=== PATIENT | male | born 1985 | race Caucasian/White ===

== ENCOUNTER 2022-03-26 16:28 | Outpatient (REF) | payer MEDICAID, SELFPAY ==
[2022-03-26 17:53] LABS: Anion Gap 8.4 mmol/L (3-11); BUN 12 mg/dL (7-18); CO2 29.6 mmol/L (21.0-32.0); Calcium 9.4 mg/dL (8.5-10.1); Chloride 101 mmol/L (98-107); Estimated GFR 100.66 (mL/min/1.73m2); Glucose 105 mg/dL (74-106); Sodium 139 mmol/L (136-145)
== END 2022-03-26 16:29 | disposition home or self-care (01) ==
LOC: NCHCN 16:28
PROVIDERS: Visit Provider Family Medicine
DX: I10 Essential (primary) hypertension (principal)
CPT/HCPCS: 80048

== ENCOUNTER 2022-05-27 14:30 | Outpatient (REF) | payer MEDICAID, SELFPAY ==
[2022-05-27 14:23] LABS: Abs Immature Grans 0.01 10^3/uL (0.0-0.06); Absolute Basophil Count 0.04 10^3/uL (0.0-0.2); Absolute Lymphocyte Count 1.31 10^3/uL (1.2-3.4); Absolute Monocyte Count 0.49 10^3/uL (0.1-0.8); Absolute Neutrophil Count 2.69 10^3/uL (1.2-6.7); Basophils % 0.9; Eosinophils % 2.2; HCT 41.2 % (40.0-50.0); HGB 14.3 g/dL (13.5-17.5); Immature Grans % 0.2; Lymphocytes % 28.2; MCHC 34.7 % (32.0-36.0); MCV 89 fL (80-95); MPV 11.5 fL (8.0-11.0); Monocytes % 10.6; Neutrophils % 57.9; Platelet Count 243 10^3/uL (130-400); RBC 4.61 10^6/uL (4.36-5.78); RDW 12.9 % (11.8-14.1); RDW-SD 42.5 fL; WBC 4.64 10^3/uL (4.4-10.8)
[2022-05-27 14:30] LABS: ESR 4 mm/hr (0-15)
[2022-05-27 14:44] LABS: ALT 21 U/L (16-63); AST 24 U/L (15-37); Albumin 4.4 g/dL (3.4-5.0); Alkaline Phosphatase 67 U/L (46-116); Anion Gap 6.7 mmol/L (3-11); BUN 8 mg/dL (7-18); Bilirubin, Total 0.5 mg/dL (0.2-1.0); CO2 32.3 mmol/L (21.0-32.0); Calcium 9.5 mg/dL (8.5-10.1); Chloride 101 mmol/L (98-107); Estimated GFR 100.66 (mL/min/1.73m2); Glucose 107 mg/dL (74-106); Potassium 4.5 mmol/L (3.5-5.1); Sodium 140 mmol/L (136-145); TSH (W/Ref FT4) 0.57 uIU/mL (0.36-3.74); Total Protein 7.8 g/dL (6.4-8.2)
== END 2022-05-27 14:31 | disposition home or self-care (01) ==
LOC: NCHCN 14:30
PROVIDERS: PCP Family Medicine; Visit Provider Family Medicine
DX: I10 Essential (primary) hypertension (principal); R53.83 Other fatigue; F41.8 Other specified anxiety disorders; M65.4 Radial styloid tenosynovitis [de Quervain]; R29.898 Other symptoms and signs involving the musculoskeletal system
CPT/HCPCS: 80053; 85652; 84443; 85025

== ENCOUNTER 2022-06-17 16:50 | Outpatient (REF) | payer MEDICAID, SELFPAY ==
[2022-06-19 23:28] LABS: Mycoplasma genitalium Result Negative (Negative); Specimen Source URINE
[2022-06-20 13:40] LABS: Chlamydia Result Negative (Negative); GC Result Negative (Negative)
== END 2022-06-17 16:51 | disposition home or self-care (01) ==
LOC: NCHCN 16:50
PROVIDERS: PCP Family Medicine; Visit Provider Family Medicine
DX: R30.0 Dysuria (principal); K92.1 Melena
CPT/HCPCS: 87491; 87563; 87591; 83993; 87086

== ENCOUNTER 2022-06-18 15:26 | Outpatient (REF) | payer MEDICAID, SELFPAY ==
[2022-06-21 14:36] LABS: Calprotectin <50.0 mcg/g
== END 2022-06-18 15:27 | disposition home or self-care (01) ==
LOC: NCHCN 15:26
PROVIDERS: PCP Family Medicine; Visit Provider Family Medicine
DX: K92.1 Melena (principal)
CPT/HCPCS: 83993

== ENCOUNTER 2022-06-23 01:35 | Outpatient (CLI) | payer MEDICAID, SELFPAY ==
[2022-06-23] MEDS: Barium Sulfate 2% W/V-Berry Smoothie 450 ML BTL PO ×2 (07:16→07:17)
--- NOTE | 2022-06-23 09:07 | DI.CT_ITS ---
Exam(s) CT ABDOMEN PELVIS W EXAM: CT ABDOMEN PELVIS W CLINICAL HISTORY: PERINEAL PAIN R10.2. TECHNIQUE: Imaging Protocol: Axial computed tomography images with coronal and sagittal reformatted images were created and reviewed CONTRAST MATERIAL: Intravenous: Omnipaque 350 Contrast volume:100 ml Oral: yes / no COMPARISON: No exams were available for comparison FINDINGS: ABDOMEN: Lung Bases: Normal where visualized. Liver: Normal density. No measurable mass. Gallbladder and biliary tract: No radiodense calculus or dilation. Pancreas: Normal density, no abnormal calcifications or inflammatory process. Spleen: Normal. Kidneys: Normal size, contour and axis. No radiodense stones or obstructive uropathy. No masses seen. Adrenal glands: No masses seen. Abdominal Aorta: Abdominal portion non-dilated. PELVIS: Bladder: No gross wall thickening. No calculi.No focal mass. Bowel: Large quantity of stool in ascending colon. Remainder: Unremarkable. No small bowel or gastr ic dilatation. No obstruction or bowel wall thickening. Appendix normal. Peritoneal cavity: No ascites, collection or mesenteric inflammatory response. Bones: Within normal limits for age. Reproductive organs: Within normal limits. Lymph nodes: Unremarkable. Soft tissues: Inferior aspect of the perineum is not included on the scan. Impression: Unremarkable CT scan of the abdomen and pelvis. Inferior aspect of the perineum is not included on the scan. If clinically indicated patient could r eturn for additional imaging at no additional charge. RADIATION DOSE DELIVERED: 566.78mGy.cm Total DLP DATA REPOSITORY: All CT scans at this facility are submitted to the National Radiology Data Registry (NRDR) Dose Index Registry (DIR) with the [employer] (ACR). RADIATION OPTIMIZATION: All CT scans at this facility use at least one of these dose optimization te chniques: automated exposure control; mA and/or kV adjustment per patient size (includes targeted exa ms where dose is matched to clinical indication); or iterative reconstruction.
[2022-06-23] MEDS: Omnipaque 350 MG/ML 100 ML BTL IJ (09:21)
[2022-06-23] MEDS: Normal Saline Flush 10 ML SYR IVP (09:23)
== END 2022-06-23 01:55 ==
LOC: DI 01:35
PROVIDERS: PCP Family Medicine; Visit Provider Family Medicine
DX: R10.2 Pelvic and perineal pain (principal)
CPT/HCPCS: 74177; J3490

== ENCOUNTER 2022-06-24 11:14 | Outpatient (REF) | payer MEDICAID, SELFPAY ==
[2022-06-26 19:23] LABS: Calprotectin <50.0 mcg/g
== END 2022-06-24 11:15 | disposition home or self-care (01) ==
LOC: NCHCN 11:14
PROVIDERS: PCP Family Medicine; Visit Provider Family Medicine
DX: K92.1 Melena (principal)
CPT/HCPCS: 83993

== ENCOUNTER 2022-06-25 12:25 | Outpatient (CLI) | payer MEDICAID, SELFPAY ==
--- NOTE | 2022-06-25 11:37 | DI.CT_ITS ---
Exam(s) CT PELVIC W EXAM: CT PELVIC W CLINICAL HISTORY: PERINEAL PAIN, R10.2, PERINEUM NOT ON SCAN OF 06/23/22 TECHNIQUE: Imaging Protocol: Axial computed tomography images with coronal and sagittal reformatted images were created and reviewed CONTRAST MATERIAL: Intravenous: Omnipaque 350 Contrast volume:98 mL Oral: No COMPARISON: CT CT ABDOMEN PELVIS W from 06/23/2022 FINDINGS: PELVIS: Abdominal Aorta: Abdominal portion non-dilated. Bowel: No obstruction or bowel wall thickening. Appendix is unremarkable. There is residual oral cont rast in the: From the patient's CT scan from 06/23/2022. Peritoneal Cavity: No ascites, collection or mesenteric inflammatory response. Soft Tissues: There is mild asymmetric thickening to the right of the anus. But no focal fluid colle ction is seen. Bladder: Symmetric distention, no gross wall thickening. Reproductive Organs: Unremarkable as visualized. Lymph Nodes: Within normal limits. Bones: Within normal limits. IMPRESSION: Mild asymmetric soft tissue to the right of the anus without focal fluid collection to suggest an abs cess. This might reflect a mild inflammatory process. Please correlate clinically. RADIATION DOSE DELIVERED: 414.29mGy.cm Total DLP DATA REPOSITORY: All CT scans at this facility are submitted to the National Radiology Data Registry (NRDR) Dose Index Registry (DIR) with the [employer] (ACR). RADIATION OPTIMIZATION: All CT scans at this facility use at least one of these dose optimization te chniques: automated exposure control; mA and/or kV adjustment per patient size (includes targeted exa ms where dose is matched to clinical indication); or iterative reconstruction.
[2022-06-25] MEDS: Omnipaque 350 MG/ML 500 ML BTL-Imaging package 98 ML IJ (11:51)
== END 2022-06-25 12:45 ==
LOC: DI 12:26
PROVIDERS: PCP Family Medicine; Visit Provider Family Medicine
DX: R10.2 Pelvic and perineal pain (principal); R93.41 Abnormal radiologic findings on diagnostic imaging of renal pelvis, ureter, or bladder
CPT/HCPCS: 72193

== ENCOUNTER 2022-07-02 00:35 | Outpatient (CLI) | payer MEDICAID, SELFPAY ==
[2022-07-02] MEDS: Omnipaque 350 MG/ML 500 ML BTL-Imaging package IJ (11:20)
--- NOTE | 2022-07-02 11:20 | DI.CT_ITS ---
Exam(s) CT HEAD WO/W EXAM: CT HEAD WO/W CLINICAL HISTORY: worsening of dysphagia/headache/hx of lymphoma,disorder of uvula,k13.79,. TECHNIQUE: Imaging Protocol: Axial computed tomography images with coronal and sagittal reformatted images were created and reviewed. CONTRAST MATERIAL: Intravenous: Omnipaque 350 contrast volume:100 mL COMPARISON: CT CT NECK W from 07/02/2022 FINDINGS: Ventricles and Extra axial spaces: Normal in size and morphology for the patient's age. Hemorrhage: None. Cerebral parenchyma: Normal. Enhancement: No suspicious enhancement. [place]: Unremarkable. Midline shift: None. Brainstem/Cerebellum: Normal. Calvarium: Normal. Visualized Paranasal sinuses/Mastoids: Clear. IMPRESSION: Normal CT scan of the head. RADIATION DOSE DELIVERED: 3326.03 mGy.cm Total DLP 3326.03 mGy.cm Total DLP DATA REPOSITORY: All CT scans at this facility are submitted to the National Radiology Data Registry (NRDR) Dose Index Registry (DIR) with the [employer] (ACR). RADIATION OPTIMIZATION: All CT scans at this facility use at least one of these dose optimization te chniques: automated exposure control; mA and/or kV adjustment per patient size (includes targeted exa ms where dose is matched to clinical indication); or iterative reconstruction.
--- NOTE | 2022-07-02 11:20 | DI.CT_ITS ---
Exam(s) CT CHEST W EXAM: CT CHEST W CLINICAL HISTORY: hx lyphoma/dysphagia,dvt,z85.72,r13.10 TECHNIQUE: Imaging Protocol: Axial computed tomography images with coronal and sagittal reformatted images were created and reviewed CONTRAST MATERIAL: Intravenous: Omnipaque 350Contrast volume:150 mL. COMPARISON: None. FINDINGS: Tracheobronchial tree: Patent where visualized. Pulmonary parenchyma: No consolidation or dominant measurable mass. No architectural distortion. Mediastinum and Jennifer: No dominant adenopathy or fluid collection. The esophagus is unremarkable. Thyroid gland: Unremarkable. Pleura: No effusion or pneumothorax. Heart: The heart is not dilated. No coronary artery calcifications are seen. No pericardial effusion. Aorta: Thoracic aorta non-dilated. Pulmonary arteries: The segmental and subsegmental pulmonary arteries are not ideally opacified. No large central pulmonary embolus is seen. Upper abdomen: Unremarkable. Lymph nodes: Within normal limits. Bones: Within normal limits for the patient's age. Soft tissues: Unremarkable. IMPRESSION: No evidence of thoracic adenopathy. RADIATION DOSE DELIVERED: Total DLP DATA REPOSITORY: All CT scans at this facility are submitted to the National Radiology Data Registry (NRDR) Dose Index Registry (DIR) with the [employer] (ACR). RADIATION OPTIMIZATION: All CT scans at this facility use at least one of these dose optimization te chniques: automated exposure control; mA and/or kV adjustment per patient size (includes targeted exa ms where dose is matched to clinical indication); or iterative reconstruction.
--- NOTE | 2022-07-02 11:20 | DI.CT_ITS ---
Exam(s) CT NECK W EXAM: CT NECK W CLINICAL HISTORY: worsening of dysphagia/headache/hx of lymphoma,z85.72,k13.79,r13.10. TECHNIQUE: Imaging Protocol: Axial computed tomography images with coronal and sagittal reformatted images were created and reviewed. CONTRAST MATERIAL: Intravenous: Omnipaque 350 Contrast volume:150mL COMPARISON: No exams were available for comparison FINDINGS: There is artifact from the patient's dental amalgam. Orbits and orbital soft tissues: Within normal limits. Visualized paranasal sinuses: Mucous retention cysts or polyps are seen in the right maxillary sinus . The remaining sinuses and mastoid air cells are clear. Nasopharynx: Within normal limits. Oropharynx: Within normal limits. Hypopharynx: Within normal limits. Larynx: Within normal limits. Retropharyngeal space: Within normal limits. Parotids/submandibular: Within normal limits. Thyroid gland: Within normal limits. Lymphadenopathy: There is scattered lymph nodes seen along the level one to level three all measurin g less than 8 mm in short axis diameter which are physiologic in nature. Trachea: Within normal limits. Lung apices: Within normal limits. Bones: Within normal limits for the patient's age. Carotids/Jugular: Within normal limits. Soft tissues: Within normal limits. IMPRESSION: No evidence of cervical adenopathy. RADIATION DOSE DELIVERED: Total DLP Total DLP DATA REPOSITORY: All CT scans at this facility are submitted to the National Radiology Data Registry (NRDR) Dose Index Registry (DIR) with the [employer] (ACR). RADIATION OPTIMIZATION: All CT scans at this facility use at least one of these dose optimization te chniques: automated exposure control; mA and/or kV adjustment per patient size (includes targeted exa ms where dose is matched to clinical indication); or iterative reconstruction.
[2022-07-02] MEDS: Normal Saline Flush 10 ML SYR IVP (11:22)
== END 2022-07-02 00:55 ==
LOC: DI 00:35
PROVIDERS: PCP Family Medicine; Visit Provider Surgery
DX: K13.79 Other lesions of oral mucosa (principal); R13.10 Dysphagia, unspecified; Z85.72 Personal history of non-Hodgkin lymphomas
CPT/HCPCS: 70491; 70470; 71260

== ENCOUNTER 2022-07-02 10:43 | Outpatient (REF) | payer MEDICAID, SELFPAY ==
[2022-07-02 13:59] LABS: Abs Immature Grans 0.01 10^3/uL (0.0-0.06); Absolute Basophil Count 0.07 10^3/uL (0.0-0.2); Absolute Eosinophil Count 0.12 10^3/uL (0.0-0.7); Absolute Lymphocyte Count 1.12 10^3/uL (1.2-3.4); Absolute Monocyte Count 0.58 10^3/uL (0.1-0.8); Absolute Neutrophil Count 3.23 10^3/uL (1.2-6.7); Basophils % 1.4; Eosinophils % 2.3; HCT 39.8 % (40.0-50.0); HGB 13.4 g/dL (13.5-17.5); Immature Grans % 0.2; Lymphocytes % 21.8; MCH 30.5 pg (27.0-33.0); MCHC 33.7 % (32.0-36.0); MCV 91 fL (80-95); MPV 10.5 fL (8.0-11.0); Monocytes % 11.3; Platelet Count 235 10^3/uL (130-400); RDW 13.1 % (11.8-14.1); RDW-SD 43.5 fL; WBC 5.13 10^3/uL (4.4-10.8)
[2022-07-02 14:09] LABS: ESR 3 mm/hr (0-15)
[2022-07-02 14:26] LABS: Iron 75 ug/dL (65-175); Total Iron Binding Capacity 283 ug/dL (250-450); Transferrin Sat 27 % (20-55)
[2022-07-02 14:57] LABS: ALT 23 U/L (16-63); AST 30 U/L (15-37); Albumin 4.3 g/dL (3.4-5.0); Alkaline Phosphatase 64 U/L (46-116); Anion Gap 6.4 mmol/L (3-11); BUN 9 mg/dL (7-18); Bilirubin, Total 0.4 mg/dL (0.2-1.0); CO2 32.6 mmol/L (21.0-32.0); Calcium 9.9 mg/dL (8.5-10.1); Chloride 102 mmol/L (98-107); Estimated GFR 100.66 (mL/min/1.73m2); Ferritin 52 ng/mL (26-388); Glucose 98 mg/dL (74-106); Sodium 141 mmol/L (136-145); Total Protein 7.4 g/dL (6.4-8.2); Vitamin B12 515 pg/mL (193-986)
[2022-07-02 15:13] LABS: Lipase 170 U/L (73-393)
[2022-07-02 15:14] LABS: C-Reactive Protein < 0.05 mg/dL (0.0-0.3)
[2022-07-05 14:00] LABS: ANA Interpretation Positive (Negative); ANA Titer Pattern 1:80 Speckled
[2022-07-06 13:08] LABS: dsDNA Ab, IgG 21.9 IU/mL (<30.0)
== END 2022-07-02 10:44 | disposition home or self-care (01) ==
LOC: NCHCN 10:43
PROVIDERS: PCP Family Medicine; Visit Provider Family Medicine
DX: K92.1 Melena (principal); R10.2 Pelvic and perineal pain; C85.80 Other specified types of non-Hodgkin lymphoma, unspecified site; R53.83 Other fatigue; K13.70 Unspecified lesions of oral mucosa; M65.4 Radial styloid tenosynovitis [de Quervain]; R29.898 Other symptoms and signs involving the musculoskeletal system
CPT/HCPCS: 80053; 82306; 83690; 85652; 82607; 82728; 83540; 83550; 85025; 86038; 86140; 86225

== ENCOUNTER 2022-07-07 12:32 | Outpatient (REF) | payer MEDICAID, SELFPAY ==
--- NOTE | 2022-07-07 11:10 | UVULA_PTH ---
PATIENT: Soren Mejia LOC: [facility] U#:[id number] AGE/SX: 36/M ROOM: RE07/07/[address]: Pilar Pina : 1985 BED: DIS: 07/07/2022 SPEC #: [id number] RECD: 07/07/22 19:04 STATUS: YOUNG REQ #: [id number] CHRISTOPHER: 07/07/22 11:[address]: Pilar Pina DEPT: Surgical Specimen RECD BY: Suzie Harmon ENTERED: 07/07/22 19:04 SP TYPE: UVULA OTHR DR: Bertin Cm Tissues: 1 - UVULA Procedures: GROSS AND MICRO LEVEL 3 Comments: [id number]
== END 2022-07-07 12:33 | disposition home or self-care (01) ==
LOC: LBN 12:32
PROVIDERS: PCP Family Medicine; Visit Provider Registered Nurse Maternal Newborn
DX: D10.39 Benign neoplasm of other parts of mouth (principal); Z85.72 Personal history of non-Hodgkin lymphomas
CPT/HCPCS: 88304

== ENCOUNTER 2022-10-16 14:22 | Outpatient (CLI) | payer MEDICAID, SELFPAY ==
--- NOTE | 2022-10-16 | DI.RAD_ITS ---
Exam(s) XR FOOT LT COMPLETE EXAM: XR FOOT LT COMPLETE CLINICAL HISTORY: LT foot puncture wound without foreign body.. TECHNIQUE: 2D digital imaging was performed. COMPARISON: No exams were available for comparison FINDINGS: 3 views No evidence of fracture or diastasis of the Lisfranc joint. Bone density normal. No osseous lesions nor erosions. No radiopaque foreign body. IMPRESSION: No significant findings. DATA REPOSITORY: RADIATION DOSE DELIVERED:
--- NOTE | 2022-10-16 14:43 | DI.VRAD_ITS ---
PROCEDURE INFORMATION: Exam: XR Left Foot Exam date and time: 10/16/2022 2:30 PM Age: 37 years old Clinical indication: Pain; Left; Patient HX: Stepped on nail; Puncture wound to mid-lt foot. TECHNIQUE: Imaging protocol: Radiologic exam of the left foot. Views: 3 or more views. COMPARISON: No relevant prior studies available. FINDINGS: Bones/joints: Normal. Soft tissues: Normal. IMPRESSION: No acute findings. No retained foreign body is seen. Dictated and Authenticated by: Chito Luna MD. Ordering:NEENA LYNCH MD
== END 2022-10-16 14:42 ==
LOC: DI 14:22
PROVIDERS: PCP Family Medicine; Visit Provider Nurse Practitioner Family
DX: S91.332A Puncture wound without foreign body, left foot, initial encounter (principal)
CPT/HCPCS: 73630

== ENCOUNTER 2022-11-03 18:07 | Observation (INO) | payer MEDICAID, SELFPAY ==
[2022-11-03] VITALS (17 sets, daily range): BP systolic 113–150; BP diastolic 55–91; PULSE 67–84; RESP 11–20; TEMP 36.3; O2SAT 96–100
--- NOTE | 2022-11-03 18:00 | RT.EKG_ITS ---
APPROVED REPORT Exam: Resting ECG Reason for Exam: syncope Patient Location: E HR:71 bpm ECG Measurements Heart Rate 71 AXIS AK 155 P 75 QRSd 98 QRS 74 QT 391 T 68 QTc 425 Conclusion Sinus rhythm...normal P axis, V-rate 60- 99 Consider left ventricular hypertrophy...(S V1+R V5/V6) >3.50mV Narrow complex normal sinus rhythm at a rate of 71. Normal axis. Intervals within normal limits. N o ST segment abnormalities. LVH based on voltage criteria in V5 and V6. No acute injury pattern. N o prior for comparison.
--- NOTE | 2022-11-03 18:24 | W.ED.GENAD ---
Discharge Plan Discharge Details Chief Complaint: Dizzy/Sync Primary Care Provider: Bertin Cm ED Provider: Gavin Smalls Home Meds and New Rx's Prescriptions: Continued gabapentin 600 mg tablet 600 mg PO TID Qty: 270 3RF triamcinolone acetonide 0.1 % lotion 1 applic topical DAILY Qty: 60 2RF Rx Instructions: can go up to twice a day. amitriptyline 50 mg tablet 50 mg PO QHS Qty: 90 3RF pregabalin [Lyrica] 200 mg capsule 200 mg PO TID Qty: 270 3RF clindamycin phosphate [Cleocin T] 1 % lotion 1 applic topical BID PRN ondansetron 8 mg tablet,disintegrating 8 mg PO Q12H PRN Vyvanse 50 mg capsule 60 mg PO DAILY mesalamine 1,000 mg suppository 1 g CA QHS 180 Days Qty: 30 8RF Patient Comments: does not use pantoprazole [Protonix] 40 mg tablet,delayed release (DR/EC) 40 mg PO PRN PRN Discontinued ibuprofen 600 mg tablet 600 mg PO PRN PRN naproxen 250 mg tablet 250 mg PO BID PRN Patient Comments: does not take Discharge Instructions Additional Instructions: Please read all of the information that accompanies these instructions. You were seen in the emergency department for your rectal bleeding. Your hemoglobin showed that you did not require a transfusion of blood. Please call the general surgery clinic in the morning for a follow-up appointment. Please return to the emergency department if have repeat episodes of black or bloody stools or if you pass out again. Medical Decision Making This is an overall very well-appearing afebrile and not tachycardic 37-year-old male with bright red blood per rectum and reported melena concerning for GI bleed.Given syncope will obtain CT head as patient reports that he has been confused and may have hit his head after falling in the shower. He has been seen in the past by general surgery in the setting of a solitary rectal ulcer syndrome based on pathology. He has previously had colonoscopies. 2 polyps were removed and pathology showed that they were hyperplastic in July 2021. Colonoscopy also noted congestion and erythema in the distal rectum. He has no history of inflammatory bowel disease to suggest exacerbation. No right lower quadrant tenderness to suggest appendicitis. No left lower quadrant tenderness to suggest diverticulitis. He is not an alcoholic to suggest increased risk for variceal bleed. Given his soft nontender abdomen I do not feel he requires a repeat CT scan at this point time. He has been evaluated in the [place] [facility] [place] he had anorectal manometry which GI noted was consistent with dyssynergic defecation. We will also send type and screen along with CBC and comprehensive metabolic panel and lipase. Patient not meeting SIRS criteria based on vital signs so I did not draw blood cultures nor check a lactate. On rectal exam he had no obvious external hemorrhoids nor any obvious anal fissures.Patient takes minimal ibuprofen so my suspicion for NSAIDs causing his GI bleed is low. Given his lack of tachycardia my suspicion for acute blood loss anemia is low. 7 PM CBC lacks anemia thrombocytopenia and leukocytosis. 7:20 PM Reassuring creatinine with no WENDY. Normal BUN. Elevated bicarbonate similar to prior. No LFT abnormalities. Normal lipase.Given patient's recent syncope his [place] Bleeding Score is 2 making him higher risk and as result, will touch base with general surgery. 7:30 PM I spoke with Dr. Slaughter from general surgery who advised repeating an H&H and performing a gloved exam to assess for melena. If his repeat H&H was stable and his exam was negative for melena she advised discharge with outpatient general surgery follow-up in the morning tomorrow which she will help to arrange via [employer]. I have asked health community dietitian Rachele and Mara to have the patient seen by general surgery tomorrow. Urinalysis nitrite negative not consistent with UTI. Gloved exam documented in physical section with no melena. Patient did have some scant bright red blood per rectum after rectal exam. 7:[address] head with no acute intercranial abnormality. 10:18 PM Patient CBC showed no anemia and his hemoglobin down trended to 2 points from 14.5 to 12.4. This occurred after giving 1 L of IV fluids. We will treat with 80 mg of pantoprazole. Given decrease in hemoglobin we will reach out to hospitalist. I spoke with Dr. Sandoval who graciously accepted the patient for hospitalization. Cardiac arrhythmia/EKG or abnormalities considered: 1. ACS: No ST changes 2. Tachy-mary carmen: No blocks 3. WPW: No delta wave 4. Short/ Long QT: 300 < QTc < 500; no family hx 5. HCM: No LVH; needle Qs/ T-wave inversions 6. [place]: No RSR'; R-bundle appearance 7. Arrhythmogenic Right Ventricular Dysplasia: No epsilon wave, no inverted Ts in anterior precordium 8. No signs of ASD. Chronic conditions affecting the care of the patient: [] History obtained from an outside historian: [] External record review: [facility] [place] Diagnostic interpretations performed by me: [Per my independent interpretation chest x-ray shows:] [] Per my independent interpretation EKG shows: Narrow complex normal sinus rhythm at a rate of 71. Normal axis. Intervals within normal limits. No ST segment abnormalities. LVH based on voltage criteria in V5 and V6. No acute injury pattern. No prior for comparison. Medications: [] Social determinants of health affecting disposition: [] Management discussed with: [] Treatment/interventions considered: [] Response to therapies provided: [] HPI General Date/Time Provider Initiated Documentation: 11/03/22 18:23. HPI Narrative: This is a 37-year-old male with history of remote non-Hodgkin's lymphoma and remote prior alcohol abuse now in the emergency department in the setting of GI bleed. He is not anticoagulated. He says that he takes ibuprofen once a week. He says that he has been struggling with bloody stools for the past 3 to 4 years and has previously had colonoscopies and seeing general surgery at [facility] and gastroenterology [place] [facility] where he reportedly had recent rectal manometry that was reportedly concerning for rectal prolapse. Today he says that he had an episode of bright red blood per rectum and subsequently had clots from his rectum. Subsequently he passed a black and tarry stool. He also syncopized in the shower and fell. He feels that he was confused afterwards. He says that he does not drink alcohol. He has no personal history nor is there any family history of inflammatory bowel disease. He last tolerated p.o. at lunch today. He has not had any fevers nausea nor vomiting. He denies abdominal pain. He has occasionally had dysuria. Related Data Home Medications Medication Instructions Recorded Confirmed clindamycin phosphate 1 % lotion 1 applic topical BID PRN 04/29/22 11/03/22 (Cleocin T) ondansetron 8 mg disintegrating 8 mg PO Q12H PRN 04/29/22 11/03/22 tablet gabapentin 600 mg tablet 600 mg PO TID #270 tabs 07/26/22 11/03/22 lisdexamfetamine 50 mg capsule 60 mg PO DAILY 07/26/22 11/03/22 (Vyvanse) triamcinolone acetonide 0.1 % 1 applic topical DAILY #60 mL 08/02/22 11/03/22 lotion mesalamine 1,000 mg rectal 1 g CA QHS 6 months #30 ea 09/13/22 09/22/22 suppository amitriptyline 50 mg tablet 50 mg PO QHS #90 tabs 09/20/22 11/03/22 pregabalin 200 mg capsule (Lyrica) 200 mg PO TID #270 caps 09/20/22 11/03/22 pantoprazole 40 mg tablet,delayed 40 mg PO PRN PRN 11/03/22 11/03/22 release (Protonix) Previous Rx's Medication Instructions Recorded gabapentin 600 mg tablet 600 mg PO TID #270 tabs 07/26/22 triamcinolone acetonide 0.1 % 1 applic topical DAILY #60 mL 08/02/22 lotion mesalamine 1,000 mg rectal 1 g CA QHS 6 months #30 ea 09/13/22 suppository amitriptyline 50 mg tablet 50 mg PO QHS #90 tabs 09/20/22 pregabalin 200 mg capsule (Lyrica) 200 mg PO TID #270 caps 09/20/22 Allergies Allergy/AdvReac Type Severity Reaction Status Date / Time cefuroxime Allergy Severe Rash Verified 11/03/22 18:16 Penicillins Allergy Severe RASH Verified 11/03/22 18:16 prochlorperazine Allergy Verified 11/03/22 18:16 General Stated Complaint: Dizzy/Sync PIETRO: 3 PFSH All Active Problems (Updated 09/22/22 @ 10:12 by Pilar Pina NP) Dry skin (Acute) De Quervain's tenosynovitis (Acute) Migraine headache without aura (Acute) Chronic headache (Acute) Fibromyalgia (Acute) Polyarthralgia (Acute) Generalized pain (Acute) Abnormal non-bloody discharge from penis (Acute) Hx of hematuria (Acute) Chronic pelvic pain in male (Acute) Nasal vestibulitis (Acute) Somatoform disorder (Acute) Anxiety about health (Acute) Rectal prolapse (Acute) Solitary rectal ulcer syndrome (Acute) Anal pain (Acute) Gastroparesis (Acute) Small fiber polyneuropathy (Acute) Injury of trigeminal nerve, left side, 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 In 2005 at [facility]. DVT (deep venous thrombosis) Dysphagia Chronic. 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 Head: Normocephalic, atraumatic. Eye: Pupils equal, round reactive to light. Extraocular eye movements intact. No conjunctival injection. No scleral icterus. Ear, nose, mouth, throat: Grossly normal inspection. Normal voice, handling secretions normally. Neck: Trachea midline. Cardiovascular: Well-perfused distal extremities. Regular rate and rhythm. Respiratory: Nonlabored respiration. Clear lungs bilaterally. Gastrointestinal: Nondistended abdomen. Soft nontender abdomen. No rebound. No guarding. External rectal exam: No obvious anal fissures. No obvious hemorrhoids. No stigmata of recent GI bleed. No active bleeding. No melena on internal exam. Musculoskeletal: No edema. Moving all 4 extremities spontaneously. Skin: Normal for age and race, grossly normal temperature and turgor. No acute rash. Neurologic: Alert and appropriate, no apparent acute deficits. GCS 15. Alert and oriented to person place and time and events. Psychiatric: Mood and manner are appropriate. Grooming and personal hygiene are appropriate. Course Vital Signs Vital signs: Vital Signs Temperature 36.3 C L 11/03/22 18:10 Pulse 78 11/03/22 18:10 Respiratory Rate 18 11/03/22 18:10 Blood Pressure 150/91 H 11/03/22 18:10 Pulse Oximetry 100 11/03/22 18:10 Temperature 36.3 C L 11/03/22 18:10 Temperature Source Skin 11/03/22 18:10 Pulse 78 11/03/22 18:10 Respiratory Rate 18 11/03/22 18:10 Blood Pressure 150/91 H 11/03/22 18:10 Blood Pressure Position Sitting 11/03/22 18:10 Pulse Oximetry 100 11/03/22 18:10 Oxygen Delivery Method Room Air 11/03/22 18:10 Oxygen Flow Rate 0 11/03/22 18:10 Pain Level 6 11/03/22 18:10
--- NOTE | 2022-11-03 18:30 | DI.CT_ITS ---
Exam(s) CT HEAD WO EXAM: CT HEAD WO CLINICAL HISTORY: Head strike LOC. TECHNIQUE: Imaging Protocol: Axial computed tomography images with coronal and sagittal reformatted images were created and reviewed COMPARISON: CT CT HEAD WO/W from 07/02/2022 FINDINGS: Ventricles and Extra axial spaces: Normal in size and morphology for the patient's age. Hemorrhage: None. Cerebral parenchyma: Normal. Midline shift: None. Brainstem/Cerebellum: Normal. Calvarium: Normal. There is chronic deformity of the right temporomandibular joint with chronic appea ring anterior subluxation. This is unchanged compared to prior examinations. Visualized Paranasal sinuses/Mastoids: Clear. Soft Tissues: Unremarkable. IMPRESSION: No acute intracranial process. RADIATION DOSE DELIVERED: 782.52mGy.cm Total DLP DATA REPOSITORY: All CT scans at this facility are submitted to the National Radiology Data Registry (NRDR) Dose Index Registry (DIR) with the [employer] (ACR). RADIATION OPTIMIZATION: All CT scans at this facility use at least one of these dose optimization te chniques: automated exposure control; mA and/or kV adjustment per patient size (includes targeted exa ms where dose is matched to clinical indication); or iterative reconstruction.
[2022-11-03 18:57] LABS: Abs Immature Grans 0.02 10^3/uL (0.0-0.06); Absolute Basophil Count 0.07 10^3/uL (0.0-0.2); Absolute Lymphocyte Count 1.34 10^3/uL (1.2-3.4); Absolute Monocyte Count 1.05 10^3/uL (0.1-0.8); Absolute Neutrophil Count 5.93 10^3/uL (1.2-6.7); Basophils % 0.8; Eosinophils % 2.3; HCT 43.2 % (40.0-50.0); HGB 14.5 g/dL (13.5-17.5); Immature Grans % 0.2; Lymphocytes % 15.6; MCH 30.3 pg (27.0-33.0); MCHC 33.6 % (32.0-36.0); MCV 90 fL (80-95); MPV 10.5 fL (8.0-11.0); Monocytes % 12.2; Neutrophils % 68.9; Platelet Count 250 10^3/uL (130-400); RBC 4.78 10^6/uL (4.36-5.78); RDW 13.2 % (11.8-14.1); RDW-SD 43.6 fL; WBC 8.61 10^3/uL (4.4-10.8)
[2022-11-03 19:12] LABS: ALT 22 U/L (16-63); AST 20 U/L (15-37); Albumin 4.3 g/dL (3.4-5.0); Alkaline Phosphatase 83 U/L (46-116); Anion Gap 6.3 mmol/L (3-11); BUN 16 mg/dL (7-18); Bilirubin, Total 0.4 mg/dL (0.2-1.0); CO2 32.7 mmol/L (21.0-32.0); CREATININE 1.1 mg/dL (0.70-1.30); Calcium 9.3 mg/dL (8.5-10.1); Chloride 102 mmol/L (98-107); Estimated GFR 89.22 (mL/min/1.73m2); Glucose 78 mg/dL (74-106); Lipase 30 U/L (16-77); Potassium 3.7 mmol/L (3.5-5.1); Sodium 141 mmol/L (136-145); Total Protein 8.2 g/dL (6.4-8.2)
[2022-11-03 19:28] LABS: Bilirubin Negative (Negative); Blood Negative (Negative); Clarity Clear (Clear); Glucose Negative (Negative); Ketones Negative (Negative); Leukocyte Esterase Negative (Negative); Nitrite Negative (Negative); Urobilinogen 0.2 mg/dL (Up to 0.2)
--- NOTE | 2022-11-03 19:37 | DI.VRAD_ITS ---
PROCEDURE INFORMATION: Exam: CT Head Without Contrast Exam date and time: 11/03/2022 7:29 PM Age: 37 years old Clinical indication: Injury or trauma; Other: Head strike loc; Blunt trauma (contusions or hematomas) and concussion/head injury; With loss of consciousness; Not specified TECHNIQUE: Imaging protocol: Computed tomography of the head without contrast. Radiation optimization: All CT scans at this facility use at least one of these dose optimization techniques: automated exposure control; mA and/or kV adjustment per patient size (includes targeted exams where dose is matched to clinical indication); or iterative reconstruction. COMPARISON: CT HEAD WO/W 07/02/2022 10:23 AM FINDINGS: Brain: Normal. No hemorrhage. Unremarkable white matter. No mass effect. Cerebral ventricles: No ventriculomegaly. Paranasal sinuses: Visualized sinuses are unremarkable. No fluid levels. Mastoid air cells: Visualized mastoid air cells are well aerated. Bones/joints: Degenerative changes in the right mandibular condylar head and chronic appearing anterior subluxation, grossly stable No acute fracture. Soft tissues: Unremarkable. IMPRESSION: No acute intracranial abnormality. Chronic findings at the right temporomandibular joint with mild anterior subluxation Dictated and Authenticated by: Yao Wilkins MD. Ordering:ZACH Alonso MD
--- NOTE | 2022-11-03 19:38 | NUR.NOTE ---
Nursing Note:surgical consult faxed
[2022-11-03] MEDS: Ondansetron 4 MG/2 ML VIAL IVP (19:39)
[2022-11-03] MEDS: Normal Saline 1,000 ML 1000 ML IV (20:28)
--- NOTE | 2022-11-03 20:34 | NUR.NOTE ---
Nursing Note: Pt thoroughly updated with plan of care and estimated time of stay. Pt thanked this nurse for update and care. Pt has warm blanket and call light within reach.
[2022-11-03 21:47] LABS: HCT 36.8 % (40.0-50.0); HGB 12.4 g/dL (13.5-17.5)
[2022-11-03] MEDS: Pantoprazole 40 MG VIAL 80 MG IVP (22:33)
--- NOTE | 2022-11-04 | DI.NM_ITS ---
Exam(s) NM GASTRIC EMPTYING CLINICAL HISTORY: bloating fullness. COMPARISON: No exams were available for comparison EXAMINATION: PO Dose: 1 mCi Sulfur colloid in test meal composed of a eggs, toast and water. Images: According to protocol. FINDINGS: Patient gastric emptying results: 1 hour: 20%. ([facility] normal gastric range: 10-63 % empty.) 2 hour: 75%. ([facility] normal gastric range: 40-70 % empty.) 4 hour: 89%. ([facility] normal gastric range: 90-100 % empty.) T 1/2: 100 minutes. This is within normal limits for solid test meal. IMPRESSION: 1. No evidence of delayed gastric emptying.
[2022-11-04] MEDS: Pregabalin 100 MG CAP 200 MG PO ×3 (00:21→14:45)
[2022-11-04] MEDS: Gabapentin 300 MG CAP 600 MG PO ×3 (00:21→14:45)
--- NOTE | 2022-11-04 00:21 | HPE_ITS ---
Date of service: 11/03/22 Time of Service: 23:22 Assessment and Plan Assessment and plan (1) Blood per rectum: Status: Acute Assessment and plan: He does have h/o hemorrhoids and solitary rectal ulcer syndrome. Endorsed a black tarry stool. Hgb decreased, in part, most likely, from dilutional effect of 1L NS infusion. H/H in AM. Repeat sooner if he has melena or hematochezia. (2) Rectal prolapse: Status: Acute Assessment and plan: Dx at [facility] during rectal manometry. He has f/u appt next month to discuss this. (3) Injury of trigeminal nerve, left side, sequela: Status: Acute Assessment and plan: He sees Dr House for this issue. Injury occurred when he had a syncopal episode and fell from standing height onto hard surface and striking his left mandible. (4) Diffuse non-Hodgkin's lymphoma: Assessment and plan: Dx and treated in 2012. (5) Alcohol abuse: Assessment and plan: In remission. (6) Gastroparesis: Status: Acute Assessment and plan: Dxd on upper endoscopy. Food from previous days meal was present in stomach. He recalls trying reglan but stopped because of some side effect he doesn't rememeber. Not tardive dyskinesia. 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 He endorsed having intermittent blood in stools and has had previous colonoscopies and upper endoscopy. In 2021 two hyperplastic polyps were removed during a colonoscopy. Also noted on previous colonoscopy was congestion and erythema in the distal rectum. No ulcerative colitis or Crohn's. He has had a solitary rectal ulcer syndrome based on pathology. He presented to the ED after an episode of bright red blood per rectum followed by some clots. He then, subsequently, pass some melanotic stool and when in the shower had a syncopal episode. He felt confused afterward. Vital Signs Temperature ?36.3 C L ?11/03/22 18:10 Pulse ?78 ?11/03/22 18:10 Respiratory Rate ?18 ?11/03/22 18:10 Blood Pressure ?150/91 H ?11/03/22 18:10 Pulse Oximetry ?100 ?11/03/22 18:10 Hgb 14.5. Lytes, BUN and creatinine, LFTs normal. He was given 1L NS. Repeat Hgb of 12.4. No melena, hematochezia or hematemesis in the ED. CT head negative for acute findings. Per ED provider, his [place] Bleeding Score is 2 making him higher risk and as result, will touch base with general surgery. Dr Slaughter felt that after a rectal exam, if there was no melena, he could be discharged and she would schedule a f/u office visit. No melena noted. Because of the drop in Hgb, knowing there was likely a dilutional effect he was admitted for Observation. Review of Systems All systems reviewed & are unremarkable except as noted in HPI and below PFSH All Active Problems (Updated 11/04/22 @ 00:45 by Randall Sandoval MD) Blood per rectum (Acute) Dry skin (Acute) De Quervain's tenosynovitis (Acute) Migraine headache without aura (Acute) Chronic headache (Acute) Fibromyalgia (Acute) Polyarthralgia (Acute) Generalized pain (Acute) Abnormal non-bloody discharge from penis (Acute) Hx of hematuria (Acute) Chronic pelvic pain in male (Acute) Nasal vestibulitis (Acute) Somatoform disorder (Acute) Anxiety about health (Acute) Rectal prolapse (Acute) Solitary rectal ulcer syndrome (Acute) Anal pain (Acute) Gastroparesis (Acute) Small fiber polyneuropathy (Acute) Injury of trigeminal nerve, left side, 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 In 2005 at [facility]. DVT (deep venous thrombosis) Dysphagia Chronic. 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 Do you feel safe at home: Yes Do you feel safe in your relationship?: Yes Meds Allergies and Home Medications Allergies Allergy/AdvReac Type Severity Reaction Status Date / Time cefuroxime Allergy Severe Rash Verified 11/03/22 18:16 Penicillins Allergy Severe RASH Verified 11/03/22 18:16 prochlorperazine Allergy Verified 11/03/22 18:16 Home Medications Medication Instructions Recorded Confirmed Type clindamycin phosphate 1 % lotion 1 applic topical BID PRN 04/29/22 11/04/22 History (Cleocin T) ondansetron 8 mg disintegrating 8 mg PO Q12H PRN 04/29/22 11/04/22 History tablet gabapentin 600 mg tablet 600 mg PO TID #270 tabs 07/26/22 11/04/22 Rx lisdexamfetamine 50 mg capsule 60 mg PO DAILY 07/26/22 11/04/22 History (Vyvanse) triamcinolone acetonide 0.1 % 1 applic topical DAILY #60 mL 08/02/22 11/04/22 Rx lotion mesalamine 1,000 mg rectal 1 g ID QHS 6 months #30 ea 09/13/22 11/04/22 Rx suppository amitriptyline 50 mg tablet 50 mg PO QHS #90 tabs 09/20/22 11/04/22 Rx pregabalin 200 mg capsule (Lyrica) 200 mg PO TID #270 caps 09/20/22 11/04/22 Rx pantoprazole 40 mg tablet,delayed 40 mg PO PRN PRN 11/03/22 11/04/22 History release (Protonix) Exam Narrative Exam Narrative: General: Non-toxic appearing. Pleasant and interactive. Head: Normocephalic, atraumatic. Left mandibular area scar from previous surgery. Eye: Pupils equal, sclera clear. Neck: Trachea midline. FROM Cardiovascular: Well-perfused distal extremities. Regular rate and rhythm. Respiratory: Clear. Nonlabored breathing. Gastrointestinal: Soft, NT, ND. +BS. External rectal exam per ED physician: No obvious anal fissures. No obvious hemorrhoids. No stigmata of recent GI bleed. No active bleeding. No melena on internal exam. Musculoskeletal: No edema. No calf tenderness. Skin: No rashes, lesions. Neurologic: Alert and appropriate, no apparent acute deficits. Psychiatric: Normal appearance and speech. Affect appropriate. Results Labs 11/03/22 21:43 11/03/22 18:45 Labs: Laboratory Results - last 24 hr 11/03/22 11/03/22 11/03/22 18:45 18:45 18:45 WBC 8.61 RBC 4.78 Hgb 14.5 Hct 43.2 MCV 90 MCH 30.3 MCHC 33.6 RDW 13.2 Plt Count 250 MPV 10.5 Immature Gran % 0.2 Neutrophils % 68.9 Lymphocytes % 15.6 Monocytes % 12.2 Eosinophils % 2.3 Basophils % 0.8 Nucleated RBC % 0.0 Absolute Neutrophils 5.93 Absolute Lymphocytes 1.34 Absolute Monocytes 1.05 H Absolute Eosinophils 0.20 Absolute Basophils 0.07 Sodium 141 Potassium 3.7 Chloride 102 Carbon Dioxide 32.7 H Anion Gap 6.3 BUN 16 Creatinine 1.1 Est GFR (CKD-EPI 2020) 89.22 Glucose 78 Calcium 9.3 Total Bilirubin 0.4 AST 20 ALT 22 Alkaline Phosphatase 83 Total Protein 8.2 Albumin 4.3 Lipase 30 Urine Color Urine Clarity Urine pH Ur Specific [place] Urine Protein Urine Ketones Urine Blood Urine Nitrite Urine Bilirubin Urine Urobilinogen Ur Leukocyte Esterase Urine Glucose Patient ABO/Rh A Positive Antibody Screen NEGATIVE 11/03/22 11/03/22 11/04/22 19:10 21:43 02:00 WBC RBC Hgb 12.4 L D Cancelled Hct 36.8 L Cancelled MCV MCH MCHC RDW Plt Count MPV Immature Gran % Neutrophils % Lymphocytes % Monocytes % Eosinophils % Basophils % Nucleated RBC % Absolute Neutrophils Absolute Lymphocytes Absolute Monocytes Absolute Eosinophils Absolute Basophils Sodium Potassium Chloride Carbon Dioxide Anion Gap BUN Creatinine Est GFR (CKD-EPI 2020) Glucose Calcium Total Bilirubin AST ALT Alkaline Phosphatase Total Protein Albumin Lipase Urine Color Yellow Urine Clarity Clear Urine pH 6.0 Ur Specific [place] 1.010 Urine Protein Negative Urine Ketones Negative Urine Blood Negative Urine Nitrite Negative Urine Bilirubin Negative Urine Urobilinogen 0.2 Ur Leukocyte Esterase Negative Urine Glucose Negative Patient ABO/Rh Antibody Screen Last Vital Signs Temp 36.3 C L 11/03/22 18:10 Pulse 72 11/03/22 22:08 Resp 16 11/03/22 22:08 BP 113/60 11/03/22 22:08 Pulse Ox 96 11/03/22 22:08 Time Spent Time spent with Patient: 40-54 minutes Time was spent: preparing to see the patient(eg.review tests), obtaining and/or reviewing separately otained hiistory, ordering medications,tests, procedures, referring, communicating with other health post acute care nurse and indepentently interpreting results
[2022-11-04 00:22] VITALS: BP 140/79; PULSE 72; RESP 16; TEMP 36.6; O2SAT 99
[2022-11-04 00:23] VITALS: O2SAT 99
[2022-11-04] MEDS: Amitriptyline 50 MG TAB PO (00:54)
[2022-11-04] MEDS: Lisdexamphetamine 60 MG CAP PO (08:32)
[2022-11-04] MEDS: Pantoprazole 40 MG VIAL IVP (08:39)
[2022-11-04 08:41] VITALS: BP 132/65; PULSE 82; RESP 14; TEMP 36.8; O2SAT 100
[2022-11-04] MEDS: Ondansetron 4 MG/2 ML VIAL IVP (08:53)
[2022-11-04 08:55] LABS: HCT 44.6 % (40.0-50.0)
[2022-11-04] MEDS: LORazepam 2 MG/ML VIAL 1 MG IVP ×2 (11:32→15:25)
[2022-11-04 13:15] VITALS: BP 121/77; PULSE 82; RESP 18; TEMP 36.8; O2SAT 99
[2022-11-04 14:51] LABS: HCT 44.5 % (40.0-50.0); HGB 14.8 g/dL (13.5-17.5)
--- NOTE | 2022-11-04 15:59 | SCONE_ITS ---
Date of service: 11/04/22 Time of Service: 15:59 Assessment and Plan Assessment and plan (1) Blood per rectum: Status: Acute Assessment and plan: Patient has a longstanding history of rectal bleeding, pain and difficulty with bowel movements. He was using mesalamine suppositories to control this. (P yash has stopped stopped using the suppositories because he does not like the oily discharge that he gets from them. Insurance will not cover cortisone suppositories.) he did have an anal manometry done down at [facility] which shows dyssynergia. He has had 3 colonoscopies in [place] which did show-solitary rectal ulcer syndrome but otherwise normal. He does have an appointment at GI in November at [facility]. At this point his hemoglobin is stable and I do not feel doing another colonoscopy at this time will give us any further information. GI is going to want to do there on colonoscopy to assess. There is some question about gastric emptying problems. He has had a gastric emptying study in the past. Has not had one recently. Repeat ordered. (Study was completed and was normal.) -Patient has received IV Zofran and is hungry and would like to eat (he ran out of his Zofran and did not get refills from his PCP). -I did refill his prescription for Zofran -We will try cortisone enemas to see if this works better than the mesalamine suppositories. Other options would be doing oral budesonide as a bridge until he sees GI. -Patient is encouraged to stay on a bland diet. He should avoid spicy foods/tobacco/alcohol/aspirin or NSAIDs. He should take a fiber supplement daily. Avoid fast foods/fried foods highly processed foods artificial sweeteners and high fructose corn syrup. Encourage plain water intake. Regular exercise. -And regular counseling for dealing with his issues of somatizations and anxiety over health problems and relaxation techniques to deal with his chronic nerve pain. I did discuss it with him that this is going to be a lifelong condition for him. That he he is going to have to get into the habit of keeping medications on hand for when his symptoms get bad and he needs rescue medications (such as Zofran). There is not an easy fix to his problems as a result of the lymphoma and the chemotherapeutic agents. And awaiting input from GI to see if there is any other options for treatment for him. Patient is given the opportunity to ask questions. They were answered fully to his satisfaction. Patient is frustrated by how long it is taking to get an appointment with GI. Current treatment plan was reviewed with the patient and he is in agreement. His girlfriend will go rock picker his prescriptions that she needs prior to 6 PM today I encouraged patient to open the [facility] might chart account so he can track his appointments with [facility] This document was created with voice activated software and may contain errors. 35 mins spent with the patient today. (2) Migraine headache without aura: Status: Acute (3) Chronic headache: Status: Acute (4) Fibromyalgia: Status: Acute (5) Polyarthralgia: Status: Acute (6) Nasal vestibulitis: Status: Acute (7) Somatoform disorder: Status: Acute (8) Rectal prolapse: Status: Acute (9) Solitary rectal ulcer syndrome: Status: Acute (10) Gastroparesis: Status: Acute (11) Alcohol abuse: (12) Chronic fatigue syndrome: (13) Diffuse non-Hodgkin's lymphoma: (14) DVT (deep venous thrombosis): (15) Dysphagia: (16) Lumbar radiculopathy: (17) Raynaud's disease without gangrene: (18) Substance abuse: (19) Dyssynergic defecation: Status: Acute History of Present Illness Narrative: Patient came into the ER on 11/03 with complaints of rectal bleeding. He notes that it was significantly more blood than he normally has. Repeat hemoglobins were all stable. Patient had been being maintained on mesalamine suppositories. He admits that he is stopped taking them because he does not like the oily discharge that he gets from them. He also notes that he has been having more nausea than lately. He also has run out of his Zofran and did not contact his PCP for refill. He has had no further bleeding since he is in the hospital. He has been getting IV Zofran and the nausea is passed and he is hungry and would like to try eating. Patient is well-known to me. He has chronic GI issues including nausea and vomiting, reflux symptoms, bloating, feeling like his stomach is not emptying. He has had 2 gastric emptying studies now that have been normal. -He has had 2 EGDs with biopsies that were normal. He has had 3 colonoscopies that have been normal except for anal rectal disease-rectal ulcers and some mild irritation. He was seen down at [facility] for anal manometry-results of this are consistent with dyssynergia. He does have an appointment with GI later on this month. He admits that he has not been good about diet and taking his medications. With because of insurance constraints, we cannot do cortisone suppositories. We will try Yung enemas and see if these are more beneficial He is a heavy smoker drinker and has been advised that curtailing these habits will greatly improve his health status. We have also discussed the importance of a high-fiber diet, getting plenty of water in his diet and that he probably should start a fiber product. Patient has not done any of these. -He recently moved here from [place]. He seen multiple specialties i ncluding rheumatology, GI, neurology, pain management dermatology, and oncology. There is not a consensus as to what his diagnosis is. He did have vincristine at the age of 19 for lymphoma. Some of his symptoms are consistent with chronic autonomic nerve damage from this medication. Oncology at [facility] did not feel this was the case. He has seen Dr. House who is working with him for his headaches. He is going to see Derm for his alopecia areata. But again unfortunately it is taken time to get him into these consults at [facility]. Patient is very frustrated by this. Unfortunately his symptoms, although they are uncomfortable, they are not life-threatening. -GI at [facility] is going to want to do at least a flex sig to look at his rectal disease. His hemoglobin is stable and he has had no further bleeding. I do not feel repeat colonoscopy would be beneficial or add anything further to his diagnosis. He has been on cortisone enemas/suppositories and mesalamine sup positories in the past. He has had extensive work-ups for inflammatory bowel disease including blood work and multiple biopsies that have all been negative. He has been worked up for lupus/RA and multiple muscle disorders. he is not had a nerve biopsy in the past. -Patient has a history of alopecia areata. He has noted increased hair loss and this is very distressing for him. He was receiving scalp cortisone injections by dermatology. He does have a appointment with Derm in January for co nsideration of resuming these injections. I I have given him a prescription for a topical steroid cream to use Review of Systems All systems reviewed & are unremarkable except as noted in HPI and below PFSH All Active Problems (Updated 11/04/22 @ 16:02 by Emmanuelle Sun DO) Dyssynergic defecation (Acute) Confirmed by rectal manometry at [facility] 09/2022 Blood per rectum (Acute) Dry skin (Acute) De Quervain's tenosynovitis (Acute) Migraine headache without aura (Acute) Chronic headache (Acute) Fibromyalgia (Acute) Polyarthralgia (Acute) Generalized pain (Acute) Abnormal non-bloody discharge from penis (Acute) Hx of hematuria (Acute) Chronic pelvic pain in male (Acute) Nasal vestibulitis (Acute) Somatoform disorder (Acute) Anxiety about health (Acute) Rectal prolapse (Acute) Solitary rectal ulcer syndrome (Acute) Anal pain (Acute) Gastroparesis (Acute) Small fiber polyneuropathy (Acute) Injury of trigeminal nerve, left side, 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 In 2005 at [facility]. DVT (deep venous thrombosis) Dysphagia Chronic. He feels to be due to aftereffects vincristine Hypertension Lumbar radiculopathy Raynaud's disease without gangrene Substance abuse Venous insufficiency of both lower extremities Surgical History History of mandibular surgery Status post endovenous radiofrequency ablation (RFA) of saphenous vein b/l Family History Father Heart disease Social History Smoking/Tobacco Use Status: Former Tobacco Use Smoking risk assessment performed?: Yes Alcohol Intake: former Drug use: Daily Substance use type: marijuana Number of Children: 0 current occupation: [employer] Do you feel safe at home: Yes Do you feel safe in your relationship?: Yes Exam Const General: cooperative, healthy appearing, no acute distress and anxious Nutritional Appearance: average body habitus Orientation: alert, awake and oriented x3 Other: PHYSICAL EXAM GENERAL APPEARANCE: Alert, healthy appearance, oriented, x 3,? in no acute distress HYDRATION: Well hydrated HEAD, EYES, EARS, NECK, THROAT: Head is normocephalic, pupils equal, round, reactive to light and accommodation, ocular movement intact, sclera clear and no jaundice. ?Dentition intact. increasing hair loss that pt is distressed about. LUNGS: normal respiration/normal chest excursion. ?Clear to auscultation bilaterally. ?No wheeze. ?HEART: Regular rate and rhythm. no murmurs EXTREMITY: No edema or cyanosis.? no leg pain, redness, swelling.? ABDOMEN: soft and non-tender to palpation.? Normal bowel sounds.? Patient's had no further bleeding since he is been up to [facility] from the emergency room. He is hungry and would like to eat. Results Last Vital Signs Temp 36.8 C 11/04/22 13:15 Pulse 82 11/04/22 13:15 Resp 18 11/04/22 13:15 BP 121/77 11/04/22 13:15 Pulse Ox 99 11/04/22 13:15 Labs 11/04/22 14:42 11/03/22 18:45 Labs: Laboratory Results - last 24 hr 11/03/22 11/03/22 11/03/22 18:45 18:45 18:45 WBC 8.61 RBC 4.78 Hgb 14.5 Hct 43.2 MCV 90 MCH 30.3 MCHC 33.6 RDW 13.2 Plt Count 250 MPV 10.5 Immature Gran % 0.2 Neutrophils % 68.9 Lymphocytes % 15.6 Monocytes % 12.2 Eosinophils % 2.3 Basophils % 0.8 Nucleated RBC % 0.0 Absolute Neutrophils 5.93 Absolute Lymphocytes 1.34 Absolute Monocytes 1.05 H Absolute Eosinophils 0.20 Absolute Basophils 0.07 Sodium 141 Potassium 3.7 Chloride 102 Carbon Dioxide 32.7 H Anion Gap 6.3 BUN 16 Creatinine 1.1 Est GFR (CKD-EPI 2020) 89.22 Glucose 78 Calcium 9.3 Total Bilirubin 0.4 AST 20 ALT 22 Alkaline Phosphatase 83 Total Protein 8.2 Albumin 4.3 Lipase 30 Urine Color Urine Clarity Urine pH Ur Specific [place] Urine Protein Urine Ketones Urine Blood Urine Nitrite Urine Bilirubin Urine Urobilinogen Ur Leukocyte Esterase Urine Glucose Patient ABO/Rh A Positive Antibody Screen NEGATIVE 11/03/22 11/03/22 11/04/22 19:10 21:43 02:00 WBC RBC Hgb 12.4 L D Cancelled Hct 36.8 L Cancelled MCV MCH MCHC RDW Plt Count MPV Immature Gran % Neutrophils % Lymphocytes % Monocytes % Eosinophils % Basophils % Nucleated RBC % Absolute Neutrophils Absolute Lymphocytes Absolute Monocytes Absolute Eosinophils Absolute Basophils Sodium Potassium Chloride Carbon Dioxide Anion Gap BUN Creatinine Est GFR (CKD-EPI 2020) Glucose Calcium Total Bilirubin AST ALT Alkaline Phosphatase Total Protein Albumin Lipase Urine Color Yellow Urine Clarity Clear Urine pH 6.0 Ur Specific [place] 1.010 Urine Protein Negative Urine Ketones Negative Urine Blood Negative Urine Nitrite Negative Urine Bilirubin Negative Urine Urobilinogen 0.2 Ur Leukocyte Esterase Negative Urine Glucose Negative Patient ABO/Rh Antibody Screen 11/04/22 11/04/22 08:30 14:42 WBC RBC Hgb 15.0 D 14.8 Hct 44.6 44.5 MCV MCH MCHC RDW Plt Count MPV Immature Gran % Neutrophils % Lymphocytes % Monocytes % Eosinophils % Basophils % Nucleated RBC % Absolute Neutrophils Absolute Lymphocytes Absolute Monocytes Absolute Eosinophils Absolute Basophils Sodium Potassium Chloride Carbon Dioxide Anion Gap BUN Creatinine Est GFR (CKD-EPI 2020) Glucose Calcium Total Bilirubin AST ALT Alkaline Phosphatase Total Protein Albumin Lipase Urine Color Urine Clarity Urine pH Ur Specific [place] Urine Protein Urine Ketones Urine Blood Urine Nitrite Urine Bilirubin Urine Urobilinogen Ur Leukocyte Esterase Urine Glucose Patient ABO/Rh Antibody Screen
--- NOTE | 2022-11-04 16:57 | DSE_ITS ---
Date of service: 11/04/22 Time of Service: 17:06 DS: Diagnosis Discharge Diagnosis (1) Blood per rectum: Status: Acute (2) Migraine headache without aura: Status: Acute (3) Chronic headache: Status: Acute (4) Fibromyalgia: Status: Acute (5) Polyarthralgia: Status: Acute (6) Nasal vestibulitis: Status: Acute (7) Somatoform disorder: Status: Acute (8) Rectal prolapse: Status: Acute (9) Solitary rectal ulcer syndrome: Status: Acute (10) Gastroparesis: Status: Acute (11) Alcohol abuse: (12) Chronic fatigue syndrome: (13) Diffuse non-Hodgkin's lymphoma: (14) DVT (deep venous thrombosis): (15) Dysphagia: (16) Lumbar radiculopathy: (17) Raynaud's disease without gangrene: (18) Substance abuse: (19) Dyssynergic defecation: Status: Acute Discharge Plan Disposition Patient Disposition: Home Condition: Improving Discharge Details Reason For Visit: GI Bleed, blood loss anemia Admit Date/Time: 11/03/22 22:42 Admit Provider: Randall Sandoval Attending Provider: Randall Sandoval Primary Care Provider: Bertin Cm Hospital Course Hospital Course: see addendum Home Meds and New Rx's Prescriptions: New hydrocortisone [Cortenema] 100 mg/60 mL enema 100 mg AK QHS Qty: 1260 6RF ondansetron HCl 8 mg tablet 8 mg PO Q8H PRN PRN (Reason: nausea and vomiting) Qty: 20 6RF Continued gabapentin 600 mg tablet 600 mg PO TID Qty: 270 3RF triamcinolone acetonide 0.1 % lotion 1 applic topical DAILY Qty: 60 2RF Rx Instructions: can go up to twice a day. amitriptyline 50 mg tablet 50 mg PO QHS Qty: 90 3RF pregabalin [Lyrica] 200 mg capsule 200 mg PO TID Qty: 270 3RF clindamycin phosphate [Cleocin T] 1 % lotion 1 applic topical BID PRN ondansetron 8 mg tablet,disintegrating 8 mg PO Q12H PRN Vyvanse 50 mg capsule 60 mg PO DAILY pantoprazole [Protonix] 40 mg tablet,delayed release (DR/EC) 40 mg PO PRN PRN Discontinued ibuprofen 600 mg tablet 600 mg PO PRN PRN naproxen 250 mg tablet 250 mg PO BID PRN Patient Comments: does not take mesalamine 1,000 mg suppository 1 g AK QHS 180 Days Qty: 30 8RF Patient Comments: does not use Discharge Instructions Additional Instructions: F[place] [facility] [place] -bland diet. Continue with lifestyle modifications: no alcohol, tobacco products, Aspirin or NSAID's (ibuprofen, Motrin, Naprosyn, aleve, etc), soda pop, caffeine, (including tea & chocolate), and acidic foods, (tomatoes or tomato based foods, citrus, onions/garlic, peppers, peppermints) spicy or fried/fatty foods. Activity:: Activity as Tolerated Equipment/Supplies:: No Equipment Needed Diet:: bland DS: Summary Time Spent with Patient providing and/or coordinating discharge services: Less than 30 minutes Status at Discharge Functional status at discharge: independent ambulation Overall status at discharge: patient is back to baseline Mental Status: mental status grossly normal Speech and Movement: speech and movement normal Mood: congruent mood Affect: normal affect Exam Psych Mental Status: mental status grossly normal Speech and Movement: speech and movement normal Mood: congruent mood Affect: normal affect DS: Data Vitals/I&O Vitals and I&O: Vital Signs Temperature 36.8 C 11/04/22 13:15 Temperature Source Skin 11/04/22 08:41 Pulse 82 11/04/22 13:15 Pulse Rhythm Regular 11/04/22 13:15 Pulse 70 11/03/22 19:17 Respiratory Rate 18 11/04/22 13:15 Respiratory Effort Normal, Non-Labored 11/04/22 13:15 Respiratory Depth Normal 11/04/22 13:15 Respiratory Pattern Normal 11/04/22 13:15 Blood Pressure 121/77 11/04/22 13:15 Blood Pressure Mean 88 11/03/22 19:16 Blood Pressure Position Sitting 11/03/22 18:10 Pulse Oximetry 99 11/04/22 13:15 Oxygen Delivery Method Room Air 11/04/22 13:15 Oxygen Flow Rate 0 11/04/22 13:15 Pain Level 7 11/04/22 13:15 Comment headache 11/04/22 08:41 Intake & Output 05/11/04/22 11/04/22 23:59 11:59 23:59 Intake Total 1040.000 / 1040.000 Balance 1040.000 / 1040.000 Weight 90.718 kg 90.71 kg Intake: IV 1040.000 / 1040.000 Other: Urine Appearance Clear Data Completed and Pending Labs on day of discharge: Labs from last 24 hours 11/04/22 11/04/22 11/04/22 14:42 08:30 02:00 WBC RBC Hgb 14.8 15.0 D Cancelled Hct 44.5 44.6 Cancelled MCV MCH MCHC RDW Plt Count MPV Immature Gran % Neutrophils % Lymphocytes % Monocytes % Eosinophils % Basophils % Nucleated RBC % Absolute Neutrophils Absolute Lymphocytes Absolute Monocytes Absolute Eosinophils Absolute Basophils Sodium Potassium Chloride Carbon Dioxide Anion Gap BUN Creatinine Est GFR (CKD-EPI 2020) Glucose Calcium Total Bilirubin AST ALT Alkaline Phosphatase Total Protein Albumin Lipase Urine Color Urine Clarity Urine pH Ur Specific [place] Urine Protein Urine Ketones Urine Blood Urine Nitrite Urine Bilirubin Urine Urobilinogen Ur Leukocyte Esterase Urine Glucose Patient ABO/Rh Antibody Screen 11/03/22 11/03/22 11/03/22 21:43 19:10 18:45 WBC RBC Hgb 12.4 L D Hct 36.8 L MCV MCH MCHC RDW Plt Count MPV Immature Gran % Neutrophils % Lymphocytes % Monocytes % Eosinophils % Basophils % Nucleated RBC % Absolute Neutrophils Absolute Lymphocytes Absolute Monocytes Absolute Eosinophils Absolute Basophils Sodium Potassium Chloride Carbon Dioxide Anion Gap BUN Creatinine Est GFR (CKD-EPI 2020) Glucose Calcium Total Bilirubin AST ALT Alkaline Phosphatase Total Protein Albumin Lipase Urine Color Yellow Urine Clarity Clear Urine pH 6.0 Ur Specific [place] 1.010 Urine Protein Negative Urine Ketones Negative Urine Blood Negative Urine Nitrite Negative Urine Bilirubin Negative Urine Urobilinogen 0.2 Ur Leukocyte Esterase Negative Urine Glucose Negative Patient ABO/Rh A Positive Antibody Screen NEGATIVE 11/03/22 11/03/22 18:45 18:45 WBC 8.61 RBC 4.78 Hgb 14.5 Hct 43.2 MCV 90 MCH 30.3 MCHC 33.6 RDW 13.2 Plt Count 250 MPV 10.5 Immature Gran % 0.2 Neutrophils % 68.9 Lymphocytes % 15.6 Monocytes % 12.2 Eosinophils % 2.3 Basophils % 0.8 Nucleated RBC % 0.0 Absolute Neutrophils 5.93 Absolute Lymphocytes 1.34 Absolute Monocytes 1.05 H Absolute Eosinophils 0.20 Absolute Basophils 0.07 Sodium 141 Potassium 3.7 Chloride 102 Carbon Dioxide 32.7 H Anion Gap 6.3 BUN 16 Creatinine 1.1 Est GFR (CKD-EPI 2020) 89.22 Glucose 78 Calcium 9.3 Total Bilirubin 0.4 AST 20 ALT 22 Alkaline Phosphatase 83 Total Protein 8.2 Albumin 4.3 Lipase 30 Urine Color Urine Clarity Urine pH Ur Specific [place] Urine Protein Urine Ketones Urine Blood Urine Nitrite Urine Bilirubin Urine Urobilinogen Ur Leukocyte Esterase Urine Glucose Patient ABO/Rh Antibody Screen PFSH All Active Problems (Updated 11/04/22 @ 16:02 by Emmanuelle Sun DO) Dyssynergic defecation (Acute) Confirmed by [place] [facility] [place] Blood per rectum (Acute) Dry skin (Acute) De Quervain's tenosynovitis (Acute) Migraine headache without aura (Acute) Chronic headache (Acute) Fibromyalgia (Acute) Polyarthralgia (Acute) Generalized pain (Acute) Abnormal non-bloody discharge from penis (Acute) Hx of hematuria (Acute) Chronic pelvic pain in male (Acute) Nasal vestibulitis (Acute) Somatoform disorder (Acute) Anxiety about health (Acute) Rectal prolapse (Acute) Solitary rectal ulcer syndrome (Acute) Anal pain (Acute) Gastroparesis (Acute) Small fiber polyneuropathy (Acute) Injury of trigeminal nerve, left side, 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 In 2005 at [facility]. DVT (deep venous thrombosis) Dysphagia Chronic. 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
--- NOTE | 2022-11-04 17:07 | DSE_ITS ---
Date of service: 11/04/22 Time of Service: 17:08 DS: Diagnosis Discharge Diagnosis (1) Blood per rectum: Status: Acute (2) Migraine headache without aura: Status: Acute (3) Chronic headache: Status: Acute (4) Fibromyalgia: Status: Acute (5) Polyarthralgia: Status: Acute (6) Nasal vestibulitis: Status: Acute (7) Somatoform disorder: Status: Acute (8) Rectal prolapse: Status: Acute (9) Solitary rectal ulcer syndrome: Status: Acute (10) Gastroparesis: Status: Acute (11) Alcohol abuse: (12) Chronic fatigue syndrome: (13) Diffuse non-Hodgkin's lymphoma: (14) DVT (deep venous thrombosis): (15) Dysphagia: (16) Lumbar radiculopathy: (17) Raynaud's disease without gangrene: (18) Substance abuse: (19) Dyssynergic defecation: Status: Acute Discharge Plan Disposition Patient Disposition: Home Condition: Improving Discharge Details Reason For Visit: GI Bleed, blood loss anemia Admit Date/Time: 11/03/22 22:42 Admit Provider: Randall Sandoval Attending Provider: Randall Sandoval Primary Care Provider: Bertin Cm Hospital Course Hospital Course: see addendum Home Meds and New Rx's Prescriptions: New hydrocortisone [Cortenema] 100 mg/60 mL enema 100 mg [place] QHS Qty: 1260 6RF ondansetron HCl 8 mg tablet 8 mg PO Q8H PRN PRN (Reason: nausea and vomiting) Qty: 20 6RF Continued gabapentin 600 mg tablet 600 mg PO TID Qty: 270 3RF triamcinolone acetonide 0.1 % lotion 1 applic topical DAILY Qty: 60 2RF Rx Instructions: can go up to twice a day. amitriptyline 50 mg tablet 50 mg PO QHS Qty: 90 3RF pregabalin [Lyrica] 200 mg capsule 200 mg PO TID Qty: 270 3RF clindamycin phosphate [Cleocin T] 1 % lotion 1 applic topical BID PRN ondansetron 8 mg tablet,disintegrating 8 mg PO Q12H PRN Vyvanse 50 mg capsule 60 mg PO DAILY pantoprazole [Protonix] 40 mg tablet,delayed release (DR/EC) 40 mg PO PRN PRN Discontinued ibuprofen 600 mg tablet 600 mg PO PRN PRN naproxen 250 mg tablet 250 mg PO BID PRN Patient Comments: does not take mesalamine 1,000 mg suppository 1 g AR QHS 180 Days Qty: 30 8RF Patient Comments: does not use Discharge Instructions Additional Instructions: F/u w/ [facility] as previously scheduled -bland diet. Continue with lifestyle modifications: no alcohol, tobacco products, Aspirin or NSAID's (ibuprofen, Motrin, Naprosyn, aleve, etc), soda pop, caffeine, (including tea & chocolate), and acidic foods, (tomatoes or tomato based foods, citrus, onions/garlic, peppers, peppermints) spicy or fried/fatty foods. -avoid tobacco and alcohol. -activity as tolerated. -hydrocortisone enemas at bedtime. Activity:: Activity as Tolerated Equipment/Supplies:: No Equipment Needed Diet:: bland DS: Summary Time Spent with Patient providing and/or coordinating discharge services: Less than 30 minutes Status at Discharge Functional status at discharge: independent ambulation Overall status at discharge: patient is back to baseline Mental Status: mental status grossly normal Speech and Movement: speech and movement normal Mood: congruent mood Affect: normal affect Exam Psych Mental Status: mental status grossly normal Speech and Movement: speech and movement normal Mood: congruent mood Affect: normal affect DS: Data Vitals/I&O Vitals and I&O: Vital Signs Temperature 36.8 C 11/04/22 13:15 Temperature Source Skin 11/04/22 08:41 Pulse 82 11/04/22 13:15 Pulse Rhythm Regular 11/04/22 13:15 Pulse 70 11/03/22 19:17 Respiratory Rate 18 11/04/22 13:15 Respiratory Effort Normal, Non-Labored 11/04/22 13:15 Respiratory Depth Normal 11/04/22 13:15 Respiratory Pattern Normal 11/04/22 13:15 Blood Pressure 121/77 11/04/22 13:15 Blood Pressure Mean 88 11/03/22 19:16 Blood Pressure Position Sitting 11/03/22 18:10 Pulse Oximetry 99 11/04/22 13:15 Oxygen Delivery Method Room Air 11/04/22 13:15 Oxygen Flow Rate 0 11/04/22 13:15 Pain Level 7 11/04/22 13:15 Comment headache 11/04/22 08:41 Intake & Output 11/03/22 11/04/22 11/04/22 23:59 11:59 23:59 Intake Total 1040.000 / 1040.000 Balance 1040.000 / 1040.000 Weight 90.718 kg 90.71 kg Intake: IV 1040.000 / 1040.000 Other: Urine Appearance Clear Data Completed and Pending Labs on day of discharge: Labs from last 24 hours 11/04/22 11/04/22 11/04/22 14:42 08:30 02:00 WBC RBC Hgb 14.8 15.0 D Cancelled Hct 44.5 44.6 Cancelled MCV MCH MCHC RDW Plt Count MPV Immature Gran % Neutrophils % Lymphocytes % Monocytes % Eosinophils % Basophils % Nucleated RBC % Absolute Neutrophils Absolute Lymphocytes Absolute Monocytes Absolute Eosinophils Absolute Basophils Sodium Potassium Chloride Carbon Dioxide Anion Gap BUN Creatinine Est GFR (CKD-EPI 2020) Glucose Calcium Total Bilirubin AST ALT Alkaline Phosphatase Total Protein Albumin Lipase Urine Color Urine Clarity Urine pH Ur Specific [place] Urine Protein Urine Ketones Urine Blood Urine Nitrite Urine Bilirubin Urine Urobilinogen Ur Leukocyte Esterase Urine Glucose Patient ABO/Rh Antibody Screen 11/03/22 11/03/22 11/03/22 21:43 19:10 18:45 WBC RBC Hgb 12.4 L D Hct 36.8 L MCV MCH MCHC RDW Plt Count MPV Immature Gran % Neutrophils % Lymphocytes % Monocytes % Eosinophils % Basophils % Nucleated RBC % Absolute Neutrophils Absolute Lymphocytes Absolute Monocytes Absolute Eosinophils Absolute Basophils Sodium Potassium Chloride Carbon Dioxide Anion Gap BUN Creatinine Est GFR (CKD-EPI 2020) Glucose Calcium Total Bilirubin AST ALT Alkaline Phosphatase Total Protein Albumin Lipase Urine Color Yellow Urine Clarity Clear Urine pH 6.0 Ur Specific [place] 1.010 Urine Protein Negative Urine Ketones Negative Urine Blood Negative Urine Nitrite Negative Urine Bilirubin Negative Urine Urobilinogen 0.2 Ur Leukocyte Esterase Negative Urine Glucose Negative Patient ABO/Rh A Positive Antibody Screen NEGATIVE 11/03/22 11/03/22 18:45 18:45 WBC 8.61 RBC 4.78 Hgb 14.5 Hct 43.2 MCV 90 MCH 30.3 MCHC 33.6 RDW 13.2 Plt Count 250 MPV 10.5 Immature Gran % 0.2 Neutrophils % 68.9 Lymphocytes % 15.6 Monocytes % 12.2 Eosinophils % 2.3 Basophils % 0.8 Nucleated RBC % 0.0 Absolute Neutrophils 5.93 Absolute Lymphocytes 1.34 Absolute Monocytes 1.05 H Absolute Eosinophils 0.20 Absolute Basophils 0.07 Sodium 141 Potassium 3.7 Chloride 102 Carbon Dioxide 32.7 H Anion Gap 6.3 BUN 16 Creatinine 1.1 Est GFR (CKD-EPI 2020) 89.22 Glucose 78 Calcium 9.3 Total Bilirubin 0.4 AST 20 ALT 22 Alkaline Phosphatase 83 Total Protein 8.2 Albumin 4.3 Lipase 30 Urine Color Urine Clarity Urine pH Ur Specific [place] Urine Protein Urine Ketones Urine Blood Urine Nitrite Urine Bilirubin Urine Urobilinogen Ur Leukocyte Esterase Urine Glucose Patient ABO/Rh Antibody Screen PFSH All Active Problems (Updated 11/04/22 @ 16:02 by Emmanuelle Sun DO) Dyssynergic defecation (Acute) Confirmed by rectal manometry at [facility] 09/2022 Blood per rectum (Acute) Dry skin (Acute) De Quervain's tenosynovitis (Acute) Migraine headache without aura (Acute) Chronic headache (Acute) Fibromyalgia (Acute) Polyarthralgia (Acute) Generalized pain (Acute) Abnormal non-bloody discharge from penis (Acute) Hx of hematuria (Acute) Chronic pelvic pain in male (Acute) Nasal vestibulitis (Acute) Somatoform disorder (Acute) Anxiety about health (Acute) Rectal prolapse (Acute) Solitary rectal ulcer syndrome (Acute) Anal pain (Acute) Gastroparesis (Acute) Small fiber polyneuropathy (Acute) Injury of trigeminal nerve, left side, 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 In 2005 at [facility]. DVT (deep venous thrombosis) Dysphagia Chronic. 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
== END 2022-11-04 19:29 | disposition home or self-care (01) ==
LOC: ER 11-04 07:16 → MS 11-04 11:47
PROVIDERS: Internal Medicine; Admitting Provider Family Medicine; Emergency Provider Emergency Medicine; PCP Family Medicine; Visit Provider Family Medicine
DX: K62.5 Hemorrhage of anus and rectum (principal); R55 Syncope and collapse; W18.2XXA Fall in (into) shower or empty bathtub, initial encounter; F10.11 Alcohol abuse, in remission; Z85.72 Personal history of non-Hodgkin lymphomas; M65.4 Radial styloid tenosynovitis [de Quervain]; M79.7 Fibromyalgia; F41.8 Other specified anxiety disorders; K31.84 Gastroparesis; F45.9 Somatoform disorder, unspecified; G56.03 Carpal tunnel syndrome, bilateral upper limbs; G56.21 Lesion of ulnar nerve, right upper limb; G93.32 Myalgic encephalomyelitis/chronic fatigue syndrome; Z86.718 Personal history of other venous thrombosis and embolism; I87.2 Venous insufficiency (chronic) (peripheral); I73.00 Raynaud's syndrome without gangrene; I10 Essential (primary) hypertension; R13.10 Dysphagia, unspecified; Z87.891 Personal history of nicotine dependence; K62.3 Rectal prolapse; G50.0 Trigeminal neuralgia; G43.709 Chronic migraine without aura, not intractable, without status migrainosus; K62.6 Ulcer of anus and rectum; L63.9 Alopecia areata, unspecified; J34.89 Other specified disorders of nose and nasal sinuses; F19.10 Other psychoactive substance abuse, uncomplicated
CPT/HCPCS: 36415; 78265; 80053; 83690; 86850; 86900; 86901; 93005; 96361; 96374; 96375; 96376; 99285; 70450; 81003; 85014; 85018; 85025; 93010; 99222; J2060; J2405

== ENCOUNTER 2022-11-10 13:00 | Outpatient (REF) | payer MEDICAID, SELFPAY ==
[2022-11-10 14:41] LABS: Abs Immature Grans 0.01 10^3/uL (0.0-0.06); Absolute Basophil Count 0.07 10^3/uL (0.0-0.2); Absolute Eosinophil Count 0.15 10^3/uL (0.0-0.7); Absolute Lymphocyte Count 1.29 10^3/uL (1.2-3.4); Absolute Monocyte Count 0.64 10^3/uL (0.1-0.8); Absolute Neutrophil Count 2.65 10^3/uL (1.2-6.7); Basophils % 1.5; Eosinophils % 3.1; HCT 41.1 % (40.0-50.0); Immature Grans % 0.2; Lymphocytes % 26.8; MCH 30.1 pg (27.0-33.0); MCHC 34.1 % (32.0-36.0); MCV 88 fL (80-95); MPV 11.2 fL (8.0-11.0); Monocytes % 13.3; Neutrophils % 55.1; Platelet Count 240 10^3/uL (130-400); RBC 4.65 10^6/uL (4.36-5.78); RDW 12.8 % (11.8-14.1); RDW-SD 41.3 fL; WBC 4.81 10^3/uL (4.4-10.8)
== END 2022-11-10 13:01 | disposition home or self-care (01) ==
LOC: NCHCN 13:00
PROVIDERS: PCP Family Medicine; Visit Provider Family Medicine
DX: K92.1 Melena (principal); K62.6 Ulcer of anus and rectum
CPT/HCPCS: 85025

== ENCOUNTER → 2023-03-23 00:36 | Outpatient (CLI) | payer MEDICAID, SELFPAY ==
--- NOTE | 2023-03-23 | DI.CT_ITS ---
Exam(s) CT ABDOMEN PELVIS W EXAM: CT ABDOMEN PELVIS W CLINICAL HISTORY: RLQ PAIN R10.31. TECHNIQUE: Imaging Protocol: Axial computed tomography images with coronal and sagittal reformatted images were created and reviewed CONTRAST MATERIAL: Intravenous: Omnipaque 350 Contrast volume:100 ml Oral: yes COMPARISON: CT CT PELVIC W from 06/25/2022 FINDINGS: ABDOMEN: Lung Bases: Normal where visualized. Liver: Normal density. No measurable mass. Gallbladder and biliary tract: No radiodense calculus or dilation. Pancreas: Normal density, no abnormal calcifications or inflammatory process. Spleen: Normal. Kidneys: Normal size, contour and axis. No radiodense stones or obstructive uropathy. No suspicious m asses seen. Adrenal glands: No masses seen. Vasculature: Abdominal aorta non-dilated. Soft tissues: Unremarkable. PELVIS: Bladder: No gross wall thickening. No calculi.No focal mass. Bowel: No obstruction. No bowel wall thickening. Appendix normal. Peritoneal cavity: No ascites, collection or mesenteric inflammatory response. Bones: Unremarkable for age. Reproductive organs: Within normal limits. Lymph nodes: Unremarkable. IMPRESSION:: Unremarkable CT scan of the abdomen and pelvis. RADIATION DOSE DELIVERED: Total DLP DATA REPOSITORY: All CT scans at this facility are submitted to the National Radiology Data Registry (NRDR) Dose Index Registry (DIR) with the [employer] (ACR). RADIATION OPTIMIZATION: All CT scans at this facility use at least one of these dose optimization te chniques: automated exposure control; mA and/or kV adjustment per patient size (includes targeted exa ms where dose is matched to clinical indication); or iterative reconstruction.
--- OUTSIDE RECORDS SUMMARY | 2023-03-23 00:38 | XMS_ITS | Patient Health Record ---
Author Name Unknown Organization [facility] Address [address] [place] [id number] Care Team Providers Care Caustic Mixer Name Role Phone Austen PHILLIPS, Carmen Primary Care Provider YANG Bertrand Unavailable [phone] ALLERGIES Allergen (clinical drug ingredient) Drug/Non Drug Allergy documented on EMR Reaction Allergy Type Onset Date Status Compazine Unknown Drug Allergy Active cefuroxime Ceftin Unknown Drug Allergy Active penicillin Unknown Drug Allergy Active REASON FOR REFERRAL No Information MEDICATIONS Medication SIG (Take, Route, Frequency, Duration) Notes Start Date End Date Status Adderall 20 mg 1 tab(s) orally 2 ti mes a day for 30 day(s) Active omeprazole 20 mg 1 cap(s) orally twic e a day Active gabapentin 300 mg/24 hours 2 tab(s) oral ly once a day for 30 day(s) Active SOCIAL HISTORY Tobacco Use: Social History Observation Description Date Details (start date - stop date) Never Smoker NA - NA Sex Assigned At : Social History Observation Description Sex Assigned At Unknown Smoking MU Question Answer Notes Are you a: nonsmoker Additional Findings: Tobacco Non-User Current no n-smoker Alcohol MU Question Answer Notes Interpretation Negative PROBLEMS Problem Type ICD Code Onset Dates Problem Status W/U Status Risk SNOMED Code Notes Problem Gross hematuria (R31.0) Active confirmed Gross hematuria (169987367) Problem Testicular hypofunction (E29.1) Active confirmed Testicular hypofunction (347617454) Problem Pelvic and perineal pain (R10.2) Active confirmed Pelvic and perineal pain (047428782) Encounters Encounter Location Date Provider Diagnosis [facility] [address], [place] [id number] 07/06/2022 YANG LAINEY PLAN OF TREATMENT Pending Test Test Name Order Date TESTOSTERONE,TOTAL,MALES 11/08/2019 TSH 11/20/2019 COMPREHENSIVE METABOLIC PANEL 11/08/2019 MRI : Urogram (C-/C+) CPT 93572, [id number] 0 11/08/2019 Insurance Providers Payer Name Payer Address Payer Phone Subscriber Number Group Number Insured Name Patient Relationship to Insured Coverage Start Date Coverage End Date [facility] [employer]- [address] [address] [facility] [address] [id number] Soren Cutler Self - patient is the insured MEDICAL (GENERAL) HISTORY Medical History History ICD Code Lymphoma Surgical History Surgery Date(Month/Year) poto cath plate in jaw knee surgery
[2023-03-23] MEDS: Barium Sulfate 2% W/V-Creamy Vanilla Smoothie 450 ML BTL 900 ML PO (12:03)
[2023-03-23] MEDS: Omnipaque 350 MG/ML 100 ML BTL IJ (13:52)
[2023-03-23] MEDS: Normal Saline - Diluent 50 ML VIAL IJ (13:53)
== END ==
PROVIDERS: PCP Family Medicine; Visit Provider Family Medicine
DX: R10.31 Right lower quadrant pain (principal)
CPT/HCPCS: 74177; J3490

== ENCOUNTER 2023-08-24 12:41 | Outpatient (REF) | payer MEDICAID, SELFPAY ==
[2023-08-24 21:41] LABS: BUN 15 mg/dL (7-18); Chloride 105 mmol/L (98-107); Estimated GFR 99.41 (mL/min/1.73m2); Glucose 106 mg/dL (74-106); Potassium 4.2 mmol/L (3.5-5.1); Sodium 142 mmol/L (136-145); TSH (W/Ref FT4) 0.45 uIU/mL (0.36-3.74)
[2023-08-24 21:45] LABS: Hemoglobin A1C 5.5 % (<5.7)
== END 2023-08-24 12:42 | disposition home or self-care (01) ==
LOC: NCHCN 12:41
PROVIDERS: PCP Family Medicine; Visit Provider Family Medicine
DX: F41.8 Other specified anxiety disorders (principal); I10 Essential (primary) hypertension; G62.89 Other specified polyneuropathies; R53.83 Other fatigue; Z79.899 Other long term (current) drug therapy
CPT/HCPCS: 80048; 83036; 84443

== ENCOUNTER → 2023-12-28 01:47 | Outpatient (CLI) | payer MEDICAID, SELFPAY ==
--- NOTE | 2023-12-28 | DI.MRI_ITS ---
Exam(s) MR BRAIN WO EXAM: MR BRAIN WO CLINICAL HISTORY: Post-concussional syndrome, F07.81 TECHNIQUE: Multiplanar multisequence MRI of the brain was performed. COMPARISON: CT CT HEAD WO from 11/03/2022 FINDINGS: VENTRICLES AND EXTRA AXIAL SPACES: Normal in size and morphology for the patient's age. MIDLINE SHIFT: None. CEREBRAL PARENCHYMA: No focus of restricted diffusion to suggest acute infarct. No space-occupying le jono identified. Mild atrophy consistent with the patient's age. Mild scattered foci of high signal in the white matter consistent with sequela of chronic microvascular disease. HEMORRHAGE: None. BRAINSTEM/CEREBELLUM: Normal. VISUALIZED PARANASAL SINUSES/MASTOIDS:Mucous retention cyst right maxillary sinus. Vasculature: Normal flow void. PITUITARY GLAND: Unremarkable. ORBITS: Unremarkable. IMPRESSION: Unremarkable MRI of the brain. DATA REPOSITORY:
--- OUTSIDE RECORDS SUMMARY | 2023-12-28 01:49 | XMS_ITS | Encounter Summary ---
Author Organization On License Of [facility] Address [facility] [place] [address] Care Team Providers Care Fondant Machine Operator Name Role Phone Gabbie Sams MD Primary Care Provider [phone] Encounter Details Date Type Department Care Team (Latest Contact Info) Description 09/05/2023 2:00 PM EDT TH Visit (TeleHealth) Psychiatry [place] [id number] Fermin Mercado MD [facility] [place] [address] [place] [address] longterm current use of antipsychotic medication; Moderate episode of recurrent major depressive disorder; Attention deficit disorder, unspecified hyperactivity presence Social History Tobacco Use Types Packs/Day Years Used Date Smoking Tobacco: Never Smokeless Tobacco: Never Alcohol Use Standard Drinks/Week Comments Not Currently 0 (1 standard drink = 0.6 oz pur e alcohol) Sex and Gender Information Value Date Recorded Sex Assigned at Not on file Gender Identity Not on file Sexual Orientation Not on file documented as of this encounter Progress Notes * Braulio Santo MD - 09/05/2023 2:00 PM EDT PSYCHIATRY TEACHING PHYSICIAN INVOLVEMENT Location: Adult Psychiatry Medication Clinic Attending Physician: Braulio Santo MD Resident name: Fermin Mercado MD I have seen the patient virtually and reviewed the resident's above history and I agree with the details as written. The assessment and plan were formulated in discussion with me and I agree with them as documented. Pertinent History: Soren Mejia is a 38 y.o. male with h/o MDD, ADHD and h/o traumatic head injury. H/o lymphoma in remission. Pertinent Exam, Major issues addressed and plan: doing much better on abilify. Has been taking 5mg.Chronic SI is better. Things are improving in his life. No med changes. No suicidal or homicidal ideation. No alcohol misuse. No illicit drug use. Current Outpatient Medications Medication Sig Dispense Refill hydrocortisone (CORTENEMA) 100 mg/60 mL Enema INSERT 100MG INTO RECTUM AT BEDTIME fluocinolone (DERMA-SMOOTHE) 0.01 % Oil Apply topically to affected areas on the scalp nightly for 1-2 weeks, then decrease to 2-3x/week or less as needed. Wash out in the morning. (Avoid face and eyes.). (Patient not taking: Reported on 06/03/2023) 120 mL 3 minoxidiL (Loniten) 2.5 mg tablet Take 1 tablet by mouth daily. 90 tablet 3 Acetylcysteine (NAC) 600 mg capsule Take 2 tablets daily for 1 week. After 1 week, take 2 tablets twice daily. (Patient not taking: Reported on 08/29/2023) 1200 capsule 3 mupirocin (Bactroban) 2 % Ointment Apply to affected areas on scalp three times daily for 10 days 22 g 0 finasteride (Propecia) 1 mg tablet Take 1 tablet by mouth daily. (Patient not taking: Reported on 06/02/2023) 30 tablet 1 pantoprazole EC (Protonix) [address] tablet Take 40 mg by mouth daily. tamsulosin (Flomax) 0.4 mg capsule daily. gabapentin (Neurontin) 600 mg tablet Take 600 mg by mouth 3 times daily. lisdexamfetamine (Vyvanse) 50 mg capsule Take 60 mg by mouth daily. pregabalin (Lyrica) 200 mg capsule Take 200 mg by mouth 3 times daily. ONDANSETRON HCL ORAL Take by mouth. GABAPENTIN ORAL Take by mouth. pregabalin (LYRICA ORAL) Take by mouth. triamcinolone (KENALOG) 0.1 % Lotion Apply topically 3 times daily. clobetasoL (TEMOVATE) 0.05 % Solution Apply to the scalp twice daily for three weeks. Take a 5 day break, and then repeat this cycle. (Patient not taking: Reported on 06/03/2023) 50 mL 2 clindamycin (CLEOCIN T) 1 % Lotion Apply topically 2 times daily. 60 mL 0 No current facility-administered medications for this visit. No results found for: HA1C Lipid Panel Lab Results Component Value Date CHLPL 151 03/08/2023 HDL 57 03/08/2023 CHOLHDL 2.6 03/08/2023 TRIG 80 03/08/2023 LDLCHOL 78 03/08/2023 Lab Results Component Value Date NA 141 03/08/2023 K 3.9 03/08/2023 CL 102 03/08/2023 CO2 31 03/08/2023 BUN 11 03/08/2023 CREATININE 0.92 03/08/2023 GLUCOSE 78 03/08/2023 CALCIUM 9.4 03/08/2023 ESTGFR 111 03/08/2023 BRAULIO SANTO MD * Fermin Mercado MD - 09/05/2023 2:00 PM EDT Images from the original note were not included. ESTABLISHED ADULT PSYCHIATRY OUTPATIENT VISIT NOTE Location: Telehealth. Soren Mejia gave permission for and was seen for today's appointment with a Telehealth visit. During this visit they were located in [place]. Soren Mejia is aware that for any urgent matter theycan call [phone]. Attendee(s): patient This patient was seen with hydro station supervisor Dr. Santo. See their note for confirmatory and/or revisionary documentation. Chief Complaint: To me, this is life-changing. History of Present Illness: Soren Mejia is a 38 y.o. male with a psychiatric history significant for depression, ADHD, PTSD in remission, who presents to clinic for follow up. Medical history is significant for postraumatic left facial (jaw) pain, stage IIa mixed cellularity Hodgkins lymphoma, anxiety, chronic pain, headache, small fiber peripheral neuropathy, polyarthralgias, chronic low back pain, Raynauds, remote DVT, bilateral carpal tunnel syndrome and mild right ulnar neuropathy. Interval history - Soren reports marked improvement of multiple depression symptoms, including improved mood, improved sleep, increased appetite, and improved energy/motivation. He denies both active and passive suicidal ideation, which represents a significant change compared to his past chronic passive suicidal i deation. Endorses improved attention, saying he has multiple recent tests. He attributes after mentioned these changes to the medication change and the fact that he received his inheritance early (approximately $100,000 to build a house on his current property.) - After our last visit, Soren was started on Abilify 2.5 mg daily. Soren reports that he took this dose for approximately 1 week before accidentally taking 5 mg/day thereafter. Denies any side effects. - Also reports he will start seeing a therapist per my recommendation through [facility]. He has not yet started this. Medication regimen prior to encounter - gabapentin 600mg TID - lisdexamfetamine 60mg daily - amitriptyline 50mg QHS - Lyrica - Abilify 2.5mg daily Past Psychiatric history and treatment: Per chart review, updated with relevant information: Prior diagnoses - bipolar per prior PCP (per patient) - depression History of bony - denies Prior psychiatric hospitalizations - denies Prior outpatient treatment - denies prior psychiatrist or therapist - reports he had a substance use counselor, last approximately 7 years ago Prior suicide attempts or self-harm - He reports a PCP told him he may have bipolar disorder, but his history and current symptoms are unconvincing of prior manic episodes. Prior violence or legal issues - denies Prior ECT/TMS - denies Prior medications trials (dosage, response, side effects, adequacy of trial): - amitriptyline: reports this was previously titrated to 75mg QHS but was decreased due to significant AM sedation - Cymbalta: reports this medication made him feel robotic - nortriptyline: ineffective for pain management - Wellbutrin: reports this worsened his depression - Lexapro: reports this worsened his depression - Nortriptyline higher than 50 mg nightly: intolerable side effects Substance Use: Per chart review, updated with relevant information: Alcohol - after breaking jaw in approximately 2010, Soren reports he started drinking approximately a handle of rum or whiskey per day until he went to rehab in [facility] in approximately 2017 - since 2018, he reports complete sobriety from alcohol Tobacco - denies Marijuana - reports daily use. Says marijuana helps immensely with his jaw pain. Reports using approximately 1/8th per week. Cocaine/Methamphetamine - denies current use - reports rare historical use, last of which was 5 years ago Opioids - denies Family History: Per chart review, updated with relevant information: - deferred due to time limitations Developmental History: Per chart review, updated with relevant information: - growing up, he reports he started speaking and walking late - was an [employer] - further exploration was limited due to time constraints. Will try to obtain in future. Social History: Per chart review, updated with relevant information Living Situation - in the past year, moved to [place] after his parents gave him approximately [address] acres [address]. Says he lives by himself. - Says there is no running water but he is able to obtain drinking water from filling stations and has a natural waste area. Marital Status - single Children - denies Occupation - fired from job at [employer] in May 2023 - reports a long history of being fired from jobs. 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 - says he is currently living on savings and says he has no major expenses because his land is fully paid for and his mother provides meals Education - says he is currently studying professional studies at [employer] - denies Access to guns - yes, reports they are stored in a safe Trauma History: Per chart review, updated with relevant information: - sustained significant jaw injury 13 years ago (approximately 2010) - further investigation of trauma history was deferred due to time limitations on intake Questionnaires: PHQ9 Questionnaires Data (Clinic and Pt Entered): last 4 values 05/04/2023 PHQ-9: Last 4 Responses Little interest or pleasure Not at all Down, depressed, hopeless Not at all GAD7 Questionnaires Data: last 4 values No data to display Current Medications: Current Outpatient Medications Medication Sig Dispense Refill ARIPiprazole (Abilify) 5 mg tablet Take 0.5 tablets by mouth daily. 30 tablet 0 hydrocortisone (CORTENEMA) 100 mg/60 mL Enema INSERT 100MG INTO RECTUM AT BEDTIME fluocinolone (DERMA-SMOOTHE) 0.01 % Oil Apply topically to affected areas on the scalp nightly for 1-2 weeks, then decrease to 2-3x/week or less as needed. Wash out in the morning. (Avoid face and eyes.). (Patient not taking: Reported on 06/03/2023) 120 mL 3 minoxidiL (Loniten) 2.5 mg tablet Take 1 tablet by mouth daily. 90 tablet 3 Acetylcysteine (NAC) 600 mg capsule Take 2 tablets daily for 1 week. After 1 week, take 2 tablets twice daily. (Patient not taking: Reported on 08/29/2023) 1200 capsule 3 mupirocin (Bactroban) 2 % Ointment Apply to affected areas on scalp three times daily for 10 days 22 g 0 finasteride (Propecia) 1 mg tablet Take 1 tablet by mouth daily. (Patient not taking: Reported on 06/02/2023) 30 tablet 1 pantoprazole EC (Protonix) [address] tablet Take 40 mg by mouth daily. tamsulosin (Flomax) 0.4 mg capsule daily. gabapentin (Neurontin) 600 mg tablet Take 600 mg by mouth 3 times daily. lisdexamfetamine (Vyvanse) 50 mg capsule Take 60 mg by mouth daily. pregabalin (Lyrica) 200 mg capsule Take 200 mg by mouth 3 times daily. ONDANSETRON HCL ORAL Take by mouth. GABAPENTIN ORAL Take by mouth. pregabalin (LYRICA ORAL) Take by mouth. triamcinolone (KENALOG) 0.1 % Lotion Apply topically 3 times daily. clobetasoL (TEMOVATE) 0.05 % Solution Apply to the scalp twice daily for three weeks. Take a 5 day break, and then repeat this cycle. (Patient not taking: Reported on 06/03/2023) 50 mL 2 clindamycin (CLEOCIN T) 1 % Lotion Apply topically 2 times daily. 60 mL 0 No current facility-administered medications for this visit. Allergies: Allergies Allergen Reactions Ceftin [Cefuroxime Axetil] Compazine [Prochlorperazine] Penicillins Review of Systems: Chronic pain / control: Not applicable Vitals (24hr Range): No data found. Musculoskeletal System: normal gait and balance and ambulates independently Mental Status Exam: Appearance: age appropriate and casually dressed Behavior: cooperative with the interview and calm Speech: normal pitch, normal volume, and normal rate Language: fluent in zimbabwean Mood: great Affect: full Thought Process: linear and logical Associations: intact Thought Content: denied suicidal ideation Perception: denied auditory hallucinations denied visual hallucinations not observed responding to internal stimuli Orientation: grossly intact by interview Attention/Concentration: able to sustain focus Cognition: grossly intact by interview Memory: recent and remote memory grossly intact Fund of Knowledge: appropriate for age and level of functioning Insight: fair Judgment: good Labs: Psychiatric labs: Lab Results Component Value Date WBC 7.1 03/08/2023 HGB 13.6 (L) 03/08/2023 HCT 41.0 03/08/2023 MCV 89.5 03/08/2023 PLATELET 251 03/08/2023 Lab Results Component Value Date NA 141 03/08/2023 K 3.9 03/08/2023 CL 102 03/08/2023 CO2 31 03/08/2023 BUN 11 03/08/2023 CREATININE 0.92 03/08/2023 GLUCOSE 78 03/08/2023 CALCIUM 9.4 03/08/2023 ESTGFR 111 03/08/2023 Lab Results Component Value Date ALT 17 03/08/2023 AST 20 03/08/2023 ALKPHOS 84 03/08/2023 BILITOT 0.3 03/08/2023 BILIDIR 0.1 03/08/2023 ALBUMIN 4.4 03/08/2023 PROT 7.4 03/08/2023 Lab Results Component Value Date CHLPL 151 03/08/2023 HDL 57 03/08/2023 CHOLHDL 2.6 03/08/2023 TRIG 80 03/08/2023 LDLCHOL 78 03/08/2023 No results found for: HA1C No results found for: TSH No results found for: 25OHVITD No results found for: [id number] No results found for: LITHIUM No results found for: PHENYTOIN, PHENOBARB, VALPROATE, CBMZ No results found for: CLOZAPINE No results found for: HCGQUAL, HCGQUANT, POCUAHCG Relevant imaging: No results found for this visit on 09/05/23. Formulation and Assessment: Overall Formulation: Soren Mejia is a 38 y.o. Male with a psychiatric history significant for depression, ADHD, PTSD in remission, who presents to clinic for follow up. Medical history is significant for postraumatic left facial (jaw) pain, stage IIa mixed cellularity Hodgkins lymphoma, anxiety, chronic pain, headache, small fiber peripheral neuropathy, polyarthralgias, chronic low back pain, Raynauds, remote DVT, bilateral carpal tunnel syndrome and mild right ulnar neuropathy. CURRENT ASSESSMENT: Soren reports markedly improved symptoms of depression with no suicidality. This significant change could be attributed to the recent addition of Abilify and psychosocial reasons(recently received his inheritance early). Soren accidentally self-increased his Abilify dose to 5mg daily. Given the positive response to this dose, recommended he continue at the same dose with no other medication changes. In the future, if depressive symptoms reemerge, would consider further titration of Abilify. Historically, Soren describes a long history of depression starting since his jaw injury (approximately 2010). Soren's prior treatment history is suggestive of refractory depressive symptoms despite multiple past medication trials. Diagnostically, Soren appears to meet criteria for MDD with ongoing depressive symptoms presently. His history and current symptomology is not suggestive of bony or psychosis, although further investigation is warranted into the cause of his long history of job firings. Historically, Soren appeared to meet criteria for PTSD (inciting event was lymphoma), but these symptoms now appear to be in remission. Per chart review, he was previously diagnosed with ADHD. Diagnoses: - MDD - PTSD, in remission - chronic pain - ADHD Safety Assessment: Denies active and passive SI and HI. No safety concerns noted at this time. Currently involved in treatment and has good social support, including his mother and past co-worker. Does have access to firearms. Future- oriented. Acute risk is low, chronic risk is moderate given diagnoses and prior suicide attempt. No safety concerns identified that would preclude continuing with current outpatient level of care. He has access to emergency phone numbers if safety concerns were to arise. Plan (by problem, indicate any tests ordered or reviewed, notes reviewed, collateral gathered, discussion with external physician): #MDD #PTSD, in remission #chronic pain - increase Abilify to 5mg daily (patient accidentally already increased to this dosage a few weeks ago) - continue gabapentin 600mg TID (prescribed by PCP) - continue amitriptyline 50mg QHS (prescribed by neurologist) #ADHD - continue Vyvanse 60mg daily (currently prescribed by PCP) #lab monitoring - ordered A1c - last lipid panel on 03/08/23 - Could consider thyroid or vitamin D testing in the future Next Appointment: October 10, 2023 Patient Instruction/Education provided: Patient provided verbal instructions regarding medication side effects, safety plan in case of feeling unsafe. For mental health emergencies, call 988 from anywhere in the [place]. State specific information for [place] and [place] crisis services are as follows and should be used to access local resources: [facility] Crisis Line text or call Visit www.Trans[employer] for further information [place] Call your local community crisis line at: [place]: [facility] [phone] [place]: [facility] Services [phone] [place]: [facility] [phone] [place]: [facility] [phone] [place]: [facility] [phone] Mary Kate L[place]: [facility] Counseling and Support [phone] [place]: [facility] [phone] on weekdays 8AM-4:30PM and [phone] on nights and weekends [place]: [facility] [place]: [facility] [phone] [place]: [facility] Services [phone] [place]: [facility] Services, [place]: [facility] [place]: [facility] or Text [place] to 208338 For further information for [place] residents: https://mentalhealth.[email or web address]/services/emergency-services/gen-zfe-aoev National Suicide Prevention Hotline: For patients cared for in the Department of Psychiatry, you can reach your mental health clinician at [phone]. Patient understands the plan? Yes Signed By: Fermin Mercado MD 09/05/2023 documented in this encounter Plan of Treatment Upcoming Encounters Date Type Department Care Team (Late st Contact Info) Description 02/06/2024 9:30 AM EDT TH Visit (TeleHealth) Psychiatry [place] [phone] Fermin Mercado MD [facility] [place] [address] Scheduled Orders Name Type Priority Associated Diagnoses Orde r Schedule Hemoglobin A1c Lab Routine longterm current use of antipsychotic medication Expected: 09/05/2023 (Approximate), Expires: 03/06/2024 documented as of this encounter Visit Diagnoses Diagnosis longterm current use of antipsychotic medication Moderate episode of recurrent major depressive disorder Attention deficit disorder, unspecified hyperactivity presence documented in this encounter Care Teams Fondant Machine Operator Relationship Specialty Start Date End Date Gabbie Sams MD [address] [place] [id number] PCP - General Family Medicine 12/31/22 documented as of this encounter
--- OUTSIDE RECORDS SUMMARY | 2023-12-28 01:49 | XMS_ITS | Encounter Summary ---
Author Organization [facility] [place] [address] Care Team Providers Care Research Physician Name Role Phone Gabbie Sams MD Primary Care Provider [phone] Reason for Referral * Consultation (Routine) - Closed Specialty Diagnoses / Procedures Referred By Balaji hoang Referred To Contact [facility] Diagnoses Chronic jaw pain Fabián Newton PA [facility] [place] [address] [facility] [address] [place] [address] [place] [address] Referral ID Status Reason Start Date Expiration Date V isits Requested Visits Authorized [id number] Closed Consult, Test & Treat 06/03/2023 06/02/2024 1 1 Reason for Visit * Consultation (Routine) - Closed Specialty Diagnoses / Procedures Referred By Balaji hoang Referred To Contact Maxillofacial Surgery Diagnoses Facial neuralgia Ramy Heath PA [facility] [place] [address] [facility] [address] [place] [phone] Referral ID Status Reason Start Date Expiration Date V isits Requested Visits Authorized [id number] Closed Consult, Test & Treat 02/18/2023 02/18/2024 1 1 Encounter Details Date Type Department Care Team ([facility] Contact Info) Description 06/03/2023 4:00 PM EST Office Visit [place] [address] Damian Youssef DMD [facility] DR [place] [address] Chronic jaw pain; Orofacial neuropathic pain Social History Tobacco Use Types Packs/Day Years Used Date Smoking Tobacco: Never Smokeless Tobacco: Never Alcohol Use Standard Drinks/Week Comments Not Currently 0 (1 standard drink = 0.6 oz pur e alcohol) Sex and Gender Information Value Date Recorded Sex Assigned at Not on file Gender Identity Not on file Sexual Orientation Not on file documented as of this encounter Progress Notes * Damian Youssef DMD - 06/03/2023 4:00 PM EST Images from the original note were not included. ORAL-MAXILLOFACIAL SURGERY / ORAL MEDICINE OUTPATIENT CLINIC INITIAL VISIT Name: Soren Mejia Age/Sex: 37 y.o. male History of Present Illness Soren Mejia is a 37 y.o. male referred by Ramy Heath for consultation regarding Facial PainS/P Fracture. Pertinent notations from today's history: 2009 jaw fracture [place] the [place], woke up in an MRI machine. Seems to be associated with a seizure. Repots jaw surgery at that time - fractured chin and TMJ per pt Taking gabapentin (600 TID) and lyrica (200 TID), reports brings pain to a 6/10. Was on care home opioid but pain specialist at [facility] Feels burning pressure on his chin. Looking for alternatives to pain medication Was offered Nerve severing procedure by Neurosurgery, but did not want to chance facial paralysis Trouble sleeping, depression, difficulty holding a job Hx of lymphoma Past Medical/Social/Dental History Past Medical History: Diagnosis Date ADHD Fibromyalgia Idiopathic small fiber peripheral neuropathy Migraines Non-Hodgkin lymphoma There is no problem list on file for this patient. Social History Tobacco Use Smoking status: Never Smokeless tobacco: Never Substance Use Topics Alcohol use: Not Currently mupirocin (Bactroban) 2 % Ointment finasteride (Propecia) 1 mg tablet minoxidiL (Loniten) 2.5 mg tablet amitriptyline (Elavil) 75 mg tablet pantoprazole EC (Protonix) [address] tablet tamsulosin (Flomax) 0.4 mg capsule gabapentin (Neurontin) 600 mg tablet lisdexamfetamine (Vyvanse) 50 mg capsule pregabalin (Lyrica) 200 mg capsule ONDANSETRON HCL ORAL lisdexamfetamine (Vyvanse) 70 mg capsule GABAPENTIN ORAL pregabalin (LYRICA ORAL) triamcinolone (KENALOG) 0.1 % Lotion clobetasoL (TEMOVATE) 0.05 % Solution clindamycin (CLEOCIN T) 1 % Lotion Allergies Allergen Reactions Ceftin [Cefuroxime Axetil] Compazine [Prochlorperazine] Penicillins Review of Systems Pertinent positive and negative findings discussed above. ROS with attention to cardiac, pulmonary,hepatic, renal, neurologic and dermatologic systems reviewed with relevant findings as noted. Physical Exam Vitals: There were no vitals taken for this visit. There is no height or weight on file to calculate BMI. Extraoral exam conducted including facial symmetry, sensory and motor function, alertness and appropriateness to questions and commands, range of jaw motion, TMJ function and skeletal architecture. Neck exam conducted with attention to normal musculature, vasculature and potential adenopathy. Intraoral exam including evaluation of tongue surface and consistency, floor of mouth, buccal and labial mucosa as well as maxillary and mandibular vestibules, hard and soft palate including soft palate elevation and oropharynx as well as dentition, dental arches, occlusion and salivary flow. General: No acute distress, pleasant Focused oral exam: No trismus No oral lesions visualized Oral mucosa pink and moist Neuro: a/o x3 Neck: soft, supple Psych: appropriate, responds to questions normally Imaging None new ASSESSMENT & RECOMMENDATIONS Assessment: Soren Mejia is a 37 y.o. 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 He is already on reasonable doses of gabapentin and pregabalin, although the rationale for being on both of these medications is not totally clear. He discussed a peripheral neurectomy with neurosurgery but does not like the possibility of facial nerve damage. He would benefitfrom evaluation by a pain specialist to see if any nerve blocks or other interventions may be warranted, as well as a re-evaluation of his analgesic medications. Recommendations/plan: Consult with pain clinic for consideration of nerve block procedure. Recommend pain meds all prescribed by the same provider, but both gabapentin and pregabalin could be increased, also discussed consideration of clonazepam or oxcarbazepine pending discussion with pain clinic. Recommend reaching out to PCP to discuss depression symptoms. Follow-up PRN. We appreciate the opportunity to be involved in Mr. Mejia's care. Damian Youssef DMD, [facility], [facility] Oral Medicine Specialist 06/01/2023 12:34 PM This note may have incorporated [id number] technology and though reviewed typographical or syntax errors may remain. documented in this encounter Plan of Treatment Upcoming Encounters Date Type Department Care Team (Late st Contact Info) Description 02/06/2024 9:30 AM EDT TH Visit (TeleHealth) Psychiatry [place] [address] Fermin Mercado MD [facility] [place] [address] Scheduled Referrals Name Type Priority Associated Diagnoses Order Schedule Referral to Pain Management Outpatient Referral Routine Chronic jaw pain Ordered: 06/03/2023 documented as of this encounter Visit Diagnoses Diagnosis Chronic jaw pain Jaw pain Orofacial neuropathic pain documented in this encounter Care Teams Research Physician Relationship Specialty Start Date End Date Gabbie Sams MD [address] [place] [address] PCP - General Family Medicine 12/31/22 documented as of this encounter
--- OUTSIDE RECORDS SUMMARY | 2023-12-28 01:49 | XMS_ITS | Encounter Summary ---
[place] [address] Care Team Providers Care Scalper Operator Name Role Phone Gabbie Sams MD Primary Care Provider [phone] Reason for Referral * Diagnostic Test (Routine) - Authorized Specialty Diagnoses / Procedures Referred By Contac t Referred To Contact Radiology Diagnoses Functional dyspepsia Procedures NM Gastric Emptying Scan Jose Ford MD [facility] [place] [address] [place] [address] Referral ID Status Reason Start Date Expiration Date Visits Requested Visits Authorized [id number] Authorized Specialty Service Requested 08/29/2023 02/28/2025 1 1 * Diagnostic Test (Routine) - Authorized Specialty Diagnoses / Procedures Referred By Contac t Referred To Contact Radiology Diagnoses Functional dyspepsia Procedures NM Functional Biliary Scan Jose Ford MD [facility] [place] [address] [place] [address] Referral ID Status Reason Start Date Expiration Date Visits Requested Visits Authorized [id number] Authorized Specialty Service Requested 08/29/2023 02/28/2025 1 1 Encounter Details Date Type Department Care Team (Latest Contact Info) Description 08/29/2023 2:00 PM EDT TH Visit (TeleHealth) Gastroenterology at [facility] [place] [id number] Jose Ford MD [facility] [place] [id number] Functional dyspepsia Social History Tobacco Use Types Packs/Day Years Used Date Smoking Tobacco: Never Smokeless Tobacco: Never Alcohol Use Standard Drinks/Week Comments Not Currently 0 (1 standard drink = 0.6 oz pur e alcohol) Sex and Gender Information Value Date Recorded Sex Assigned at Not on file Gender Identity Not on file Sexual Orientation Not on file documented as of this encounter Patient Instructions * Patient Instructions* Jose Ford MD - 08/29/2023 2:00 PM EDT Functional Bowel Disorders: Information Handout for Patients and Primary Care Providers Jose Ford MD, FRCPC + Miguel Toribio MD, AGNES Jonathan Ignacio APRN + Swapna Montelongo APRN + Gabbie Clark APRN + J CARLOS Masterson RN + FLASH Miller, PhD [facility] What are functional bowel disorders? These are the most common type of gastrointestinal disorders in the [facility] The most common functional bowel disorder in the [place] is irritable bowel syndrome (IBS) Irritable bowel syndrome affects the lower GI tract and can cause bloating, abdominal pain, diarrhea, and constipation Functional dyspepsia (FD) affects the upper GI tract and can cause bloating, burping, heartburn, nausea, fullness and stomach discomfort In functional disorders the gut is structurally/anatomically normal but is not functioning properlydue to abnormalities in the enteric (gut) nervous system Two mechanisms cause symptoms - heightened sensitivity of the gut to normal sensations (sensory nerves) and abnormal gut motility (motor nerves) These disorders are caused by a combination of a genetic factors, changes to the gut microbiota (intestinal bacteria) and environmental triggers How common are these disorders and what is the impact? 15-20% of general [place] population has IBS or FD or both IBS is the 2nd most common cause for lost work days (after common cold) in [place] IBS is estimated to cost the [place] economy 30 billion dollars per year These disorders are typically chronic and can have a significant impact on quality of life How is the diagnosis made? The diagnosis of a functional disorder is NOT a ???diagnosis of exclusion?? (common misconception) Investigations may be necessary to look for other disorders (such as celiac disease) that may be contributing to symptoms. Sometimes investigations are required if the diagnosis is unclear Work-up may include history (description of symptoms), physical exam, bloodwork, stool studies, diagnostic imaging, motility tests and endoscopy What is the prognosis? Functional bowel disorders are unfortunately chronic disorders and often have a major impact on patient quality of life, function, and relationships Symptoms may gradually resolve in some patients (highest rate in patients with immediate onset of symptoms after infection); ocean transportation intermediary symptoms are expected in most patients however Most patients experience a variable course with varying degrees of symptom severity. Intermittent exacerbations (i.e. ???flares?? ) are common and may be caused by stress, infections, antibiotic exposure, and lack of adherence to treatment plans. Often there is no clear precipitant for an exacerbation though. When should a patient be re-evaluated? Patients with stable symptoms do NOT need episodic re-evaluation Subtle changes in symptoms and symptom flares are common Patients should be re-evaluated if they have progression or dramatic changes in symptoms, severe abdominal pain, swallowing difficulties, unexplained weight loss, anemia (low blood counts), or bleeding If you have concerns be sure to talk to your PRP or GI provider How do I use this information? Set realistic goals! Remember it is unlikely that any one measure will completely eliminate all symptoms ???Start low and go slow?? with all measures to avoid potential side effects Stay on any measure continuously for at least 4-6 weeks prior to assessing whether or not it is helping (improvements are often slow to occur) After an adequate trial ask yourself if the benefit is worth continuing the treatment Most patients will need multiple treatment measures (each giving a partial benefit) - this is called the ???layering strategy?? Remember that finding the right combination for you takes time and patience - there is NO ???miracle cure?? for functional disorders Remember there are limited treatment options available. We want to be absolutely sure that a measure is not effective or intolerable before stopping it and considering other options We specifically recommend all patients to do ALL general lifestyle and dietary measures. Patients that do not follow these general measures generally do not have improvement. We also specifically suggest using a fiber supplement (such as Metamucil) and probiotics together - this approach benefits most patients OTC (emta-xdw-zilsxbf) medications can be used for ongoing bothersome symptoms as listed below Your doctor (PCP or [facility] Gastroenterology provider or Gastroenterology provider) may decide to use prescription medications if you have ongoing symptoms despite using lifestyle and dietary measures and OTC medications Your doctor will give you advice on treatments but it is your responsibility to work on these measures to improve your symptoms. Lack of following recommendations is a common cause for ongoing symptoms. If symptoms are controlled try easing back on measures - remember the main goal is to improve quality of life (not necessarily eliminate symptoms). Goals of Therapy Complete resolution of all symptoms is not a realistic goal for most patients. Although we hope for you to have decreased symptoms we believe the most important goal is to help you find strategies to cope with and understand your disorder. Ultimately, we hope that you are able to improve your quality of life and do the things that are important in your life! Non-Pharmacologic General Treatments Lifestyle measures Many lifestyle factors can worsen IBS symptoms However, IBS is not caused by these factors (common misconception) These lifestyle factors include the following: Inadequate sleep Weight gain Inadequate exercise Stress Depression/anxiety - this should be brought up to your Primary Care Provider (if left untreated it is unlikely the functional bowel disorder will improve) Dietary measures Trigger food avoidance - you should re-introduce foods once symptoms settle as overly restrictive diet can be unhealthy and even harmful Fatty foods, spicy foods, alcohol, and caffeine can worsen symptoms Consider a 2 week dairy-free trial for possible lactose-intolerance Your PCP or GI provider can refer you to a dietitian for formal instruction on specialized diets including the low FODMAP diet (but we don't recommend using this without dietitian involvement). Fiber Aim for a goal is 30 g fiber/day - some patients may require more or less Increase fiber by 5 g per week (remember ???start low and go slow?? ) Fiber can be from multiple dietary sources but supplementation may be helpful Fiber intake should include psyllium fiber; this is the type of fiber used in research studies for treatment of IBS Sources of psyllium include All-Bran psyllium buds, Metamucil, bulk psyllium (health food stores and bulk stores) Specifically we recommend starting Metamucil at a low dosage such as one teaspoon a day for one week then gradually increasing by one teaspoon per week until no further benefit with increasing dosageis achieved. Most patients take between 2 and 6 teaspoons per day. Fluid intake goal is 8-10 glasses/day (caffeine and alcohol count as minus one in calculation) Probiotics Promising area but convincing medical evidence is still lacking Clzt-wco-igzwdsk supplements are not typically evaluated by FDA - quality/safety unclear and many products actually do not contain any probiotics at all Live-culture yogurts, kombucha and other dietary sources are an option Align, TuZen, and Visbiome are the three probiotics that are supported by medical research to have been shown benefit for IBS (available in most pharmacies, supermarkets or online) Florastor has been shown to benefit some post-infectious patients Psychology/Coping Skills Coping with chronic bothersome symptoms from functional disorders can be very challenging. Additionally it is not uncommon for functional disorders to contribute to feelings of stress, anxiety, and depression, which can actually worsen functional disorders. This can be a vicious cycle! Smartphone apps can be helpful for coping with IBS symptoms, and lessening the impact of stressors on IBS Headspace (anxiety/stress/mindfulness) Calm (anxiety/stress/mindfulness) CBT-I women's lacrosse coach (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) Curable (chronic pain) There is evidence for Cognitive Behavioral Therapy (CBT) for IBS - you can try this at home using aworkbook (Controlling IBS the Drug-Free Way: A 10-Step Plan for Symptom Relief by Osmel Badillo, Ph.D.) or work with a GI psychologist A local therapist may also be helpful for managing the impact of IBS and decreasing the likelihood that stressors will cause flares psychologytoday.com ABCT.org ContextualScience.org Gut-directed hypnotherapy for IBS is also supported by research - you may find a provider at [facility] OTC Medications for Functional Gut Disorders Diarrhea Loperamide (Imodium) should be considered first for mild and intermittent symptoms - start with small doses and take several hours before needed (or even before bed) (it is generally considered safe for long-term use) Constipation Patients with mild constipation can use laxatives ???as needed?? (in other words, if you feel constipated or haven't had a regular bowel movement). However, patients with more severe constipation generally will need laxatives on a regular schedule (every day or every second day for example). This is called ???maintenance therapy?? . PEG 3350 (Miralax) is a stool softener that is safe for ocean transportation intermediary usage (no risk of dependency) andthe dosage can be adjusted to achieve 1-2 soft bowel movements per day; you can take 17g twice daily if needed Milk of magnesia, magnesium supplements and lactulose are alternate stool softeners that are generally safe for regular use in most patients (you should ask your doctor though) Bisacodyl (Dulcolax) and senna (Senokot) are stimulant laxatives for occasional use only (they may lead to dependency with regular long-term use) Enemas and bowel preparations (e.g. Golytely) can be used to treat severe stool impaction ---- thisis called ???rescue therapy?? . Drink 2 litres in 4 hours in the evening then take another 2 litresover 4 hours the next morning. Alternately, you can mix 14 capfuls of Miralax with 64 oz (2 litres) of Gatorade. Drink half over 2hours in the evening then take the rest over 2 hours the next morning. After rescue therapy immediately begin aggressive ???maintenance therapy?? with the therapies above. Bloating/Pain Ensure constipation is completely treated - ongoing constipation is one of the most common causes for refractory pain and bloating in patients with a history of constipation Heating pad or hot-water bottle, exercise, , warm bath or shower, and warm beverages are all good treatments for painful bloating episodes Simethicone (Gas-X) can be helpful for occasional usage for painful bloating Peppermint oil may also be useful; a capsule form exists (IBgard) Tumeric may help with pain and bloating in some patients Acetominophen (Tylenol) is safest analgesic (pain reliever) on the GI tract NSAIDs (e.g. ibuprofen) can cause gut irritation/inflammation - it's best to use this type of pain reliever in low doses and frequency only While medical cannabis has been used to treat a variety of chronic pain disorders it has not been rigorously studied in functional disorders and may actually worsen symptoms in some patients. At thispoint we do NOT recommend using medical cannabis to treat functional disorders AVOID narcotics/opioids as they typically make symptoms much worse and there is a risk of addictionand/or dependence Heartburn/Nausea/Vomiting/Dyspepsia Weight loss, elevation of the head of the bed frame, cutting back on nicotine/alcohol/caffeine/fatty foods, and avoiding eating or drinking prior to bed may help with reflux symptoms OTC antacids can be used for mild and/or infrequent reflux symptoms Acid reducing medications such as proton-pump inhibitors (PPIs) and H2 blockers are effective at relieving reflux if persistent and bothersome symptoms despite dietary and lifestyle measures Marly and vitamin B6 may help with nausea L-carnitine, riboflavin, and coenzyme Q10 supplements have been reported to help some patients withchronic nausea and vomiting Capsaicin, turmeric, and FDgard (combination of peppermint and ludwin) may help with after-meal bloating, fullness and discomfort If using cannabis (recreational or medical) consider stopping for at least a full month. While cannabis has been reported to help some patients with nausea, it may actually contribute to symptoms in some patients. Disclaimer This information is intended for educational purposes only It is not meant to replace direct patient-doctor care All medications should be used under the supervision of a Gastroenterology provider ([facility] or ) or Primary Care Provider Authors are not liable for misuse/misinterpretation of this information Patient Resources [place] [employer] https://www.gastro.org/practice-guidance/mj-ayfjvja-ffqyyz/ topic/ulthbedwh-hzkvd-jztflrxa-ibs Badgut.org https://badgut.org/information-centre/t-p-bjzycecpv-topics/ibs/ AboutIBS.org https://www.aboutibs.org/ Uptodate.com https://www.uptodate.com/contents/izofzwwuo-dkhfq-hbrftspk-gdzvec-vxf-wozalr documented in this encounter Progress Notes * Jose Ford MD - 08/29/2023 2:00 PM EDT [facility] TELEMEDICINE [facility] Chief Complaint: Soren Mejia is a 38 y[address] Srinivasan ref. provider found here for follow-up. Detailed history: He was last seen by me February 09, 2023 my thoughts at that time were as follows: Assessment/Plan: Mr. Mejia is a 37 y.o. patient with complex past medical history including past medical historyof non-Hodgkin lymphoma, somatoform disorder, headaches, Raynaud's syndrome, remote poly substance abuse, ADHD, alcohol abuse, chronic fatigue syndrome, fibromyalgia, small fiber peripheral neuropathy. 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 Possible element of delayed gastric emptying as retained food on prior EGD. Given his regular cannabis usage I suspect there is at least a component of cannabinoid hyperemesis syndrome but no dramatic improvement with 2 month elimination trial. He is trying to limit usage currently. Constipation and NSAID usage may be contributing. #Chronic heartburn and regurgitation consistent with GERD. Ongoing symptoms despite antireflux therapies including PPI usage but only taking PRN. NSAIDs usage could be contributing. #Chronic esophageal dysphagia -unclear if this is due to structural cause such as stricture versus esophageal motility disorder. This is could be partially related to traumatic jaw injury. Reflux appears to be also contributing. #Chronic altered bowel pattern with associated abdominal discomfort and bloating consistent with IBS -constipation predominant (IBS-C). 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 Previously seen by pelvic floor PT. Visualized rectal prolapse as per patient. # Regular outlet type bleeding and mucus in stools. He had a lower GI bleed in October 2022- presented to ED. Drop in Hgb but no scope at that time. # Abnormal CT scan of rectum/anus Jun 2022 # Prior diagnosis of solitary rectal ulcer syndrome based on prior rectal biopsies showing mucosal prolapse. Normal endoscopy at this time so unclear significance of histopathologic finding. We discussed that complete symptom relief may not be a fully achievable goal for this chronic condition, but that improvement in quality of life, healthy days at work and family functions, and also general symptom improvement may be more reasonable goals. We discussed that treatments should be tried individually and for periods of at least 4-8 weeks to truly assess symptom response. I did my bestto answer questions to the fullest ability. We discussed that recommended treatments should be tried individually for at least three months at a time to truly assess for a meaningful response, or as long as tolerated, before changing therapy. Recommendations: We discussed GI functional/motility disorders in depth today including pathophysiology, expected course, impact and treatment categories We also discussed realistic goals (with emphasis on improved quality of life) and patient responsibilities. Please see the patient handout for recommendations on general treatment measures including lifestyle, dietary, and non-prescription pharmacologic options. I will arrange a comprehensive evaluation of the structure and function of the patient's GI tract including the following investigations +/- referrals: EGD with biopsies throughout Colonoscopy vs sigmoidoscopy pro/cons discussed - will go with sigmoidoscopy at time of scope Bloodwork - anti-TTG, TSH, CMP RUQ Ultrasound Consider HIDA scan if normal Start taking pantoprazole daily and we will follow upper GI symptoms. Consider additional esophageal testing as needed: Esophageal high resolution manometry 24 hour esophageal pH/Impedance testing Barium esophagram and timed barium swallow Consider additional gastric testing as needed: Upper GI series Gastric emptying study Consider MR brain if refractory nausea Recommend continuing to follow pelvic PT advice and proceeding with biofeedback as planned. Consider repeat anorectal manometry if refractory. Consider referral to GI Behavioral Health team to work on specific psychologic measures for functional disorders Consider referral to GI dietitian Avoid NSAIDs as much possible We discussed possible role of cannabis exposure as this can be a contributing factor in patients with chronic nausea even with a lack of improvement on prior trial of abstinence. I recommended for them to cut back or ideally eliminate cannabis (aim for 1-2 month period of abstinence and remain off if any improvement). We discussed potential benefit of current amitriptyline usage but it could be contributing to constipation - could consider slight decrease in dosage and follow GI effects. Interval history: The colonoscopy showed an area of distal rectum with erythematous, granular and thickened folds. Nosolitary rectal ulcer. Biopsies consistent with prolapse. Hemorrhoids also seen. Ongoing hard stools and outlet type bleeding. Avoiding straining. Ongoing poor appetite and nausea Ongoing daily cannabis consumption Avoiding NSAIDs Current Regimen: Pantoprazole 40 mg OD Gabapentin and pregabalin for chronic jaw pain (from prior fracture) Amitriptyline 50 mg lyrica and gabapentin for jaw pain Zofran prn Past Therapies: Steroid enemas Mesalamine enemas Famotidine Omeprazole Reglan Miralax Rifaximin Review of systems: 14-point review of systems reviewed and negative except as above. Medications: Outpatient Medications Prior to Visit Medication Sig Dispense Refill ARIPiprazole (Abilify) 5 [...] 1 week, take 2 tablets twice daily. 1200 capsule 3 mupirocin (Bactroban) 2 % [...] 2 times daily. 60 mL 0 No facility-administered medications prior to visit. Allergies: is allergic to ceftin [cefuroxime axetil], compazine [prochlorperazine], and penicillins. Past Medical History: has a past medical history of ADHD, Fibromyalgia, Idiopathic small fiber peripheral neuropathy, Migraines, and Non-Hodgkin lymphoma. Past Surgical History: has a past surgical history that includes Upper Gi Endoscopy, Biopsy ([id number])(N/A, 05/04/2023) and Sigmoidoscopy, Biopsy ([id number]) (N/A, 05/04/2023). Family History: family history is not on file. denies family history of colon cancer, IBD, or celiac disease in mother father or other family members Social History: reports that he has never smoked. He has never used smokeless tobacco. He reports that he does not currently use alcohol. He reports current drug use. Drug: Marijuana. No Physical Examination performed during this telemedicine visit Questionnaire: No data to display Laboratory studies, imaging, and procedures (in summary of my review of prior records): Right upper quadrant ultrasound performed March 23, 2023 normal CMP and celiac serology normal UPPER GI ENDOSCOPY UPPER GI ENDOSCOPY Collected: 05/04/23 0900 Result status: Final Resulting lab: [facility] Value: [facility] Endoscopy Procedure Date: 05/04/2023 9:00 AM Patient Name: Soren Mejia Date of : 1985 Age: 37 Order #: [id number] Instrument Name: [id number] Procedure: Upper GI endoscopy Indications: Dyspepsia, Dysphagia, Heartburn, Nausea with vomiting Providers: Carlos Alberto Gill Kristin K. Sprenger, Terrazzo Polisher Referring MD: Emmanuelle M. Stoiber, Wiliam. Logan Medicines: Monitored Anesthesia Care Complications: No immediate complications. Procedure: Pre-Anesthesia Assessment: - Prior to the procedure, a History and Physical was performed, and patient medications, allergies and sensitivities were reviewed. The patient's tolerance of previous anesthesia was reviewed. - The risks and benefits of the procedure and the sedation options and risks were discussed with the patient. All questions were answered and informed consent was obtained. - Patient identification and proposed procedure were verified prior to the procedure by the physician, the nurse, the senior analyst programmer and the substation technician. The procedure was verified in the pre-procedure area in the endoscopy suite. - Pre-procedure physical examination revealed no contraindications to sedation. - ASA Grade Assessment: III - A patient with severe systemic disease. - After reviewing the risks and benefits, the patient was deemed in satisfactory condition to undergo the procedure. - Monitored anesthesia care under the supervision of a ELECTRICAL MANUFACTURING ENGINEER was determined to be medically necessary for this procedure based on patient's history of problems with anesthesia. The procedure, indications, benefits, risks and alternatives were explained to the patient. Specifically discussed were potential complications including, but not limited to, bleeding, perforation, infection, missing a cancer, and adverse medication reactions. The Endoscope was introduced through the mouth, and advanced to the third part of duodenum The upper GI endoscopy was accomplished without difficulty. The patient tolerated the procedure well. Findings: The Z-line was regular and was found 44 cm from the incisors. The examined esophagus was normal. Biopsies were obtained from the proximal and distal esophagus with cold forceps for histology of suspected eosinophilic esophagitis. The entire examined stomach was normal. Biopsies were taken with a cold forceps for Helicobacter pylori testing. The examined duodenum was normal. Biopsies for histology were taken with a cold forceps for evaluation of celiac disease. Moderate Sedation: Not applicable - See Anesthesia documentation Impression: - Z-line regular, 44 cm from the incisors. - Normal esophagus. Biopsied for EoE. - Normal stomach. Biopsied for H pylori. - Normal examined duodenum. Biopsied for celiac. Recommendation: - Await pathology results. - Proceed to colonoscopy. Attending Participation: I personally performed the entire procedure. FLEXIBLE SIGMOIDOSCOPY FLEXIBLE SIGMOIDOSCOPY Collected: 05/04/23 0901 Result status: Final Resulting lab: PROVATION Value: [facility] Endoscopy Procedure Date: 05/04/2023 9:01 AM Patient Name: Soren Mejia Date of : 1985 Age: 37 Order #: [id number] Instrument Name: [id number] Procedure: Flexible Sigmoidoscopy Indications: Hematochezia, question of rectal prolapse and solitary rectal ulcer syndrome Providers: Byron Elias, Carlos Alberto Rubio, April Mahoney, Terrazzo Polisher Referring MD: Gabbie Sams, Emmanuelle Sun, Jose Ford Medicines: Monitored Anesthesia Care Complications: No immediate complications. Procedure: Pre-Anesthesia Assessment: - Prior to the procedure, a History and Physical was performed, and patient medications, allergies and sensitivities were reviewed. The patient's tolerance of previous anesthesia was reviewed. - The risks and benefits of the procedure and the sedation options and risks were discussed with the patient. All questions were answered and informed consent was obtained. - Patient identification and proposed procedure were verified prior to the procedure by the physician, the nurse, the senior analyst programmer and the substation technician. The procedure was verified in the pre-procedure area in the endoscopy suite. - Pre-procedure physical examination revealed no contraindications to sedation. - ASA Grade Assessment: III - A patient with severe systemic disease. - After reviewing the risks and benefits, the patient was deemed in satisfactory condition to undergo the procedure. - Monitored anesthesia care under the supervision of a ELECTRICAL MANUFACTURING ENGINEER was determined to be medically necessary for this procedure based on patient's history of problems with anesthesia. The procedure, indications, benefits, risks and alternatives were explained to the patient. Specifically discussed were potential complications including, but not limited to, bleeding, perforation, infection, missing a cancer, and adverse medication reactions. The patient was placed in the left lateral decubitus position, and a digital rectal exam was performed. The Colonoscope was inserted in the anus and under direct visualization, advanced to the left transverse colon. Careful inspection was made as the scope was withdrawn. The flexible sigmoidoscopy was accomplished without difficulty. The patient tolerated the procedure well. The quality of the bowel preparation was good. Findings: Solid stool balls were found in the proximal transverse colon at the distal extent of the exam. The colonic mucosa appeared normal in the transverse, descending, and sigmoid colon. A localized area of mildly congested, erythematous, granular and thickened folds of the mucosa was found in the rectum. Suggestive of area of prolapse. No solitary ulcer. Biopsies were taken with a cold forceps for histology. External and internal hemorrhoids were found during retroflexion. Moderate Sedation: Not applicable - See Anesthesia documentation Impression: - Area of distal rectum with erythematous, granular and thickened folds. Suspect area of prolapse. No solitary rectal ulcer. Biopsied. - External and internal hemorrhoids. - Otherwise normal-appearing mucosa without evidence of polyps. Recommendation: - Await pathology results. - Drink plenty of fluids. - Eat high-fiber foods. Consider adding a dedicated fiber supplement (e.g,. Citrucel, Benefiber, Metamucil). - Miralax as needed for constipation. Safe to use up to 2-3x/day if needed. - Don't sit for long periods on the toilet. Don't read or bring your phone on the toilet. Elevate feet on a stool or Squatty Potty when defecating. - Follow-up in GI clinic with Dr. Ford. - Start average-risk colorectal cancer screening at 46 years old. . Surgical Pathology DIAGNOSIS A - Distal esophagus biopsy r/o EOE, biopsy (Multiple): - Squamous mucosa negative for diagnostic abnormality. B - Mid esophagus biopsy r/o EOE, biopsy (Multiple): - Squamous mucosa negative for diagnostic abnormality. C - Gastric biopsy r/o Pylori, biopsy (Multiple): - Gastric antrum-type and body/fundic-type mucosa, negative for diagnostic abnormality. D - Duodenum biopsy r/o celiac, biopsy (Multiple): - Duodenal mucosa, negative for diagnostic abnormality . E - Rectum biopsy at area of inflammation asses for prolapse, biopsy (Multiple): - Colonic mucosa with mucosal prolapse features. Assessment/Plan: Mr. Mejia is a 38 y.o. patient with complex past medical history including past medical historyof non-Hodgkin lymphoma, somatoform disorder, headaches, Raynaud's syndrome, remote poly substance abuse, ADHD, alcohol abuse, chronic fatigue syndrome, fibromyalgia, small fiber peripheral neuropathy. 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 Possible element of delayed gastric emptying as retained food on prior EGD. Given his regular cannabis usage I suspect there is at least a component of cannabinoid hyperemesis syndrome but no dramatic improvement with 2 month elimination trial. He is trying to limit usage currently. Constipation likely contributing. #Chronic heartburn and regurgitation consistent with GERD. Improved with daily PPI usage. #Chronic esophageal dysphagia. Normal EGD with biopsies. This is could be partially related to traumatic jaw injury affecting mastication. Reflux appears to be also contributing. #Chronic altered bowel pattern with associated abdominal discomfort and bloating consistent with IBS -constipation predominant (IBS-C). 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 Previously seen by pelvic floor PT. Visualized rectal prolapse as per patient. #Chronic outlet type bleeding with hemorrhoids on sigmoidoscopy in 2022 and colonoscopy 2021. Recommendations: We further discussed GI functional/motility disorders in depth today including pathophysiology, expected course, impact and treatment categories We also discussed realistic goals (with emphasis on improved quality of life) and patient responsibilities. Please see the patient handout for recommendations on general treatment measures including lifestyle, dietary, and non-prescription pharmacologic options. I will arrange a comprehensive evaluation of the structure and function of the patient's GI tract including the following investigations +/- referrals: HIDA scan Upper GI series Gastric emptying study Continue taking pantoprazole daily and we will follow upper GI symptoms. Start a regular bowel regime - start with miralax Consider Linzess if refractory constipation Be careful with Zofran as can be constipating Consider additional esophageal testing as needed: Esophageal high resolution manometry 24 hour esophageal pH/Impedance testing Barium esophagram and timed barium swallow Consider MR brain if refractory nausea Recommend continuing to follow pelvic PT advice and proceeding with biofeedback as planned. Consider repeat anorectal manometry if refractory. Consider referral to GI Behavioral Health team to work on specific psychologic measures for functional disorders Consider referral to GI dietitian Avoid NSAIDs as much possible Continue with mental health services - psychiatry and counselor We further discussed possible role of cannabis exposure as this can be a contributing factor in patients with chronic nausea even with a lack of improvement on prior trial of abstinence. I recommended for them to cut back or ideally eliminate cannabis (aim for 1-2 month period of abstinence and remain off if any improvement). We discussed potential benefit of current amitriptyline usage but it could be contributing to constipation - could consider slight decrease in dosage and follow GI effects and chronic pain. Agree with planned consultation with chronic pain service RTC with me in after testing completed The patient was located in [place] at the time of their visit. TIME SPENT WITH PATIENT Time spent reviewing records prior to this encounter on day of appointment: 5 minutes Time spent during encounter with patient including counselin minutes Time spent documenting encounter after office visit: 5 minutes Jose Ford MD [facility] [place] [id number] documented in this encounter Plan of Treatment Upcoming Encounters Date Type Department Care Team (Late st Contact Info) Description 02/06/2024 9:30 AM EDT TH Visit (TeleHealth) Psychiatry and Behavioral Health at [place] [address] Fermin Mercado MD [facility] [address] Scheduled Orders Name Type Priority Associated Diagnoses Orde r Schedule NM Functional Biliary Scan Imaging Routine Functional dyspepsia Expected: 08/29/2023, Expires: 02/28/2024 XR Fluoro Upper GI Series Imaging Routine Functional dyspepsia Expected: 08/29/2023, Expires: 02/28/2024 NM Gastric Emptying Scan Imaging Routine Functional dyspepsia Expected: 08/29/2023, Expires: 02/28/2024 documented as of this encounter Visit Diagnoses Diagnosis Functional dyspepsia Dyspepsia and other specified disorders of function of stomach documented in this encounter Care Teams Scalper Operator Relationship Specialty Start Date End Date Gabbie Sams MD [address] [place] [address] PCP - General Family Medicine 12/31/22 documented as of this encounter
--- OUTSIDE RECORDS SUMMARY | 2023-12-28 01:49 | XMS_ITS | Encounter Summary ---
Author Organization [facility] Address [facility] [place] [address] Care Team Providers Care Java Solutions Architect Name Role Phone Gabbie Sams MD Primary Care Provider [phone] Reason for Referral * Psychiatric (Urgent) - Closed Specialty Diagnoses / Procedures Referred By Contac t Referred To Contact Psychiatry Diagnoses Depression, unspecified depression type Chinedu Abreu MD [facility] [address] [place] [address] [facility] [place] [address] Referral ID Status Reason Start Date Expiration Date V isits Requested Visits Authorized [id number] Closed Consult, Test & Treat 06/02/2023 06/01/2024 1 1 Encounter Details Date Type Department Care Team (Late st Contact Info) Description 06/02/2023 3:45 PM EST Office Visit Dermatology at [facility] [address] [place] [address] Chinedu Abreu MD [facility] [address] [place] [address] Alopecia areata; Androgenetic alopecia; Neurotic excoriations; Depression, unspecified depression type Social History Tobacco Use Types Packs/Day Years [...] this encounter Patient Instructions * Patient Instructions* Quintin Alvarez CCMA - 06/02/2023 3:45 PM EST - Stop Rx: Clobetasol 0.05% Solution. - Start Rx fluocinolone ([place] with shower cap) 0.01% oil: Apply topically to affected areas on the scalp nightly for 1-2 weeks, then decrease to 2-3x/week or less as needed. Wash out in the morning. (Avoid face and eyes.). - Start Rx: Finasteride 1 mg tablet daily. Provided patient a printed GoodRx coupon for use at patient's preferred pharmacy at [facility] in [place], [place]. - Start Rx: N-Acetylcysteine. Recommend starting over the counter N- acetylcysteine 1,200 mg daily. After 1 week, increase to 2,400 mg daily. - Continue Rx: Minoxidil 2.5 mg. Take 1 tablet daily. Warned that this could cause unwanted hair growth in other parts of the body, upset stomach, mild palpitations and swelling in the lower extremities. - Continue Rx: Clindamycin Solution for any inflammatory papules on the scalp BID for 10-14 days. Advised to avoid scratching sites. documented in this encounter Progress Notes * Quintin Alvarez CCMA - 06/02/2023 3:45 PM EST Images from the original note were not included. DEPARTMENT OF DERMATOLOGY Medical Dermatology Clinic Provider: Chinedu Abreu MD Patient's preferred name Soren Preferred contact method for results [x]Phone []myD-H []Letter Detailed phone message OK? Yes Are there any other people with whom we may discuss your care? No Past Medical History Date, location, treatment Melanoma N Dysplastic nevi N SCC N BCC N AKs N UV Exposure & Protection N/A Alopecia Areata (clobetasol solution, finasteride, oral minoxidil, ILK) Lymphoma (2005) Family History Details Melanoma Yes (unspecified) NMSC N Other relevant family history N Social History Marital Status: single Tobacco use: Never Alcohol use: None Pre-Procedure Screening Details Allergy to lidocaine, epinephrine, Dermabond, chlorhexidine, or adhesives N Bleeding disorder or blood thinners N Pacemaker, defibrillator, deep brain stimulator, cochlear implant N History of Present Illness: Soren Mejia is a 37 y.o. Patient returns to clinic today for a 5 week alopecia areata follow-up. After last visit, patient was to start Rx: Finasteride 1 mg QD; continue Rx: Clobetasol 0.05% solution. Patient still taking oral minoxidil, 1 tablet daily. Previously treated with ILK. Patient states there is more hair loss on the top. Patient has more scabby spots on the scalp. Lots of flakes. Patient using an OTC dandruff shampoo. Patient never got finasteride, as [place] Medicaid never approved this. Stopped clobetasol solution solution, as it smells like alcohol, and is a recovering alcoholic - doesn't like it. - At last visit, patient seen for excoriation on the occipital scalp, for which he was given a 10-day course of Rx: Mupirocin 2% ointment and, after which, was supposed to start Rx: Clindamycin solution. Still using this for the spots, but getting new ones. Finds bound-up, wound hairs in the excoriations. Feels like there are bunches of hair coming up from under his skin. Seeing this wherever he has hair. Last visit at Dermatology: 04/28/2023 Last visit with this provider: 04/28/2023 Medications: Reviewed in eD-H Allergies: Reviewed in eD-H Skin Examination: Focused skin examination of the scalp was normal with the exception of the findings below. Assessment/Plan #. Androgenetic Alopecia withTrichotillomania - Patchy regrowth noted in areas of prior alopecia with broken hair shafts/ black dots/angularity of patches of hair loss. Few scattered excoriations on the upper extremities, chest and back. (Figures 1 - 7) -after extensive discussion pt admits to picking/pulling hair that has worsened with recent loss ofhis job and multiple medical problems -he notes increasing anxiety/depression which pt feels are contributing to his increased hair loss Plan: - Stressed the importance of patient not scratching or picking scalp. - Stop Rx: Clobetasol 0.05% Solution. - Start Rx fluocinolone ([place] with shower cap) 0.01% oil: Apply topically to affected areas on the scalp nightly for 1-2 weeks, then decrease to 2-3x/week or less as needed. Wash out in the morning. (Avoid face and eyes.). - Start Rx: Finasteride 1 mg tablet daily. Provided patient a printed GoodRx coupon for use at patient's preferred pharmacy at [facility] in [place], [place]. - Start Rx: N-Acetylcysteine. Recommend starting over the counter N- acetylcysteine 1,200 mg daily. After 1 week, increase to 2,400 mg daily to decrease urge to pick and scratch at the scalp - Continue Rx: Minoxidil 2.5 mg. #. Anxiety/Depression - Patient expressed signs of depression during exam. Provided patient health questionnaire PHQ-9, which yielded a score of 20, indicating severe depression. -Asked patient about suicidal or homicidal ideation/intention or plan, which patient denied. -Patient states he plans on seeing family for the holiday this weekend. Recommended admittance to Emergency Department tonight for acute evaluation, but patient declined. Patient states he feels safeat home. -Attempted to obtain pt a same day appointment with Primary Care and Psychiatry, but both offices required a referral/inability to see pt same day -Discussed starting Duloxetine given associated scalp discomfort and to improve pt's mood. However,pt states he did not tolerate in past. - Will place urgent referral to psychiatry for optimal comprehensive treatment Figure 1 Figure 2 Figure 3 Figure 4 Figure 5 Figure 6 Figure 7 PHQ-9 Photo(s) taken and charted with patient's verbal consent. Other: OTC skin products discussed RTC: 2 months for alopecia areata follow-up []Note routed to diet clerk []Recall placed in scheduling system [x]Appointment scheduled at checkout Scribe attestation: BINDU Vu has performed the documentation for this encounter in the presence of and acting as a scribe for Chinedu Abreu MD. I performed the above scribed service and agree with the accuracy of the documentation in this encounter. Reviewed and signed by: Chinedu Abreu MD Dermatology [facility] documented in this encounter Plan of Treatment Upcoming Encounters Date Type Department Care Team (Late st Contact Info) Description 02/06/2024 9:30 AM EDT TH Visit (TeleHealth) Psychiatry [place] [address] Fermin Mercado MD [facility] [place] [address] Scheduled Referrals Name Type Priority Associated Diagnoses Orde r Schedule Referral to Psychiatry Outpatient Referral Urgent Depression, unspecified depression type Ordered: 06/02/2023 documented as of this encounter Visit Diagnoses Diagnosis Alopecia areata Androgenetic alopecia Other alopecia Neurotic excoriations Dermatitis factitia (artefacta) Depression, unspecified depression type documented in this encounter Care Teams Java Solutions Architect Relationship Specialty Start Date End Date Gabbie Sams MD [address] [place] [address] PCP - General Family Medicine 12/31/22 documented as of this encounter
--- OUTSIDE RECORDS SUMMARY | 2023-12-28 01:49 | XMS_ITS | Encounter Summary ---
Author Organization [facility] [place] [address] Care Team Providers Care Featheredger And Reducer Machine Name Role Phone Gabbie Sams MD Primary Care Provider [phone] Encounter Details Date Type Department Care Team (Late st Contact Info) Description 09/14/2023 [place] [phone] Angela Alejandre RN Social History Tobacco Use Types Packs/Day Years Used Date Smoking Tobacco: Never Smokeless Tobacco: Never Alcohol Use Standard Drinks/Week Comments Not Currently 0 (1 standard drink = 0.6 oz pur e alcohol) Sex and Gender Information Value Date Recorded Sex Assigned at Not on file Gender Identity Not on file Sexual Orientation Not on file documented as of this encounter Miscellaneous Notes * Telephone Encounter - Angela Alejandre RN - 09/14/2023 10:17 AM EDT Reaching out to assist patient in scheduling the NM (gastric emptying scan), the NM (functional biliary scan), and the XR (fluoro upper GI series) that were ordered on 08/29/[address] Ford. The patient asked if these studies could be done at [facility], [place], [place], because it is closer to home. The patient talked about his health issues including his constant, daily nausea that is not going away despite stopping cannabis for several months. Ordering provider contacted regarding the patient'srequest to have imaging done at [facility]. documented in this encounter Plan of Treatment Upcoming Encounters Date Type Department Care Team (Late st Contact Info) Description 02/06/2024 9:30 AM EDT TH Visit (TeleHealth) Psychiatry [place] [address] Fermin Mercado MD [facility] [place] [place] [address] documented as of this encounter Visit Diagnoses Not on filedocumented in this encounter Care Teams Featheredger And Reducer Machine Relationship Specialty Start Date End Date Gabbie Sams MD [address] [place] [address] PCP - General Family Medicine 12/31/22 documented as of this encounter
--- OUTSIDE RECORDS SUMMARY | 2023-12-28 01:49 | XMS_ITS | Encounter Summary ---
Author Organization [facility] [address] Care Team Providers Care Prison Warden Name Role Phone Gabbie Sams MD Primary Care Provider [phone] Encounter Details Date Type Department Care Team (Latest Contact Info) Description 06/02/2023 Travel Social History Tobacco Use Types Packs/Day Years Used Date Smoking Tobacco: Never Smokeless Tobacco: Never Alcohol Use Standard Drinks/Week Comments Not Currently 0 (1 standard drink = 0.6 oz pur e alcohol) Sex and Gender Information Value Date Recorded Sex Assigned at Not on file Gender Identity Not on file Sexual Orientation Not on file documented as of this encounter Plan of Treatment Upcoming Encounters Date Type Department Care Team (Late st Contact Info) Description 02/06/2024 9:30 AM EDT TH Visit (TeleHealth) Psychiatry [place] [address] Fermin Mercado MD [facility] [place] [address] documented as of this encounter Visit Diagnoses Not on filedocumented in this encounter Care Teams Prison Warden Relationship Specialty Start Date End Date Gabbie Sams MD [address] [place] [address] PCP - General Family Medicine 12/31/22 documented as of this encounter
--- OUTSIDE RECORDS SUMMARY | 2023-12-28 01:49 | XMS_ITS | Encounter Summary ---
Author Organization [facility] Address [facility] [place] [address] Care Team Providers Care Tightening Machine Operator Name Role Phone Gabbie Sams MD Primary Care Provider [phone] Reason for Visit * Reason Onset Date Comments Medication Refill 10/06/2023 Encounter Details Date Type Department Care Team (Late st Contact Info) Description 10/06/2023 Refill Psychiatry [place] [address] Vicki Jackson RN Social History Tobacco Use Types Packs/Day [...] Visit (TeleHealth) Psychiatry [place] [address] Fermin Mercado MD [facility] [place] [address] documented as of this encounter Visit Diagnoses Not on filedocumented in this encounter Care Teams Tightening Machine Operator Relationship Specialty Start Date End Date Gabbie Sams MD [address] [place] [address] PCP - General Family Medicine 12/31/22 documented as of this encounter
--- OUTSIDE RECORDS SUMMARY | 2023-12-28 01:49 | XMS_ITS | Encounter Summary ---
Author Organization [facility] [place] [address] Care Team Providers Care Calibration Specialist Name Role Phone Gabbie Sams MD Primary Care Provider [phone] Reason for Visit * Reason Onset Date Comments Waitlist Status Update 07/12/2023 Called an d LVM x1, sooner availability 07/14 - 07/12/23 SLE Encounter Details Date Type Department Care Team (Late st Contact Info) Description 07/12/2023 Telephone [place] [address] Vicki Smith Waitlist Status Update (Called and LVM x1, sooner availability 07/14 - 07/12/23 SLE) Social History Tobacco Use Types Packs/Day Years [...] encounter Miscellaneous Notes * Telephone Encounter - Vicki Smith - 07/12/2023 10:05 AM EST Left message and sent a Media[employer] message to the patient regarding a sooner appointment with Dr. Savage the WaitList in [facility] Call Center Scheduling- Please offer any available sooner appointment with mentioned provider scheduling from the WaitList tab, if no availability sooner when patient is calling please keep currentlyscheduled appointment and keep the appointment on the WaitList. Please see appt notes to determine if appointment can be virtual or in clinic or with other providers if a new appt type. documented in this encounter Plan of Treatment Upcoming Encounters Date Type Department Care Team (Late st Contact Info) Description 02/06/2024 9:30 AM EDT TH Visit (TeleHealth) Psychiatry [place] [address] Fermin Mercado MD [facility] [place] [address] documented as of this encounter Visit Diagnoses Not on filedocumented in this encounter Care Teams Calibration Specialist Relationship Specialty Start Date End Date Gabbie Sams MD [address] [place] [address] PCP - General Family Medicine 12/31/22 documented as of this encounter
--- OUTSIDE RECORDS SUMMARY | 2023-12-28 01:49 | XMS_ITS | Encounter Summary ---
Author Organization [facility] [place] [address] Care Team Providers Care Biomedical Technician Name Role Phone Gabbie Sams MD Primary Care Provider [phone] Encounter Details Date Type Department Care Team (Latest Contact Info) Description 08/01/2023 Travel Social History Tobacco Use Types Packs/Day [...] Visit (TeleHealth) Psychiatry [place] [address] Fermin Mercado MD [facility] [place] [address] documented as of this encounter Visit Diagnoses Not on filedocumented in this encounter Care Teams Biomedical Technician Relationship Specialty Start Date End Date Gabbie Sams MD [address] [place] [address] PCP - General Family Medicine 12/31/22 documented as of this encounter
--- OUTSIDE RECORDS SUMMARY | 2023-12-28 01:49 | XMS_ITS | Encounter Summary ---
Author Organization [facility] [place] [address] Care Team Providers Care Machine Bander And Cellophaner Helper Name Role Phone Gabbie Sams MD Primary Care Provider [phone] Encounter Details Date Type Department Care Team (Late st Contact Info) Description 09/08/2023 Orders Only Psychiatry and Behavioral [place] [phone] Fermin Mercado MD [facility] [place] [address] Social History Tobacco Use Types Packs/Day Years [...] Visit (TeleHealth) Psychiatry and Behavioral [place] [phone] Fermin Mercado MD [facility] [place] [address] documented as of this encounter Visit Diagnoses Not on filedocumented in this encounter Care Teams Machine Bander And Cellophaner Helper Relationship Specialty Start Date End Date Gabbie Sams MD [address] [place], [place] [address] PCP - General Family Medicine 12/31/22 documented as of this encounter
--- OUTSIDE RECORDS SUMMARY | 2023-12-28 01:49 | XMS_ITS | Clinical Summary ---
Author Organization [facility] [place] [address] Care Team Providers Care Partner Name Role Phone Gabbie Sams MD Primary Care Provider [phone] Allergies Active Allergy Reactions Criticality Noted Date Comments Cefuroxime Axetil 10/21/2022 Prochlorperazine 10/21/2022 Penicillins 10/21/2022 Medications Medication Sig Dispensed Refills Start Date End Date Status GABAPENTIN ORAL Take by mouth. Activ e pregabalin (LYRICA ORAL) Take by mouth. Active triamcinolone (KENALOG) 0.1 % Lotion Apply topically 3 times daily. Active clindamycin (CLEOCIN T) 1 % LotionIndications:Fo lliculitis Apply topically 2 times daily. 60 mL 10/21/2022 Active ONDANSETRON HCL ORAL Take by mouth. Active pantoprazole EC (Protonix) [address] tablet Take 40 mg by mouth daily. Active tamsulosin (Flomax) 0.4 mg capsule daily. 12/23/2022 Active gabapentin (Neurontin) 600 mg tablet Take 600 mg by mouth 3 times daily. Active lisdexamfetamine (Vyvanse) 50 mg capsule Take 60 mg by mouth daily. 07/26/2022 Active pregabalin (Lyrica) 200 mg capsule Take 200 mg by mouth 3 times daily. 11/21/2022 Active mupirocin (Bactroban) 2 % OintmentIndications: Wound infection Apply to affected areas on scalp three times daily for 10 days 22 g 04/28/2023 Active minoxidiL (Loniten) 2.5 mg tabletIndications:Al opecia areata Take 1 tablet by mouth daily. 90 tablet 3 06/02/2023 Active hydrocortisone (CORTENEMA) 100 mg/60 mL Enema INSERT 100MG INTO RECTUM AT BEDTIME Active ARIPiprazole (Abilify) 5 mg tablet Take 1 tablet by mouth daily. 30 tablet 2 10/31/2023 Active amitriptyline (Elavil) 50 mg tablet Take 50 mg by mouth nightly. 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; Post concussive syndrome 10/10/2023 1:30 PM EDT TH Visit (TeleHealth) Psychiatry and Behavioral Health at [place] [phone] Fermin Mercado MD technician terminal and repeater current use of antipsychotic medication; Moderate episode of recurrent major depressive disorder 10/07/2023 Telephone Psychiatry and Behavioral Health at [place] [phone] Lore Molina 10/06/2023 Refill Psychiatry and Behavioral Health at [place] [phone] Vicki Jackson RN from Last 3 Months Social History Tobacco Use Types Packs/Day Years Used Date Smoking Tobacco: Never Smokeless Tobacco: Never Tobacco Cessation:Counseling Given: Not Answered Alcohol Use Standard Drinks/Week Comments Not Currently 0 (1 standard drink = 0.6 oz pur e alcohol) Sex and Gender Information Value Date Recorded Sex Assigned at Not on file Gender Identity Not on file Sexual Orientation Not on file Last Filed Vital Signs Vital Sign Reading Time Taken Comments Blood Pressure 118/79 05/04/2023 10:20 AM EST Pulse 67 05/04/2023 7:59 AM EST Temperature 36.6 ??C (97.8 ??F) 05/04/2023 7:59 AM ES T Respiratory Rate 14 05/04/2023 7:59 AM EST Oxygen Saturation 100% 05/04/2023 10:20 AM EST Inhaled Oxygen Concentration - - Weight 90.7 kg (200 lb) 05/04/2023 8:04 AM EST Height 193 cm (6' 4) 05/04/2023 8:04 AM EST Body Mass Index 24.34 05/04/2023 8:04 AM EST Plan of Treatment Upcoming Encounters Date Type Department Care Team (Late st Contact Info) Description 02/06/2024 9:30 AM EDT TH Visit (TeleHealth) Psychiatry [place] [address] Fermin Mercado MD [facility] [place] [address] Health Maintenance Due Date Last Done Comments HIV screen 2004 Hepatitis C Screening 2004 Hepatitis B vaccine (0-59 yrs) (1) 2005 Tdap adult 2005 Tetanus vaccine 2005 Covid-19 Vaccine ( - season) 2023 Influenza (Flu) vaccine (1 o f 1 - Influenza standard series) 02/12/2024 Lipid Screening 03/08/2028 03/08/2023 Procedures Procedure Name Priority Date/Time Associated Diagnosis Comments LIPID PANEL (REFLEX DIRECT LDL) Routine 03/08/2023 5:28 PM EDT High risk medication use from Last 3 Months or Most Recently Relevant to Health Maintenance Results * Lipid Panel (Reflex Direct LDL) (03/08/2023 5:28 PM EDT) Chol, Total 151 mg/dL [facility] Comment: Lower Risk: <200 mg/dL Average Risk: 200-239 mg/dL Higher Risk: >of=034 mg/dL Triglycerides 80 mg/dL [facility] Comment: Average Risk/Lower Risk: <150 mg/dL Borderline High Risk: 150-199 mg/dL High Risk: 200-499 mg/dL Very High Risk: >lb=235 mg/dL HDL 57 mg/dL [facility] Comment: Males: ?? Higher Risk: <40 mg/dL Females: ?? Higher Risk: <50 mg/dL LDL Cholesterol 78 mg/dL [facility] Comment: Lowest Risk: <100 mg/dL Lower Risk: 100-129 mg/dL Borderline High Risk: 130-159 mg/dL High Risk: 160-189 mg/dL Very High Risk: >kn=057 mg/dL Chol/HDL Ratio 2.6 ratio [facility] Lipid Interpretation See Note [facility] Comment: Lipid management should be guided by a patient? s ASCVD risk, goals and preferences. ACC/AHA Guidelines recommend high intensity statin if clinical ASCVD or LDL greater than or equal to 190 mg/dL. [email or web address] Adults aged 40-75 with LDL 70-189 mg/dL should have their 10 year ASCVD risk estimated with the ACC/AHA ASCVD risk quality analyst/technical writer http://tools.acc.org/XNXYT-Upcb-Lkllgzchz/ Statin should be discussed if risk greater than or equal to 7.5% in non-diabetics. With diabetes, moderate intensity statin is recommended if risk less than 7.5%, high intensity if risk greater than or equal to 7.5%. Annual lipid monitoring on statins is not necessary. Evaluate secondary causes of Triglycerides greater than 500 mg/dL or LDL greater than 190 mg/dL: See table 6 of ACC/AHA Guideline. Lifestyle modification is a critical component of ASCVD risk reduction. Blood 03/08/2023 5:28 PM EDT 03/08/2023 5:35 PM EDT Narrative Resulting Agency Comment Spec In Lab Chinedu Abreu MD CHEMISTRY ORDERABLES [facility] [place] [address] from Last 3 Months or Most Recently Relevant to Health Maintenance Care Teams Partner Relationship Specialty Start Date End Date Gabbie Sams MD [address] [place] [address] PCP - General Family Medicine 12/31/22
--- OUTSIDE RECORDS SUMMARY | 2023-12-28 01:49 | XMS_ITS | Encounter Summary ---
Author Organization [facility] Address [facility] [place] [address] Care Team Providers Care Work Environment Safety Inspector Name Role Phone Gabbie Sams MD Primary Care Provider [phone] Reason for Visit * Psychiatric (Urgent) - Closed Specialty Diagnoses / Procedures Referred By Contac t Referred To Contact Psychiatry Diagnoses Depression, unspecified depression type Chinedu Abreu MD [facility] [place] [address] [facility] [place] [address] Referral ID Status Reason Start Date Expiration Date V isits Requested Visits Authorized [id number] Closed Consult, Test & Treat 06/02/2023 06/01/2024 1 1 Encounter Details Date Type Department Care Team (Latest Contact Info) Description 08/01/2023 1:00 PM EST Office Visit Psychiatry [place] [address] Fermin Mercado MD [facility] [place] [address] Moderate episode of recurrent major depressive disorder; Attention deficit disorder, unspecified hyperactivity presence; PTSD (post-traumatic stress disorder) Social History Tobacco Use Types Packs/Day Years Used Date Smoking Tobacco: Never Smokeless Tobacco: Never Alcohol Use Standard Drinks/Week Comments Not Currently 0 (1 standard drink = 0.6 oz pur e alcohol) Sex and Gender Information Value Date Recorded Sex Assigned at Not on file Gender Identity Not on file Sexual Orientation Not on file documented as of this encounter Progress Notes * Fermin Mercado MD - 08/01/2023 1:00 PM EST Images from the original note were not included. Psychiatry Outpatient Evaluation Location: Office Referral Source: Dermatology Information Source: patient Additional Attendee(s): none This patient was seen with instructional supervisor Dr. Santo. See their note for confirmatory and/or revisionary documentation. Identifying information: Soren Mejia is a 38 y.o. male with a chart psychiatric history significant for depression and ADHD, who presents to clinic to establish psychiatric care. He was referredby Dr. Abreu. Medical history is significant for postraumatic left facial (jaw) pain, stage IIa mixed cellularity Hodgkins lymphoma, anxiety, chronic pain, headache, small fiber peripheral neuropathy, polyarthralgias, chronic low back pain, Raynauds, remote DVT, bilateral carpal tunnel syndrome and mild right ulnar neuropathy. Chief Complaint: ???I'm not able to put it on the back burner as before.?? History of Presenting Illness: Please note that Soren arrived late to his appointment today (lost in building) so a full history was unable to be obtained. Soren was referred to our clinic following a dermatology visit in May 2023, when he scored a 20 on the PHQ-9. Soren shares a long history of depression with a clear inciting event approximately 13 years ago, when he fractured his jaw after losing consciousness (unknown etiology). He has been following with pain specialists, where he continues to report improved but significant pain. He notes his depression has been largely manageable until the last few months when I'm not able toput it on the back burner as before. He describes having a depressed mood, poor chronic sleep (multiple night time awakenings not due to nightmares), low energy and motivation, psychomotor slowing, poor appetite, decreased interest in previously pleasurable activities (ie woodworking), and passivesuicidal ideation. Rates his current depression as 5/10. 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 He reports a long history of being fired from jobs due to disagree ments 3.) chronic pain that he describes as a flaming boot sitting on my jaw. He describes his passive suicidal ideation as I just don't want to be awake some days. He denies active suicidal ideation, is future oriented, and lists his friends and mother as protective factors. He shares he had 1aborted suicide attempt shortly after the aforementioned jaw injury, where he sat in the bathtub with a knife. He says he stopped this attempt after something told me that the next place would be worse for me. He denies other instances of possible psychosis and describes himself as agnostic. He reports a PCP told him he may have bipolar disorder, but his history and current symptoms are unconvincing of prior manic episodes. He reports he was diagnosed with lymphoma in 2005 and has been told it is not currently active and he requires no follow up anymore. In the past he reports he had frequent nightmares, avoidance behaviors (would have to turn off TV during any drug advertisements), and hypervigilance behaviors. He reports he rarely experiences these symptoms presently and that they have not been impairing his function. Regarding his jaw pain, he reports gabapentin has been helpful for the pressure type pain and Lyrica has been helpful for flaming sensation pain. He also reports amitriptyline has also been helpful for pain. Current medications prior to encounter - gabapentin 600mg TID - lisdexamfetamine 60mg daily - amitriptyline 50mg QHS - Lyrica Past Psychiatric history and treatment: Per chart [...] - Lexapro: reports this worsened his depression Substance Use: Per chart review, updated with relevant information: Alcohol - after breaking jaw in approximately 2010, Soren reports he started drinking approximately a handle of rum or whiskey per day until he went to rehab in [facility] in approximately 2017 - since 2018, [...] speaking and walking late - was an [employer] - further exploration was limited due to time constraints. Will try to obtain in future. Social History: Per chart review, updated with relevant information Living Situation - in the past year, moved to [place] after his parents gave him approximately [address] acres [address]. Says he lives by himself. - Says there is no running water but he is able to obtain drinking water from filling stations and has a natural waste area. Marital Status - single Children - denies Occupation - fired from job at [employer] in May 2023 - reports a long history of being fired from jobs. 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 - says he is currently living on savings and says he has no major expenses because his land is fully paid for and his mother provides meals Education - says he is currently studying professional studies at [employer] - denies Access to guns - yes, [...] Reactions Ceftin [Cefuroxime Axetil] Compazine [Prochlorperazine] Penicillins Past Medical History: Past Medical History: Diagnosis Date ADHD Fibromyalgia Idiopathic small fiber peripheral neuropathy Migraines Non-Hodgkin lymphoma Review of Systems: Chronic jaw pain / control: N/A Vitals (24hr Range): No data found. Musculoskeletal System: normal gait and balance and ambulates independently Mental Status Exam: Appearance: age appropriate Behavior: cooperative with the interview, calm, and intermittent eye contact Speech: normal pitch, normal volume, and normal rate Language: fluent in [place] Mood: 5/10 Affect: full Thought Process: linear and logical Associations: intact Thought Content: denied suicidal ideation Perception: denied auditory hallucinations denied visual hallucinations not observed responding to internal stimuli Orientation: grossly intact by interview Attention/Concentration: able to sustain focus Cognition: grossly intact by interview Memory: recent and remote memory grossly intact Fund of Knowledge: appropriate for age and level of functioning Insight: fair Judgment: fair Labs: Psychiatric labs: Lab Results Component Value [...] found for: 25OHVITD No results found for: [id number] No results found for: LITHIUM No results found for: PHENYTOIN, PHENOBARB, VALPROATE, CBMZ No results found for: CLOZAPINE No results found for: HCGQUAL, HCGQUANT, POCUAHCG Relevant imaging: No results found for this visit on 08/01/23. Formulation and Assessment: Soren Mejia is a 38 y.o. Male with a psychiatric history significant MDD, PTSD in remission, ADHD, who presents to clinic to establish psychiatric care. He was referred by Dr. Abreu. Medical history is significant for postraumatic left facial (jaw) pain, stage IIa mixed cellularity Hodgkins lymphoma, anxiety, chronic pain, headache, small fiber peripheral neuropathy, polyarthralgias, chronic low back pain, Raynauds, remote DVT, bilateral carpal tunnel syndrome and mild right ulnar neuropathy. Assessment on 08/05/23: Soren describes a long history of depression starting since his jaw injury (approximately 2010). His depressive symptoms appear to have worsened in the past few months in the context of multiple psychosocial stressors and continued jaw pain. There are no acute safety concerns at this time as he denies active suicidal ideation, is future oriented, has multiple protective factors, and appears to have a good support network. Soren's treatment history is suggestive of refractory depressive symptoms despite multiple past medication trials. His current antidepressant agent amitriptyline, which he reports has been helpful for pain, isn't entirely optimized dosing-das to treat potential mood symptoms. Unfortunately, further titration in the past has not been well tolerated. Given the utility of continued amitriptyline use for pain, an augmentation agent could be beneficial to address his mood symptoms. Will start Abilify at this time. Risks and benefits were discussed at length. Will plan to obtain A1C during next visit. If well tolerated but residual mood symptoms remain, could consider further titration in the future. Diagnostically, Soren appears to meet criteria for MDD with ongoing depressive symptoms presently.His history and current symptomology is not suggestive of bony or psychosis, although further investigation is warranted into the cause of his long history of job firings. Historically, Soren appeared to meet criteria for PTSS (inciting event was lymphoma), but these symptoms now appear to be in remission. Per chart review, he was previously diagnosed with ADHD. Please note that the aforementioned assessment was made on a truncated visit, as the patient arrived late due to getting lost in the hospital. Further exploration of his history and present symptoms is warranted during future visits. Diagnoses: - MDD - ADHD - PTSD in remission - chronic pain s/p jaw injury in approximately 2010 Safety Assessment: Denies active SI and HI. No safety concerns noted at this time. Currently involved in treatment and has good social support, including his mother and past co-worker. Does have access to firearms. Future-oriented. Acute risk is low, chronic risk is moderate given diagnoses and prior suicide attempt. No safety concerns identified that would preclude continuing with current outpatient level of care. He has access to emergency phone numbers if safety concerns were to arise. Plan (by problem): #MDD #PTSD in remission #chronic pain - start Abilify 2.5mg daily - continue gabapentin 600mg TID (prescribed by PCP) - continue amitriptyline 50mg QHS (prescribed by neurologist) #ADHD - continue Vyvanse 60mg daily (currently prescribed by PCP) #lab monitoring - will plan to obtain A1C at his next appointment - last lipid panel on 03/08/23 Next appointment: 09/05/23 via telehealth Patient Instruction/Education provided: Patient provided verbal instructions regarding medication side effects, safety plan in case of feeling unsafe. We discussed that I am available via [employer], but that I do not check this daily, and should not be used in case of emergency. We have reviewed crisis numbers to call in case of emergency. We discussed limits to confidentiality, which include breaking confidentiality in the case of concern for imminent danger to self, someone else (including child and elder abuse) or if records are subpoenaed by a immigration judge. We also discussed that notes can be read by other clinicians and staff involved in the patient's care. Patient understands the plan? Yes For mental health emergencies, call [phone] from anywhere in the [facility]. State specific information for [place] and [place] crisis services are as follows and should be used to access local resources: [facility], [facility] Mental Health Crises Services [facility] Crisis Line text or call Visit [email or web address] for further information [place] Call your local community crisis line at: [place]: [facility] [phone] [place]: [facility] [phone] [place]: [facility] [phone] [place]: [facility] [phone] [place]: [facility] [phone] [place]: [place] [facility] [phone] [place]: [facility] [phone] on weekdays 8AM-4:30PM and [phone] on nights and weekends [place]: [facility] [place]: [facility] [phone] [place]: [facility] [phone] [place]: [facility], [place]: [facility] [place]: HCRS or Text [place] to [phone] For further information for [place] residents: [email or web address]-services/err-zet-bmge National Suicide Prevention Hotline: For patients cared for in the Department of Psychiatry, you can reach your mental health clinician at [phone]. Signed By: Fermin Mercado MD 07/31/2023 * Braulio Santo MD - 08/01/2023 1:00 PM EST PSYCHIATRY TEACHING PHYSICIAN INVOLVEMENT Location: Adult Psychiatry Medication Clinic Attending Physician: Braulio Santo MD Resident name: Ferimn Mercado MD I have seen the patient in person and reviewed the resident's above history and I agree with the details as written. The assessment and plan were formulated in discussion with me and I agree with them as documented. Pertinent History: Soren Mejia is a 38 y.o. male with h/o MDD, ADHD and h/o traumatic head injury. H/o lymphoma in remission. Pertinent Exam, Major issues addressed and plan: chronic sx of depression over past 13 years, worsening in recent month. Ongoing psychosocial stressors. Not currently working, lost job recently. Living remotely in [place] and somewhat isolated. +neurovegetative sx. Passive SI daily, no current plan or intent. Sober from alcohol for 7 years. Cannabis daily. No other drugs. Tried several anti-depressants in the past, which made depression worse. Currently taking amitriptyline 50mg - higher doses made him sedated and not effective. Takes Vyvanse. Discussed increase in amitriptyline vs. Augmentation with abilify. Prefers the latter. SE reviewed. Has crisis line number. Current Outpatient Medications Medication Sig Dispense Refill [...] No current facility-administered medications for this visit. BRAULIO SANTO MD documented in this encounter Plan of Treatment Upcoming Encounters Date Type Department Care Team (Late st Contact Info) Description 02/06/2024 9:30 AM EDT TH Visit (TeleHealth) Psychiatry [place] [address] Fermin Mercado MD [facility] [place] [address] documented as of this encounter Visit Diagnoses Diagnosis Moderate episode of recurrent major depressive disorder Attention deficit disorder, unspecified hyperactivity presence PTSD (post-traumatic stress disorder) Posttraumatic stress disorder documented in this encounter Care Teams Work Environment Safety Inspector Relationship Specialty Start Date End Date Gabbie Sams MD [address] [place] [address] PCP - General Family Medicine 12/31/22 documented as of this encounter
--- OUTSIDE RECORDS SUMMARY | 2023-12-28 01:49 | XMS_ITS | Encounter Summary ---
Author Organization [facility] Address [facility] [place] [address] Care Team Providers Care Day Porter Name Role Phone Gabbie Sams MD Primary Care Provider [phone] Encounter Details Date Type Department Care Team (Latest Contact Info) Description 12/05/2023 1:00 PM EDT TH Visit (TeleHealth) Psychiatry [place] [id number] Fermin Mercado MD [facility] [address] [place] [phone] Moderate episode of recurrent major depressive disorder; MCC current use of antipsychotic medication; Post concussive syndrome Social History Tobacco Use Types Packs/Day Years [...] Progress Notes * Fermin Mercado MD - 12/05/2023 1:00 PM EDT ESTABLISHED ADULT PSYCHIATRY OUTPATIENT VISIT NOTE Location: Telehealth. Soren Mejia gave permission for and was seen for today's appointment with a Telehealth visit. During this visit they were located in [place]. Soren Mejia is aware that for any urgent matter theycan call [phone]. Attendee(s): patient This patient was seen with matrix supervisor Dr. Santo. See their note for confirmatory and/or revisionary documentation. Chief Complaint: Doing okay History of Present Illness: Soren Mejia is [...] and mild right ulnar neuropathy. Interval history -Reports he is doing okay with no safety concerns. Denies suicidal ideation. -Started working at a [employer] field, after an extended period of no work. Says, feels good to be back. This is something I really like. -Sustained suspected severe concussion on November 08, while working. Did not lose consciousness but reports he dealt with dizziness for several days. Sought medical care and got 4 heide. Since his injury, he reports anxiety and insomnia that have mildly improved the further out from his injury. Is following with his PCP and plans to go to physical therapy in late December. -Denies any acute side effects from current medication regimen -Discussed coping strategies to mitigate anxiety. Soren plans to create a note card with coping mechanisms. Medication regimen prior to encounter - gabapentin 600mg TID - lisdexamfetamine 60mg daily - amitriptyline 50mg QHS - Lyrica - Abilify 5mg daily Past Psychiatric history and treatment: Per [...] day until he went to rehab in 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 Will try to obtain in future. Social History: Per chart review, updated with relevant information Living Situation - in the past year, moved to [place] after his parents gave him approximately [address] acres [address]. Says he lives by himself. Marital Status - single Children - denies Occupation - fired from job at [employer] in May 2023 - reports a long history of being fired from jobs. 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 - says he is currently living on savings and says he has no major expenses because his land is fully paid for and his mother provides meals Education - says he is currently studying professional studies at [employer] - denies Access to guns - yes, reports they are stored in a safe Trauma History: Per chart review, updated with relevant information: - sustained significant jaw injury 13 years ago (approximately 2010) - further investigation of trauma history was deferred due to time limitations on intake Questionnaires: PHQ9 Questionnaires Data (Clinic and Pt Entered): last 4 values 05/04/2023 10/10/2023 PHQ-9: Last 4 Responses PHQ - 9 Score 8 (Mild Depression) PHQ - 9 Score (Pt Questionnaire) 8 (Mild Depression) Little interest or pleasure Not at all Several Days Little interest or pleasure (Pt Questionnaire) Several Days Down, depressed, hopeless Not at all Several Days Down, depressed, hopeless (Pt Questionnaire) Several Days Trouble sleeping Not at all Trouble sleeping (Pt Questionnaire) Not at all Tired or no energy Several Days Tired or no energy (Pt Questionnaire) Several Days Poor appetite or overeating Nearly every day Poor appetite or overeating (Pt Questionnaire) Nearly every day Feeling like a failure Several Days Feeling like a failure (Pt Questionnaire) Several Days Trouble concentrating Several Days Trouble concentrating (Pt Questionnaire) Several Days Moving or speaking slowly Not at all Moving or speaking slowly (Pt Questionnaire) Not at all Would be better off Not at all Would be better off (Pt Questionnaire) Not at all GAD7 Questionnaires Data: last 4 values 10/10/2023 1:18 PM LUNA-7: All Responses GAD7 Total Score (Range 0-21) 7 (Mild Anxiety) LUNA-7 Score 7 LUNA-7 Score (Pt Questionnaire) 7 (Mild Anxiety) Nervous, anxious (Pt Questionnaire) Several days Nervous, anxious Several days Unable to stop worrying (Pt Questionnaire) Several days Unable to stop worrying Several days Worrying about different things (Pt Questionnaire) Several days Worrying about different things Several days Trouble relaxing (Pt Questionnaire) Several days Trouble relaxing Several days Restless (Pt Questionnaire) Not at all Restless Not at all Easily annoyed, irritable (Pt Questionnaire) Nearly every day Easily annoyed, irritable Nearly every day Afraid something awful will happen (Pt Questionnaire) Not at all Afraid something awful will happen Not at all Current Medications: Current Outpatient Medications Medication Sig Dispense Refill amitriptyline (Elavil) 50 mg tablet Take 50 mg by mouth nightly. ARIPiprazole (Abilify) 5 mg tablet Take 1 tablet by mouth daily. 30 tablet 2 hydrocortisone (CORTENEMA) 100 mg/60 mL Enema INSERT 100MG INTO RECTUM AT BEDTIME minoxidiL (Loniten) 2.5 mg tablet Take 1 tablet by mouth daily. 90 tablet 3 mupirocin (Bactroban) 2 % Ointment Apply to affected areas on scalp three times daily for 10 days 22 g 0 pantoprazole EC (Protonix) [address] tablet [...] % Lotion Apply topically 3 times daily. clindamycin (CLEOCIN T) 1 % Lotion Apply [...] volume, and normal rate Language: fluent in portuguese Mood: Okay Affect: Euthymic Thought Process: linear and logical Associations: intact Thought Content: denied suicidal ideation Perception: denied auditory hallucinations denied visual hallucinations not observed responding to internal stimuli Orientation: grossly intact by interview Attention/Concentration: able to sustain focus Cognition: grossly intact by interview Memory: recent and remote memory grossly intact Fund of Knowledge: appropriate for age and level of functioning Insight: Good Judgment: good Labs: Psychiatric labs: Lab Results [...] found for: 25OHVITD No results found for: [id number] No results found for: LITHIUM No results found for: PHENYTOIN, PHENOBARB, VALPROATE, CBMZ No results found for: CLOZAPINE No results found for: HCGQUAL, HCGQUANT, POCUAHCG Relevant imaging: No results found for this visit on 12/05/23. Formulation and Assessment: Overall Formulation: Soren Mejia [...] markedly improved symptoms of depression with no suicidality, which coincides with the addition of Abilify in July 2023 and psychosocial reasons (is receiving support from parents to help build a house). He has tolerated Abilify well with no reported side effects. Sustained severe concussion at the end of October with significant postconcussive symptoms, including anxiety and insomnia. Will continue to monitor with no anticipated medication changes at this time. In the future, if depressive symptoms recur, could consider further titration of Abilify. Risk and benefits of this has already been discussed with Soren. Historically, Soren describes a long history of depression starting since his jaw injury (approximately 2010). Soren's prior treatment history is suggestive of refractory depressive symptoms despite multiple past medication trials. Diagnostically, Soren appears to meet criteria for MDD with improving depressive symptoms. His history and current symptomology is not suggestive of bony or psychosis, although further investigation could be warranted into the cause of his long history of job firings. Soren describes recurrent issues with irritability that manifest in relationship conflicts, often resulting in losing his job. Historically, Soren appeared to meet criteria for PTSD (inciting e vent was lymphoma), but these symptoms now appear to be in remission. Per chart review, he was previously diagnosed with ADHD. 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 No safety concerns noted at this time. Currently involved in treatment and has good social support, including his mother and a past co-worker. May be further supported by obtaining a therapist (currently in process ). Does have access to firearms. Future- oriented. [...] reviewed, collateral gathered, discussion with external physician): #MDD, in partial remission #PTSD, in remission #chronic pain #Postconcussive symptoms, sustained in October 2023 - Continue Abilify 5mg daily - continue gabapentin 600mg TID (prescribed by PCP) - continue amitriptyline 50mg QHS (prescribed by neurologist) #ADHD - continue Vyvanse 60mg daily (currently prescribed by PCP) #lab monitoring - A1c within normal limits in August 2023 - last lipid panel on 03/08/23 - Could consider thyroid or vitamin D testing in the future Next Appointment: February 05 at 9:30 AM via telehealth Patient Instruction/Education provided: Patient provided verbal instructions regarding medication side effects, safety plan in case of feeling unsafe. For mental health emergencies, call [phone] from anywhere in the [facility]. State specific information for [place] and [place] crisis services are as follows and should be used to access local resources: [facility] Crisis Line text or call Visit www.[place]Opt[place].me for further information [place] Call your local community crisis line at: [place]: [facility] [phone] [place]: [facility] [phone] [place]: [facility] [phone] [place]: [facility] [phone] [place]: [facility] [phone] [place] Kate [place]: [facility] Support [phone] [place]: [facility] [phone] on weekdays 8AM-4:30PM and [phone] on nights and weekends [place]: [facility] [place]: [facility] [phone] [place]: [facility] Services [phone] [place]: [facility], [place]: [facility] [place]: HCRS or Text [place] to [phone] For further information for [place] residents: [email or web address]-bor-[email or web address] National Suicide Prevention Hotline: For patients cared for in the Department of Psychiatry, you can reach your mental health clinician at [phone]. Patient understands the plan? Yes Signed By: Fermin Mercado MD 12/05/2023 * Braulio Santo MD - 12/05/2023 1:00 PM EDT PSYCHIATRY TEACHING PHYSICIAN INVOLVEMENT Location: [...] Exam, Major issues addressed and plan: doing well in terms of mood. Finding Abilify helpful. Some anxiety after a concussion. Has gone back to work. No suicidal or homicidal ideation. No alcohol misuse. Cannabis use. Current Outpatient Medications Medication Sig Dispense Refill amitriptyline (Elavil) 50 mg tablet Take 50 mg by mouth nightly. ARIPiprazole (Abilify) 5 mg tablet Take 1 tablet by mouth daily. 30 tablet 2 hydrocortisone (CORTENEMA) 100 mg/60 mL Enema INSERT 100MG INTO RECTUM AT BEDTIME minoxidiL (Loniten) 2.5 mg tablet Take 1 tablet by mouth daily. 90 tablet 3 mupirocin (Bactroban) 2 % Ointment Apply to affected areas on scalp three times daily for 10 days 22 g 0 pantoprazole EC (Protonix) [address] tablet [...] % Lotion Apply topically 3 times daily. clindamycin (CLEOCIN T) 1 % Lotion Apply [...] 03/08/2023 CALCIUM 9.4 03/08/2023 ESTGFR 111 03/08/2023 08/25/23: HbA1c 5.5 BRAULIO SANTO MD PHQ9 Questionnaire Data: Today's value 12/05/2023 PHQ-9: Responses Post 10/11/22 Conversion PHQ-9 Score 11 (Moderate Depression) Little interest or pleasure Several Days Down, depressed, hopeless Several Days PHQ-2 Subscore 2 Trouble sleeping Nearly every day Tired or no energy Several Days Poor appetite or overeating Several days Feeling like a failure Several Days Trouble concentrating Nearly every day Moving or speaking slowly Not at all Would be better off Not at all documented in this encounter Plan of Treatment Upcoming Encounters Date Type Department Care Team (Late st Contact Info) Description 02/06/2024 9:30 AM EDT TH Visit (TeleHealth) Psychiatry [place] [address] Fermin Mercado MD [facility] [place] [address] documented as of this encounter Visit Diagnoses Diagnosis Moderate episode of recurrent major depressive disorder 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
--- OUTSIDE RECORDS SUMMARY | 2023-12-28 01:49 | XMS_ITS | Encounter Summary ---
Author Organization Formerly [facility] [place] [address] Care Team Providers Care Medical Psychotherapist Name Role Phone Gabbie Sams MD Primary Care Provider [phone] Encounter Details Date Type Department Care Team (Late st Contact Info) Description 05/04/2023 9:15 AM EST - 05/04/2023 10:15 AM EST [place] [id number] Byron Elias MD [facility] [place] [address] EGD WITH BIOPSY (WRVU 2.39) Social History Tobacco Use Types Packs/Day Years Used Date Smoking Tobacco: Never Smokeless Tobacco: Never Alcohol Use Standard Drinks/Week Comments Not Currently 0 (1 standard drink = 0.6 oz pur e alcohol) Sex and Gender Information Value Date Recorded Sex Assigned at Not on file Gender Identity Not on file Sexual Orientation Not on file documented as of this encounter Last Filed Vital Signs Vital Sign Reading Time Taken Comments Blood Pressure 113/74 05/04/2023 10:10 AM EST Pulse 67 05/04/2023 7:59 AM EST Temperature 36.6 ??C (97.8 ??F) 05/04/2023 7:59 AM ES T Respiratory Rate 14 05/04/2023 7:59 AM EST Oxygen Saturation 100% 05/04/2023 10:10 AM EST Inhaled Oxygen Concentration - - Weight 90.7 kg (200 lb) 05/04/2023 8:04 AM EST Height 193 cm (6' 4) 05/04/2023 8:04 AM EST Body Mass Index 24.34 05/04/2023 8:04 AM EST documented in this encounter Discharge Instructions * Discharge Instructions* Victoria Frazier, RN - 05/04/2023 9:56 AM EST Upper GI Endoscopy: What to Expect at Home Your Recovery You will be able to go home after your doctor or nurse checks to make sure you are not having any problems. You may have to stay overnight if you had treatment during the test. You may have a sore throat fora day or two after the test. This care sheet gives you a general idea about what to expect after the test. How can you care for yourself at home? Activity Rest when you feel tired. You can do your normal activities when it feels okay to do so. Diet Follow your doctor's directions for eating. Unless your doctor has told you not to, drink plenty of fluids. This helps to replace the fluids that were lost during the prep. Do not drink alcohol. Medicines Your doctor will tell you if and when you can restart your medicines. He or she will also give you instructions about taking any new medicines. If you take blood thinners, such as warfarin (Coumadin), clopidogrel (Plavix), or aspirin, be sure to talk to your doctor. He or she will tell you if and when to start taking those medicines again. Make sure that you understand exactly what your doctor wants you to do. If polyps were removed or a biopsy was done during the test, your doctor may tell you not to take aspirin or other anti-inflammatory medicines for a few days. These include ibuprofen (Advil, Motrin) and naproxen (Aleve). If you have a sore throat the day after the procedure, use an yshj-jph-flqmapo spray to numb your throat. Sucking on throat lozenges and gargling with warm salt water may also help relieve your symptoms. Other instructions For your safety, do not drive or operate machinery until the medicine wears off and you can think clearly. Your doctor may tell you not to drive or operate machinery until the day after your test. Do not sign legal documents or make major decisions until the medicine wears off and you can think clearly. The anesthesia can make it hard for you to fully understand what you are agreeing to. Additional Information for Sedation Patients For patients who received sedation: You may have received medications before and/or during your procedure which effects your judgement and reaction time. Do not drive, operate machinery, drink alcoholic beverages or make important decisions for 24 hours. Be careful on stairs as you may be unsteady on your feet. You may eat a regular diet as tolerated. Do not smoke if you are alone. IV site: Slight redness or tenderness is normal, you can use a warm compress if you would like. If tenderness and/or redness increase or if foul drainage occurs, please contact your Doctor. Please call [phone] before 8pm Mon-Fri with problems, questions or concerns. If you call after 8pm or on weekends, call the Hospital at [phone] and ask to speak to the Hebrew Teacher hand alterations tailor and the ferry operator will contact that person for you. When should you call for help? Call 245 anytime you think you may need emergency care. For example, call if: You passed out (lost consciousness). You pass maroon or bloody stools. You have trouble breathing. Call your doctor now or seek immediate medical care if: You have pain that does not get better after you take pain medicine. You are sick to your stomach or cannot drink fluids. You have new or worse belly pain. You have blood in your stools. You have a fever. You cannot pass stools or gas. Watch closely for changes in your health, and be sure to contact your doctor if you have any problems. Where can you learn more? [facility] View your After Visit Summary and more online at [email or web address] If you would like to provide feedback about your hospital experience, please call the Office of Patient and Family Relations at . If you have received this After Visit Summary in error, please immediately return it in person to the department, or notify the [facility] Privacy Office by calling toll free at between the hours of 8AM and 5PM to arrange for our retrieval of the documents at no cost to you. Content Version: 12.2 ?? 7018-2705 [employer]. Care instructions adapted under license by [employer] [facility]. If you have questions about a medical condition or this instruction, always ask your healthcare professional. [employer] disclaims any warranty or liability for your use of this information. documented in this encounter Medications at Time of Discharge Medication Sig Dispensed Refills Start Date End Date amitriptyline (Elavil) 50 mg tablet Take 50 mg by mouth nightly. 09/20/2022 mupirocin (Bactroban) 2 % OintmentIndications:Wo und infection Apply to affected areas on scalp three times daily for 10 days 22 g 04/28/2023 pantoprazole EC (Protonix) [address] tablet Take 40 mg by mouth daily. tamsulosin (Flomax) 0.4 mg capsule daily. 12/23/2022 gabapentin (Neurontin) 600 mg tablet Take 600 mg by mouth 3 times daily. lisdexamfetamine (Vyvanse) 50 mg capsule Take 60 mg by mouth daily. 07/26/2022 pregabalin (Lyrica) 200 mg capsule Take 200 mg by mouth 3 times daily. 11/21/2022 ONDANSETRON HCL ORAL Take by mouth. GABAPENTIN ORAL Take by mouth. pregabalin (LYRICA ORAL) Take by mouth. triamcinolone (KENALOG) 0.1 % Lotion Apply topically 3 times daily. clindamycin (CLEOCIN T) 1 % LotionIndications:Foll iculitis Apply topically 2 times daily. 60 mL 10/21/2022 finasteride (Propecia) 1 mg tabletIndications:Alop ecia areata Take 1 tablet by mouth daily. 30 tablet 1 04/28/2023 10/12/2023 minoxidiL (Loniten) 2.5 mg tabletIndications:Alop ecia areata TAKE 1/2 TABLET DAILY. IF TOLERATING WELL AFTER 2 WEEKS, INCREASE TO 1 TABLET DAILY. 90 tablet 3 03/10/2023 06/02/2023 amitriptyline (Elavil) 75 mg tablet Take 75 mg by mouth nightly. 06/03/2023 lisdexamfetamine (Vyvanse) 70 mg capsule Take 70 mg by mouth every morning. 06/03/2023 clobetasoL (TEMOVATE) 0.05 % SolutionIndications:Al opecia areata Apply to the scalp twice daily for three weeks. Take a 5 day break, and then repeat this cycle. 50 mL 2 10/21/2022 10/12/2023 documented as of this encounter H&P Notes * Byron Elias MD - 05/04/2023 8:54 AM EST Gastroenterology and Hepatology Pre-Procedure History and Physical Exam Procedure: EGD / flex sig Indication: nausea, GERD, dyspepsia. Unrevealing EGD 2021. Significant painless hematochezia. Question of solitary rectal ulcer on flex sig 2021. EXAM: HEENT: Airway examined, oropharynx clear Mallampati Score: I (soft palate, uvula, fauces, tonsillar pillars visible) LUNGS: Clear to auscultation HEART: Regular rate and rhythm, normal S1, S2 ABDOMEN: Normal bowel sounds, soft, non tender, non distended A/P: Proceed with the planned endoscopic procedure. ASA 2 - Patient with mild systemic disease with no functional limitations Sedation Plan: anesthesia Risks and benefits of the procedure explained to the patient. Consent form signed and included in the patient's chart. Byron Elias MD Advanced Endoscopy Fellow Gastroenterology & Hepatology documented in this encounter Plan of Treatment Upcoming Encounters Date Type Department Care Team (Late st Contact Info) Description 02/06/2024 9:30 AM EDT TH Visit (TeleHealth) Psychiatry [place] [address] Fermin Mercado MD [facility] [place] [address] documented as of this encounter Procedures Procedure Name Priority Date/Time Associated Diagnosis Comments SPECIMEN TO PATHOLOGY Routine 05/04/2023 9:48 AM EST SURGICAL PATHOLOGY REPORT Routine 05/04/2023 9:28 AM EST SPECIMEN TO PATHOLOGY Routine 05/04/2023 9:28 AM EST SPECIMEN TO PATHOLOGY Routine 05/04/2023 9:28 AM EST SPECIMEN TO PATHOLOGY Routine 05/04/2023 9:28 AM EST SPECIMEN TO PATHOLOGY Routine 05/04/2023 9:28 AM EST Sigmoidoscopy, Biopsy ([id number]) 05/04/2023 9:10 AM EST Dysphagia, unspecified type Irritable bowel syndrome with both constipation and diarrhea Gastroesophageal reflux disease, unspecified whether esophagitis present Functional dyspepsia Upper Gi Endoscopy, Biopsy ([id number]) 05/04/2023 9:10 AM EST Dysphagia, unspecified type Irritable bowel syndrome with both constipation and diarrhea Gastroesophageal reflux disease, unspecified whether esophagitis present Functional dyspepsia FLEXIBLE SIGMOIDOSCOPY Routine 05/04/2023 9:01 AM EST UPPER GI ENDOSCOPY Routine 05/04/2023 9: 00 AM EST documented in this encounter Results * Specimen to Pathology (05/04/2023 9:48 AM EST) AP Specimen 05/04/2023 9:48 AM EST 05/04/2023 9:48 AM EST Narrative [facility] - 05/04/2023 9:48 AM EST Specimen requisition ordered. ??Separate Pathology report to follow Byron Elias MD PATHOLOGY/CYTOLOGY ORDERABLES Performing Organization Address City/State/[facility] Co de Phone Number [facility] [place] [place] [address] * Surgical Pathology Report (05/04/2023 9:28 AM EST) Surgical Pathology Report [id number] ? Location: 4T; EA06; A The signing pathologist has (i) examined the relevant preparation(s) for the specimen(s) and (ii) rendered or confirmed the diagnosis(es). . ?Surgical Pathology DIAGNOSIS A - Distal esophagus biopsy r/o ?? EOE, biopsy (Multiple): - ??Squamous mucosa negative for diagnostic abnormality. B - Mid esophagus biopsy r/o ?? EOE, biopsy (Multiple): - ??Squamous mucosa negative for diagnostic abnormality. C - Gastric biopsy ??r/o ?? Pylori, biopsy (Multiple): - ??Gastric antrum-type and body/fundic-type mucosa, negative for diagnostic abnormality. D - Duodenum biopsy r/o celiac, biopsy (Multiple): - Duodenal mucosa, negative for diagnostic abnormality ?? . E - Rectum biopsy at area of ?? inflammation ??asses for prolapse, biopsy (Multiple): - ??Colonic mucosa with mucosal prolapse features. Electronically signed by: ?Clem Ortez MD Verified: ??05/12/2023 15:46 ??Pathologist Performed at: ??-[facility] Dept. of [place]ology, [place] [address] Departure Clerk: Tami Segura MD, FCAP, ??CLIA Certificate: [id number] SPECIMEN(S) SUBMITTED A - distal esophagus biopsy r/o ?? EOE, biopsy (Multiple) B - mid esophagus biopsy r/o ?? EOE, biopsy (Multiple) C - gastric biopsy ??r/o ?? Pylori, biopsy (Multiple) D - duodenum biopsy r/o celiac, biopsy (Multiple) E - rectum biopsy at area of ?? inflammation ??asses for prolapse, biopsy (Multiple) CLINICAL INFORMATION 37-year-old male history of chronic nausea, abdominal pain SPECIMEN PROCESSING A - Labeled/Fixative : Distal esophagus biopsy rule out EOE, formalin. Quantity/Size: Fragments, 0.3 to 0.5 cm. Tissue Description: Soft, wispy, pink-white tissues. Sections/Process ing: Submitted in toto ??in 1 cassette labeled A1. B - Labeled/Fixative : Mid esophagus biopsy rule out EOE, formalin. Quantity/Size: Fragments, from 0.2 to 0.4 cm. Tissue Description: Soft, wispy, pink-white tissues. Sections/Process ing: Submitted in toto ??in 1 cassette labeled B1. C - Labeled/Fixative : Gastric biopsy rule out H. pylori, formalin. Quantity/Size: Six, averaging 0.3 cm. Tissue Description: Soft, still-pink tissues. Sections/Process ing: Entirely submitted in 2 cassettes labeled C1-C2. . SPECIMEN PROCESSING D - Labeled/Fixative : Duodenum biopsy rule out celiac, formalin. Quantity/Size: Multiple, 0.2 to 0.4 cm. Tissue Description: Soft, still-pink tissues. Sections/Process ing: Entirely submitted in 2 cassettes labeled D1-D2. E - Labeled/Fixative : Rectum biopsy at area of inflammation assess for prolapse, formalin. Quantity/Size: Fragments, 0.1 to 0.2 cm. Tissue Description: Soft, still-pink tissues. Sections/Process ing: Submitted in toto ??in 1 cassette labeled E1. ??pps [facility] 05/04/2023 9:28 AM EST Byron Elias MD PATHOLOGY/CYTOLOGY ORDERABLES Performing Organization Address [facility] Co de Phone Number [facility] [place] [address] * Specimen to Pathology (05/04/2023 9:28 AM EST) AP Specimen 05/04/2023 9:28 AM EST 05/04/2023 9:28 AM EST Narrative [facility] - 05/04/2023 9:28 AM EST Specimen requisition ordered. ??Separate Pathology report to follow Byron Elias MD PATHOLOGY/CYTOLOGY ORDERABLES Performing Organization Address City/[facility]/ZIP Co de Phone Number [facility] [place] [address] * Specimen to Pathology (05/04/2023 9:28 AM EST) AP Specimen 05/04/2023 9:28 AM EST 05/04/2023 9:28 AM EST Narrative [facility] - 05/04/2023 9:28 AM EST Specimen requisition ordered. ??Separate Pathology report to follow Byron Elias MD PATHOLOGY/[place] [address] * Specimen to Pathology (05/04/2023 9:28 AM EST) AP Specimen 05/04/2023 9:28 AM EST 05/04/2023 9:28 AM EST Narrative [facility] - 05/04/2023 9:28 AM EST Specimen requisition ordered. ??Separate Pathology report to follow Byron Elias MD PATHOLOGY/CYTOLOGY ORDERABLES Performing Organization Address [facility] [place] [place] [address] * Specimen to Pathology (05/04/2023 9:28 AM EST) AP Specimen 05/04/2023 9:28 AM EST 05/04/2023 9:28 AM EST Narrative [facility] - 05/04/2023 9:28 AM EST Specimen requisition ordered. ??Separate Pathology report to follow Byron Elias MD PATHOLOGY/CYTOLOGY ORDERABLES Performing Organization Address [facility] [place] [address] * FLEXIBLE SIGMOIDOSCOPY (05/04/2023 9:01 AM EST) FLEXIBLE SIGMOIDOSCOPY [facility] Endoscopy Procedure Date: 05/04/2023 9:01 AM ? Patient Name: Soren Mejia ? Date of : 1985 ? Age: 37 ? Order #: [id number] ? Instrument Name: [id number] ? Procedure: ? Flexible Sigmoidoscopy Indications: ? Hematochezia, question of rectal ? 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 Carlos Alberto Gill, ? April Mahoney, Kitchen Runner Referring MD: ?Emmanuelle Demarco, ? Jose Ford Medicines: ? Monitored Anesthesia Care Complications: ? No immediate complications. Procedure: ? Pre-Anesthesia Assessment: ? - Prior to the procedure, a History ? and Physical was performed, and ? patient medications, allergies and ? sensitivities were reviewed. The ? patient's tolerance of previous ? anesthesia was reviewed. ? - The risks and benefits of the ? procedure and the sedation options ? and risks were discussed with the ? patient. All questions were ? answered and informed consent was ? obtained. ? - Patient identification and ? proposed procedure were verified ? prior to the procedure by the ? physician, the nurse, the ? member of congress and the optomechanical technician. The ? procedure was verified in the ? pre-procedure area in the endoscopy ? suite. ? - Pre-procedure physical ? examination revealed no ? contraindications to sedation. ? - ASA Grade Assessment: III - A ? patient with severe systemic ? disease. ? - After reviewing the risks and ? benefits, the patient was deemed in ? satisfactory condition to undergo ? the procedure. ? - Monitored anesthesia care under ? the supervision of a PRIMER AND POWDER CANNING LEADER was ? determined to be medically ? necessary for this procedure based ? on patient's history of problems ? with anesthesia. ? The procedure, indications, ? benefits, risks and alternatives ? were explained to the patient. ? Specifically discussed were ? potential complications including, ? but not limited to, bleeding, ? perforation, infection, missing a ? cancer, and adverse medication ? reactions. The patient was placed ? in the left lateral decubitus ? position, and a digital rectal exam ? was performed. The Colonoscope was ? inserted in the anus and under ? direct visualization, advanced to ? the left transverse colon. Careful ? inspection was made as the scope ? was withdrawn. The flexible ? sigmoidoscopy was accomplished ? without difficulty. The patient ? tolerated the procedure well. The ? quality of the bowel preparation ? was good. ? Findings: ? Solid stool balls were found in the proximal ? transverse colon at the distal extent of the exam. ? The colonic mucosa appeared normal in the transverse, ? descending, and sigmoid colon. ? A localized area of mildly congested, erythematous, ? granular and thickened folds of the mucosa was found ? in the rectum. Suggestive of area of prolapse. No ? solitary ulcer. Biopsies were taken with a cold ? forceps for histology. ? External and internal hemorrhoids were found during ? retroflexion. ? Moderate Sedation: ? Not applicable - See Anesthesia documentation Impression: ?- Area of distal rectum with ? erythematous, granular and ? thickened folds. Suspect area of ? prolapse. No solitary rectal ulcer. ? Biopsied. ? - External and internal hemorrhoids. ? - Otherwise normal-appearing mucosa ? without evidence of polyps. Recommendation: ?- Await pathology results. ? - Drink plenty of fluids. ? - Eat high-fiber foods. Consider ? adding a dedicated fiber supplement ? (e.g,. Citrucel, Benefiber, ? Metamucil). ? - Miralax as needed for ? constipation. Safe to use up to ? 2-3x/day if needed. ? - Don't sit for long periods on the ? toilet. Don't read or bring your ? phone on the toilet. Elevate feet ? on a stool or Squatty Potty when ? defecating. ? - Follow-up in GI clinic with . ? [facility]. ? - Start average-risk colorectal ? cancer screening at 46 years old. ? Attending Participation: ? I personally performed the entire procedure. ? Byron Elias, 05/04/2023 10:07:47 AM Number of Addenda: 0 Note Initiated On: 05/04/2023 9:01 AM PROVATION 05/04/2023 9:01 AM EST Gabbie Sams MD GENERAL SURGICAL ORD ERABLES PROVATION * UPPER GI ENDOSCOPY (05/04/2023 9:00 AM EST) UPPER GI ENDOSCOPY [facility] Endoscopy Procedure Date: 05/04/2023 9:00 AM ? Patient Name: Soren Mejia ? Date of : 1985 ? Age: 37 ? Order #: [id number] ? Instrument Name: [id number] ? Procedure: ? Upper GI endoscopy Indications: ? Dyspepsia, Dysphagia, Heartburn, ? Nausea with vomiting Providers: ? Carlos Alberto Gill, ? April Mahoney, Kitchen Runner Referring MD: ?Emmanuelle Sun, Jose Ford Medicines: ? Monitored Anesthesia Care Complications: ? No immediate complications. Procedure: ? Pre-Anesthesia Assessment: ? - Prior to the procedure, a History ? and Physical was performed, and ? patient medications, allergies and ? sensitivities were reviewed. The ? patient's tolerance of previous ? anesthesia was reviewed. ? - The risks and benefits of the ? procedure and the sedation options ? and risks were discussed with the ? patient. All questions were ? answered and informed consent was ? obtained. ? - Patient identification and ? proposed procedure were verified ? prior to the procedure by the ? physician, the nurse, the ? member of congress and the optomechanical technician. The ? procedure was verified in the ? pre-procedure area in the endoscopy ? suite. ? - Pre-procedure physical ? examination revealed no ? contraindications to sedation. ? - ASA Grade Assessment: III - A ? patient with severe systemic ? disease. ? - After reviewing the risks and ? benefits, the patient was deemed in ? satisfactory condition to undergo ? the procedure. ? - Monitored anesthesia care under ? the supervision of a PRIMER AND POWDER CANNING LEADER was ? determined to be medically ? necessary for this procedure based ? on patient's history of problems ? with anesthesia. ? The procedure, indications, ? benefits, risks and alternatives ? were explained to the patient. ? Specifically discussed were ? potential complications including, ? but not limited to, bleeding, ? perforation, infection, missing a ? cancer, and adverse medication ? reactions. The Endoscope was ? introduced through the mouth, and ? advanced to the third part of ? duodenum The upper GI endoscopy was ? accomplished without difficulty. ? The patient tolerated the procedure ? well. ? Findings: ? The Z-line was regular and was found 44 cm from the ? incisors. ? The examined esophagus was normal. Biopsies were ? obtained from the proximal and distal esophagus with ? cold forceps for histology of suspected eosinophilic ? esophagitis. ? The entire examined stomach was normal. Biopsies were ? taken with a cold forceps for Helicobacter pylori ? testing. ? The examined duodenum was normal. Biopsies for ? histology were taken with a cold forceps for ? evaluation of celiac disease. ? Moderate Sedation: ? Not applicable - See Anesthesia documentation Impression: ?- Z-line regular, 44 cm from the ? incisors. ? - Normal esophagus. Biopsied for ? EoE. ? - Normal stomach. Biopsied for H ? pylori. ? - Normal examined duodenum. ? Biopsied for celiac. Recommendation: ?- Await pathology results. ? - Proceed to colonoscopy. ? Attending Participation: ? I personally performed the entire procedure. ? Byron Elias, 05/04/2023 9:31:18 AM Number of Addenda: 0 Note Initiated On: 05/04/2023 9:00 AM PROVATION 05/04/2023 9:00 AM EST Emmanuelle Sun DO GENERAL SURGICAL ORD ERABLES PROVATION documented in this encounter Visit Diagnoses Diagnosis Dysphagia, unspecified type Irritable bowel syndrome with both constipation and diarrhea Gastroesophageal reflux disease, unspecified whether esophagitis present Functional dyspepsia Dyspepsia and other specified disorders of function of stomach documented in this encounter Administered Medications Inactive Administered Medications - up to 3 most recent administrations Medication Order MAR Action Action Date Dose Rate Site lactated ringers infusion 1,000 mL, at 100 mL/hr, Intravenous, CONTINUOUS, Starting on Tue05/04/23 at 0830, Until Tue05/04/23 at 1013, Day of Surgery (Day of Procedure) New Bag 05/04/2023 9:05 AM EST New Bag 05/04/2023 8:06 AM EST 1,000 mLs 100 mL/hr ondansetron (pf) (Zofran) (2 mg/mL) injection 4 mg 4 mg, Intravenous, ONCE, 1 dose, On 11/22/23 at 0830, Endoscopy (Day of Procedure) Given 05/04/2023 8: 17 AM EST 4 mg documented in this encounter Active and Recently Administered Medications Times are shown in EST. Scheduled Medication Order 05/02/2023 05/03/2023 05/04/2023 ondansetron (pf) (Zofran) (2 mg/mL) injection 4 mg (COMPLETED) 4 mg, Intravenous, ONCE, 1 dose, On Tue05/04/23 at 0830, Endoscopy (Day of Procedure) 0817 (Given - Provid er: Russell Bear RN) Continuous Medication Order 05/02/2023 05/03/2023 05/04/2023 lactated ringers infusion (CANCELED) 1,000 mL, at 100 mL/hr, Intravenous, CONTINUOUS, Starting on Tue05/04/23 at 0830, Until Tue05/04/23 at 1013, Day of Surgery (Day of Procedure) 0806 (New Bag - Prov ider: Russell Bear RN)0904 (Paused - Provider: April Rome CRNA - Comment: Switch to gravity)0905 (New Bag - Provider: April Rome CRNA)0950 (Stopped - Provider: April Rome CRNA) documented in this encounter Care Teams Medical Psychotherapist Relationship Specialty Start Date End Date Gabbie Sams MD [address] [place] [address] PCP - General Family Medicine 12/31/22 documented as of this encounter
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
--- OUTSIDE RECORDS SUMMARY | 2023-12-28 01:49 | XMS_ITS | Encounter Summary ---
Author Organization [facility] [place] [address] Care Team Providers Care Linotyper Name Role Phone Gabbie Sams MD Primary Care Provider [phone] Encounter Details Date Type Department Care Team (Late st Contact Info) Description 10/07/2023 Telephone Psychiatry [place] [address] Lore Molina Social History Tobacco Use Types Packs/Day Years [...] encounter Miscellaneous Notes * Telephone Encounter - Jeanie Adhikari RN - 10/07/2023 11:08 AM EDT Let Soren know script was sent yesterday, Soren going to pharmacy now to p/u. * Telephone Encounter - Lore Molina - 10/07/2023 9:10 AM EDT PT called and said he left a msg yesterday and no one has returned his call. He needs this prescription today as he is out. Prescription (Abilify) is to go to [facility] in [facility]. Please callhim at [phone] documented in this encounter Plan of Treatment Upcoming Encounters Date Type Department Care Team (Late st Contact Info) Description 02/06/2024 9:30 AM EDT TH Visit (TeleHealth) Psychiatry [place] [address] Fermin Mercado MD [facility] [place] [address] documented as of this encounter Visit Diagnoses Not on filedocumented in this encounter Care Teams Linotyper Relationship Specialty Start Date End Date Gabbie Sams MD [address] [place] [address] PCP - General Family Medicine 12/31/22 documented as of this encounter
--- OUTSIDE RECORDS SUMMARY | 2023-12-28 01:49 | XMS_ITS | Encounter Summary ---
Author Organization [facility] [place] [address] Care Team Providers Care Digital Forensic Analyst Name Role Phone Gabbie Sams MD Primary Care Provider [phone] Encounter Details Date Type Department Care Team (Late st Contact Info) Description 09/15/2023 Telephone [place] [address] Pablo Villagomez RN Social History Tobacco Use Types Packs/Day [...] encounter Miscellaneous Notes * Telephone Encounter - Pablo Villagomez RN - 09/15/2023 2:17 PM EDT Called pt and left message requesting that pt return call to office. Msg left on pt identified voice mail. * Telephone Encounter - Pablo Villagomez RN - 09/15/2023 2:14 PM EDT ----- Message from Jose Ford MD sent at 09/13/2023 9:18 AM EDT ----- Regarding: RE: radiology tests Thank you Kendra He is very frustrated with chronic GI issues and chronic pain from jaw injury. Agree with doing testing here. I feel that I spent most of our last appointment reviewing his symptoms, my thoughts and realistic expectations going forward. I really encourage him to start with the holistic measures as per out handout. I do not think an additional appointment at this time would benefit him. Perhaps a follow-up call with motility RN going over the handout would benefit him? Jose ----- Message ----- From: Kendra Ruiz Sent: 09/12/2023 3:27 PM EDT To: Jose Ford MD; # Subject: radiology tests Hi Dr. Ford: Soren called and has asked if we can have any of the radiology tests done up near him at [facility] or some place closer to home since he lives at such a distance. I explained to him that often we ask forthem to be done here as we get a more accurate and timely response. He also wants to schedule a follow-up appointment with you before he has the tests as she feels that you and him may have miscommunicated on what his issue is and that he is still having the same symptoms. I told him that you wouldwant to see him after the tests. Kendra documented in this encounter Plan of Treatment Upcoming Encounters Date Type Department Care Team (Late st Contact Info) Description 02/06/2024 9:30 AM EDT TH Visit (TeleHealth) Psychiatry [place] [address] Fermin Mercado MD [facility] [place] [address] documented as of this encounter Visit Diagnoses Not on filedocumented in this encounter Care Teams Digital Forensic Analyst Relationship Specialty Start Date End Date Gabbie Sams MD [address] [place] [address] PCP - General Family Medicine 12/31/22 documented as of this encounter
--- OUTSIDE RECORDS SUMMARY | 2023-12-28 01:49 | XMS_ITS | Encounter Summary ---
Author Organization [facility] [place] [address] Care Team Providers Care Brand Manager Name Role Phone Gabibe Sams MD Primary Care Provider [phone] Encounter Details Date Type Department Care Team (Late st Contact Info) Description 07/15/2023 Telephone [place] [address] Swapna Mills LNA Social History Tobacco Use Types Packs/Day Years [...] encounter Miscellaneous Notes * Telephone Encounter - Swapna Mills LNA - 07/15/2023 1:26 PM EST I have emailed patients office note and panorex pertaining to his visit with Dr. Youssef. Email: [email or web address] documented in this encounter Plan of Treatment Upcoming Encounters Date Type Department Care Team (Late st Contact Info) Description 02/06/2024 9:30 AM EDT TH Visit (TeleHealth) Psychiatry [place] [address] Fermin Mercado MD [facility] [place] [address] documented as of this encounter Visit Diagnoses Not on filedocumented in this encounter Care Teams Brand Manager Relationship Specialty Start Date End Date Gabbie Sams MD [address] [place] [address] PCP - General Family Medicine 12/31/22 documented as of this encounter
--- OUTSIDE RECORDS SUMMARY | 2023-12-28 01:49 | XMS_ITS | Encounter Summary ---
Author Organization [facility] Address [facility] [place] [address] Care Team Providers Care Nursing Admin Name Role Phone Gabbie Sams MD Primary Care Provider [phone] Reason for Referral * Consultation (Routine) - Canceled Specialty Diagnoses / Procedures Referred By Balaji hoang Referred To Contact [facility] Diagnoses Chronic jaw pain Fabián Newton PA [facility] [place] [address] [facility] [address] [place] [phone] Referral ID Status Reason Start Date Expiration Date V isits Requested Visits Authorized [id number] Canceled Consult, Test & Treat 07/05/2023 07/04/2024 1 1 Encounter Details Date Type Department Care Team (Late st Contact Info) Description 07/05/2023 Orders Only [place] [address] Fabián Newton PA [facility] [place] [address] Chronic jaw pain Social History Tobacco Use Types Packs/Day [...] as of this encounter Miscellaneous Notes * Addendum Note - Fabián Newton PA - 07/05/2023 5:27 PM ESTAddended by: FABIÁN NEWTON on: 07/28/2023 02:45 PM Modules accepted: Orders documented in this encounter Plan of Treatment Upcoming Encounters Date Type Department Care Team (Late st Contact Info) Description 02/06/2024 9:30 AM EDT TH Visit (TeleHealth) Psychiatry [place] [address] Fermin Mercado MD [facility] [place] [place] [address] Scheduled Referrals Name Type Priority Associated Diagnoses Order Schedule Referral to Pain Management Outpatient Referral Routine Chronic jaw pain Ordered: 07/28/2023 documented as of this encounter Visit Diagnoses Diagnosis Chronic jaw pain Jaw pain documented in this encounter Care Teams Nursing Admin Relationship Specialty Start Date End Date Gabbie Sams MD [address] [place] [address] PCP - General Family Medicine 12/31/22 documented as of this encounter
--- OUTSIDE RECORDS SUMMARY | 2023-12-28 01:49 | XMS_ITS | Encounter Summary ---
Author Organization [facility] Address [facility] [place] [address] Care Team Providers Care Radiation Engineer Name Role Phone Gabbie Sams MD Primary Care Provider [phone] Encounter Details Date Type Department Care Team (Danica Contact Info) Description 09/06/2023 Telephone Psychiatry [place] [address] Lore Molina Social History Tobacco Use Types [...] encounter Miscellaneous Notes * Telephone Encounter - Lore Molina - 09/06/2023 2:31 PM EDT Xochilt from [facility] called and said they had gotten another request for an A1C lab. They said they had done one on 08/23 but it appears we may not have received it and they are re-faxing the result to us. It looks like this was requested again yesterday and she wanted to know if the one they did on 08/23will suffice if they refax it to us? Or do you want them to do another one today? She can be reached at [phone] Their fax number is [phone] documented in this encounter Plan of Treatment Upcoming Encounters Date Type Department Care Team (Danica nichols Contact Info) Description 02/06/2024 9:30 AM EDT TH Visit (TeleHealth) Psychiatry [place] [address] Fermni Mercado MD [facility] [place] [address] documented as of this encounter Visit Diagnoses Not on filedocumented in this encounter Care Teams Radiation Engineer Relationship Specialty Start Date End Date Gabbie Sams MD [address] [place] [address] PCP - General Family Medicine 12/31/22 documented as of this encounter
--- OUTSIDE RECORDS SUMMARY | 2023-12-28 01:50 | XMS_ITS | Encounter Summary ---
Author Organization [facility] [place] [address] Care Team Providers Care Retoucher Photoengraving Name Role Phone Gabbie Sams MD Primary Care Provider [phone] Encounter Details Date Type Department Care Team (Latest Contact Info) Description 01/25/2023 Travel Social History Tobacco Use Types Packs/Day Years Used Date Smoking Tobacco: Never Assessed Sex and Gender Information Value Date Recorded Sex Assigned at Not on file Gender Identity Not on file Sexual Orientation Not on file documented as of this encounter Plan of Treatment Upcoming Encounters Date Type Department Care Team (Late st Contact Info) Description 02/06/2024 9:30 AM EDT TH Visit (TeleHealth) Psychiatry [place] [address] Fermin Mercado MD [facility] [place] [address] documented as of this encounter Visit Diagnoses Not on filedocumented in this encounter Care Teams Retoucher Photoengraving Relationship Specialty Start Date End Date Gabbie Sams MD [address] [place] [address] PCP - General Family Medicine 12/31/22 documented as of this encounter
--- OUTSIDE RECORDS SUMMARY | 2023-12-28 01:50 | XMS_ITS | Encounter Summary ---
Author Organization [facility] [place] [address] Care Team Providers Care Cocoa Bean Roaster Name Role Phone Bertin Cm MD Primary Care Provider [phone] Encounter Details Date Type Department Care Team (Late st Contact Info) Description 08/06/2022 Tele[place] [address] Sal[place] Carroll Social History Tobacco Use Types Packs/Day Years Used Date Smoking Tobacco: Never Assessed Sex and Gender Information Value Date Recorded Sex Assigned at Not on file Gender Identity Not on file Sexual Orientation Not on file documented as of this encounter Miscellaneous Notes * Telephone Encounter - [place] Carroll - 08/06/2022 4:06 PM EST Inbound/Outbound: Outbound Spoke to Patient/Left Message: Left message Notes: Outbound call to patient regarding wait list opening for scheduled testing . Left message asking for call back if interested. Advised spot cannot be held. 08/10 ARM Return calls can be handled by: [facility] Educational Program Assistant documented in this encounter Plan of Treatment Upcoming Encounters Date Type Department Care Team (Late st Contact Info) Description 02/06/2024 9:30 AM EDT TH Visit (TeleHealth) Psychiatry [place] [address] Fermin Mercado MD [facility] [place] [address] documented as of this encounter Visit Diagnoses Not on filedocumented in this encounter Care Teams Cocoa Bean Roaster Relationship Specialty Start Date End Date Bertin Cm MD [address] [place] [address] PCP - General Family Medicine 06/02/22 12/30/22 documented as of this encounter
--- OUTSIDE RECORDS SUMMARY | 2023-12-28 01:50 | XMS_ITS | Encounter Summary ---
Author Organization [facility] Address [address] [place] [address] Care Team Providers Care Adoption Counselor Name Role Phone Bertin Cm MD Primary Care Provider [phone] Encounter Details Date Type Department Care Team (Late st Contact Info) Description 07/08/2022 Lab Requisition [facility] Pathology & Laboratory Medicine - [facility] [address] [place] [address] Pilar Pina APRN [address] [place] [address] [place] [address] Encounter for other general examination Social History Tobacco Use Types Packs/Day Years Used Date Smoking Tobacco: Never Assessed Sex and Gender Information Value Date Recorded Sex Assigned at Not on file Gender Identity Not on file Sexual Orientation Not on file documented as of this encounter Plan of Treatment Not on file documented as of this encounter Procedures Procedure Name Priority Date/Time Associated Diagnosis Comments SURGICAL PATHOLOGY Today 07/07/2022 11 :10 EST Encounter for other general examination documented in this encounter Results * SURGICAL PATHOLOGY (07/07/2022 11:10 EST) Note to Patient The following pathology results have been interpreted by your pathologist and may be available to you before your health provider has had the opportunity to review them. Please allow time for your provider to receive these results and explore management options, if applicable. 07/09/2022 9:14 EST [facility] Final Diagnosis A. UVULA, RIGHT, BIOPSY: - Features consistent with squamous papilloma. 07/09/2022 9:14 EST [facility] Diagnosis Comment The biopsy includes superficial squamous epithelium with architecture of a papilloma. The basal epithelium is poorly represented, but no definitve dysplasia is identified. 07/09/2022 9:14 [facility] Attestation By the signature below, the attending physician certifies that they have 1) personally conducted a gross and/or microscopic examination of the described specimen(s), and/or personally interpreted the results of laboratory testing of the described specimen(s), and 2) personally rendered or confirmed the above diagnosis. 07/09/2022 9:14 [facility] at 0914 Clinical History Lesion right side uvula excision; present since April; ecchymosis in area; hx of non-Hodgkin's lymphoma; current cannabis user 07/09/2022 9:14 [facility] Gross Description A. Received in formalin labelled with proper patient identification (initials B, G) and R uvula are 3 opaque still-white wispy tissues (0.2 x 0.1 by less than 0.1 to less than 0.1 by less than 0.1 by less than 0.1 cm). Please note the specimen may not survive processing. Freida Ghosh 07/08/2022 9:55 07/09/2022 9:14 [facility] Performing Lab [facility] 07/09/2022 9:14 [facility] Scanned Images 07/09/2022 9:14 [facility] Tissue ENTIRE UVULA [place] / Unknown 07/07/2022 11:10 EST 07/08/2022 8:44 EST Pilar Pina MAST MAKER PATHOLOGY ORDERABLE S [facility] [address] [place] [address] documented in this encounter Visit Diagnoses Diagnosis Encounter for other general examination documented in this encounter Care Teams Adoption Counselor Relationship Specialty Start Date End Date Bertin Cm MD [address] [facility] [address] [place], [place] [address] PCP - General Emergency Medicine 06/13/22 documented as of this encounter
--- OUTSIDE RECORDS SUMMARY | 2023-12-28 01:50 | XMS_ITS | Encounter Summary ---
Author Organization [facility] Address [facility] [place] [address] Care Team Providers Care Blending Tank Tender Helper Name Role Phone Gabbie Sams MD Primary Care Provider [phone] Reason for Visit * Reason Onset Date Comments Prior Authorization 05/02/2023 Finasteride 1MG tablets Encounter Details Date Type Department Care Team (Late st Contact Info) Description 05/02/2023 Telephone Dermatology at [facility] [address] [place] [address] Oralia Gaspar CMA Prior Authorization (Finasteride 1MG tablets) Social History Tobacco Use Types Packs/Day Years [...] encounter Miscellaneous Notes * Telephone Encounter - China Javed LNA - 05/02/2023 2:00 PM EST Images from the original note were not included. Submitted Date: Submitted Date: 05/02/2023 PA Outcome: PA Denial Medication [place] [address] DENIED: Finasteride Case/Reference #: [id number] Additional Information from Insurance: * Telephone Encounter - Oralia Gaspar CMA - 05/02/2023 11:50 AM EST PA Submitted Submitted Date: Date Submitted: 05/02/2023 Medication Prior Authorization Patient: Soren Mejia Patient : 1985 Insurance Company: [place] Medicaid Sent via: [facility] Paiz: [id number] Physician: Chinedu Abreu MD Medication Requested: finasteride (Propecia) 1 mg tablet Frequency/Sig: take 1 tablet by mouth daily Disp: 30 tab Refills: 1 Currently taking: no Diagnosis for this medication: Alopecia areata [L63.9] Additional Notes: Assessment/Plan #. Alopecia Areata with Background Androgenetic Alopecia - Patchy regrowth noted in areas of prior alopecia. - S/p ILK x4 - Current insurance wont cover Baracitinib ([place]). Discussed other treatment options including restarting oral minoxidil, starting topical minoxidil, finasteride oral, MTX, oral prednisone, ora combination of topicals and oral medications. Due to some ongoing GI issues the patient is experiencing, joint decision made to proceed with low dose finasteride daily. Plan: - Continue Rx: Clobetasol 0.05% Solution: Apply to the scalp twice daily for three days a week. Patient has a prescription for this already. - Start Rx: Finasteride 1 mg tablet daily documented in this encounter Plan of Treatment Upcoming Encounters Date Type Department Care Team (Late st Contact Info) Description 02/06/2024 9:30 AM EDT TH Visit (TeleHealth) Psychiatry [place] [address] Fermin Mercado MD [facility] [address] documented as of this encounter Visit Diagnoses Not on filedocumented in this encounter Care Teams Blending Tank Tender Helper Relationship Specialty Start Date End Date Gabbie Sams MD [address] [place] [address] PCP - General Family Medicine 12/31/22 documented as of this encounter
--- OUTSIDE RECORDS SUMMARY | 2023-12-28 01:50 | XMS_ITS | Encounter Summary ---
Author Organization [facility] Address [facility] [place] [address] Care Team Providers Care Electric Needle Specialist Name Role Phone Gabbie Sams MD Primary Care Provider [phone] Encounter Details Date Type Department Care Team (Late st Contact Info) Description 04/28/2023 2:45 PM EST Office Visit Dermatology at [facility] [address] [place] [address] Chinedu Abreu MD [facility] [address] [address] Wound infection; Alopecia areata Social History Tobacco Use Types Packs/Day Years Used Date Smoking Tobacco: Never Smokeless Tobacco: Never Alcohol Use Standard Drinks/Week Comments Not Currently 0 (1 standard drink = 0.6 oz pur e alcohol) Sex and Gender Information Value Date Recorded Sex Assigned at Not on file Gender Identity Not on file Sexual Orientation Not on file documented as of this encounter Progress Notes * Quintin Alvarez, [facility] - 04/28/2023 2:45 PM EST Images from the original note [...] & Protection N/A Alopecia Areata (clobetasol solution, oral minoxidil, ILK) Lymphoma (2005) Family History [...] Patient returns to clinic today for a 1.5month follow-up of alopecia areata, severe at last visit. Patient was to start Rx: Baricitinib 4 mgQD. Patient was to change insurance, and this was to be submitted through a specialty pharmacy; continue Rx: Clobetasol 0.05% solution BID 3 times weekly; continue Rx: Minoxidil 2.5 mg QD. He stoppedthe minoxidil and could not get the baracitinib covered by his insurance. Last visit at Dermatology: 03/08/2023 Last visit with this provider: 03/08/2023 Medications: Reviewed in eD-H Allergies: Reviewed in eD-H Skin Examination: Focused skin examination of the face and scalp was normal with the exception of the findings below. Assessment/Plan #. Alopecia Areata with Background Androgenetic Alopecia - Patchy regrowth noted in areas of prior alopecia. - S/p ILK x4 - Current insurance wont cover Baracitinib ([place] Medicaid). Discussed other treatment options including restarting [...] Start Rx: Finasteride 1 mg tablet daily #. Excoriation of Inflammatory Papule with 2nd superficial infeciton - Erythematous nodule with honey colored crusting and central erosion on the occipital scalp - Start Rx: Mupirocin 2% Ointment to affected areas on scalp three times daily for 10 days - After course of Mupirocin, can apply Rx: Clindamycin Solution for any inflammatory papules on thescalp BID for 10-14 days. Advised to avoid scratching sites #. Thermal Burn - superficial erosion with overlying crust on the right buttock w/o signs of infection - Recommended applying Vaseline to the area to promote healing or zinc oxide paste till healed. No intervention required today. Figure 1 Photo(s) taken and charted with patient's verbal consent. RTC: 6-8 weeks for alopecia areata follow up []Note routed to nurse wound care []Recall placed in scheduling system [x]Appointment scheduled at checkout Scribe attestation: Lisa Lóepz [facility] has performed the documentation for this encounter in thepresence of and acting as a scribe for Chinedu Abreu MD. I performed the above scribed service and agree with the accuracy of the documentation in this encounter. Reviewed and signed by: Chinedu Abreu MD Dermatology [facility] documented in this encounter Plan of Treatment Upcoming Encounters Date Type Department Care Team (Late st Contact Info) Description 02/06/2024 9:30 AM EDT TH Visit (TeleHealth) Psychiatry [place] [address] Fermin Mercado MD [facility] [place] [address] documented as of this encounter Visit Diagnoses Diagnosis Wound infection Posttraumatic wound infection not elsewhere classified Alopecia areata documented in this encounter Care Teams Electric Needle Specialist Relationship Specialty Start Date End Date Gabbie Sams MD [address] [place] [address] PCP - General Family Medicine 12/31/22 documented as of this encounter
--- OUTSIDE RECORDS SUMMARY | 2023-12-28 01:50 | XMS_ITS | Encounter Summary ---
Author Organization [facility] [place] [address] Care Team Providers Care Food Cart Attendant Name Role Phone Bertin Cm MD Primary Care Provider [phone] Encounter Details Date Type Department Care Team (Latest Contact Info) Description 10/21/2022 Travel Social History Tobacco Use Types Packs/Day [...] Visit (TeleHealth) Psychiatry and [place] [address] Fermin Mercado MD [facility] [place] [address] documented as of this encounter Visit Diagnoses Not on filedocumented in this encounter Care Teams Food Cart Attendant Relationship Specialty Start Date End Date Bertin Cm MD [address] [place] [address] PCP - General Family Medicine 06/02/22 12/30/22 documented as of this encounter
--- OUTSIDE RECORDS SUMMARY | 2023-12-28 01:50 | XMS_ITS | Clinical Summary ---
Author Organization [facility] Address [address] [place] [address] Care Team Providers Care Property Management Bookkeeper Name Role Phone Bertin Cm MD Primary Care Provider [phone] Social History Tobacco Use Types Packs/Day Years Used Date Smoking Tobacco: Never Assessed Sex and Gender Information Value Date Recorded Sex Assigned at Not on file Gender Identity Not on file Sexual Orientation Not on file Plan of Treatment Health Maintenance Due Date Last Done Comments Hepatitis C Screen 1985 Hepatitis B Vaccine (1 of 3 - 19+ 3-dose series) 07/16 COVID-19 Vaccine ( season) 2023 Care Teams Property Management Bookkeeper Relationship Specialty Start Date End Date Bertin Cm MD [address] [facility] [address] [place] [address] PCP - General Emergency Medicine 06/13/22
--- OUTSIDE RECORDS SUMMARY | 2023-12-28 01:50 | XMS_ITS | Encounter Summary ---
Author Organization [facility] [place] [address] Care Team Providers Care Director Of Regulatory Affairs Name Role Phone Bertin Cm MD Primary Care Provider [phone] Reason for Referral * Consultation (Routine) - Closed Specialty Diagnoses / Procedures Referred By Balaji t Referred To Contact Dermatology Diagnoses Alopecia areata Bertin Cm MD [address] [place] [address] [facility] Dermatology [address] [place] [address] Referral ID Status Reason Start Date Expiration Date V isits Requested Visits Authorized [id number] Closed Consult, Test & Treat PCP Updated and/or Approved 06/02/2022 06/02/2023 12 12 Encounter Details Date Type Department Care Team (Late Contact Info) Description 06/02/2022 Transcribe Orders eDH Incoming Referrals [phone] Bertin Cm MD [address] [place] [phone] Alopecia areata Social History Tobacco Use Types Packs/Day Years Used Date Smoking Tobacco: Never Assessed Sex and Gender Information Value Date Recorded Sex Assigned at Not on file Gender Identity Not on file Sexual Orientation Not on file documented as of this encounter Plan of Treatment Upcoming Encounters Date Type Department Care Team (Late Contact Info) Description 02/06/2024 9:30 AM EDT TH Visit (TeleHealth) Psychiatry and [place] [address] Fermin Mercado MD [facility] [place] [place] [address] Scheduled Referrals Name Type Priority Associated Diagnoses Order Schedule Referral to Dermatology Outpatient Referral Routine Alopecia areata Ordered: 06/02/2022 documented as of this encounter Visit Diagnoses Diagnosis Alopecia areata documented in this encounter Care Teams Director Of Regulatory Affairs Relationship Specialty Start Date End Date Bertin mC MD [address] [place] [address] PCP - General Family Medicine 06/02/22 12/30/22 documented as of this encounter
--- OUTSIDE RECORDS SUMMARY | 2023-12-28 01:50 | XMS_ITS | Encounter Summary ---
Author Organization [facility] Address [facility] [place] [address] Care Team Providers Care Dry Mill Operator Name Role Phone Gabbie Sams MD Primary Care Provider [phone] Encounter Details Date Type Department Care Team (Late st Contact Info) Description 01/25/2023 1:30 PM EDT Office Visit Dermatology at [facility] [address] [place] [address] Chinedu Abreu MD [facility] [place] [address] Alopecia areata; Folliculitis; Pseudofolliculitis barbae Social History Tobacco Use Types Packs/Day Years Used Date Smoking Tobacco: Never Assessed Sex and Gender Information Value Date Recorded Sex Assigned at Not on file Gender Identity Not on file Sexual Orientation Not on file documented as of this encounter Progress Notes * Quintin Alvarez, [facility] - 01/25/2023 1:30 PM EDT Images from the original [...] Patient returns to clinic today for a 1 month follow-up of alopecia areata. At last visit note, patient was to continue Rx: clobetasol solution 3x weekly; continue Rx: minoxidil 2.5 mg QD. Patient had ILK injection to scalp, 10 mg/mL, total 0.75 mL. Patient states he is getting more growth of hairs. He says, however, that he is getting more ingrown hairs. Zits form with hairs in them. Notes there is increasing hair loss in the back. There is a scabby, tight spot on the posterior scalp. Has not been using clobetasol solution. - Notes a large, red/black, crusty spot on the left posterior thigh, present for a week. Painful when sitting. Feels like a zit that won't pop. - Was previously given doxycycline for folliculitis on the lower abdomen. Folliculitis still present there. Doxycycline made them just slightly better. Last visit at Dermatology: 12/21/2022 Last visit with this provider: 12/21/2022 Medications: Reviewed in eD-H Allergies: Reviewed in eD-H Skin Examination: Focused skin examination of the face, lower abdomen, scalp, left posterior thigh was normal with the exception of the findings below. Assessment/Plan #. Alopecia Areata with Background Androgenetic Alopecia - Increased hair growth on the frontal scalp. Increased hair growth on vertex scalp. Regrowth noted on occipital scalp. Few exclamation point hairs on the occipital scalp. Erosion noted on the posterior crown scalp. Mild disease with 12% hair loss in the parietal scalp (Figures 1 - 6) Plan: - Restart Rx: clobetasol 0.05% solution: Apply to the scalp twice daily for three days a week. Patient has a prescription for this already. - Continue, increase and refill Rx: Minoxidil 2.5 mg. Take 1.5 tablet QD. Warned that this could cause unwanted hair growth in other parts of the body, mild palpitations and swelling in the lower extremities. If not tolerating, can titrate back to 1 tablet daily. - [place] decision to proceed with ILK injection today. Kenalog injection: ? Location: Central and occipital scalp? injected into a total of 14 locations Kenalog 10 mg/mL, total 1.3 mL Verbal consent obtained. Reviewed side effects of skin atrophy, telangiectasia, hypopigmentation, and striae. The area was cleaned with alcohol and kenalog injected intralesionally. The patient tolerated the procedure well and follow up care reviewed. Lot: [id number] Exp: FEB 2024 #. Pseudofolliculitis - scattered perifollicular inflammatory papules overlying hair bearing areas on the neck and pereira area and lower abdomen/groin. - Explained the pathophysiology of this skin condition, which occurs when a shaved hair curves downward and pierces the adjacent skin or when the sharp tip of a growing hair pierces the follicle wall. Several factors increase the risk of pseudofolliculitis barbae: pulling the skin taut while shaving, shaving against the grain, plucking hairs with tweezers, and using double- or triple- bladed razors. - Advised to shave in a single direction with hair growth and consider use of an electric shaver ortrimmer in place of a straight razor. - Start Rx clindamycin 1% lotion: Apply topically to affected areas on the neck and pereira area twice daily as needed. Patient has this at home, and so does not need a new prescription. - Recommended OTC T-Marek shampoo. Patient has this at home. Recommended patient leave this in for 3-5 minutes in the shower before washing this away. #. Folliculitis - Scattered 0.1-0.2 cm erythematous, follicle-centered pustules on the left posterior thigh. - Discussed benign nature of condition and provided reassurance. - Recommended use of OTC benzoyl peroxide wash (such as PanOxyl) in the shower. - Start Rx clindamycin 1% solution: Apply topically to affected areas twice daily, as needed. Figures 1 - 6 Photo(s) taken and charted with patient's verbal consent. Other: OTC skin products discussed RTC: 4-6 weeks for alopecia areata follow-up []Note routed to hospital secretary []Recall placed in scheduling system [x]Appointment scheduled at checkout Scribe attestation: Quintin Alvarez [facility] has performed the documentation for this encounter in the presence of and acting as a scribe for Chinedu Abreu MD. I performed the above scribed service and agree with the accuracy of the documentation in this encounter. Reviewed and signed by: Chinedu Abreu MD Dermatology [facility] documented in this encounter Plan of Treatment Upcoming Encounters Date Type Department Care Team (Late st Contact Info) Description 02/06/2024 9:30 AM EDT TH Visit (TeleHealth) Psychiatry [place] [address] Fermin Mercado MD [facility] [address] PSYCHIATRY [place] [id number] documented as of this encounter Visit Diagnoses Diagnosis Alopecia areata Folliculitis Other specified disease of hair and hair follicles Pseudofolliculitis barbae Other specified disease of hair and hair follicles documented in this encounter Administered Medications Inactive Administered Medications - up to 3 most recent administrations Medication Order MAR Action Action Date Dose Rate Site triamcinolone acetonide (Kenalog) (10 mg/mL) injection 10 mg 10 mg, Intramuscular, ONCE, 1 dose, On Tue01/25/23 at 1715, Routine Given 01/25/2023 4:48 PM EDT 10 mg 20-Other (document in comment section) documented in this encounter Care Teams Dry Mill Operator Relationship Specialty Start Date End Date Gabbie Sams MD [address] [place] [address] PCP - General Family Medicine 12/31/22 documented as of this encounter
--- OUTSIDE RECORDS SUMMARY | 2023-12-28 01:50 | XMS_ITS | Encounter Summary ---
Author Organization [facility] [place] [address] Care Team Providers Care Venetian Blind Mechanic Name Role Phone Bertin Cm MD Primary Care Provider [phone] Reason for Visit * Reason Onset Date Comments Research 10/21/2022 Encounter Details Date Type Department Care Team (Late st Contact Info) Description 10/21/2022 Notes Only Dermatology at [facility] [address] [place] [address] [facility] [address] [address] Research Social History Tobacco Use Types Packs/Day Years Used Date Smoking Tobacco: Never Assessed Sex and Gender Information Value Date Recorded Sex Assigned at Not on file Gender Identity Not on file Sexual Orientation Not on file documented as of this encounter Progress Notes * Mounika Falk - 10/21/2022 5:56 PM EDT RESEARCH STUDY VISIT PROTOCOL: TARGET-DERM A 5-year Longitudinal Observational Study of Patients Undergoing Therapy for Immune-Mediated Inflammatory Skin Conditions Velos #: [id number] PI: Jose Rogers MD Sub-I: Fabián Williamson MD, Coral Dickerson MD, Felipe Rabago MD, Martha Wagoner MD, Lore Velazquez MD, Reggie Wu MD, Chinedu Abreu MD, Lidia Reddy MD Subject #: [id number] Visit: Screening/Month 0 10/21/22 Soren Mejia is a 37 y.o. male with history of Alopecia Areata. he was seen in the Dermatology clinic today for a screening visit for the above mentioned study. CONSENT Protocol was reviewed with Soren Mejia by Mounika Falk including a description of study purpose,risks and benefits, voluntary nature of participation as well as study requirements, and length of study duration. . Discussed confidentiality of patient's health information as specified in the consent form. he was advised that they may discontinue study involvement at any time and that refusing to participate or discontinuing treatment will not compromise the patient's access to treatment options or care. compensation for completion of optional study components reviewed. A copy of the written informed consent form was provided to Soren Mejia for review. he was given adequate time to read all information, to ask questions and review concerns, all of which were answered to his satisfaction. Soren Mejia verbalized his understanding of the study details, the risks and benefits of the study, and what would be expected of him while participating. The informed consent document was signed and dated by the subject and Mounika Falk prior to any study procedures being conducted. A copy of the signed consent form was given to Soren Roberto and the original copy was scanned into [facility] and then retained with our source documents. Demographics: male, 37 y.o., White Born 1985. Eligibility: The following inclusion and exclusion criteria were reviewed by Dr. Abreu and Dr. Mounika Falk after informed consent was obtained. They confirmed eligibility before moving forward in the study and performing any study procedures. Inclusion Criteria: 1. Adults and children (all ages) that have been prescribed any dermatologic treatment for a physician-confirmed IMISC 2. Patient has plans for future visits at the site for continued management of IMISC Exclusion Criteria: 1. Inability to provide written informed consent 2. Participation in an interventional study or trial using a systemic IMISC therapy at the time of enrollement. Patients may be enrolled in Target-Derm once participation in the trial has ended. Note: patient may be enrolled in other registeries or studies where IMISC treatment outcomes are observed and/or reported (such as center-based registries). And patient is also permitted to participate souleymane topical study. Physician assessments: Alopecia Areata Physician Assessments were completed by Dr. Abreu and Dr. Mounika Falk Biospecimen: Subject opted for saliva sample. However due to our location and time restraints, specimen was not collected today and will be done at Soren Mejia's next visit. Mounika Falk MD, MS, MSc Research Fellow - Dermatology documented in this encounter Plan of Treatment Upcoming Encounters Date Type Department Care Team (Late st Contact Info) Description 02/06/2024 9:30 AM EDT TH Visit (TeleHealth) Psychiatry [place] [address] [facility] [place] [address] documented as of this encounter Visit Diagnoses Not on filedocumented in this encounter Care Teams Venetian Blind Mechanic Relationship Specialty Start Date End Date Bertin Cm MD [address] [place] [address] PCP - General Family Medicine 06/02/22 12/30/22 documented as of this encounter
--- OUTSIDE RECORDS SUMMARY | 2023-12-28 01:50 | XMS_ITS | Encounter Summary ---
Author Organization [place] [address] Care Team Providers Care Repairer Screen Crusher Name Role Phone Bertin Cm MD Primary Care Provider [phone] Reason for Visit * Diagnostic Test (Routine) - Closed Specialty Diagnoses / Procedures Referred By Balaji hoang Referred To Contact Gastroenterology Diagnoses Solitary rectal ulcer syndrome ARM for solitary rectal ulcer syndrome Procedures High Definition Anal Manometry PRG ANORECTAL MANOMETRY PRG RECTAL SENSATION TEST, BALLOON Emmanuelle Sun, DO [address] [place] [address] [facility] [place] [facility] [address] [place] [address] Referral ID Status Reason Start Date Expiration Date V isits Requested Visits Authorized [id number] Closed Consult, Test & Treat 07/21/2022 07/21/2023 1 1 Encounter Details Date Type Department Care Team (Latest Contact Info) Description 09/07/2022 3:00 PM EDT Procedure [place] [address] Solitary rectal ulcer syndrome Social History Tobacco Use Types Packs/Day Years Used Date Smoking Tobacco: Never Assessed Sex and Gender Information Value Date Recorded Sex Assigned at Not on file Gender Identity Not on file Sexual Orientation Not on file documented as of this encounter Progress Notes * Avis Odom, RN - 09/07/2022 3:00 PM EDT A description of the anal manometry procedure was provided to the patient. All questions were answered and the patient verbalized understanding. After performing a digital rectal exam, the HRAM probe was placed in the rectum without difficulty and the procedure was performed. After removal of the probe, an anorectal balloon expulsion catheterwas placed in the rectum for continuation of the study and then removed. The patient tolerated the procedure well. After the procedure the patient was concerned about swelling/protrusion around his rectum, he requested I look at it to make sure it was ok, on inspection I only noted it to be swelling when he strained otherwise it appeared within normal limits to me, I advised him to try and follow his PT's instructions on not straining and follow up with his referring MD. * Jose Ford MD - 09/07/2022 3:00 PM EDT Re: Soren Mejia Reg No:[id number] : 1985 Date of Service: 09/07/2022 ANORECTAL MANOMETRY w/BALLOON EXPULSION Referring provider:Emmanuelle Sun Dear: Dr. Sun We had the pleasure of performing a high resolution anorectal manometry on your patient in the GI Motility Laboratory at [facility]. CLINICAL HISTORY AND INDICATION As you know, he is a 37 y.o. male with complaints of constipation RESULTS Resting sphincter pressure (NL Value: Males 70-100, Females 70-90) : 80 mmHg Max squeeze pressure (NL Value: Males 240-300, Females 160-200) : 185 mmHg Squeeze duration: excellent (sustaining at least 50% of the difference between maximum squeeze and resting pressures for at least 20 seconds). Rectoanal inhibitory reflex: present at 60 ccs balloon distention Response to coughing: normal (cough elicits a pressure greater than or equal to double the resting pressure). Dyssynergia evident on push maneuvers. 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 Resting anal sphincter pressure reflecting internal sphincter function was normal. Maximum squeeze pressures reflecting external sphincter function were weak. Rectal sensation was normal. Jose Ford MD, FRCPC Section of Gastroenterology and Hepatology [facility] [place] [address] V: [phone] F: [phone] CC/EC: Bertin Cm MD [address] [address] documented in this encounter Plan of Treatment Upcoming Encounters Date Type Department Care Team (Late st Contact Info) Description 02/06/2024 9:30 AM EDT TH Visit (TeleHealth) Psychiatry [place] [address] Fermin Mercado MD [facility] [place] [address] documented as of this encounter Visit Diagnoses Diagnosis Solitary rectal ulcer syndrome documented in this encounter Care Teams Repairer Screen Crusher Relationship Specialty Start Date End Date Bertin Cm MD [address] [place] [address] PCP - General Family Medicine 06/02/22 12/30/22 documented as of this encounter
--- OUTSIDE RECORDS SUMMARY | 2023-12-28 01:50 | XMS_ITS | Encounter Summary ---
Author Organization [facility] Address [facility] [place] [address] Care Team Providers Care Heel Attacher Wood Name Role Phone Bertin Cm MD Primary Care Provider [phone] Encounter Details Date Type Department Care Team (Late st Contact Info) Description 11/30/2022 4:15 PM EDT Office Visit Dermatology at [facility] [address] [place] [address] Chinedu Abreu MD [facility] [address] [facility] [address] Alopecia areata; Folliculitis Social History Tobacco Use Types Packs/Day Years Used Date Smoking Tobacco: Never Assessed Sex and Gender Information Value Date Recorded Sex Assigned at Not on file Gender Identity Not on file Sexual Orientation Not on file documented as of this encounter Progress Notes * Yun Khan, RN - 11/30/2022 4:15 PM EDT Images from the original note [...] & Protection N/A Alopecia Areata (clobetasol solution, ILK) Lymphoma (2005) Family History Details Melanoma [...] y.o. Patient returns to clinic today for alopecia areata follow up. At last visit, 20% or less scalp hair loss present. Was to start Rx: clobetasol 0.05% solution BID for 3 weeks, take a 7 day break, then repeat; start Rx: minoxidil 1.25 mg QD for 2 weeks. If tolerating after 2 weeks, increase to 2.5 mg QD; recommended OTC topical minoxidil. 1.5 mL of ILK, 5 mg/mL, injected in central and occipital scalp. Patient states that after increasing to 2.5 mg minoxidil, he became extremely nauseous and had bad heartburn. Stopped taking it after 2-3days. Patient has been using it once every day, every day. Patient notes an increase in scabbing and open sores all over the scalp, as well as on the eyebrow, lip and pereira area. Patient notes hairs curling back in. Patient would like ILK, specifically, 10 mg/mL. Would like much more of his head treated. - Patient also seen for folliculitis in the groin at last visit. Was to start Rx: clindamycin 1% solution BID for 2 weeks; recommended OTC benzoyl peroxide wash in the shower. Patient used the clindamycin almost daily, approximately once daily. Patient notes no improvement. States there is more redness there than before. Last visit at Dermatology: 10/21/2022 Last visit with this provider: 10/21/2022 Medications: Reviewed in eD-H Allergies: Reviewed in eD-H Skin Examination: Focused skin examination of the groin, scalp and face was normal with the exception of the findingsbelow. Assessment/Plan #. Alopecia areata - On the scalp are few scattered oval patches of alopecia without scarring, scaling, or erythema. Exclamation point hairs noted with yellow perifollicular dots. Regrowth in areas of hair loss noted. Eye brows and eye lashes intact. Alopecia Areata Scale ?Mild AA 20% or less scalp hair loss . Plan: - Continue Rx clobetasol 0.05% solution: Apply to the scalp twice daily for three weeks. Take a 7 day break, and then repeat this cycle. - Re-start Rx: Minoxidil 1.25 mg QD. Take 1/2 tablet QD. Warned that this could cause unwanted hairgrowth in other parts of the body, mild palpitations and swelling in the lower extremities. - Recommend starting OTC topical minoxidil. Kenalog injection: ? Location: Central and occipital scalp? Kenalog 10 mg/mL, total 1.9 mL Verbal consent obtained. Reviewed side effects of skin atrophy, telangiectasia, hypopigmentation, and striae. The area was cleaned with alcohol and kenalog injected intralesionally. The patient tolerated the procedure well and follow up care reviewed. Lot: [id number] Exp: JAN 2024 #. Favor Folliculitis - Erosions present on the occipital scalp. - Start Rx: clindamycin 1% solution. Apply BID to the affected areas on the scalp as needed. - Recommended OTC T-Marek or T-Gel shampoo 1-2x weekly. #. PseudoFolliculitis vs. Folliculitis- Scattered 0.1-0.2 cm erythematous, follicle-centered pustules on the groin. - Discussed benign nature of condition and provided reassurance. - Recommended use of OTC benzoyl peroxide wash (such as PanOxyl) in the shower. - Start Rx doxycycline 100 mg: Take 1 capsule twice daily for 10 days. Counseled patient to take with bland food and a full glass of water, and to avoid laying down for 30 minutes. - Discussed side effects (GI upset, esophagitis, photosensitivity). Other: OTC skin products discussed RTC: 12/21/22 for alopecia areata follow-up (previously-scheduled) []Note routed to stenographer secretary []Recall placed in scheduling system []Appointment scheduled at checkout Scribe attestation: BINDU Vu has performed the documentation for this encounter in the presence of and acting as a scribe for Chinedu Abreu MD. I performed the above scribed service and agree with the accuracy of the documentation in this encounter. Reviewed and signed by: Chinedu Abreu MD Dermatology [facility] documented in this encounter Plan of Treatment Upcoming Encounters Date Type Department Care Team (Late st Contact Info) Description 02/06/2024 9:30 AM EDT TH Visit (TeleHealth) Psychiatry [place] [address] Fermin Mercado MD [facility] [place] [address] documented as of this encounter Visit Diagnoses Diagnosis Alopecia areata Folliculitis Other specified disease of hair and hair follicles documented in this encounter Administered Medications Inactive Administered Medications - up to 3 most recent administrations Medication Order MAR Action Action Date Dose Rate Site triamcinolone acetonide (Kenalog) (10 mg/mL) injection 10 mg 10 mg, Intramuscular, ONCE, 1 dose, On Tue11/30/22 at 1700, Routine Given 11/30/2022 4:39 PM EDT 10 mg 20-Other (document in comment section) documented in this encounter Care Teams Heel Attacher Wood Relationship Specialty Start Date End Date Bertin Cm MD [address] [place] [address] PCP - General Family Medicine 06/02/22 12/30/22 documented as of this encounter
--- OUTSIDE RECORDS SUMMARY | 2023-12-28 01:50 | XMS_ITS | Encounter Summary ---
Author Organization [facility] [place] [address] Care Team Providers Care Cake Stripper Name Role Phone Bertin Cm MD Primary Care Provider [phone] Reason for Referral * Consultation (Routine) - Closed Specialty Diagnoses / Procedures Referred By Balaji hoang Referred To Contact Gastroenterology Diagnoses Solitary rectal ulcer syndrome Solitary rectal ulcer syndrome-? Benefit from Botox inj in the rectum Emmanuelle Sun DO [address] [place] [address] [facility] [address] [place] [address] Referral ID Status Reason Start Date Expiration Date V isits Requested Visits Authorized [id number] Closed Consult, Test & Treat PCP Updated and/or Approved 07/26/2022 07/26/2023 6 6 Encounter Details Date Type Department Care Team (Late Contact Info) Description 07/26/2022 Transcribe Orders eDH Incoming Referrals [phone] [place] [address] [place] [address] [address] [place], [place] [id number] Solitary rectal ulcer syndrome Social History Tobacco [...] Visit (TeleHealth) Psychiatry [place] [address] Fermin Mercado MD [facility] [place] [place] [address] Scheduled Referrals Name Type Priority Associated Diagnoses Order Schedule Referral to Gastroenterology Outpatient Referral Routine Solitary rectal ulcer syndrome Ordered: 07/26/2022 documented as of this encounter Visit Diagnoses Diagnosis Solitary rectal ulcer syndrome documented in this encounter Care Teams Cake Stripper Relationship Specialty Start Date End Date Bertin Cm MD [address] [place] [address] PCP - General Family Medicine 06/02/22 12/30/22 documented as of this encounter
--- OUTSIDE RECORDS SUMMARY | 2023-12-28 01:50 | XMS_ITS | Encounter Summary ---
Author Organization [facility] [place] [address] Care Team Providers Care Infrastructure Solutions Architect Name Role Phone Bertin Cm MD Primary Care Provider [phone] Encounter Details Date Type Department Care Team (Latest Contact Info) Description 12/21/2022 Travel Social History Tobacco Use Types Packs/Day [...] Visit (TeleHealth) Psychiatry [place] [address] Fermin Mercado MD [facility] [place] [address] documented as of this encounter Visit Diagnoses Not on filedocumented in this encounter Care Teams Infrastructure Solutions Architect Relationship Specialty Start Date End Date Bertin Cm MD [address] [place] [address] PCP - General Family Medicine 06/02/22 12/30/22 documented as of this encounter
--- OUTSIDE RECORDS SUMMARY | 2023-12-28 01:50 | XMS_ITS | Encounter Summary ---
Author Organization [facility] Address [address] [place] [address] Care Team Providers Care Communication Assistant Name Role Phone Bertin Cm MD Primary Care Provider [phone] Encounter Details Date Type Department Care Team (Late st Contact Info) Description 06/18/2022 Lab Requisition [facility] Pathology & Laboratory Medicine - [address] [address] Outr Resulting Lab, Provider Social History Tobacco Use Types Packs/Day Years Used Date Smoking Tobacco: Never Assessed Sex and Gender Information Value Date Recorded Sex Assigned at Not on file Gender Identity Not on file Sexual Orientation Not on file documented as of this encounter Plan of Treatment Not on file documented as of this encounter Procedures Procedure Name Priority Date/Time Associated Diagnosis Comments CHLAMYDIA/N. GONORRHOEAE AMPLIFIED NUCLEIC ACID Routine 06/17/2022 15:15 EST documented in this encounter Results * CHLAMYDIA/N. GONORRHOEAE AMPLIFIED RNA (06/17/2022 15:15 EST) Neisseria gonorrhoeae Result Negative Negative 06/20/2022 13:35 EST [facility] Chlamydia trachomatis Result Negative Negative 06/20/2022 13:35 EST [facility] Urine URINE / Unknown 06/17/2022 1 5:15 EST 06/19/2022 13:43 EST Provider Outr Resulting Lab MICROBIOLOGY - GENERAL ORDERABLES [facility] [address] [place] [address] documented in this encounter Visit Diagnoses Not on filedocumented in this encounter Care Teams Communication Assistant Relationship Specialty Start Date End Date Bertin Cm MD [address] [address] PCP - General Emergency Medicine 06/13/22 documented as of this encounter
--- OUTSIDE RECORDS SUMMARY | 2023-12-28 01:50 | XMS_ITS | Encounter Summary ---
Author Organization [facility] Address [facility] [place] [address] Care Team Providers Care Land Clearer Name Role Phone Gabbie Sams MD Primary Care Provider [phone] Reason for Visit * Consultation (Routine) - Closed Specialty Diagnoses / Procedures Referred By Balaji hoang Referred To Contact Gastroenterology Diagnoses Solitary rectal ulcer syndrome Solitary rectal ulcer syndrome-? Benefit from Botox inj in the rectum Emmanuelle Sun, DO [address] [place] [address] [facility] [address] [address] Referral ID Status Reason Start Date Expiration Date V isits Requested Visits Authorized [id number] Closed Consult, Test & Treat PCP Updated and/or Approved 07/26/2022 07/26/2023 6 6 Encounter Details Date Type Department Care Team (Latest Contact Info) Description 02/09/2023 10:00 AM EDT TH Visit (TeleHealth) [place] [address] Maldonado Franklin MD [facility] [address] [place] [address] Dysphagia, unspecified type; Irritable bowel syndrome with both constipation and diarrhea; Gastroesophageal reflux disease, unspecified whether esophagitis present; Functional dyspepsia Social History Tobacco Use Types [...] this encounter Patient Instructions * Patient Instructions* Maldonado Franklin MD - 02/09/2023 10:00 AM EDT Functional Bowel Disorders: Information Handout for Patients and Primary Care Providers Maldonado Franklin MD, [facility] + Miguel Toribio MD, AGNES Jonathan Ignacio, RAD TECH + Swapna Montelongo APRN + Gabbie Clark APRN + J CARLOS Masterson RN + FLASH Miller, PhD [facility] Gastrointestinal Motility Center What are functional bowel disorders? These are the most common type of gastrointestinal disorders in the [facility] The most common functional bowel disorder in the [facility] is irritable bowel syndrome (IBS) Irritable bowel [...] what is the impact? 15-20% of general [place] population has IBS or FD or both IBS is the 2nd most common cause for lost work days (after common cold) in [place] IBS is estimated to cost the [place] economy 30 billion dollars per year These [...] with immediate onset of symptoms after infection); intermodal dispatcher symptoms are expected in most patients however [...] - this approach benefits most patients OTC (akdl-pct-kcfcyiu) medications can be used for ongoing bothersome symptoms as listed below Your doctor (PCP or [facility] Gastroenterology provider or Gastroenterology provider) may [...] but convincing medical evidence is still lacking Hloi-nwk-pbrixle supplements are not typically evaluated by FDA [...] on IBS Headspace (anxiety/stress/mindfulness) Calm (anxiety/stress/mindfulness) CBT-I 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 (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) Curable (chronic pain) There [...] the likelihood that stressors will cause flares psychologytoday.[employer] ABCT.org ContextualScience.org Gut-directed hypnotherapy for IBS is also supported by research - you may find a provider at [employer] OT Medications for Functional Gut Disorders Diarrhea Loperamide [...] a stool softener that is safe for intermodal dispatcher usage (no risk of dependency) andthe dosage [...] under the supervision of a Gastroenterology provider ([facility] or ) or Primary Care Provider Authors are not liable for misuse/misinterpretation of this information Patient Resources [place] [employer] https://www.gastro.org/practice-guidance/vo-urtxtaf-axhzzn/ topic/eagvizrez-potjt-owszxvae-ibs Badgut.org https://badgut.org/information-centre/j-g-yawmfqfte-topics/ibs/ AboutIBS.org https://www.aboutibs.org/ Uptodate.com https://www.uptodate.com/contents/lqlxbwbwz-utebm-mhegysyh-efsyvw-sue-nksful documented in this encounter Progress Notes * Maldonado Franklin MD - 02/09/2023 10:00 AM EDT Images from the original note were not included. GI MOTILITY CENTER TELEMEDICINE PROGRAM Chief Complaint: Soren Mejia is a 37 y.o. patient referred for consultation by Dr. Sun forgastroparesis and solitary rectal ulcer syndrome. Referred for second opinion previously followed by a GI provider in [place]. History of Present Illness: 37 y.o. male with past medical history of non- Hodgkin lymphoma, somatoform disorder, headaches, Raynaud's syndrome, remote poly substance abuse, ADHD, prior alcohol misuse, chronic fatigue syndrome, fibromyalgia, small fiber peripheral neuropathy Chronic dyspepsia symptoms with early satiety, post-prandial fullness, bloating,and upper abdominaldiscomfort. Variable course over time with no recent dramatic worsening. Constant nausea - worse with meals. No vomiting. Chronically altered bowel movements -historically predominantly constipation. Variable course over time with no recent dramatic worsening. Currently 1 bowel movements per day. Associated generalized lower abdominal discomfort and bloating. Difficultly with stool passage. Regular outlet type bleeding and mucus in stools. Chronic esophageal dysphagia predominately for pills but solids can also be bothersome. Worse when having more reflux. Chronic heartburn and regurgitation. Ongoing symptoms despite current therapies with regular breakthrough reflux episodes. He is not taking PPI regularly. Appetite and weight variable but overall stable. He uses cannabis- previously daily but few times a week now. Occasional NSAIDs. No opioids. CT abdomen June 23, 2022 CT pelvis June 25, 2022 Last EGD/colonoscopy OSH Jul 2021: Current Regimen: Pantoprazole 40 mg prn Gabapentin and pregabalin for chronic jaw pain (from prior fracture) Amitriptyline 75 mg for jaw pain Zofran prn Past Therapies: Steroid enemas Mesalamine enemas Famotidine Omeprazole Reglan Miralax Rifaximin Review of systems: 14-point review of systems reviewed and negative except as above. Medications: Outpatient Medications Prior to Visit Medication Sig Dispense Refill amitriptyline (Elavil) 75 mg tablet Take 75 mg by mouth nightly. pantoprazole EC (Protonix) [address] tablet Take 40 mg by mouth daily. tamsulosin (Flomax) 0.4 mg capsule daily. gabapentin (Neurontin) 600 mg tablet Take 600 mg by mouth 3 times daily. pregabalin (Lyrica) 200 mg capsule Take 200 mg by mouth 3 times daily. ONDANSETRON HCL ORAL Take by mouth. minoxidiL (Loniten) 2.5 mg tablet Take 1/2 tablet daily. If tolerating well after 2 weeks, increaseto 1 tablet daily. 30 tablet 3 lisdexamfetamine (Vyvanse) 70 mg capsule Take 70 mg by mouth every morning. pregabalin (LYRICA ORAL) Take by mouth. triamcinolone (KENALOG) 0.1 % Lotion Apply topically 3 times daily. lisdexamfetamine (Vyvanse) 50 mg capsule daily. GABAPENTIN ORAL Take by mouth. clobetasoL (TEMOVATE) 0.05 % Solution Apply to the scalp twice daily for three weeks. Take a 5 day break, and then repeat this cycle. (Patient not taking: Reported on 01/25/2023) 50 mL 2 clindamycin (CLEOCIN T) 1 % Lotion Apply topically 2 times daily. (Patient not taking: Reported on 01/25/2023) 60 mL 0 No facility-administered medications prior to visit. Allergies: is allergic to ceftin [cefuroxime axetil], compazine [prochlorperazine], and penicillins. Past Medical History: has a past medical history of ADHD, Fibromyalgia, Idiopathic small fiber peripheral neuropathy, Migraines, and Non-Hodgkin lymphoma. Past Surgical History: has no past surgical history on file. Family History: family history is not on file. denies family history of colon cancer, IBD, or celiac disease in mother father or other family members Social History: reports that he has never smoked. He has never used smokeless tobacco. He reports that he does not currently use alcohol. He reports current drug use. Drug: Marijuana. 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 Physical exam: No Physical Examination performed during this telemedicine visit Questionnaire: No data to display Laboratory studies, imaging, and procedures (in summary of my review of prior records): See above Assessment/Plan: Mr. Mejia is a 37 y.o. [...] decrease in dosage and follow GI effects. I will arrange a follow-up appointment after the above investigations to review the results and consolidate the diagnosis. Please note that generally specific treatment recommendations will not be discussed at that time. An additional follow-up appointment with a motility BEN will be scheduled after this appointment to discuss specific recommendations for management. Patients should continue to work on general measures provided in our handout while awaiting this appointment. We also discussed the collaborative care model of the [facility] GI motility program. The patient should continue to work with their PCP +/- local GI as the primary point(s) of contact for urgent issues, medication refills and adjustments as needed for continuity of care purposes in between visits to our center based on the recommendations above. Recommend PCP to refer to local GI if patient does not have a local GI currently. Yearly or bi-yearly visits with a member of the motility team may be available for co-management purposes depending upon the specific circumstances of the patient's medical condition. RTC with me in after testing completed The patient was located in [place] at the time of their visit. TIME SPENT WITH PATIENT Time spent reviewing records prior to this encounter on day of appointment: 5 minutes Time spent during encounter with patient including counselin minutes Time spent documenting encounter after office visit: 6 minutes Maldonado Franklin MD [facility] [address] [place] [address] documented in this encounter Plan of Treatment Upcoming Encounters Date Type Department Care Team (Late st Contact Info) Description 02/06/2024 9:30 AM EDT TH Visit (TeleHealth) Psychiatry [place] [address] Fermin Mercado MD [facility] [address] Scheduled Orders Name Type Priority Associated Diagnoses Orde r Schedule ENDOSCOPY CASE REQUEST: EGD, UPPER GI ENDOSCOPY (WRVU 2.09), FLEXIBLE SIGMOIDOSCOPY (WRVU 0.84) Procedures Routine Dysphagia, unspecified type Irritable bowel syndrome with both constipation and diarrhea Gastroesophageal reflux disease, unspecified whether esophagitis present Functional dyspepsia Ordered: 02/09/2023 documented as of this encounter Results * US Abdomen Limited (03/23/2023 9:05 AM EDT) Anatomical Region Laterality Modality Abdomen Ultrasound 03/23/2023 8:27 AM EDT Impressions 03/23/2023 9:26 AM EDT 1. ??No cholelithiasis. No gallbladder wall thickening or pericholecystic fluid to suggest acute cholecystitis. Negative sonographic Salamanca's sign. 2. ??No biliary ductal dilatation. I have personally reviewed the image(s) and the resident's interpretation and agree with the findings, Teo Kilgore MD at 03/23/2023 9:19 AM Thank you for letting us participate in the care of this patient. If you are a health care provider and have any questions regarding this report, please contact the number above. For patients who have questions, please contact the health respiratory care assistant that requested your imaging first. ?Teo Kilgore, Staff Physician Electronically Signed Final Report ?? 03/23/2023 09:26 am Narrative 03/23/2023 9:26 AM EDT Abdominal ? (Signed Final 03/23/2023 09:26 am) PATIENT INFO: ID #: ? [id number] ?: ??[birth year] (37 yrs)(M) Name: ? SOREN ? Visit Date: 03/23/2023 08:27 am ? TALA PERFORMED BY: Attending: ?Magui CHRISTIE MD, Teo Agarwal Performed By: ? Kathy Bhardwaj RDMS Referred By: ?MALDONADO FRANKLIN Location: ? [place] SERVICE(S) PROVIDED: [facility] - Hepatology Protocol - Abdominal ?[id number] Limited Survey Single Organ or Quadrant - [id number] INDICATIONS: dyspepsia - rule out gallstones COMPARISON: No prior studies for comparison. ------ LIVER: ------ Right Lobe Length: ?? 16.4 ?? cm Echogenicity/Echotexture: ?? Normal Comment: ?No focal lesion seen. GALLBLADDER: Cholelithiasis: ?No stones visualized Focal Tenderness: ?Negative sonographic Salamanca's sign Comment: ?Appears contracted. Pt reports being NPO BILIARY TRACT: Intrahepatic Ducts: ?? Normal Extrahepatic Ducts: ?? Normal Common Duct Size: ? 3.6 ? mm Procedure Note Teo Kilgore III, MD - 03/23/2023 Abdominal (Signed Final 03/23/2023 09:26 am) PATIENT INFO: ID #: [id number] : [birth year] (37 yrs)(M) Name: SOREN Visit Date: 03/23/2023 08:27 am TALA PERFORMED BY: Attending: Magui CHRISTIE MD, Arthur L. Performed By: Kathy Bhardwaj RDMS Referred By: MALDONADO FRANKLIN Location: [place] SERVICE(S) PROVIDED: [facility] - Hepatology Protocol - Abdominal [id number] Limited Survey Single Organ or Quadrant - [id number] INDICATIONS: dyspepsia - rule out gallstones COMPARISON: No prior studies for comparison. ------ LIVER: ------ Right Lobe Length: 16.4 cm Echogenicity/Echotexture: Normal Comment: No focal lesion seen. GALLBLADDER: Cholelithiasis: No stones visualized Focal Tenderness: Negative sonographic Salamanca's sign Comment: Appears contracted. Pt reports being NPO BILIARY TRACT: Intrahepatic Ducts: Normal Extrahepatic Ducts: Normal Common Duct Size: 3.6 mm IMPRESSION 1. No cholelithiasis. No gallbladder wall thickening or pericholecystic fluid to suggest acute cholecystitis. Negative sonographic Salamanca's sign. 2. No biliary ductal dilatation. I have personally reviewed the image(s) and the resident's interpretation and agree with the findings, Teo Kilgore MD at 03/23/2023 9:19 AM Thank you for letting us participate in the care of this patient. If you are a health care provider and have any questions regarding this report, please contact the number above. For patients who have questions, please contact the health respiratory care assistant that requested your imaging first. Teo Kilgore, Staff Physician Electronically Signed Final Report 03/23/2023 09:26 am Maldonado Franklin MD IMG US GEN ORDERABLE S * Comprehensive metabolic panel (non-fasting) (03/08/2023 5:28 PM EDT) Glucose Lvl 78 65 - 199 mg/dL [facility] Comment:Diabetes: >=200 mg/d L plus symptoms BUN 11 10 - 20 mg/dL [facility] Creatinine 0.92 0.80 - 1.50 mg/dL [facility] Sodium 141 135 - 145 mmol/L [facility] Potassium 3.9 3.5 - 5.0 mmol/L [facility] Comment: Please note: ??Patients with WBC >100,000 may have falsely elevated Potassium levels. ??For accurate Potassium quantification in these patients send serum separator tube (gold top) for subsequent determinations. ??Contact the Clinical Chemistry Laboratory if there are any questions. Chloride 102 98 - 107 mmol/L [facility] CO2 31 22 - 31 mmol/L [facility] Anion Gap 8 5 - 15 mmol/L [facility] Calcium 9.4 8.5 - 10.5 mg/dL [facility] Total Protein 7.4 6.1 - 8.0 g/dL [facility] Albumin 4.4 3.2 - 5.2 g/dL [facility] AST 20 0 - 39 unit/L [facility] ALT 17 0 - 55 unit/L [facility] Alk Phos 84 40 - 130 unit/L [facility] Total Bilirubin 0.3 0.2 - 1.3 mg/dL [facility] Estimated GFR 111 >=60 mL/min/1. 73 m?? [facility] Comment: This patient's estimated GFR was calculated using the 2020 CKD-EPI equation. The estimated GFR can vary from the measured GFR by up to 30% in the absence of rapidly changing kidney function. Assessment of the estimated GFR is not appropriate when creatinine concentrations are rapidly changing. For clinical situations in which a more precise estimate of GFR is necessary, consider alternative methods of GFR estimation such as a 24-hour urine creatinine clearance. Assignment of CKD stage 1-5 for patients with an eGFR near the transition point between stages may be based on clinical assessment of muscle mass and symptoms in addition to eGFR. Blood 03/08/2023 5:28 PM EDT 03/08/2023 5:35 PM EDT Narrative Resulting Agency Comment Spec In Lab Maldonado Franklin MD CHEMISTRY ORDERABLES Performing Organization Address City/[facility] Co de Phone Number [facility] [place] [address] * Tissue transglutaminase, IgA (03/08/2023 5:28 PM EDT) TTG IgA Ab 0.4 <=10.0 u/ml [facility] Comment: Negative: ??<7 units/mL Indeterminate: 7-10 units/mL Positive: ??>10 units/mL Blood 03/08/2023 5:28 PM EDT 03/09/2023 7:16 AM EDT Narrative Resulting Agency Comment Spec In Lab Maldonado Franklin MD IMMUNOLOGY ORDERABLE S Performing Organization Address City/[facility]/ZIP Co de Phone Number [facility] [place] [address] * IgG (03/08/2023 5:28 PM EDT) IgG 1,188 700 - 1,600 mg/dL [facility] Comment: Pediatric Reference Intervals obtained from the Caliper Reference Interval project. http://www.sickSoma Networksds.ca/caliperproject/index.html Blood 03/08/2023 5:28 PM EDT 03/08/2023 5:35 PM EDT Narrative Resulting Agency Comment Spec In Lab Maldonado Franklin MD IMMUNOLOGY ORDERABLE S Performing Organization Address City/[facility]/ZIP Co de Phone Number [facility] [place] [address] * IgA (03/08/2023 5:28 PM EDT) IgA 253 70 - 400 mg/dL [facility] Blood 03/08/2023 5:28 PM EDT 03/08/2023 5:35 PM EDT Narrative Resulting Agency Comment Spec In Lab Maldonado Franklin MD [place] [address] documented in this encounter Visit Diagnoses Diagnosis Dysphagia, unspecified type Irritable bowel syndrome with both constipation and diarrhea Gastroesophageal reflux disease, unspecified whether esophagitis present Functional dyspepsia Dyspepsia and other specified disorders of function of stomach Dysphagia, unspecified type Irritable bowel syndrome with both constipation and diarrhea Gastroesophageal reflux disease, unspecified whether esophagitis present Functional dyspepsia Dyspepsia and other specified disorders of function of stomach documented in this encounter Care Teams Land Clearer Relationship Specialty Start Date End Date Gabbie Sams MD [address] [place] [address] PCP - General Family Medicine 12/31/22 documented as of this encounter
--- OUTSIDE RECORDS SUMMARY | 2023-12-28 01:50 | XMS_ITS | Encounter Summary ---
Author Organization [facility] [place] [address] Care Team Providers Care Night Custodian Name Role Phone Bertin Cm MD Primary Care Provider [phone] Encounter Details Date Type Department Care Team (Late st Contact Info) Description 11/10/2022 Telephone Gastroenterology at [facility] [place] [address] Radha Reynolds Social History Tobacco Use Types Packs/Day Years Used Date Smoking Tobacco: Never Assessed Sex and Gender Information Value Date Recorded Sex Assigned at Not on file Gender Identity Not on file Sexual Orientation Not on file documented as of this encounter Miscellaneous Notes * Telephone Encounter - Radha Reynolds - 11/10/2022 2:59 PM EDT Patient called while we were covering clinic phones. Patient said he was hospitalized on Tuesday for bloody bowel movements. Black stools as well. Lost consciousness in the shower and went to [facility] ED:11/03 to be evaluated- I called to get those records faxed over to us for this stay. He saw PCP this morning [facility] Dr. Gabbie Martin, He said she recommended EGD. *called to get those and they are still being written so I can not get the office notes yet. They made a note to fax them after. * He is scheduled to see Dr. Ford in the clinic in March, but he might need a procedure sooner than that. After we get his records from last weeks stay & his PCP visit this morning I think we should have them reviewed by our MD. Sent info to Sheryl and the clinic team. Will follow back up on this shortly. documented in this encounter Plan of Treatment Upcoming Encounters Date Type Department Care Team (Late st Contact Info) Description 02/06/2024 9:30 AM EDT TH Visit (TeleHealth) Psychiatry [place] [address] Fermin Mercado MD [facility] [place] [place] [address] documented as of this encounter Visit Diagnoses Not on filedocumented in this encounter Care Teams Night Custodian Relationship Specialty Start Date End Date Bertin Cm MD [address] [place] [address] PCP - General Family Medicine 06/02/22 12/30/22 documented as of this encounter
--- OUTSIDE RECORDS SUMMARY | 2023-12-28 01:50 | XMS_ITS | Encounter Summary ---
[place] [address] Care Team Providers Care Supervisor Dental Laboratory Name Role Phone Gabbie Sams MD Primary Care Provider Reason for Referral * Consultation (Routine) - Closed Specialty Diagnoses / Procedures Referred By Balaji t Referred To Contact Neurosurgery Diagnoses Injury of left trigeminal nerve, sequela Injury of facial nerve, unspecified laterality, initial encounter Rosemary House MD [facility] [address] [place] [address] [facility] [address] [place] [phone] Referral ID Status Reason Start Date Expiration Date V isits Requested Visits Authorized [id number] Closed Consult, Test & Treat PCP Updated and/or Approved 12/23/2022 06/25/2023 6 6 Encounter Details Date Type Department Care Team (Late st Contact Info) Description 12/31/2022 Transcribe Orders eDH Incoming Referrals [phone] Rosemary House MD [facility] [address] [place] [address] Injury of left trigeminal nerve, sequela; Injury of facial nerve, unspecified laterality, initial encounter Social History Tobacco Use Types Packs/Day Years [...] Visit (TeleHealth) Psychiatry [place] [address] Fermin Mercado MD [facility] [place] [address] Scheduled Referrals Name Type Priority Associated Diagnoses Orde r Schedule Referral to Neurosurgery Outpatient Referral Routine Injury of left trigeminal nerve, sequela Injury of facial nerve, unspecified laterality, initial encounter Ordered: 12/31/2022 documented as of this encounter Visit Diagnoses Diagnosis Injury of left trigeminal nerve, sequela Injury of facial nerve, unspecified laterality, initial encounter documented in this encounter Care Teams Supervisor Dental Laboratory Relationship Specialty Start Date End Date Gabbie Sams MD [address] [place] [id number] PCP - General Family Medicine 12/31/22 documented as of this encounter
--- OUTSIDE RECORDS SUMMARY | 2023-12-28 01:50 | XMS_ITS | Encounter Summary ---
Author Organization [facility] [place] [address] Care Team Providers Care Dredge Pumper Name Role Phone Gabbie Sams MD Primary Care Provider [phone] Encounter Details Date Type Department Care Team (Latest Contact Info) Description 03/23/2023 Travel Social History Tobacco Use Types Packs/Day [...] Visit (TeleHealth) Psychiatry [place] [address] Fermin Mercado MD [facility] [place] [address] documented as of this encounter Visit Diagnoses Not on filedocumented in this encounter Care Teams Dredge Pumper Relationship Specialty Start Date End Date Gabbie Sams MD [address] [place] [address] PCP - General Family Medicine 12/31/22 documented as of this encounter
--- OUTSIDE RECORDS SUMMARY | 2023-12-28 01:50 | XMS_ITS | Encounter Summary ---
Author Organization [facility] Address [facility] [place] [address] Care Team Providers Care Glass Presser Name Role Phone Gabbie aSms MD Primary Care Provider [phone] Reason for Visit * Reason Onset Date Comments Medication Refill 03/10/2023 Encounter Details Date Type Department Care Team (Late st Contact Info) Description 03/10/2023 Refill Dermatology at [facility] [address] [place] [address] Debora Dupont MD [facility] [place] [address] Alopecia areata Social History Tobacco Use Types [...] encounter Miscellaneous Notes * Telephone Encounter - Sofy Victoria LPN - 03/10/2023 3:11 PM EDT Insurance requesting a 90 day supply of medication be ordered, Dr. Dupont covering for Dr. Abreu new order for 90 day supply of minoxidil pended documented in this encounter Plan of Treatment Upcoming Encounters Date Type Department Care Team (Late st Contact Info) Description 02/06/2024 9:30 AM EDT TH Visit (TeleHealth) Psychiatry [place] [address] Fermin Mercado MD [facility] [place] [address] documented as of this encounter Visit Diagnoses Diagnosis Alopecia areata documented in this encounter Care Teams Glass Presser Relationship Specialty Start Date End Date Gabbie Sams MD [address] [place] [address] PCP - General Family Medicine 12/31/22 documented as of this encounter
--- OUTSIDE RECORDS SUMMARY | 2023-12-28 01:50 | XMS_ITS | Encounter Summary ---
Author Organization [facility] Address [facility] [place] [address] Care Team Providers Care Stud Sheep Farmer Name Role Phone Bertin Cm MD Primary Care Provider [phone] Encounter Details Date Type Department Care Team (Late st Contact Info) Description 12/21/2022 2:30 PM EDT Office Visit Dermatology at [facility] [address] [place] [address] Chinedu Abreu MD [facility] [place] [address] Alopecia areata; Viral warts, unspecified type Social History Tobacco Use Types Packs/Day Years Used Date Smoking Tobacco: Never Assessed Sex and Gender Information Value Date Recorded Sex Assigned at Not on file Gender Identity Not on file Sexual Orientation Not on file documented as of this encounter Progress Notes * [facility], [facility] - 12/21/2022 2:30 PM EDT Images from the original note [...] y.o. Patient returns to clinic today for Alopecia Areata and folliculitis follow-up Last visit at Dermatology: 11/30/2022 Last visit with this provider: 11/30/2022 Medications: Reviewed in eD-H Allergies: Reviewed in eD-H Skin Examination: Focused skin examination of the scalp and face was normal with the exception of the findings below. Assessment/Plan #. Alopecia Areata - On the scalp are few scattered oval patches of alopecia without scarring, scaling, or erythema. Exclamation point hairs noted with yellow perifollicular dots. Extensive regrowth in areas of hair loss noted. Eye brows and eye lashes intact. Plan: - Decrease to Rx clobetasol 0.05% solution: Apply to the scalp twice daily for three days a week - Continue Rx: Minoxidil 2.5 mg QD Kenalog injection: ? Location: Central and occipital scalp? injected into a total of 14 locations Kenalog 10 mg/mL, total 0.75 mL Verbal consent obtained. Reviewed side effects of skin atrophy, telangiectasia, hypopigmentation, and striae. The area was cleaned with alcohol and kenalog injected intralesionally. The patient tolerated the procedure well and follow up care reviewed. Lot: [id number] Exp: 03/06 #. Wart (Verruca Vulgaris) - Verrucous papule on the nose with pin-point vascular pattern noted on dermoscopy. - Discussed viral etiology (relative of HPV in skin) and rationale for therapy directed at reducingviral load and virus ultimately being controlled by immune response. - Reviewed in-office and at-home treatment options. - [place] decision to proceed with cryotherapy in the clinic today. Patient is aware that multiple treatments may be required. Procedure: Destruction of lesion(s) with cryotherapy (LN2). Location(s): As noted above Number: 1 Discussed procedure and expectations including risks (especially hypopigmentation) and benefits. Verbal consent obtained. Frozen with LN2, 15-30 second thaw time, twice. There were no complications; patient tolerated the procedure well. Post-procedure expectations and wound care reviewed. RTC: 4-6 weeks for Alopecia areata follow up []Note routed to construction secretary []Recall placed in scheduling system [x]Appointment scheduled at checkout Scribe attestation: Lisa López [facility] has performed the documentation for this encounter in thepresence of and acting as a scribe for Chinedu Abreu MD. I performed the above scribed service and agree with the accuracy of the documentation in this encounter. Reviewed and signed by: Chinedu Abreu MD Dermatology [facility] documented in this encounter Plan of Treatment Upcoming Encounters Date Type Department Care Team (Late st Contact Info) Description 02/06/2024 9:30 AM EDT TH Visit (TeleHealth) Psychiatry [place] [address] Fermin Mercado MD [facility] [place] [address] documented as of this encounter Visit Diagnoses Diagnosis Alopecia areata Viral warts, unspecified type documented in this encounter Care Teams Stud Sheep Farmer Relationship Specialty Start Date End Date Bertin Cm MD [address] [place] [address] PCP - General Family Medicine 06/02/22 12/30/22 documented as of this encounter
--- OUTSIDE RECORDS SUMMARY | 2023-12-28 01:50 | XMS_ITS | Encounter Summary ---
Author Organization Count Includes [facility] Address [facility] [place] [address] Care Team Providers Care Sternman Name Role Phone Gabbie Sams MD Primary Care Provider [phone] Encounter Details Date Type Department Care Team (Latest Contact Info) Description 03/23/2023 8:15 AM EDT - 03/23/2023 11:59 PM EDT Hospital Encounter Ultrasound at [facility] [place] [phone] Maldonado Franklin MD [facility] [place] [address] Dysphagia, unspecified type; Irritable bowel syndrome with both constipation and diarrhea; Gastroesophageal reflux disease, unspecified whether esophagitis present; Functional dyspepsia Discharge Disposition: Home Social History Tobacco Use Types Packs/Day Years Used Date Smoking Tobacco: Never Smokeless Tobacco: Never Alcohol Use Standard Drinks/Week Comments Not Currently 0 (1 standard drink = 0.6 oz pur e alcohol) Sex and Gender Information Value Date Recorded Sex Assigned at Not on file Gender Identity Not on file Sexual Orientation Not on file documented as of this encounter Medications at Time of Discharge Medication Sig Dispensed Refills Start Date End Date amitriptyline (Elavil) 50 mg tablet Take 50 mg by mouth nightly. 09/20/2022 pantoprazole EC (Protonix) [address] tablet [...] topically 2 times daily. 60 mL 10/21/2022 minoxidiL (Loniten) 2.5 mg tabletIndications:Alop ecia areata [...] 10/21/2022 10/12/2023 documented as of this encounter Plan of Treatment Upcoming Encounters Date Type Department Care Team (Late st Contact Info) Description 02/06/2024 9:30 AM EDT TH Visit (TeleHealth) Psychiatry and [place] [address] Fermin Mercado MD [facility] [place] [id number] documented as of this encounter Procedures Procedure Name Priority Date/Time Associated Diagnosis Comments US ABDOMEN LIMITED Routine 03/23/2023 9: 05 AM EDT Dysphagia, unspecified type Irritable bowel syndrome with both constipation and diarrhea Gastroesophageal reflux disease, unspecified whether esophagitis present Functional dyspepsia documented in this encounter Results * US Abdomen Limited [...] who have questions, please contact the health rn patient care that requested your imaging first. ?Teo Kilgore, Staff Physician Electronically Signed Final Report ?? 03/23/2023 09:26 am Narrative 03/23/2023 9:26 AM EDT Abdominal ? (Signed Final 03/23/2023 09:26 am) PATIENT INFO: ID #: ? [id number] ?: ??[birth year] (37 yrs)(M) Name: ? SOREN ? Visit Date: 03/23/2023 08:27 am ? TALA PERFORMED BY: Attending: ?Zerbey IIIMD Arthur L. Performed By: ? Lashae LEUNG Kathy Referred By: ?MANDEEP CURLEY Location: ? [place] SERVICE(S) PROVIDED: [facility] - Hepatology Protocol - Abdominal ?[id number] Limited Survey Single Organ or Quadrant - [id number] INDICATIONS: dyspepsia - rule out gallstones COMPARISON: [...] 03/23/2023 09:26 am) PATIENT INFO: ID #: [id number] : [birth year] (37 yrs)(M) Name: SOREN Visit Date: 03/23/2023 08:27 am TALA PERFORMED BY: Attending: Magui CHRISTIE MD, Arthur L. Performed By: Kathy Bhardwaj RDMS Referred By: MALDONADO FRANKLIN Location: [place] SERVICE(S) PROVIDED: [facility] - Hepatology Protocol - Abdominal [id number] Limited Survey Single Organ or Quadrant - [id number] INDICATIONS: dyspepsia - rule out gallstones COMPARISON: [...] who have questions, please contact the health rn patient care that requested your imaging first. Teo Kilgore, Staff Physician Electronically Signed Final Report 03/23/2023 09:26 am Maldonado Franklin MD IMG US GEN ORDERABLE S documented in this encounter Visit Diagnoses Diagnosis Dysphagia, unspecified type Irritable bowel syndrome with both constipation and diarrhea Gastroesophageal reflux disease, unspecified whether esophagitis present Functional dyspepsia Dyspepsia and other specified disorders of function of stomach documented in this encounter Care Teams Sternman Relationship Specialty Start Date End Date Gabbie Sams MD [address] [place] [address] PCP - General Family Medicine 12/31/22 documented as of this encounter
--- OUTSIDE RECORDS SUMMARY | 2023-12-28 01:50 | XMS_ITS | Encounter Summary ---
Author Organization [facility] [place] [address] Care Team Providers Care Poolroom/Poolhall Manager Name Role Phone Gabbie Sams MD Primary Care Provider [phone] Encounter Details Date Type Department Care Team (Late st Contact Info) Description 01/26/2023 [place]phone [place] [address] Kendra Ruiz Social History Tobacco Use Types Packs/Day Years Used Date Smoking Tobacco: Never Assessed Sex and Gender Information Value Date Recorded Sex Assigned at Not on file Gender Identity Not on file Sexual Orientation Not on file documented as of this encounter Miscellaneous Notes * Telephone Encounter - Kendra Ruiz - 01/26/2023 3:00 PM EDT Left message. Looking to reschedule from [place] with Dr. Ford. You can offer him 03/22 or 03/29 at 1 pm (urgent spots) documented in this encounter Plan of Treatment Upcoming Encounters Date Type Department Care Team (Late st Contact Info) Description 02/06/2024 9:30 AM EDT TH Visit (TeleHealth) Psychiatry [place] [address] Fermin Mercado MD [facility] [place] [address] documented as of this encounter Visit Diagnoses Not on filedocumented in this encounter Care Teams Poolroom/Poolhall Manager Relationship Specialty Start Date End Date Gabbie Sams MD [address] [place] [address] PCP - General Family Medicine 12/31/22 documented as of this encounter
--- OUTSIDE RECORDS SUMMARY | 2023-12-28 01:50 | XMS_ITS | Encounter Summary ---
Author Organization [facility] Address [facility] [place] [address] Care Team Providers Care Stone Breaker Name Role Phone Bertin Cm MD Primary Care Provider [phone] Reason for Visit * Consultation (Routine) - Closed Specialty Diagnoses / Procedures Referred By Balaji hoang Referred To Contact Dermatology Diagnoses Alopecia areata Bertin Cm MD [address] [place] [address] [facility] Dermatology [address] [place] [address] Referral ID Status Reason Start Date Expiration Date V isits Requested Visits Authorized [id number] Closed Consult, Test & Treat PCP Updated and/or Approved 06/02/2022 06/02/2023 12 12 Encounter Details Date Type Department Care Team (Late st Contact Info) Description 10/21/2022 4:45 PM EDT Office Visit Dermatology at [facility] [address] [place] [address] Chinedu Abreu MD [facility] [place] [address] Alopecia areata; Folliculitis Social History Tobacco Use Types Packs/Day Years Used Date Smoking Tobacco: Never Assessed Sex and Gender Information Value Date Recorded Sex Assigned at Not on file Gender Identity Not on file Sexual Orientation Not on file documented as of this encounter Patient Instructions * Patient Instructions* Quintin Alvarez, BINDU - 10/21/2022 4:45 PM EDT For alopecia areata: - Start Rx clobetasol 0.05% solution: Apply to the scalp twice daily for three weeks. Take a 7 day break, and then repeat this cycle. - Start Rx: Minoxidil 2.5 mg. Take 1/2 tablet daily. If tolerating well after 2 weeks, increase to 1 tablet daily. This can cause unwanted hair growth in other parts of the body, mild palpitations and swelling in the lower extremities. - Recommended OTC topical minoxidil (Rogaine). For folliculitis in the groin: - Apply topically to affected areas twice daily for 2 weeks. documented in this encounter Progress Notes * Quintin Alvarez CCMA - 10/21/2022 4:45 PM EDT Images from the original note [...] Soren Mejia is a 37 y.o. Patient is referred to the clinic at the request of Bertin Cm for alopecia areata. Started 3 years ago. Hair at the back of the head fell out, then spread to the top of the head in patches. Also affecting the genitals, thighs and armpits. Also having bad ingrown hairs in zits in random spots on the body. There is a tightness on spots of the head, and these hurt. The hair curls back in and sores form. Was seeing a mailroom supervisor in [place] who did ILK injections. These helped. Started around the beginning of the pandemic. Has been using Rx: triamcinolone lotion and Rx: clindamycin lotion. Unsure whether these help. Notes open sores in the ears, present since December 2021. Starts as a tender scab, which easily sloughs and bleeds. Mostly gone today. Review of Systems: General: Feeling well. Skin: No other skin concerns. Medications: Reviewed in eD-H Allergies: Reviewed in eD-H Skin Examination: Focused skin examination of the scalp, groin was normal with the exception of the findings below. Assessment/Plan #. Alopecia areata - On the scalp are few scattered oval patches of alopecia without scarring, scaling, or erythema. Exclamation point hairs noted with yellow perifollicular dots. Regrowth in areas of hair loss noted. Eye brows and eye lashes intact. Alopecia Areata Scale ?Mild AA 20% or less scalp hair loss . Plan: - Start Rx clobetasol 0.05% solution: Apply to the scalp twice daily for three weeks. Take a 7 day break, and then repeat this cycle. - Start Rx: Minoxidil 2.5 mg. Take 1/2 tablet QD for 2 weeks. If tolerating well after 2 weeks, increase to 1 tablet daily. Warned that this could cause unwanted hair growth in other parts of the body, mild palpitations and swelling in the lower extremities. - Recommended OTC topical minoxidil. Kenalog injection: ? Location: Central and occipital scalp? Kenalog 5 mg/mL, total 1.5 mL Verbal consent obtained. Reviewed side effects of skin atrophy, telangiectasia, hypopigmentation, and striae. The area was cleaned with alcohol and kenalog injected intralesionally. The patient tolerated the procedure well and follow up care reviewed. Lot: [id number] Exp: JAN 2024 #. Folliculitis - Scattered 0.1-0.2 cm erythematous, follicle-centered pustules on the groin. - Discussed benign nature of condition and provided reassurance. - Recommended use of OTC benzoyl peroxide wash (such as PanOxyl) in the shower. - Start Rx clindamycin 1% solution: Apply topically to affected areas twice daily for 2 weeks. Figure 1 Figure 2 Figure 3 Figure 4 Photo(s) taken and charted with patient's verbal consent. Other: ??? OTC skin products discussed RTC: 1 month for alopecia areata follow-up [x]Note routed to secretary board of commissioners []Recall placed in scheduling system []Appointment scheduled at checkout Scribe attestation: Quintin Alvarez [facility] has performed the documentation for this encounter in the presence of and acting as a scribe for Chinedu Abreu MD. I performed the above scribed service and agree with the accuracy of the documentation in this encounter. Reviewed and signed by: Chinedu Abreu MD Dermatology [facility] documented in this encounter Plan of Treatment Upcoming Encounters Date Type Department Care Team (Late st Contact Info) Description 02/06/2024 9:30 AM EDT TH Visit (TeleHealth) Psychiatry [place] [address] Fermin Mercado MD [facility] [place] [address] documented as of this encounter Visit Diagnoses Diagnosis Alopecia areata Folliculitis Other specified disease of hair and hair follicles documented in this encounter Care Teams Stone Breaker Relationship Specialty Start Date End Date Bertin Cm MD [address] [place] [address] PCP - General Family Medicine 06/02/22 12/30/22 documented as of this encounter
--- OUTSIDE RECORDS SUMMARY | 2023-12-28 01:50 | XMS_ITS | Encounter Summary ---
[place] [address] Care Team Providers Care Soaker Helper Name Role Phone Gabbie Sams MD Primary Care Provider [phone] Reason for Referral * Consultation (Routine) - Denied Specialty Diagnoses / Procedures Referred By Balaji hoang Referred To Contact [facility] and Spine Center Diagnoses Facial neuralgia Ramy Heath PA [facility] [place] [address] [facility] [place] [address] Referral ID Status Reason Start Date Expiration Date V isits Requested Visits Authorized [id number] Denied Consult, Test & Treat 02/18/2023 02/18/2024 1 0 * Consultation (Routine) - Closed Specialty Diagnoses / Procedures Referred By Balaji hoang Referred To Contact Maxillofacial Surgery Diagnoses Facial neuralgia Ramy Hetah PA [facility] [place] [address] [facility] [address] [place] [address] Referral ID Status Reason Start Date Expiration Date V isits Requested Visits Authorized [id number] Closed Consult, Test & Treat 02/18/2023 02/18/2024 1 1 Reason for Visit * Consultation (Routine) - Closed Specialty Diagnoses / Procedures Referred By Balaji t Referred To Contact Neurosurgery Diagnoses Injury of left trigeminal nerve, sequela Injury of facial nerve, unspecified laterality, initial encounter Rosemary House MD [facility] [address] [place] [address] [facility] [address] [place] [phone] Referral ID Status Reason Start Date Expiration Date V isits Requested Visits Authorized [id number] Closed Consult, Test & Treat PCP Updated and/or Approved 12/23/2022 06/25/2023 6 6 Encounter Details Date Type Department Care Team (Late st Contact Info) Description 02/10/2023 3:40 PM EDT [place] [address] Radha Hugo MD [facility] [place] [address] Facial neuralgia (Primary Dx) Social History Tobacco Use Types Packs/Day Years Used Date Smoking Tobacco: Never Smokeless Tobacco: Never Alcohol Use Standard Drinks/Week Comments Not Currently 0 (1 standard drink = 0.6 oz pur e alcohol) Sex and Gender Information Value Date Recorded Sex Assigned at Not on file Gender Identity Not on file Sexual Orientation Not on file documented as of this encounter Progress Notes * Ramy Heath PA - 02/10/2023 3:40 PM EDT Images from the original note were not included. SECTION OF NEUROSURGERY Consultation Note 02/10/2023 Rosemary House MD [facility] [address] [place] [address] RE: Soren Mejia : [address] House: Thank you for referring your patient Soren Mejia to the Neurosurgery Clinic at [facility] for evaluation of left facial pain. Mr. Mejia is a pleasant 37 y.o. male with PMH postraumatic left facial (jaw) pain, stage IIa mixed cellularity Hodgkins lymphoma, anxiety, chronic pain, headache, small fiber peripheral neuropathy, polyarthralgias, chronic low back pain, Raynauds, remote polysubstance abuse, remote DVT, bilateral carpal tunnel syndrome and mild right ulnar neuropathy. Mr. Mejia had a fall in 2009 resulting in left jaw fracture s/p ORIF. Since this time he has had constant left jaw pain (6/10 on average). He describes the pain as like someone stepping on his face with a flaming boot, a mixtures of burning pain and pressure. Pain worsens with barometric pressure changes, rain, or snow. Symptoms persist despite multiple medical trials including amitriptyline,gabapentin, and Lyrica, currently; topical cannabis, duloxetine, nortriptyline, and cyclobenzaprine, in the past; night guards; a nerve block of some sort. He is currently managed with his neurologist. He was seen at [place] [facility]. He reports he was offered a neurectomyat one point, but declined. He is inquiring about Botox. PAST MEDICAL HISTORY: There are no problems to display for this patient. Past Medical History: Diagnosis Date ADHD Fibromyalgia Idiopathic small fiber peripheral neuropathy Migraines Non-Hodgkin lymphoma PAST SURGICAL HISTORY: No past surgical history on file. SOCIAL HISTORY: Social History Tobacco Use Smoking status: Never Smokeless tobacco: Never Substance Use Topics Alcohol use: Not Currently Drug use: Yes Types: Marijuana FAMILY HISTORY: No family history on file. CURRENT MEDICATIONS: amitriptyline (Elavil) 75 mg tablet pantoprazole EC (Protonix) [address] tablet tamsulosin (Flomax) 0.4 mg capsule gabapentin (Neurontin) 600 mg tablet lisdexamfetamine (Vyvanse) 50 mg capsule pregabalin (Lyrica) 200 mg capsule ONDANSETRON HCL ORAL minoxidiL (Loniten) 2.5 mg tablet lisdexamfetamine (Vyvanse) 70 mg capsule GABAPENTIN ORAL pregabalin (LYRICA ORAL) triamcinolone (KENALOG) 0.1 % Lotion clobetasoL (TEMOVATE) 0.05 % Solution clindamycin (CLEOCIN T) 1 % Lotion ALLERGIES: Allergies Allergen Reactions Ceftin [Cefuroxime Axetil] Compazine [Prochlorperazine] Penicillins REVIEW OF SYSTEMS: Per HPI PHYSICAL EXAMINATION: There were no vitals taken for this visit. Awake, alert, and in no acute distress. Speech: Appropriate and fluent; answers questions appropriately. Cranial Nerves: vision grossly intact; EOMI; PERRL; L V3 reduced to PP and temp, otherwise facial sensation equal to PP, LT, and temp; no facial asymmetry; tongue midline; good phonation; should shrug intact b/l Motor: Normal muscle bulk and tone. No pronator drift. Segment Muscle Action Right Left C5 Deltoid Shoulder Abduction 5 5 C6 Biceps Elbow flexion 5 5 C6 Extensor carpi radialis Wrist extension 5 5 C7 Triceps Elbow extension 5 5 C8 Finger flexors Grasp 5 5 T1 Interossei Finger abduction 5 5 L2 Iliopsoas Hip flexion 5 5 L3 Quadriceps Knee extension 5 5 L4 Tibialis anterior Dorsiflexion 5 5 L5 Extensor hallucis longus Great toe extension 5 5 S1 Gastrocnemius Plantar flexion 5 5 Sensation: Grossly intact to light touch in all four extremities. Reflexes: DTRs intact and symmetric. Alvarenga's and clonus negative b/l. Cerebellar: No dysmetria with finger to nose testing bilaterally. 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 He is welcome to follow up with Neurosurgery on an as needed basis. Plan: Referral to [facility] Referral to Pain Clinic Follow up with neurosurgery premely It was my pleasure to have seen and examined Mr. Mejia with Dr. Hugo. Thank you again for your referral. Please don't hesitate to contact me if you have any further questions. Sincerely, Ramy Heath PA-C, MS Physician Fast Food Shift Supervisor [facility] Department of Neurosurgery [address] [place] [phone] CC: Gabbie Sams MD CC: Rosemary House MD [facility] [address] [place] [address] This message is confidential, intended only for the named recipient(s) and may contain information that is privileged or exempt from disclosure under applicable law. If you are not the intended recipient(s), you are notified that the dissemination, distribution or copying of this information is strictly prohibited. If you received this message in error, please notify the sender then delete this message. * Radha Hugo MD - 02/10/2023 3:40 PM EDT It was a pleasure to meet Soren Mejia in today at the request of Rosemary House regarding left sided facial pain. Mr. Mejia is a 37 y.o. gentleman who presents with a chief concern of left facial pain. He relates that he suffered a first-time seizure in 2009 and fell striking his face on a concrete floor. Hebroke his jaw in 4 places, and required wiring the jaw for several months. He states that the fracture lines appeared to involved nerves. Since then he has had severe jaw pain on the left, which he describes as burning pressure in the face. Additionally, he can experience rare stabbing pain as well. His triggers include changes in the barometric pressure. He was followed by [facility]. At 1 point he underwent a nerve block which did numb the region of pain. However this lasted only several hours. Following this he was offered a neurectomy, but he did not feel that he wanted to have the operation and declines this. His current medications include amitriptyline, gabapentin, and Lyrica. These somewhat reduced the severity of the pain, but do not completely address. He does not like taking so many medications, would prefer being able to come off of them. On exam, this is a healthy-appearing gentleman in no distress. He is alert, cooperative with exam, speech is fluent and appropriate. There is no clear facial asymmetry. His movement is symmetric. He has normal sensation to light touch pinprick and temperature in the face aside from the left V3 distribution where all 3 modalities are reduced. Sternocleidomastoid and trapezius muscles are full strength. He is filtering to confrontation in the extremities. He walks without assistance. Reflexes are2+ and symmetric throughout. We do not have any imaging to review today. Overall, Mr. Suazo with symptoms are consistent with posttraumatic neuropathic pain in the left jaw. I do not think this is trigeminal neuralgia in the classic symptoms, therefore neurosurgical interventions at the level of the trigeminal ganglia or root entry zone may not result in any significantbenefit. Peripheral neurectomy may be his best option at this point. He has seen previous pain provi ders in the past and tried interventions such as ketamine. It may be worthwhile to revisit this with our pain clinic care if there are no good surgical options to him. We will place referrals to OMFShere as well as to the pain clinic today. Plan; 1. Referral to OMFS 2. Referral to pain clinic 2. Follow-up with neurosurgery as needed. Thank you very much for allowing me to participate in care of this very nice gentleman. I saw this patient with Ramy Heath PA-C. Please see his note for further details. documented in this encounter Plan of Treatment Upcoming Encounters Date Type Department Care Team (Late st Contact Info) Description 02/06/2024 9:30 AM EDT TH Visit (TeleHealth) Psychiatry [place] [address] Fermin Mercado MD [facility] [place] [address] Scheduled Referrals Name Type Priority Associated Diagnoses Order Schedule Referral to Maxillofacial Surgery Outpatient Referral Routine Facial neuralgia Ordered: 02/18/2023 Referral to Pain Management Outpatient Referral Routine Facial neuralgia Ordered: 02/18/2023 documented as of this encounter Visit Diagnoses Diagnosis Facial neuralgia- Primary Other facial nerve disorders documented in this encounter Care Teams Soaker Helper Relationship Specialty Start Date End Date Gabbie Sams MD [address] [place] [address] PCP - General Family Medicine 12/31/22 documented as of this encounter
--- OUTSIDE RECORDS SUMMARY | 2023-12-28 01:50 | XMS_ITS | Encounter Summary ---
Author Organization [facility] Address [facility] [place] [address] Care Team Providers Care Master Control Supervisor Name Role Phone Gabbie Sams MD Primary Care Provider [phone] Encounter Details Date Type Department Care Team (Late st Contact Info) Description 05/04/2023 9:07 AM EST Anesthesia Event [place] [address] Ashley Candelaria MD [facility] [place] [address] Anesthesia Record Procedure Summary Procedure Name Responsible Anesthesiologist Anesthesia Start Time Anesthesia Stop Time EGD WITH BIOPSY (WRVU 2.39) (Trunk) Ashley Candelaria MD 05/04/23 0907 05/04/23 0950 Events Date Time Event Comment 05/04/2023 0822 0907 AN Verify 0907 Start 0909 An Start Data 0912 An Induction 0916 Anesthesia Ready 0950 an stop data 0950 Recovery or ICU Handoff Rola ent care was transferred to the destination unit staff after review of the patient's medical history, current anesthetic/surgical status and plan, according to the Provider Handoff Checklist. 0950 Stop Meds Name Total IV Lidocaine 100 mg Propofol 80 mg Propofol INF 514.72 mg Dexmedetomidine 20 mcg ePHEDrine 5 mg PHENYLephrine 80 mcg lactated ringers infusion 1,350 mL * Agents Name O2 Air N2O O2 Auxiliary Flowmeter 1 * Blood No blood administrations on file. Lines, Drains, and Airways Type Details Placement Removal PIV 05/04/23; 0806; agan-rmt-jarexn catheter system; 22 gauge, 1 in length; cephalic vein (lateral side of arm), right; US Not Used; Seda VIDALES; distraction; 0; 05/04/23; 1022 05/04/23 0806 by Russell Bear RN 05/04/23 1022 by Victoria Frazier RN documented in this encounter Social History Tobacco Use Types Packs/Day Years Used Date Smoking Tobacco: Never Smokeless Tobacco: Never Alcohol Use Standard Drinks/Week Comments Not Currently 0 (1 standard drink = 0.6 oz pur e alcohol) Sex and Gender Information Value Date Recorded Sex Assigned at Not on file Gender Identity Not on file Sexual Orientation Not on file documented as of this encounter OR Notes * Anesthesia Postprocedure Evaluation - Ashley Candelaria MD - 05/04/2023 11:36 AM EST Department of Anesthesiology Post-procedure Note Patient: Soren Mejia Procedure Summary Date: 05/04/23 Room / Location: [facility] ENDO 3 / [facility] ENDOSCOPY Anesthesia Start: 906 Anesthesia Stop: 949 Procedures: EGD WITH BIOPSY (WRVU 2.39) (Trunk) SIGMOIDOSCOPY, FLEXIBLE; WITH BIOPSY, SINGLE OR MULTIPLE (WRVU 1.14) Diagnosis: Dysphagia, unspecified type Irritable bowel syndrome with both constipation and diarrhea Gastroesophageal reflux disease, unspecified whether esophagitis present Functional dyspepsia (rectal bleeding and nausea NB: ensure no solids for at least 12 hours prior and give 2 enemas prior) Surgeons: Byron Elias MD Responsible Provider: Ashley Candelaria MD Anesthesia Type: MAC ASA Status: 2 All Anesthesia Providers: Anesthesiologist: Ashley Candelaria MD ENGLISH DIVISION CHAIR: April Rome CRNA Vitals Value Taken Time BP 118/79 05/04/23 1020 Temp Pulse Resp SpO2 100 % 05/04/23 1022 Pain Level 0 05/04/23 1020 Vitals shown include unfiled device data. Patient Location: PACU/[facility] Level of Consciousness: Conscious but Sleepy Pain Management: Satisfactory Analgesia PONV: None Cardiovascular Status: At Baseline Respiratory Status: Supplemental O2 (NC or FM) Postoperative Fluid Status: Intravascular EUvolemia Possible Anesthetic Complications: NONE apparent at time of evaluation Final Primary Anesthesia Type: MAC (The anesthetic type performed was the same as planned.) Comments: * Anesthesia Preprocedure Evaluation - Ashley Candelaria MD - 05/03/2023 12:16 PM EST Pre-Anesthesia Evaluation for: Soren Mejia a 37 y.o. male. Procedure(s): FLEXIBLE SIGMOIDOSCOPY (WRVU 0.84) EGD, UPPER GI ENDOSCOPY (WRVU 2.09) There are no problems to display for this patient. Past Medical History: Diagnosis Date ADHD Fibromyalgia Idiopathic small fiber peripheral neuropathy Migraines Non-Hodgkin lymphoma No past surgical history on file. Social History Tobacco Use Smoking status: Never Smokeless tobacco: Never Substance Use Topics Alcohol use: Not Currently Social History Substance and Sexual Activity Drug Use Yes Types: Marijuana Allergies Allergen Reactions Ceftin [Cefuroxime Axetil] Compazine [Prochlorperazine] Penicillins Medications: MAR and/or home medications have been reviewed. Physical Exam: Preprocedure Vitals Current as of 05/03/23 1216 No BP, pulse, respiration, SpO2, or temperature recorded. Height: Weight: BMI: IBW: Airway Assessment: Mallampati: I TM distance: >3 FB Neck ROM: full Cardiovascular Assessment: system normal Pulmonary Assessment: unlabored breathing Dental Assessment: - normal exam Misc Assessment: IV access: Peripheral line Last Filed Perioperative Cognitive Screening None I personally evaluated, examined, and interviewed this patient, and reviewed relevant information in the electronic medical record. 37 year old male with rectal bleeding and IBS/GERD/FD who presents for EGD/flexible sigmoidoscopy. His medical history is notable for Hodgkin's lymphoma (chemotherapy >10 years ago), chronic jaw pain, anxiety, right ulnar neuropathy. Functional status: >4 METs NPO: Appropriate Personal or family history of anesthetic complications: Denies Recent illness or injury: Denies Prior anesthetic information: Patient summarizes numerous prior surgeries/anesthetics without complication. Relevant imaging, history, labs reviewed. Anesthesia Plan: ASA 2 MAC, with a(n) intravenous induction Region - Other Informed Consent: Anesthetic plan and risks discussed with patient. Plan discussed with ENGLISH DIVISION CHAIR and attending. Anesthesia Screening Code Status: Full code I discussed the risks of general anesthesia/MAC as detailed by the preoperative anesthesia consent with this patient. The patient demonstrated adequate understanding and acknowledged these risks and wishes to proceed with scheduled surgery. All questions related to anesthetic care were welcomed and answered to satisfaction. Ashley Candelaria MD MS Anesthesiologist, [facility] Pager [phone] documented in this encounter Plan of Treatment Upcoming Encounters Date Type Department Care Team (Late st Contact Info) Description 02/06/2024 9:30 AM EDT TH Visit (TeleHealth) Psychiatry [place] [address] Fermin Mercado MD [facility] [place] [address] documented as of this encounter Visit Diagnoses Not on filedocumented in this encounter Administered Medications Inactive Administered Medications - up to 3 most recent administrations Medication Order MAR Action Action Date Dose Rate Site dexmedeTOMIDine (Precedex) (4 mcg/mL) bolus injection (Anesthsia) Intravenous, PRN, Starting on Tue05/04/23 at 0908, Until Tue05/04/23 at 0950, Anesthesia Intra-op, Routine Given 05/04/2023 9:14 AM EST 4 mcg Given 05/04/2023 9:10 AM EST 8 mcg Given 05/04/2023 9:08 AM EST 8 mcg ePHEDrine sulfate (5 mg/mL) multi-dose injection Intravenous, PRN, Starting on Tue05/04/23 at 0928, Until Tue05/04/23 at 0950, Anesthesia Intra-op, Routine Given 05/04/2023 9:28 AM EST 5 mg lactated ringers infusion 1,000 mL, at 100 mL/hr, Intravenous, CONTINUOUS, Starting on Tue05/04/23 at 0830, Until Tue05/04/23 at 1013, Day of Surgery (Day of Procedure) New Bag 05/04/2023 9:05 AM EST New Bag 05/04/2023 8:06 AM EST 1,000 mLs 100 mL/hr lidocaine (pf) (Xylocaine) (20 mg/mL) 2% injection syringe Intravenous, PRN, Starting on Tue05/04/23 at 0912, Until Tue05/04/23 at 0950, Anesthesia Intra-op, Routine Given 05/04/2023 9:12 AM EST 100 mg PHENYLephrine in NS (PF) (DILCIA-SYNEPHRINE) 0.8 mg/10 mL (80 mcg/mL) multi-dose injection Syringe Intravenous, PRN, Starting on Tue05/04/23 at 0935, Until Tue05/04/23 at 0950, Anesthesia Intra-op, Routine Given 05/04/2023 9:35 AM EST 80 mcg propofoL (Diprivan) (10 mg/mL) infusion Intravenous, CONTINUOUS PRN, Starting on Tue05/04/23 at 0912, Until Tue05/04/23 at 0950, Anesthesia Intra-op, Routine Rate/Dose Change 05/04/2023 9:33 AM EST 125 mcg/kg/min 68.025 mL/hr Rate/Dose Change 05/04/2023 9:20 AM EST 150 mcg/kg/min 81. 63 mL/hr New Bag 05/04/2023 9:12 AM EST 200 mcg/kg/min 108.84 mL /hr propofoL (Diprivan) 10 mg/mL bolus injection (Anesthesia) Intravenous, PRN, Starting on Tue05/04/23 at 0912, Until Tue05/04/23 at 0950, Anesthesia Intra-op Given 05/04/2023 9:12 AM EST 80 mg documented in this encounter Care Teams Master Control Supervisor Relationship Specialty Start Date End Date Gabbie Sams MD [address] [place] [address] PCP - General Family Medicine 12/31/22 documented as of this encounter
--- OUTSIDE RECORDS SUMMARY | 2023-12-28 01:50 | XMS_ITS | Encounter Summary ---
Author Organization [facility] [place] [address] Care Team Providers Care Arabic Professor Name Role Phone Gabbie Sams MD Primary Care Provider [phone] Encounter Details Date Type Department Care Team (Latest Contact Info) Description 02/10/2023 Travel Social History Tobacco Use Types Packs/Day [...] Visit (TeleHealth) Psychiatry and [place] [address] Fermin Mercado MD [facility] [place] [address] documented as of this encounter Visit Diagnoses Not on filedocumented in this encounter Care Teams Arabic Professor Relationship Specialty Start Date End Date Gabbie Sams MD [address] [place] [address] PCP - General Family Medicine 12/31/22 documented as of this encounter
--- OUTSIDE RECORDS SUMMARY | 2023-12-28 01:50 | XMS_ITS | Encounter Summary ---
Author Organization [facility] [place] [address] Care Team Providers Care Quality Cloth Tester Name Role Phone Gabbie Sams MD Primary Care Provider [phone] Encounter Details Date Type Department Care Team (Latest Contact Info) Description 04/28/2023 Travel Social History Tobacco Use Types Packs/Day [...] Visit (TeleHealth) Psychiatry [place] [address] Fermin Mercado MD [facility] [place] [address] documented as of this encounter Visit Diagnoses Not on filedocumented in this encounter Care Teams Quality Cloth Tester Relationship Specialty Start Date End Date Gabbie Sams MD [address] [place] [address] PCP - General Family Medicine 12/31/22 documented as of this encounter
--- OUTSIDE RECORDS SUMMARY | 2023-12-28 01:50 | XMS_ITS | Referral Summary ---
Author Organization [facility] Address [address] [place] [address] Care Team Providers Care Striper Machine Name Role Phone Bertin Cm MD Primary Care Provider [phone] Social History Tobacco Use Types Packs/Day Years Used Date Smoking Tobacco: Never Assessed Sex and Gender Information Value Date Recorded Sex Assigned at Not on file Gender Identity Not on file Sexual Orientation Not on file Plan of Treatment Not on file Care Teams Striper Machine Relationship Specialty Start Date End Date Bertin Cm MD [address] [facility] [address] [place] [address] PCP - General Emergency Medicine 06/13/22
--- OUTSIDE RECORDS SUMMARY | 2023-12-28 01:50 | XMS_ITS | Encounter Summary ---
Author Organization [facility] [place] [address] Care Team Providers Care Aerospace Project Engineer Name Role Phone Gabbie Sams MD Primary Care Provider [phone] Encounter Details Date Type Department Care Team (Latest Contact Info) Description 03/08/2023 Travel Social History Tobacco Use Types Packs/Day [...] Visit (TeleHealth) Psychiatry [place] [address] Fermin Mercado MD [facility] [place] [address] documented as of this encounter Visit Diagnoses Not on filedocumented in this encounter Care Teams Aerospace Project Engineer Relationship Specialty Start Date End Date Gabbie Sams MD [address] [place] [address] PCP - General Family Medicine 12/31/22 documented as of this encounter
--- OUTSIDE RECORDS SUMMARY | 2023-12-28 01:50 | XMS_ITS | Encounter Summary ---
Author Organization [facility] Address [facility] [place] [address] Care Team Providers Care Manager Sharepoint Name Role Phone Gabbie Sams MD Primary Care Provider [phone] Reason for Visit * Reason Comments Medication Refill Encounter Details Date Type Department Care Team (Late st Contact Info) Description 03/04/2023 Refill Dermatology at [facility] [address] [place] [address] Chinedu Abreu MD [facility] [place] [address] Alopecia areata Social History Tobacco Use Types [...] encounter Miscellaneous Notes * Telephone Encounter - Yun Khan RN - 03/05/2023 10:43 AM EDT Medication Refill Request Order(s) pended and routed to Dr. Abreu to review and sign, if appropriate. - Medication(s) requested to refill: Minoxidil - Associated diagnosis: Alopecia areata with background androgenetic alopecia - Last visit: 01/25/2023 - Recommended follow up: 6 weeks - Next scheduled: 03/08/2023 - Appropriate to refill: Pending review & approval. documented in this encounter Plan of Treatment Upcoming Encounters Date Type Department Care Team (Late st Contact Info) Description 02/06/2024 9:30 AM EDT TH Visit (TeleHealth) Psychiatry [place] [address] Fermin Mercado MD [facility] [place] [address] documented as of this encounter Visit Diagnoses Diagnosis Alopecia areata documented in this encounter Care Teams Manager Sharepoint Relationship Specialty Start Date End Date Gabbie Sams MD [address] [place] [address] PCP - General Family Medicine 12/31/22 documented as of this encounter
--- OUTSIDE RECORDS SUMMARY | 2023-12-28 01:50 | XMS_ITS | Encounter Summary ---
Author Organization [facility] [place] [address] Care Team Providers Care Jewel Hole Driller Name Role Phone Gabbie Sams MD Primary Care Provider [phone] Encounter Details Date Type Department Care Team (Late st Contact Info) Description 03/21/2023 [place] [address] OnielstephanyRob Social History Tobacco Use Types Packs/Day Years [...] encounter Miscellaneous Notes * Telephone Encounter - Shereen Rob - 03/21/2023 4:56 PM EDT Soren Mejia [id number] Diagnosis/Indication: rectal bleeding and nausea Please review patient chart to confirm if previous Endoscopy procedure was performed within system. If yes, take note of Anesthesia type used. If previous procedure found, and with MAC/propofol Anesthesia support was used, schedule this procedure with Anesthesia and skip the Anesthesia portion of questions. If not performed within system, not performed at all, or performed with IVCS, ask Anesthesia questions. SCHEDULING QUESTIONS (ask all patient these questions) Have you ever had a/an Flexible Sigmoidoscopy before? Yes: Date 5 years [place] If yes, did you have any problems with the procedure (such as waking up during the procedure, pain or difficulties afterwards, etc.)? No What type of sedation was used: Other: unknown Do you take any blood thinners or have you been diagnosed with a bleeding disorder that increases your risk of bleeding with procedures? No Do you have a Pacemaker or Defibrillator device? If yes, send pool message to Cardiology with patient information and date or procedure. No Are you a diabetic? If yes, call PCP/managing provider to discuss use of prep and any questions or concerns related to. No Do you take any iron supplements or vitamins that contain iron? No Do you have a preference regarding the gender of your provider? No ANESTHESIA QUESTIONS (YES to any question, please book with Anesthesia support) Have you ever been diagnosed with Pulmonary Hypertension and/or Congential Heart Disease? No Have you been diagnosed with A-Fib (atrial fibrillation) that is NOT being well controled with medications? No Have you ever had an allergic or adverse reaction to Fentanyl or Versed? No Have you had a problem with sedation or anesthesia? (Waking up during procedure, extreme confusion after, etc.) No Do you have a diagnosis of Obstructive Sleep Apnea that requires the use of a c- pap machine? No Do you use an oxygen tank at home? No Do you use a rescue inhaler more than twice per day? (COPD, severe asthma) No Do you experience breathing problems when you lay flat for a period of time? No Do you take prescription narcotic pain medications, including suboxone or methodone? No SCHEDULING CONFIRMATIONS: Please note any and all parts of your conversation with the patient here. We offer all new patients an opportunity to have an appointment with one of our associate care providers to learn more about your upcoming procedure, ask questions and get answers. These appointmentsare offered via telehealth. Would you be interested in scheduling this appointment? (Only ask if NEW referral patient; skip this question if [facility] provider ordered the procedure.) No Is there any other information or concerns you would like to us to share with your care team in relation to your upcoming scheduled procedure? No You must have a responsible libertarian who will drive you to your procedure, stay on campus for the entire duration of your procedure, and drive you home from your procedure. Who will likely be your otr flatbed driver for the procedure? *Please Verify the height and weight, and adjust if height and/or weight have changed* There is no height or weight on file to calculate BMI. *Patient must be scheduled for Anesthesia support if BMI is 40 or above* Height: 6'4'' Weight: 195 BMI: 23.7 Age:37 y.o. documented in this encounter Plan of Treatment Upcoming Encounters Date Type Department Care Team (Late st Contact Info) Description 02/06/2024 9:30 AM EDT TH Visit (TeleHealth) Psychiatry [place] [address] Fermin Mercado MD [facility] [place] [address] documented as of this encounter Visit Diagnoses Not on filedocumented in this encounter Care Teams Jewel Hole Driller Relationship Specialty Start Date End Date Gabbie Sams MD [address] [place] [address] PCP - General Family Medicine 12/31/22 documented as of this encounter
--- OUTSIDE RECORDS SUMMARY | 2023-12-28 01:50 | XMS_ITS | Encounter Summary ---
Author Organization [facility] Address [facility] [place] [address] Care Team Providers Care Elementary Special Education Teacher Name Role Phone Bertin Cm MD Primary Care Provider [phone] Encounter Details Date Type Department Care Team (Late st Contact Info) Description 10/08/2022 Telephone Dermatology at [facility] [address] [place] [address] Chinedu Abreu MD [facility] [address] [address] Social History Tobacco Use Types Packs/Day Years Used Date Smoking Tobacco: Never Assessed Sex and Gender Information Value Date Recorded Sex Assigned at Not on file Gender Identity Not on file Sexual Orientation Not on file documented as of this encounter Miscellaneous Notes * Telephone Encounter - Anali Sheridan - 10/08/2022 1:40 PM EDT I received a call from Soren Mejia stating he would like us to request his records from his old ship loader Tiffany Pendleton at [facility] their fax number is [phone]. documented in this encounter Plan of Treatment Upcoming Encounters Date Type Department Care Team (Late st Contact Info) Description 02/06/2024 9:30 AM EDT TH Visit (TeleHealth) Psychiatry [place] [address] Fermin Mercado MD [facility] [place] [address] documented as of this encounter Visit Diagnoses Not on filedocumented in this encounter Care Teams Elementary Special Education Teacher Relationship Specialty Start Date End Date Bertin Cm MD [address] [place] [address] PCP - General Family Medicine 06/02/22 12/30/22 documented as of this encounter
--- OUTSIDE RECORDS SUMMARY | 2023-12-28 01:50 | XMS_ITS | Encounter Summary ---
Author Organization [facility] Address [facility] [place] [address] Care Team Providers Care Insurance Sales Assistant Name Role Phone Gabbie Sams MD Primary Care Provider [phone] Encounter Details Date Type Department Care Team (Late st Contact Info) Description 03/08/2023 2:45 PM EDT Office Visit Dermatology at [facility] [address] [place] [address] Chinedu Abreu MD [facility] [place] [address] Alopecia areata; High risk medication use Social History Tobacco Use Types Packs/Day Years [...] this encounter Progress Notes * Quintin Alvarez, [place] - 03/08/2023 2:45 PM EDT Images from the original note [...] today for a 1 month follow-up of the following: - Alopecia areata with background AA. Patient was to restart Rx: clobetasol 0.05% solution BID for 3 days a week; continue Rx: minoxidil 3.75 mg QD; patient received ILK injection at last visit (10 mg/mL, 1.3 mL total). 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 Patient was to start Rx: clindamycin 1% lotion BID PRN. Recommended OTC T-Marek shampoo. - Folliculitis on the left thigh. Patient was to start Rx: clindamycin 1% solution BID PRN. Patientreports he's been using all topicals as prescribed and taking only 1 tablet of minoxidil due to side effects of increased nausea and leg swelling. Patient feels overall he hasn't seen a difference inhair growth and would like to discuss next options. Last visit at Dermatology: 01/25/2023 Last visit with this provider: 01/25/2023 Medications: Reviewed in eD-H Allergies: Reviewed in eD-H Skin Examination: Focused skin examination of the scalp was normal with the exception of the findings below. Assessment/Plan: #. Severe Alopecia Areata with Background Androgenetic Alopecia - Worse thean last visit, noted increase in overall hair loss, minimial improvement and regrowth with topical steroids, numerous ILK sessions and minoxidil. Severe disease with 57% hair loss in the parietal scalp - S/p ILK x4 - Joint decision to not pursue ILK treatment due to option to start Rx Baricitinib. (Figures 1 - 4) Plan: - Continue Rx: clobetasol 0.05% solution: Apply to the scalp twice daily for three days a week. Patient has a prescription for this already. - Continue Rx: Minoxidil 2.5 mg. Take 1 tablet QD. Warned that this could cause unwanted hair growth in other parts of the body, mild palpitations and swelling in the lower extremities. (Noted patient had adverse side effects with 1.5mg tablet.) Plan to start RX: Baricitinib(Olumiant) 4mg QD once pt changes insurance -baricitinib is a KWAME 1 & 2 inhibitor that block interferon-y and IL-15 that are known drivers in Alopecia Areata -a salt score of 20 or less efficacy at 36wks for 4mg and 2mg is 35% and 22% respectively. -Common adverse events include: acne, upper respiratory tract infections, headache, urinary tract infection, and elevated creatine kinase levels. -Increases in the LDL cholesterol level were observed in approximately one quarter -KWAME inhibitors can increase risk of infections such as activation of latent TB, increase risk of fungal, bacterial or viral infections -Obtain age appropriate vaccines prior to starting if possible and avoid live vaccines while on themedication Monitoring labs: Labs ordered today: CBC, CMP Lipid panel, Q-gold -pt met with specialty pharmacy and extensive discussion of drug, and no coverage for medication onPR Medicaid. Pt is changes employment and will look for a commercial plan and then can send RX Figure 1 Figure 2 Figure 3 Figure 4 Photo(s) taken and charted with patient's verbal consent. Other: N/A RTC: pending new insurance to start process for baricitinib approval []Note routed to administrative secretary []Recall placed in scheduling system []Appointment scheduled at checkout Scribe attestation: Yun Khan RN and Presley Rodriguez have performed the documentation for this encounter in the presence of and acting as a scribe for Chinedu Abreu MD. I performed the above scribed service and agree with the accuracy of the documentation in this encounter. Reviewed and signed by: Chinedu Abreu MD Dermatology [facility] documented in this encounter Plan of Treatment Upcoming Encounters Date Type Department Care Team (Late st Contact Info) Description 02/06/2024 9:30 AM EDT TH Visit (TeleHealth) Psychiatry [place] [address] Fermin Mercado MD [facility] [place] [address] Scheduled Orders Name Type Priority Associated Diagnoses Orde r Schedule Comprehensive metabolic panel (non-fasting) Lab Routine High risk medication use Expected: 03/08/2023, Expires: 09/07/2023 documented as of this encounter Results * QuantiFERON-TB Gold (03/08/2023 5:28 PM EDT) QFT Nil 0.073 IU/mL [facility] QFT TB Ag1-Nil 0.060 IU/mL [facility] QFT TB Ag2-Nil 0.032 IU/mL [facility] QFT Mitogen-Nil 9.927 IU/mL [facility] Quantiferon TB Negative Negative [facility] Quantiferon TB Interp M. tuberculosis infection NOT likely A negative specimen should have a TB1 Ag minus Nil value and TB2 Ag minus Nil value of less than 0.35 IU/mL OR a TB1 Ag minus Nil or TB2 Ag minus Nil value greater than or equal to 0.35 IU/mL AND a TB Ag minus Nil value from the same tube of less than 25% of the Nil value. A negative specimen must also have a mitogen minus Nil value greater than or equal to 0.5 IU/mL. A negative QFT-Plus result does not preclude the possibility of M. tuberculosis infection. False negative results can occur due to stage of infection (specimen obtained prior to the development of immune response), co-morbid conditions which affect immune function, or other immunological factors. [facility] Blood 03/08/2023 5:28 PM EDT 03/10/2023 7:15 AM EDT Narrative Resulting Agency Comment Spec In Lab Chinedu Abreu MD CHEMISTRY ORDERABLES [facility] [place] [address] * Lipid Panel (Reflex Direct LDL) (03/08/2023 5:28 PM EDT) Chol, Total 151 mg/dL [facility] Comment: Lower Risk: <200 mg/dL Average Risk: 200-239 mg/dL Higher Risk: >lm=572 mg/dL Triglycerides 80 mg/dL [facility] Comment: Average Risk/Lower Risk: <150 mg/dL Borderline High Risk: 150-199 mg/dL High Risk: 200-499 mg/dL Very High Risk: >ex=086 mg/dL HDL 57 mg/dL [facility] Comment: Males: ?? Higher Risk: <40 mg/dL Females: ?? Higher Risk: <50 mg/dL LDL Cholesterol 78 mg/dL [facility] Comment: Lowest Risk: <100 mg/dL Lower Risk: 100-129 mg/dL Borderline High Risk: 130-159 mg/dL High Risk: 160-189 mg/dL Very High Risk: >qq=254 mg/dL Chol/HDL Ratio 2.6 ratio [facility] Lipid Interpretation See Note [facility] Comment: Lipid management should be guided by a patient? s ASCVD risk, goals and preferences. ACC/AHA Guidelines recommend high intensity statin if clinical ASCVD or LDL greater than or equal to 190 mg/dL. http://BookTour.com/PEF-HBK-Hfqrynlbv Adults aged 40-75 with LDL 70-189 mg/dL should have their 10 year ASCVD risk estimated with the ACC/AHA ASCVD risk automotive collision estimator http://tools.acc.org/SVLGM-Ouge-Uhautqqrq/ Statin should be discussed if risk greater [...] Resulting Agency Comment Spec In Lab Chinedu J Abreu MD CHEMISTRY ORDERABLES [facility] [place] [address] documented in this encounter Visit Diagnoses Diagnosis Alopecia areata High risk medication use Encounter for long-term (current) use of other medications documented in this encounter Care Teams Insurance Sales Assistant Relationship Specialty Start Date End Date Gabbie Sams MD [address] [place] [address] PCP - General Family Medicine 12/31/22 documented as of this encounter
--- OUTSIDE RECORDS SUMMARY | 2023-12-28 01:50 | XMS_ITS | Encounter Summary ---
Author Organization [facility] Address [address] [place] [address] Care Team Providers Care Emt Paramedic Name Role Phone Bertin Cm MD Primary Care Provider [phone] Encounter Details Date Type Department Care Team (Late st Contact Info) Description 07/02/2022 Lab Requisition [facility] Pathology & Laboratory Medicine - [facility] [address] [place] [address] Outr Resulting Lab, Provider Social History Tobacco [...] Procedure Name Priority Date/Time Associated Diagnosis Comments DOUBLE STRANDED DNA ANTIBODY, IGG Routine 07/02/2022 9:10 EST ANTI NUCLEAR AB (FLAVIO), IFA Routine 07/02/2022 9:10 EST documented in this encounter Results * ANTI DNA (DOUBLE STRANDED) (07/02/2022 9:10 EST) Anti-DNA (Double Stranded) 21.9 <30.0 IU/mL 07/06/2022 13:04 EST [facility] Comment: ? Negative: ??<30.0 IU/mL ? Borderline Positive: ??30.0 - 75.0 IU/mL ? Positive: ??>75.0 IU/mL Results were obtained with the IsoPlexisA Lite dsDNA SC JESI assay on the Dynex DSX. Blood VENOUS BLOOD / Unknown 07/02/2022 9:10 EST 07/02/2022 21:41 EST Provider Outr Resulting Lab IMMUNOLOGY A ND SEROLOGY ORDERABLES Performing Organization Address City/[facility] Co de Phone Number [facility] [address] [place] [address] * (ABNORMAL) ANTI NUCLEAR AB (FLAVIO), IFA (07/02/2022 9:10 EST) FLAVIO Interpretation Positive(A) Negative 07/05/2022 13:55 EST [facility] FLAVIO Titer and Pattern 1 1:80 Speckled 07/05/2022 13:55 EST [facility] Blood VENOUS BLOOD / Unknown 07/02/2022 9:10 EST 07/02/2022 21:41 EST Narrative [facility] - 07/05/2022 13:55 EST Results were obtained with the INOVA NOVA Lite HEp-2 FLAVIO Kit by indirect immunofluorescence. Provider Outr Resulting Lab IMMUNOLOGY A ND SEROLOGY ORDERABLES Performing Organization Address [facility] Co de Phone Number [facility] [address] [place] [address] documented in this encounter Visit Diagnoses Not on filedocumented in this encounter Care Teams Emt Paramedic Relationship Specialty Start Date End Date Bertin Cm MD [address] [facility] [address] [place] [address] PCP - General Emergency Medicine 06/13/22 documented as of this encounter
--- OUTSIDE RECORDS SUMMARY | 2023-12-28 01:50 | XMS_ITS | Encounter Summary ---
Author Organization [facility] [place] [address] Care Team Providers Care Environmental Epidemiologist Name Role Phone Gabbie Sams MD Primary Care Provider [phone] Reason for Visit * Reason Comments Patient Education Encounter Details Date Type Department Care Team (Late st Contact Info) Description 03/08/2023 Specialty [place] [id number] Javed Lo [facility] Social History Tobacco Use Types Packs/Day Years Used Date Smoking Tobacco: Never Smokeless Tobacco: Never Alcohol Use Standard Drinks/Week Comments Not Currently 0 (1 standard drink = 0.6 oz pur e alcohol) Sex and Gender Information Value Date Recorded Sex Assigned at Not on file Gender Identity Not on file Sexual Orientation Not on file documented as of this encounter Progress Notes * Javed Lo RPH - 03/08/2023 4:10 PM EDT Specialty Pharmacy Initial Consultation; Javed Lo RPH Comprehensive Medication Management (CMM) Soren Suazowood Diagnosis: Alopecia Areata Therapy Start Date: TBD - New Start Contact in person or via telephone: In person Mr. Soren Mejia is a 37 y.o. (1985) male who was contacted in regard to specialty medication. Spoke with patient regarding Olumiant. A review of the medication therapy was performed. Is the patient willing to proceed with the Clinical Assessment? Yes Summary and Recommendations: A comprehensive review of Olumiant was discussed with the patient. Topics covered included: Review of patient's dose and indication. Common side effects of Olumiant were reviewed such as signs of a common cold, headache, and acne Warnings/precautions & contraindications: risk of serious infection was discussed and patient is aware to avoid all live vaccines. The patient is also aware of the rare but serious warnings such as malignancy, thrombosis, and major cardiac events. Education provided on the importance of infection prevention including hand hygiene and avoiding sick contacts. Monitoring/safety parameters: discussed baseline/follow-up lab monitoring Other topics discussed: drug mechanism of action, possible drug and/or food interactions, and anticipated time to effect Medication and allergy review completed Patient made aware of the prior authorization process and timeline. Patient was provided with [facility] contact information. Clinic follow-up needed: yes - ongoing clinic follow up and lab monitoring Allergies and Drug intolerance: Allergies Allergen Reactions Ceftin [Cefuroxime Axetil] Compazine [Prochlorperazine] Penicillins Problem List: There is no problem list on file for this patient. Special Dietary or Hydration Requirements: no Medication Reconciliation Discrepancies (compared to [facility] med list) -N/A Medication List: Current Outpatient Medications Medication Sig Dispense Refill minoxidiL (Loniten) 2.5 mg tablet TAKE 1/2 TABLET DAILY. IF TOLERATING WELL AFTER 2 WEEKS, INCREASETO 1 TABLET DAILY. 30 tablet 3 amitriptyline (Elavil) 75 mg tablet Take 75 mg by mouth nightly. pantoprazole EC (Protonix) [address] tablet Take 40 mg by mouth daily. tamsulosin (Flomax) 0.4 mg capsule daily. gabapentin (Neurontin) 600 mg tablet Take 600 mg by mouth 3 times daily. lisdexamfetamine (Vyvanse) 50 mg capsule daily. pregabalin (Lyrica) 200 mg capsule Take 200 mg by mouth 3 times daily. ONDANSETRON HCL ORAL Take by mouth. lisdexamfetamine (Vyvanse) 70 mg capsule Take 70 mg by mouth every morning. GABAPENTIN ORAL Take by mouth. pregabalin (LYRICA [...] Reported on 01/25/2023) 60 mL 0 No current facility-administered medications for this visit. Most Recent Vitals: Ht Readings from Last 1 Encounters: No data found for Ht Wt Readings from Last 3 Encounters: No data found for Wt Temp Readings from Last 3 Encounters: No data found for Temp BP Readings from Last 3 Encounters: No data found for BP Pulse Readings from Last 3 Encounters: No data found for Pulse There is no height or weight on file to calculate BMI. Pertinent Lab values: No results found for: ALT, AST, GGT, ALKPHOS, BILITOT, BILIDIR, ALBUMIN, PROT No results found for: WBC, HGB, HCT, MCV, PLATELET No results found for: HA1C There is no immunization history on file for this patient. Assessment and Recommendations: Patient Counseling Patient informed of specialty services: Yes Patient accepted offer to corporate counsel: select all, adherence/missed doses, cost of medications/cost implications, doses and administration, possible drug/OTC drug and food interactions, possible adverse side effects and management, pharmacy contact information, lab monitoring/follow up, possible drug/Rx drug interactions, safe handling, storage, and disposal, therapeutic rationale Medication Management Summary Topics discussed: reviewed medication changes since last visit, medication safety precautions education provided, drug interaction education provided to patient, safe handling, storage, and disposal discussed, possible adverse effects and management discussed, lab monitoring and follow-up discussed, cost of medications and cost implications discussed, adherence and missed doses discussed, health goals discussed, monitoring medication discussed, preventative care discussed, reminder to refill or garbage pick up worker medication discussed, self-monitoring discussed, start medication discussed, timing of medications discussed, referral needs discussed Treatment Outcomes 03/08/2023 1613 Disease progression: Stable Patient Overall Status: Stable Reviewed in detail with patient: Dose appropriateness based on recommended standard dosing Current medication list including OTC medications Medication and disease problems Allergies Comorbid conditions/ Problem List Past adverse events if any Special needs of the patient including physical and cognitive limitations Goals of therapy and management strategies Warnings, precautions, and contraindications Side effects Drug-drug and drug-food interactions Administration instructions including dose, frequency and method Handling, storage, and disposal Verifying expiration dates on products before use Rotating medication inventory to use oldest product first Relevant lab data Treatments impact on disease Dose appropriateness based on recommended standard dosing schedule, including any variations from FDA approved dosing Patient verbalizes understanding and is able to read-back instructions on self-administration/injection, proper storage, drug stability, importance of adherence and management strategies, side effect avoidance and mitigation strategies, and interruptions in therapy: Yes Patient is aware a licensed pharmacist is available 24 hours a day, 7 days a week to discuss medication-related questions or concerns: Yes Patient verbalizes understanding of the common side effect profile of their medication. The patient is able to call 911 or seek urgent care if signs/symptoms of allergy or harmful adverse reactions occur: Yes Additional care/services needed: No Additional equipment/supplies required: No Patient satisfied with care/services provided: Yes Specialty Assessment: Physical and Cognitive Assessment: Functional limitations identified: No Cognitive limitations identified: No Concern regarding orientation/memory: No Concern with reasoning/judgement: No Is patient a fall risk: No Social Assessment: Does patient have a primary career placement specialist: No Does patient have an emergency contact on file: Yes Does patient need referral to manager social work: No Does patient need referral to advocacy group: No Home Health Assessment: Is the patient in a safe home environment?: Yes Is the patient able to store their medication as directed?: Yes Does the patient have a support network at home?: Yes Reviewed potential home safety hazards with patient: Yes Economic Assessment: Patient is agreeable to medication copay: Other (see comments) (Comment: TBD - New Start) Welcome Packet and Rights and Responsibilities: Specialty Med Adherence Patient Demonstrates Understanding of Importance of Adherence: Yes Educational Information or Adherence Tools Provided: Yes Therapy Assessment: Current Medication Dosing/Route/Frequency: Olumiant 4mg tablets Take one tablet by mouth once daily Appropriate Therapy: Yes Current Affected Areas: Scalp Total BSA involved: unknown, 57% hair loss on parietal scalp Recent Skin Exacerbations/Flaring: yes - worsening from last office visit Recent Topical Corticosteroid Use: yes - clobetasol Relapsing/Remitting Factors: no Diagnosis of Psoriatic Arthritis: No Patient's Problems/Needs: Additional treatment for alopecia areata and ongoing clinic follow up Expected Outcome: Hair regrowth and reduction of hair loss Treatment Outcome: Therapy initiated Patient's goals: Patient's specific desired goal: Scalp hair regrowth and prevention of hair loss Measured by: Patient reported s/sx and provider physical exam Time-frame to meet goal: 3-6 months On a scale of 1-10, what is the patient's overall confidence level with administering this medication? Not assessed Monitoring requirements for prescribed medication: CBC, CMP, Lipids, Quant Gold On a scale of 1-10 the patient rates their quality of life: Not assessed Care Plan Reviewed and Approved by both Pharmacist and Patient: Yes Interventions (if applicable): No N/A Pharmacist follow-up needed: Yes Delivery Method: Delivery Patient understands no changes to current drug regimen were made at the appointment and [facility] (summary located at top of note) for provider review and follow up. Javed Lo RPH 03/08/23 4:14 PM documented in this encounter Plan of Treatment Upcoming Encounters Date Type Department Care Team (Late st Contact Info) Description 02/06/2024 9:30 AM EDT TH Visit (TeleHealth) Psychiatry [place] [address] Fermin Mercado MD [facility] [place] [address] documented as of this encounter Visit Diagnoses Diagnosis Alopecia areata documented in this encounter Care Teams Environmental Epidemiologist Relationship Specialty Start Date End Date Gabbie Sams MD [address] [place] [address] PCP - General Family Medicine 12/31/22 documented as of this encounter
--- OUTSIDE RECORDS SUMMARY | 2023-12-28 01:50 | XMS_ITS | Encounter Summary ---
Author Organization [facility] [address] Care Team Providers Care Turning Sander Operator Name Role Phone Gabbie Sams MD Primary Care Provider [phone] Encounter Details Date Type Department Care Team (Late st Contact Info) Description 04/28/2023 Telephone [place] [id number] Lora Blas RN Social History Tobacco Use Types Packs/Day [...] encounter Miscellaneous Notes * Telephone Encounter - Lora Blas RN - 04/28/2023 1:23 PM EST Patient calls the office leaving a message on the RN voicemail stating that he just called our office to schedule a follow up with Dr. Ford for after his procedures that are scheduled on 05/04/23 and is not able to get in until August 2023. Patient states he is having an alarming amount of blood after bowel movements and I feel like I am dying afterward. Patient states that he would adeel to [place] sooner to talk with someone. I need something done. Attempted twice to return call to patient to discuss above, both times received automated message stating voicemail has not been set up so was unable to leave a message. documented in this encounter Plan of Treatment Upcoming Encounters Date Type Department Care Team (Late st Contact Info) Description 02/06/2024 9:30 AM EDT TH Visit (TeleHealth) Psychiatry [place] [address] Fermin Mercado MD [facility] [place] [place] [address] documented as of this encounter Visit Diagnoses Not on filedocumented in this encounter Care Teams Turning Sander Operator Relationship Specialty Start Date End Date Gabbie Sams MD [address] [place] [address] PCP - General Family Medicine 12/31/22 documented as of this encounter
--- OUTSIDE RECORDS SUMMARY | 2023-12-28 01:50 | XMS_ITS | Encounter Summary ---
Author Organization [facility] [place] [address] Care Team Providers Care Loan Expeditor Name Role Phone Bertin Cm MD Primary Care Provider [phone] Encounter Details Date Type Department Care Team (Latest Contact Info) Description 11/30/2022 Travel Social History Tobacco Use Types Packs/Day [...] Visit (TeleHealth) Psychiatry [place] [address] Fermin Mercado MD [facility] [place] [address] documented as of this encounter Visit Diagnoses Not on filedocumented in this encounter Care Teams Loan Expeditor Relationship Specialty Start Date End Date Bertin Cm MD [address] [place] [address] PCP - General Family Medicine 06/02/22 12/30/22 documented as of this encounter
--- OUTSIDE RECORDS SUMMARY | 2023-12-28 01:50 | XMS_ITS | Encounter Summary ---
Author Organization [facility] [place] [address] Care Team Providers Care Dial Refinisher Name Role Phone Bertin Cm MD Primary Care Provider [phone] Reason for Referral * Diagnostic Test (Routine) - Closed Specialty Diagnoses / Procedures Referred By Balaji hoang Referred To Contact Gastroenterology Diagnoses Solitary rectal ulcer syndrome ARM for solitary rectal ulcer syndrome Procedures High Definition Anal Manometry PRG ANORECTAL MANOMETRY PRG RECTAL SENSATION TEST, BALLOON Emmanuelle Sun DO [address] [place] [address] [facility] [address] [place] [address] Referral ID Status Reason Start Date Expiration Date V isits Requested Visits Authorized [id number] Closed Consult, Test & Treat 07/21/2022 07/21/2023 1 1 Encounter Details Date Type Department Care Team (Late st Contact Info) Description 07/21/2022 Transcribe Orders eDH Incoming Referrals [phone] Emmanuelle Sun DO [address] [place] [address] [address] [place], [place] [id number] Solitary rectal ulcer syndrome Social History Tobacco [...] Visit (TeleHealth) Psychiatry [place] [address] Fermin Mercado MD [facility] [place] [address] Scheduled Orders Name Type Priority Associated Diagnoses Orde r Schedule High Definition Anal Manometry GI Routine Solitary rectal ulcer syndrome Expected: 07/21/2022 (Approximate), Expires: 01/19/2024 documented as of this encounter Visit Diagnoses Diagnosis Solitary rectal ulcer syndrome documented in this encounter Care Teams Dial Refinisher Relationship Specialty Start Date End Date Bertin Cm MD [address] [place] [id number] PCP - General Family Medicine 06/02/22 12/30/22 documented as of this encounter
--- OUTSIDE RECORDS SUMMARY | 2023-12-28 01:50 | XMS_ITS | Encounter Summary ---
[place] [address] Care Team Providers Care Network Intern Name Role Phone Bertin Cm MD Primary Care Provider [phone] Reason for Referral * Consultation (Routine) - Closed Specialty Diagnoses / Procedures Referred By Balaji t Referred To Contact Neurology Diagnoses Injury of facial nerve, unspecified laterality, initial encounter Rosemary House MD [facility] [address] [place] [address] [facility] Neurology [address] [place] [id number] Referral ID Status Reason Start Date Expiration Date V isits Requested Visits Authorized [id number] Closed Consult, Test & Treat PCP Updated and/or Approved 07/27/2022 07/27/2023 6 6 Encounter Details Date Type Department Care Team (Late st Contact Info) Description 07/27/2022 Transcribe Orders eD Incoming Referrals [phone] [facility] [address] [place] [address] Injury of facial nerve, unspecified laterality, initial [...] Visit (TeleHealth) Psychiatry [place] [address] Fermin Mercado MD [facility] [place] [address] [place] [address] Scheduled Referrals Name Type Priority Associated Diagnoses Orde r Schedule Referral to Neurology Outpatient Referral Routine Injury of facial nerve, unspecified laterality, initial encounter Ordered: 07/27/2022 documented as of this encounter Visit Diagnoses Diagnosis Injury of facial nerve, unspecified laterality, initial encounter documented in this encounter Care Teams Network Intern Relationship Specialty Start Date End Date Bertin Cm MD [address] [place] [address] PCP - General Family Medicine 06/02/22 12/30/22 documented as of this encounter
--- OUTSIDE RECORDS SUMMARY | 2023-12-28 01:50 | XMS_ITS | Encounter Summary ---
Author Organization [facility] [place] [address] Care Team Providers Care Geodetic Engineer Name Role Phone Gabbie Sams MD Primary Care Provider [phone] Reason for Visit * Reason Onset Date Comments Research 01/25/2023 Encounter Details Date Type Department Care Team (Late st Contact Info) Description 01/25/2023 Notes Only Dermatology at [facility] [address] [place] [address] Mounika Falk MD [facility] [place] [address] Research Social History Tobacco Use Types Packs/Day Years Used Date Smoking Tobacco: Never Assessed Sex and Gender Information Value Date Recorded Sex Assigned at Not on file Gender Identity Not on file Sexual Orientation Not on file documented as of this encounter Progress Notes * Mounika Falk - 01/25/2023 11:59 PM EDT RESEARCH STUDY VISIT PROTOCOL: TARGET-DERM A 5-year Longitudinal Observational Study of Patients Undergoing Therapy [facility]-Mediated [facility]ammatory [id number] PI: Jose Rogers MD Sub-I: Fabián Williamson MD, Coral Dickerson MD, Felipe Rabago MD, Martha Wagoner MD, Lore Velazquez MD, Reggie Wu MD, Chinedu Abreu MD, Lidia Reddy MD Subject #: [id number] Visit: Baseline Saliva collection 01/31/23 Soren Mejia is a 37 y.o. male with history of Alopecia Areata. he was seen in the Dermatology clinic today for a follow up visit for the above mentioned study. Physician assessments: Alopecia Areata Physician Assessments were completed by Dr. Abreu and Dr. Mounika Falk Biospecimen: Subject opted for saliva sample. The sample was collected today and patient tolerated the procedurewell. Mounika Falk MD, MS, MSc Research Fellow - Dermatology documented in this encounter Plan of Treatment Upcoming Encounters Date Type Department Care Team (Late st Contact Info) Description 02/06/2024 9:30 AM EDT TH Visit (TeleHealth) Psychiatry [place] [address] Fermin Mercado MD [facility] [place] [address] documented as of this encounter Visit Diagnoses Not on filedocumented in this encounter Care Teams Geodetic Engineer Relationship Specialty Start Date End Date Gabbie Sams MD [address] [place] [address] PCP - General Family Medicine 12/31/22 documented as of this encounter
--- OUTSIDE RECORDS SUMMARY | 2023-12-28 01:50 | XMS_ITS | Encounter Summary ---
[place] [address] Care Team Providers Care Carousel Operator Name Role Phone Gabbie Sams MD Primary Care Provider [phone] Encounter Details Date Type Department Care Team (Latest Contact Info) Description 03/08/2023 5:05 PM EDT Laboratory Appointment Lab [address] [place] [phone] Dysphagia, unspecified type; Irritable bowel syndrome with both constipation and diarrhea; Gastroesophageal reflux disease, unspecified whether esophagitis present; Functional dyspepsia; High risk medication use Social History Tobacco [...] as of this encounter Progress Notes * Chinedu Abreu MD - 03/08/2023 5:05 PM EDT Screening lab: Q-Gold negative -no contraindication to start baracitinib -awaiting pt's update in insurance to allow for submission through specialty pharmacy Seen and reviewed by: Chinedu Abreu MD Staff Direct Sales Representative Department of Dermatology documented in this encounter Plan of Treatment Upcoming Encounters Date Type Department Care Team (Late st Contact Info) Description 02/06/2024 9:30 AM EDT TH Visit (TeleHealth) Psychiatry [place] [address] Fermin Mercado MD [facility] [place] [address] documented as of this encounter Procedures Procedure Name Priority Date/Time Associated Diagnosis Comments BILIRUBIN, DIRECT Routine 03/08/2023 5:2 8 PM EDT HC QUANTIFERON Routine 03/08/2023 5:28 PM EDT High risk medication use HEMOGRAM Routine 03/08/2023 5:28 PM EDT High risk medication use DIFFERENTIAL, AUTOMATED Routine 03/08/20 5:28 PM EDT High risk medication use HC TISSUE TRANSGLUTAMINASE AB Routine 03/08/2023 5:28 PM EDT Dysphagia, unspecified type Irritable bowel syndrome with both constipation and diarrhea Gastroesophageal reflux disease, unspecified whether esophagitis present Functional dyspepsia HC CBC,PLT & AUTO DIFF Routine 5:28 PM EDT High risk medication use HC IGA, SERUM Routine 03/08/2023 5:28 PM EDT Dysphagia, unspecified type Irritable bowel syndrome with both constipation and diarrhea Gastroesophageal reflux disease, unspecified whether esophagitis present Functional dyspepsia HC IGG, SERUM Routine 03/08/2023 5:28 PM EDT Dysphagia, unspecified type Irritable bowel syndrome with both constipation and diarrhea Gastroesophageal reflux disease, unspecified whether esophagitis present Functional dyspepsia LIPID PANEL (REFLEX DIRECT LDL) Routine 03/08/2023 5:28 PM EDT High risk medication use HC VENIPUNCTURE Routine 03/08/2023 5:28 PM EDT Dysphagia, unspecified type Irritable bowel syndrome with both constipation and diarrhea Gastroesophageal reflux disease, unspecified whether esophagitis present Functional dyspepsia documented in this encounter Results * Bilirubin, Direct (03/08/2023 5:28 PM EDT) Bili, Direct 0.1 0.0 - 0.3 mg/dL [facility] Blood 03/08/2023 5:28 PM EDT 03/08/2023 5:35 PM EDT Narrative Resulting Agency Comment Spec In Lab Chinedu Abreu MD CHEMISTRY ORDERABLES [facility] [place] [address] * Differential, Automated (03/08/2023 5:28 PM EDT) [facility] Neutrophils % 66.0 % [facility] Neutr Abs (ANC) 4.65 1.70 - 6.10 x10(3)/[facility] Lymphocytes % 22.5 % [facility] Lymphocytes Abs 1.6 0.9 - 3.2 x10(3)/[facility] Monocytes % 9.3 % [facility] Monocyte Abs 0.7 0.3 - 0.9 x10(3)/[facility] Eosinophils % 1.4 % [facility] Eosinophils Abs 0.1 0.0 - 0.4 x10(3)/[facility] Basophils % 0.7 % [facility] Basophils Abs 0.0 0.0 - 0.1 x10(3)/[facility] Immature Gran % 0.10 % [facility] Comment: Immature granulocytes(IG's)percentage and absolute count will include metamyelocytes, myelocytes, and promyelocytes. Blood smears from CBCs yielding IG's will be scanned manually for concordance. If this scan disagrees with the automated IG or if promyelocytes are noted, a manual differential will be performed. Valerie Gran Abs 0.01 0.00 - 0.04 x10(3)/[facility] Blood 03/08/2023 5:28 PM EDT 03/08/2023 5:35 PM EDT Narrative Resulting Agency Comment Spec In Lab Chinedu Abreu MD HEMATOLOGY ORDERABLE S [facility] [place] [address] * (ABNORMAL) Hemogram (03/08/2023 5:28 PM EDT) WBC 7.1 4.0 - 9.5 x10(3)/[facility] RBC 4.58 4.58 - 5.54 x10(6)/[facility] Hemoglobin 13.6(L) 13.7 - 16.5 g/dL [facility] Hematocrit 41.0 40.5 - 48.5 % [facility] MCV 89.5 82.9 - 93.1 [facility] MCH 29.7 27.5 - 32.1 pg [facility] MCHC 33.2 32.0 - 35.7 g/dL [facility] Platelets 251 145 - 357 x10(3)/[facility] RDWSD 44.0 36.0 - 45.0 [facility] RDWCV 13.3 11.4 - 13.8 % [facility] MPV 10.5 7.6 - 12.9 [facility] nRBC % Auto 0.0 % [facility] nRBC Abs Auto 0.000 0.000 - 0.000 x10(3)/[facility] Blood 03/08/2023 5:28 PM EDT 03/08/2023 5:35 PM EDT Narrative Resulting Agency Comment Spec In Lab Chinedu Abreu MD HEMATOLOGY ORDERABLE S [facility] [place] [address] * Lipid Panel (Reflex Direct LDL) (03/08/2023 5:28 PM EDT) Chol, Total 151 mg/dL [facility] Comment: Lower Risk: <200 mg/dL Average Risk: 200-239 mg/dL Higher Risk: >ya=663 mg/dL Triglycerides 80 mg/dL [facility] Comment: Average Risk/Lower Risk: <150 mg/dL Borderline High Risk: 150-199 mg/dL High Risk: 200-499 mg/dL Very High Risk: >bs=815 mg/dL HDL 57 mg/dL [facility] Comment: Males: ?? Higher Risk: <40 mg/dL Females: ?? Higher Risk: <50 mg/dL LDL Cholesterol 78 mg/dL [facility] Comment: Lowest Risk: <100 mg/dL Lower Risk: 100-129 mg/dL Borderline High Risk: 130-159 mg/dL High Risk: 160-189 mg/dL Very High Risk: >kz=435 mg/dL Chol/HDL Ratio 2.6 ratio [facility] Lipid Interpretation See Note [facility] Comment: Lipid management should be guided by a patient? s ASCVD risk, goals and preferences. ACC/AHA Guidelines recommend high intensity statin if clinical ASCVD or LDL greater than or equal to 190 mg/dL. http://[employer]/JLT-TKJ-Dzewkxwyi Adults aged 40-75 with LDL 70-189 mg/dL should have their 10 year ASCVD risk estimated with the ACC/AHA ASCVD risk window shade estimator http://tools.acc.org/JASHO-Hlnp-Oamfdbmbd/ Statin should be discussed if risk greater [...] In Lab Chinedu Abreu MD CHEMISTRY ORDERABLES Performing Organization Address City/[facility]/ZIP Co de Phone Number [facility] [place] [address] * QuantiFERON-TB Gold (03/08/2023 5:28 PM EDT) QFT Nil 0.073 IU/mL [facility] QFT TB Ag1-Nil 0.060 IU/mL [facility] QFT TB Ag2-Nil 0.032 IU/mL [facility] QFT Mitogen-Nil 9.927 IU/mL [facility] Quantiferon TB Negative Negative [facility] Quantiferon TB Interp M. tuberculosis infection [...] affect immune function, or other immunological factors. [facility] Blood 03/08/2023 5:28 PM EDT 03/10/2023 7:15 AM EDT Narrative Resulting Agency Comment Spec In Lab Chinedu Abreu MD CHEMISTRY ORDERABLES Performing Organization Address City/[facility]/ZIP Co de Phone Number [facility] [place] [address] * IgA (03/08/2023 5:28 PM EDT) IgA 253 70 - 400 mg/dL [facility] Blood 03/08/2023 5:28 PM EDT 03/08/2023 5:35 PM EDT Narrative Resulting Agency Comment Spec In Lab Jose Ford MD IMMUNOLOGY ORDERABLE S Performing Organization Address City/[facility]/ZIP Co de Phone Number [facility] [place] [address] * IgG (03/08/2023 5:28 PM EDT) [facility] IgG 1,188 700 - 1,600 mg/dL [facility] Comment: Pediatric Reference Intervals obtained from the Caliper Reference Interval project. http://www.[employer].ca/caliperproject/index.html Blood 03/08/2023 5:28 PM EDT 03/08/2023 5:35 PM EDT Narrative Resulting Agency Comment Spec In Lab Jose Ford MD IMMUNOLOGY ORDERABLE S Performing Organization Address [facility] Co de Phone Number [facility] [place] [address] * Tissue transglutaminase, IgA (03/08/2023 5:28 PM EDT) [facility] TTG IgA Ab 0.4 <=10.0 u/ml [facility] Comment: Negative: ??<7 units/mL Indeterminate: 7-10 units/mL Positive: ??>10 units/mL Blood 03/08/2023 5:28 PM EDT 03/09/2023 7:16 AM EDT Narrative Resulting Agency Comment Spec In Lab Jose Ford MD IMMUNOLOGY ORDERABLE S Performing Organization Address [facility]/ZIP Co de Phone Number [facility] [place] [address] * Comprehensive metabolic panel (non-fasting) (03/08/2023 5:28 PM EDT) [facility] Glucose Lvl 78 65 - 199 mg/dL [facility] Comment:Diabetes: >=200 mg/d L plus symptoms BUN 11 10 - 20 mg/dL [facility] Creatinine 0.92 0.80 - 1.50 mg/dL [facility] Sodium 141 135 - 145 mmol/L [facility] Potassium 3.9 3.5 - 5.0 mmol/L [facility] Comment: Please note: ??Patients with WBC >100,000 may have falsely elevated Potassium levels. ??For accurate Potassium quantification in these patients send serum separator tube (gold top) for subsequent determinations. ??Contact the Clinical Chemistry Laboratory if there are any questions. Chloride 102 98 - 107 mmol/L [facility] CO2 31 22 - 31 mmol/L [facility] Anion Gap 8 5 - 15 mmol/L [facility] Calcium 9.4 8.5 - 10.5 mg/dL [facility] Total Protein 7.4 6.1 - 8.0 g/dL [facility] Albumin 4.4 3.2 - 5.2 g/dL [facility] AST 20 0 - 39 unit/L [facility] ALT 17 0 - 55 unit/L [facility] Alk Phos 84 40 - 130 unit/L [facility] Total Bilirubin 0.3 0.2 - 1.3 mg/dL [facility] Estimated GFR 111 >=60 mL/min/1. 73 m?? [facility] Comment: This patient's estimated GFR [...] Narrative Resulting Agency Comment Spec In Lab Jose Ford MD CHEMISTRY ORDERABLES [facility] [place] [address] documented in this encounter Visit Diagnoses Diagnosis Dysphagia, unspecified type Irritable bowel syndrome with both constipation and diarrhea Gastroesophageal reflux disease, unspecified whether esophagitis present Functional dyspepsia Dyspepsia and other specified disorders of function of stomach High risk medication use Encounter for long-term (current) use of other medications documented in this encounter Care Teams Carousel Operator Relationship Specialty Start Date End Date Gabbie Sams MD [address] [place] [address] PCP - General Family Medicine 12/31/22 documented as of this encounter
--- OUTSIDE RECORDS SUMMARY | 2023-12-28 01:50 | XMS_ITS | Encounter Summary ---
Author Organization [facility] [place] [address] Care Team Providers Care Fork Lift Truck Operator Name Role Phone Gabbie Sams MD Primary Care Provider [phone] Encounter Details Date Type Department Care Team (Latest Contact Info) Description 05/04/2023 7:34 AM EST - 05/04/2023 10:39 AM EST Hospital En[place] [address] Byron Elias MD [facility] [place] [address] Discharge Disposition: Home Social History Tobacco Use [...] the day after the procedure, use an [id number] spray to numb your throat. Sucking on [...] occurs, please contact your Doctor. Please call [phone] before 8pm Mon-Fri with problems, questions or concerns. If you call after 8pm or on weekends, call the Hospital at [phone] and ask to speak to the Automobile Assembly Supervisor solar energy installation manager and the electronic pagination system operator will contact that person for you. When should you call for help? Call [phone] anytime you think you may need emergency [...] any problems. Where can you learn more? [facility] View your After Visit Summary and more online at [email or web address] If you would like to provide feedback about your hospital experience, please call the Office of Patient and Family Relations at . If you have received this After Visit Summary in error, please immediately return it in person to the department, or notify the [facility] Privacy Office by calling toll free at between the hours of 8AM and 5PM to arrange for our retrieval of the documents at no cost to you. Content Version: 12.2 ?? [id number] [employer]. Care instructions adapted under license by [facility]. If you have questions about a medical condition or this instruction, always ask your healthcare professional. [employer] disclaims any warranty or liability for your [...] Visit (TeleHealth) Psychiatry [place] [address] Fermin Mercado MD [facility] [place] [address] documented as of this encounter Procedures Procedure Name Priority Date/Time Associated Diagnosis Comments SPECIMEN TO PATHOLOGY Routine 05/04/2023 9:48 AM EST SURGICAL PATHOLOGY REPORT Routine 05/04/2023 9:28 AM EST SPECIMEN TO PATHOLOGY Routine 05/04/2023 9:28 AM EST SPECIMEN TO PATHOLOGY Routine 05/04/2023 9:28 AM EST SPECIMEN TO PATHOLOGY Routine 05/04/2023 9:28 AM EST SPECIMEN TO PATHOLOGY Routine 05/04/2023 9:28 AM EST Sigmoidoscopy, Biopsy ([id number]) 05/04/2023 9:10 AM EST Dysphagia, unspecified type Irritable bowel syndrome with both constipation and diarrhea Gastroesophageal reflux disease, unspecified whether esophagitis present Functional dyspepsia Upper Gi Endoscopy, Biopsy ([id number]) 05/04/2023 9:10 AM EST Dysphagia, unspecified type [...] AM EST 05/04/2023 9:48 AM EST Narrative [facility] - 05/04/2023 9:48 AM EST Specimen requisition ordered. ??Separate Pathology report to follow Byron Elias MD PATHOLOGY/CYTOLOGY ORDERABLES Performing Organization Address [facility]/State/[facility] Co de Phone Number [facility] [place] [address] * Surgical Pathology Report (05/04/2023 9:28 AM EST) Surgical Pathology Report [id number] ? Location: 4T; EA06; A The signing [...] with mucosal prolapse features. Electronically signed by: ?Pérez MOSS, Clem Verified: ??05/12/2023 15:46 ??Pathologist Performed at: ??-[facility] [place]ology, [place] [address] Quality Control Assistant: Tami Segura MD, FCAP, ??CLIA Certificate: [id number] SPECIMEN(S) SUBMITTED A - distal esophagus biopsy [...] toto ??in 1 cassette labeled E1. ??pps [facility] 05/04/2023 9:28 AM EST Byron Elias MD PATHOLOGY/CYTOLOGY ORDERABLES Performing Organization Address City/[facility]/[place] [address] * Specimen to Pathology (05/04/2023 9:28 AM EST) AP Specimen 05/04/2023 9:28 AM EST 05/04/2023 9:28 AM EST Narrative [facility] - 05/04/2023 9:28 AM EST Specimen requisition ordered. ??Separate Pathology report to follow Byron Elais MD PATHOLOGY/CYTOLOGY ORDERABLES Performing Organization Address City/[facility] [address] [facility]/ZIP Co de Phone Number [facility] [place] [address] * Specimen to Pathology (05/04/2023 9:28 AM EST) AP Specimen 05/04/2023 9:28 AM EST 05/04/2023 9:28 AM EST Narrative [facility] - 05/04/2023 9:28 AM EST Specimen requisition ordered. ??Separate Pathology report to follow Byron Elias MD PATHOLOGY/CYTOLOGY [place] [address] * Specimen to Pathology (05/04/2023 9:28 AM EST) AP Specimen 05/04/2023 9:28 AM EST 05/04/2023 9:28 AM EST Narrative [facility] - 05/04/2023 9:28 AM EST Specimen requisition ordered. ??Separate Pathology report to follow Byron Elias MD PATHOLOGY/CYTOLOGY ORDERABLES Performing Organization Address [facility] [place] [address] * Specimen to Pathology (05/04/2023 9:28 AM EST) AP Specimen 05/04/2023 9:28 AM EST 05/04/2023 9:28 AM EST Narrative [facility] - 05/04/2023 9:28 AM EST Specimen requisition ordered. ??Separate Pathology report to follow Byron Elias MD PATHOLOGY/CYTOLOGY ORDERABLES Performing Organization Address [facility] [place] [address] * FLEXIBLE SIGMOIDOSCOPY (05/04/2023 9:01 AM EST) FLEXIBLE SIGMOIDOSCOPY [facility] Endoscopy Procedure Date: 05/04/2023 9:01 AM ? Patient Name: Soren Mejia ? N: [id number] ? Date of : 1985 ? Age: 37 ? Order #: [id number] ? Instrument Name: [id number]- [id number] ? Procedure: ? Flexible Sigmoidoscopy Indications: ? Hematochezia, question of rectal ? 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 Carlos Alberto Gill, ? April Mahoney, Modern Dancer Referring MD: ?Emmanuelle Demarco, ? Jose Ford [...] the ? physician, the nurse, the ? drop wire operator and the audiometric technician. The ? procedure was verified in [...] care under ? the supervision of a OSCILLOGRAPH TECHNICIAN was ? determined to be medically ? [...] ? - Follow-up in GI clinic with ? [facility]. ? - Start average-risk colorectal ? cancer screening at 46 years old. ? Attending Participation: ? I personally performed the entire procedure. ? Byron Norman Curt, 05/04/2023 10:07:47 AM Number of Addenda: 0 Note Initiated On: 05/04/2023 9:01 AM PROVATION 05/04/2023 9:01 AM EST Gabbie Sams MD GENERAL SURGICAL ORD ERABLES [facility] * UPPER GI ENDOSCOPY (05/04/2023 9:00 AM EST) UPPER GI ENDOSCOPY [facility] Endoscopy Procedure Date: 05/04/2023 9:00 AM ? Patient Name: Soren Mejia ? Date of : 1985 ? Age: 37 ? Order #: [id number] ? Instrument Name: EG-760R- [id number] ? Procedure: ? Upper GI endoscopy Indications: ? Dyspepsia, Dysphagia, Heartburn, ? Nausea with vomiting Providers: ? Carlos Alberto Gill, ? April Mahoney, Modern Dancer Referring MD: ?Emmanuelle Sun, Jose Ford Medicines: [...] the ? physician, the nurse, the ? drop wire operator and the audiometric technician. The ? procedure was verified in [...] care under ? the supervision of a OSCILLOGRAPH TECHNICIAN was ? determined to be medically ? [...] [facility]OVATION documented in this encounter Visit Diagnoses Not [...] Tue05/04/23 at 0830, Endoscopy (Day of Procedure) Given [...] CRNA) documented in this encounter Care Teams Fork Lift Truck Operator Relationship Specialty Start Date End Date Gabbie Sams MD [address] [place] [address] PCP - General Family Medicine 12/31/22 documented as of this encounter
--- OUTSIDE RECORDS SUMMARY | 2023-12-28 01:50 | XMS_ITS | Encounter Summary ---
Author Organization [facility] [place] [address] Care Team Providers Care Stoker Installation Mechanic Name Role Phone Bertin Cm MD Primary Care Provider [phone] Encounter Details Date Type Department Care Team (Latest Contact Info) Description 09/07/2022 Travel Social History Tobacco Use Types Packs/Day [...] Visit (TeleHealth) Psychiatry [place] [address] Fermin Mercado MD [facility] [place] [place] [address] documented as of this encounter Visit Diagnoses Not on filedocumented in this encounter Care Teams Stoker Installation Mechanic Relationship Specialty Start Date End Date Bertin Cm MD [address] [place] [address] PCP - General Family Medicine 06/02/22 12/30/22 documented as of this encounter
--- OUTSIDE RECORDS SUMMARY | 2023-12-28 01:50 | XMS_ITS | Encounter Summary ---
Author Organization [facility] Address [facility] [place] [address] Care Team Providers Care Tie Presser Name Role Phone Gabbie Sams MD Primary Care Provider [phone] Encounter Details Date Type Department Care Team (Late st Contact Info) Description 03/21/2023 Telephone [place] [phone] Sayra Palomares Social History Tobacco Use Types Packs/Day Years [...] Visit (TeleHealth) Psychiatry [place] [phone] Fermin Mercado MD [facility] [place] [address] documented as of this encounter Visit Diagnoses Not on filedocumented in this encounter Care Teams Tie Presser Relationship Specialty Start Date End Date Gabbie Sams MD [address] [place] [address] PCP - General Family Medicine 12/31/22 documented as of this encounter
== END ==
PROVIDERS: PCP Family Medicine; Visit Provider Family Medicine
DX: F07.81 Postconcussional syndrome (principal); R51.9 Headache, unspecified
CPT/HCPCS: 70551

== ENCOUNTER 2024-05-28 21:32 | Outpatient (REF) | payer MEDICAID, SELFPAY ==
--- OUTSIDE RECORDS SUMMARY | 2024-05-28 21:33 | XMS_ITS | Encounter Summary ---
Author Organization [facility] Address [facility] [place] [address] Care Team Providers Care Furniture Designer Name Role Phone Gabbie Sams MD Primary Care Provider [phone] Reason for Referral * Consultation (Routine) - Canceled Specialty Diagnoses / Procedures Referred By Balaji hoang Referred To [facility] Diagnoses Chronic jaw pain Fabián Newton PA [facility] [place] [address] [facility] [address] [place] [id number] Referral ID Status Reason Start Date Expiration Date V isits Requested Visits Authorized [id number] Canceled Consult, Test & Treat 07/05/2023 07/04/2024 1 1 Encounter Details Date Type Department Care Team (Late st Contact Info) Description 07/05/2023 Orders Only [place] [address] Fabián Newton PA [facility] [address] [place] [address] Chronic jaw pain Social History Tobacco Use [...] PA - 07/05/2023 5:27 PM ESTAddended by: AFBIÁN NEWTON on: 07/28/2023 02:45 PM Modules accepted: Orders documented in this encounter Plan of Treatment Upcoming Encounters Date Type Department Care Team (Late st Contact Info) Description 08/13/2024 9:00 AM EST TH Visit (TeleHealth) Psychiatry [place] [address] Fermin Mercado MD [facility] [place] [address] Scheduled Referrals Name Type Priority Associated Diagnoses Order Schedule Referral to Pain Management Outpatient Referral Routine Chronic jaw pain Ordered: 07/28/2023 documented as of this encounter Visit Diagnoses Diagnosis Chronic jaw pain Jaw pain documented in this encounter Care Teams Furniture Designer Relationship Specialty Start Date End Date Gabbie Sams MD [address] [place] [address] PCP - General Family Medicine 12/31/22 documented as of this encounter
--- OUTSIDE RECORDS SUMMARY | 2024-05-28 21:33 | XMS_ITS | Encounter Summary ---
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 Soren Mejia is aware that for any urgent matter theycan call [phone]. Attendee(s): patient This patient was seen with telegraphic instrument supervisor Dr. Santo. See their note for [...] seeing a therapist per my recommendation through [facility]. He has not yet started this. Medication [...] day until he went to rehab in [facility] in approximately 2017 - since 2018, he [...] speaking and walking late - was an [employer] - further exploration was limited due to time constraints. Will try to obtain in future. Social History: Per chart review, updated with relevant information Living Situation - in the past year, moved to [place] after his parents gave him approximately 17.[address] acres [address] land. Says he lives by himself. - Says there is no running water but he is able to obtain drinking water from filling stations and has a natural waste area. Marital Status - single Children - denies Occupation - fired from job at [employer] in May 2023 - reports a long history of being fired from jobs. 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 - says he is currently living on savings and says he has no major expenses because his land is fully paid for and his mother provides meals Education - says he is currently studying professional studies at [employer] - denies Access to guns - yes, [...] volume, and normal rate Language: fluent in maltese Mood: great Affect: full Thought Process: linear [...] found for: 25OHVITD No results found for: [id number] No results found for: LITHIUM No results [...] the [place]. State specific information for [place] and [place] crisis services are as follows and should be used to access local resources: [facility] Crises Services [facility] Crisis Line text or call Visit www.51credit.com for further information [place] Call your local community crisis line at: [place]: [facility] [phone] [place]: [facility] [phone] [place]: [facility] [phone] [place]: [facility] [phone] [place]: [facility] [phone] Mary Kate Lom[place]: [facility] Counseling and Support [phone] [place]: [facility] Health [phone] on weekdays 8AM-4:30PM and [phone] on nights and weekends [place]: Yajaira [facility] [place]: [facility] [phone] [place]: [facility] [phone] [place]: [facility], [place]: HCRS [place]: HCRS or Text [place] to [phone] For further information for [place] residents: https://mentalhealth.[place].[facility]/services/emergency-services/dbv-rtz-thxn National Suicide Prevention Hotline: For patients cared for in the Department of Psychiatry, you can reach your mental health clinician at [phone]. Patient understands the plan? 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
--- OUTSIDE RECORDS SUMMARY | 2024-05-28 21:33 | XMS_ITS | Encounter Summary ---
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 Soren Mejia is aware that for any urgent matter theycan call [phone]. Attendee(s): patient This patient was seen with city plant supervisor Dr. Santo. See their note for [...] Denies suicidal ideation. 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 Will try to obtain in future. Social History: Per chart review, updated with relevant information Living Situation - in the past year, moved to [place] after his parents gave him approximately 17.5 acres [address] land. Says he lives by himself. Marital Status - single Children - denies Occupation - fired from job at [employer] in May 2023 - reports a long history of being fired from jobs. 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 - says he is currently living on savings and says he has no major expenses because his land is fully paid for and his mother provides meals Education - says he is currently studying professional studies at [employer] - denies Access to guns - yes, [...] volume, and normal rate Language: fluent in chilean Mood: Okay Affect: Euthymic Thought Process: linear [...] found for: 25OHVITD No results found for: [id number] No results found for: LITHIUM No results [...] emergencies, call 988 from anywhere in the [facility]. State specific information for [place] and [place] crisis services are as follows and should be used to access local resources: [facility] Crises Services [facility] Crisis Line text or call Visit www.[employer] for further information [place] Call your local community crisis line at: [place]: [facility] [phone] [place]: [facility] [phone] [place]: [facility] [phone] Abhin[place]: [facility] [phone] [place]: [facility] [phone] Mary Kate Lomax: [facility] Counseling and Support [phone] [place]: [facility] [phone] on weekdays 8AM-4:30PM and [phone] on nights and weekends [place]: Yajaira [facility] [place]: [facility] [phone] [place]: [facility] [phone] [place]: [facility], [place]: HCRS [place]: HCRS or Text [place] to [phone] For further information for [place] residents: https://mentalhealth.[place].[facility]/services/emergency-services/hnn-dfr-wibg National Suicide Prevention Hotline: For patients cared for in the Department of Psychiatry, you can reach your mental health clinician at [phone]. Patient understands the plan? 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
--- OUTSIDE RECORDS SUMMARY | 2024-05-28 21:33 | XMS_ITS | Encounter Summary ---
Author Organization [facility] [place] [address] Care Team Providers Care Buckle Wire Inserter Name Role Phone Gabbie Sams MD Primary Care Provider [phone] Encounter Details Date Type Department Care Team (Late st Contact Info) Description 09/14/2023 [place] [address] Angela Alejandre RN Social History Tobacco Use [...] if these studies could be done at [facility], [place], [place], because it is closer to home. The patient talked about his health issues including his constant, daily nausea that is not going away despite stopping cannabis for several months. Ordering provider contacted regarding the patient'srequest to have imaging done at [facility]. documented in this encounter Plan of Treatment Upcoming Encounters Date Type Department Care Team (Late st Contact Info) Description 08/13/2024 9:00 AM EST TH Visit (TeleHealth) Psychiatry [place] [address] Fermin Mercado MD [facility] [place] [address] documented as of this encounter Visit Diagnoses Not on filedocumented in this encounter Care Teams Buckle Wire Inserter Relationship Specialty Start Date End Date Gabbie Sams MD [address] [place] [address] PCP - General Family Medicine 12/31/22 documented as of this encounter
--- OUTSIDE RECORDS SUMMARY | 2024-05-28 21:33 | XMS_ITS | Encounter Summary ---
Author Organization [facility] Address [facility] [address] Care Team Providers Care Fiber Technician Name Role Phone Gabbie Sams MD Primary Care Provider Reason for Visit * Reason Onset Date Comments Medication Refill 02/01/2024 Encounter Details Date Type Department Care Team (Late st Contact Info) Description 02/01/2024 Refill Psychiatry [place] [phone] Fermin Mercado MD [facility] [address] [place] [id number] Social History Tobacco Use Types Packs/Day Years [...] encounter Miscellaneous Notes * Telephone Encounter - Susan Britt CMA - 02/01/2024 1:30 PM EDT Prescription Renewal Request Name: Soren Mejia : 1985 Prescription(s) Requested: Requested Prescriptions Pending Prescriptions Disp Refills ARIPiprazole (Abilify) 5 mg tablet 30 tablet 2 Sig: Take 1 tablet by mouth daily. Date of Encounter last in This Dept (If need an appointment send to secretaries to schedule): Fermin Mercado MD (Resident) Psychiatry Encounter Date: 12/05/2023 Signed Next Encounter in This Dept: 02/06/2024 Date of Last Refill (for each medication): ARIPIPRAZOLE 5 MG TABLET Sig: take one tablet by mouth every day Dispensed: 01/02/2024 12:00 AM Unit strength: 5 mg Unit form: tablet with sensor Days supply: 30 Quantity: 30 each Refills remainin Medication category requirements (labs etc): Labs not required per protocol Status of request: Pended Allergies Allergen Reactions Ceftin [Cefuroxime Axetil] Compazine [Prochlorperazine] Penicillins Susan Britt CMA 02/01/24 1:30 PM documented in this encounter Plan of Treatment Upcoming Encounters Date Type Department Care Team (Late st Contact Info) Description 08/13/2024 9:00 AM EST TH Visit (TeleHealth) Psychiatry [place] [address] Fermin Mercado MD [facility] [place] [address] documented as of this encounter Visit Diagnoses Not on filedocumented in this encounter Care Teams Fiber Technician Relationship Specialty Start Date End Date Gabbie Sams MD [address] [place] [address] PCP - General Family Medicine 12/31/22 documented as of this encounter
--- OUTSIDE RECORDS SUMMARY | 2024-05-28 21:33 | XMS_ITS | Encounter Summary ---
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 Soren Mejia is aware that for any urgent matter theycan call [phone]. Attendee(s): patient This patient was seen with cloth grader supervisor Dr. Santo. 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 Will try to obtain in future. Social History: Per chart review, updated with relevant information Living Situation - in the past year, moved to [place] after his parents gave him approximately 17.[address] acres [address]. Says he lives by himself. Marital Status - single Children - denies Occupation - fired from job at [employer] in May 2023 - reports a long history of being fired from jobs. 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 - says he is currently living on savings and says he has no major expenses because his land is fully paid for and his mother provides meals Education - says he is currently studying professional studies at [employer] - denies Access to guns - yes, [...] volume, and normal rate Language: fluent in icelandic Mood: Okay Affect: Euthymic Thought Process: linear [...] found for: 25OHVITD No results found for: [id number] No results found for: LITHIUM No results [...] emergencies, call 988 from anywhere in the [facility]. State specific information for [place] and [place] crisis services are as follows and should be used to access local resources: [facility] Mental Health Crises Services [facility] Crisis Line text or call Visit www.[employer] for further information [place] Call your local [facility] crisis line at: [place]: Counseling Service [facility] [phone] [place]: [facility] [phone] [place]: [facility] [phone] [place]: [facility] [phone] [place]: [facility] [phone] [place] garry [place]: [facility] Counseling and Support [phone] [place]: [facility] Mental Health [phone] on weekdays 8AM-4:30PM and [phone] on nights and weekends [place]: Yajaira [facility] [place]: [facility] [phone] [place]: [facility] Services [phone] [place]: [facility], [place]: HCRS [place]: HCRS or Text [place] to [phone] For further information for [place] residents: https://mentalhealth.[place].[facility]/services/emergency-services/vlm-iwa-btow National Suicide Prevention Hotline: For patients cared for in the Department of Psychiatry, you can reach your mental health clinician at [phone]. Patient understands the plan? Yes Signed By: [...] Visit (TeleHealth) Psychiatry [place] [address] Fermin Mercado MD [facility] [place] [address] documented as of this encounter Visit Diagnoses Diagnosis FPC current use of antipsychotic medication Moderate episode of recurrent major depressive disorder documented in this encounter Care Teams Compensation Programs Manager Relationship Specialty Start Date End Date Gabbie Sams MD [address] [place] [address] PCP - General Family Medicine 12/31/22 documented as of this encounter
--- OUTSIDE RECORDS SUMMARY | 2024-05-28 21:33 | XMS_ITS | Encounter Summary ---
Author Organization [facility] [place] [address] Care Team Providers Care Rental Car Porter Name Role Phone Gabbie Sams MD Primary Care Provider [phone] Encounter Details Date Type Department Care Team (Late st Contact Info) Description 07/15/2023 Telephone [place] [address] Swapna Mills LNA Social History [...] to his visit with Dr. Youssef. Email: [email or web address] documented in this encounter Plan of Treatment Upcoming Encounters Date Type Department Care Team (Late st Contact Info) Description 08/13/2024 9:00 AM EST TH Visit (TeleHealth) Psychiatry [place] [address] Fermin Mercado MD [facility] [place] [address] documented as of this encounter Visit Diagnoses Not on filedocumented in this encounter Care Teams Rental Car Porter Relationship Specialty Start Date End Date Gabbie Sams MD [address] [place] [address] PCP - General Family Medicine 12/31/22 documented as of this encounter
--- OUTSIDE RECORDS SUMMARY | 2024-05-28 21:33 | XMS_ITS | Encounter Summary ---
Author Organization Replaced By [facility] Address [facility] [place] [address] Care Team Providers Care Key Ringer Name Role Phone Gabbie Sams MD Primary Care Provider [phone] Encounter Details Date Type Department Care Team (Latest Contact Info) Description 05/21/2024 9:30 AM EST TH Visit (TeleHealth) Psychiatry [place] [address] Fermin Meracdo MD [facility] [place] [place] [address] home attendant current use of antipsychotic medication; Recurrent major depressive disorder, in partial remission Social History Tobacco Use Types Packs/Day Years [...] Progress Notes * Fermin Mercado MD - 05/21/2024 9:30 AM EST Images from the original note were not included. ESTABLISHED ADULT PSYCHIATRY OUTPATIENT VISIT NOTE Location: Telehealth. Soren Mejia gave permission for and was seen for today's appointment with a Telehealth visit. During this visit they were located in [place]. Soren Mejia is aware that for any urgent matter theycan call [phone]. Attendee(s): patient This patient was seen with emergency crew supervisor Dr. Santo. See their note for confirmatory and/or revisionary documentation. Chief Complaint: quite stable History of Present Illness: Soren Mejia is [...] ulnar neuropathy. 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 Says at times, he thinks I can't deal with this. But he notes I'm able to disarm this before I think anything bad. - denies subjective side effects from current medication regimen - reports he's 99% recovered from a concussion earlier this year and completed physical therapy Medication regimen prior to encounter - Abilify 5mg daily - therapy weekly in [place] - lisdexamfetamine 60mg daily (prescribed by PCP) - gabapentin 800mg TID (prescribed by PCP) - amitriptyline 50mg QHS (prescribed by neurologist) - Lyrica (prescribed by PCP) - cyclobenzaprine 5mg QHS (prescribed by PCP) Past Psychiatric history and treatment: Per chart [...] day until he went to rehab in [facility] in approximately 2017 - since [...] review, updated with relevant information: - deferred Developmental History: Per chart review, updated with relevant information: - growing up, he reports he started speaking and walking late - 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 Says he lives by himself. Marital Status - single Children - denies Occupation - fired from job at [employer] in May 2023 - reports a long history of being fired from jobs. 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 Education - says he is currently studying professional studies at [employer] - denies Access to guns - yes, reports they are stored in a safe Trauma History: Per chart review, updated with relevant information: - sustained significant jaw injury 13 years ago (approximately 2010) - further investigation of trauma history was deferred due to time limitations on intake Questionnaires: PHQ9 Questionnaires Data (Clinic and Pt Entered): last 4 values 05/04/2023 10/10/2023 12/05/2023 02/06/2024 PHQ-9: Last 4 Responses PHQ - 9 Score 8 (Mild Depression) 11 (Moderate Depression) 4 (Minimal Depression) PHQ - 9 Score (Pt Questionnaire) 8 (Mild Depression) 11 (Moderate Depression) 4 (Minimal Depression) Little interest or pleasure Not at all Several Days Several Days Not at all Little interest or pleasure (Pt Questionnaire) Several Days Several Days Not at all Down, depressed, hopeless Not at all Several Days Several Days Several Days Down, depressed, hopeless (Pt Questionnaire) Several Days Several Days Several Days Trouble sleeping Not at all Nearly every day Several days Trouble sleeping (Pt Questionnaire) Not at all Nearly every day Several days Tired or no energy Several Days Several Days Several Days Tired or no energy (Pt Questionnaire) Several Days Several Days Several Days Poor appetite or overeating Nearly every day Several days Several days Poor appetite or overeating (Pt Questionnaire) Nearly every day Several days Several days Feeling like a failure Several Days Several Days Not at all Feeling like a failure (Pt Questionnaire) Several Days Several Days Not at all Trouble concentrating Several Days Nearly every day Not at all Trouble concentrating (Pt Questionnaire) Several Days Nearly every day Not at all Moving or speaking slowly Not at all Not at all Not at all Moving or speaking slowly (Pt Questionnaire) Not at all Not at all Not at all Would be better off Not at all Not at all Not at all Would be better off (Pt Questionnaire) Not at all Not at all Not at all GAD7 Questionnaires Data: last 4 values 10/10/2023 1:18 PM 12/05/2023 12:49 PM 02/06/2024 9:05 AM LUNA-7: All Responses GAD7 Total Score (Range 0-21) 7 (Mild Anxiety) 10 (Moderate Anxiety) 5 (Mild Anxiety) LUNA-7 Score 7 10 5 LUNA-7 Score (Pt Questionnaire) 7 (Mild Anxiety) 10 (Moderate Anxiety) 5 (Mild Anxiety) Nervous, anxious (Pt Questionnaire) Several days Several days Not at all Nervous, anxious Several days Several days Not at all Unable to stop worrying (Pt Questionnaire) Several days Several days Not at all Unable to stop worrying Several days Several days Not at all Worrying about different things (Pt Questionnaire) Several days Several days Not at all Worrying about different things Several days Several days Not at all Trouble relaxing (Pt Questionnaire) Several days Several days Several days Trouble relaxing Several days Several days Several days Restless (Pt Questionnaire) Not at all Nearly every day Not at all Restless Not at all Nearly every day Not at all Easily annoyed, irritable (Pt Questionnaire) Nearly every day Nearly every day Nearly every day Easily annoyed, irritable Nearly every day Nearly every day Nearly every day Afraid something awful will happen (Pt Questionnaire) Not at all Not at all Several days Afraid something awful will happen Not at all Not at all Several days Current Medications: Current Outpatient Medications Medication Sig Dispense Refill cyclobenzaprine (Flexeril) 5 mg tablet Take 5 mg by mouth nightly. gabapentin (Neurontin) 800 mg tablet Take 1 tablet by mouth Three Times Daily for DHE. ARIPiprazole (Abilify) 5 mg tablet Take 1 tablet by mouth daily. 30 tablet 3 amitriptyline (Elavil) 50 mg tablet Take 50 mg by mouth nightly. hydrocortisone (CORTENEMA) 100 mg/60 mL Enema INSERT [...] daily. tamsulosin (Flomax) 0.4 mg capsule daily. lisdexamfetamine (Vyvanse) 50 mg capsule Take [...] (24hr Range): No data found. Musculoskeletal System: Limited due to phone interview Mental Status Exam: Appearance: limited due to phone interview Behavior: cooperative with the interview and calm Speech: normal pitch, normal volume, and normal rate Language: fluent in bulgarian Mood: stable Affect: limited due to phone interview Thought Process: linear and logical Associations: intact Thought Content: denied suicidal ideation Perception: denied auditory hallucinations denied visual hallucinations Orientation: grossly intact by interview Attention/Concentration: able [...] found for: 25OHVITD No results found for: [id number] No results found for: LITHIUM No results found for: PHENYTOIN, PHENOBARB, VALPROATE, CBMZ No results found for: CLOZAPINE No results found for: HCGQUAL, HCGQUANT, POCUAHCG Relevant imaging: No results found for this visit on 05/21/24. Formulation and Assessment: Overall Formulation: Soren Mejia [...] syndrome and mild right ulnar neuropathy. CURRENT ASSESSMENT on 05/21/2024: Soren continues to report markedly improved symptoms of depression with no suicidality, which coincides with the addition of Abilify in July 2023 and psychosocial reasons (received a home from his parents, is starting a new job, and is going to weekly therapy). Continues to tolerate Abilify well with no reported side effects. Sustained severe concussion at the end of October with significant postconcussive symptoms, including anxiety and insomnia; the symptoms have resolved. No medication changes indicated at this time. Will plan to obtain lipid panel. In the future, if depressive symptoms recur, [...] #chronic pain #Postconcussive symptoms, sustained in October 2023, resolved - continue Abilify 5mg daily (initial start in July 2023) - continue amitriptyline 50mg QHS (prescribed by neurologist) - continue weekly therapy #ADHD - continue Vyvanse 60mg daily (currently prescribed by PCP) #lab monitoring - A1c within normal limits in August 2023 - last lipid panel on 03/08/23; ordered lipid panel - Could consider thyroid or vitamin D testing in the future Next Appointment: August 13, 2024 via telehealth Patient Instruction/Education provided: Patient provided verbal instructions regarding medication side effects, safety plan in case of feeling unsafe. For mental health emergencies, call [phone] from anywhere in the [facility]. State specific information for [place] and [place] crisis services are as follows and should be used to access local resources: [facility] Mental Health Crises Services [facility] Crisis Line text or call Visit www.[email or web address] for further information [place] Call your local [facility] crisis line at: [place]: Counseling Service [facility] [phone] [place]: [facility] [phone] [place]: [facility] [phone] [place]: [facility] [phone] [place]: [facility] [phone] Marydel garry [place]: [facility] Counseling and Support [phone] [place]: [facility] [phone] on weekdays 8AM-4:30PM and [phone] on nights and weekends [place]: [facility] [place]: [facility] [phone] [place]: [facility] [phone] [place]: [facility] Services, [place]: HCRS [place]: HCRS or Text [place] to [phone] For further information for [place] residents: https://mentalhealth.[place].[facility]/services/emergency-services/qyz-sio-ousf National Suicide Prevention Hotline: For patients cared for in the Department of Psychiatry, you can reach your mental health clinician at [phone]. Patient understands the plan? Yes Signed By: Fermin Mercado MD 05/21/2024 * Braulio Santo MD - 05/21/2024 9:30 AM EST PSYCHIATRY TEACHING PHYSICIAN INVOLVEMENT Location: Adult [...] Exam, Major issues addressed and plan: doing really well. Starting a new job. Financiallystable. Medications are helpful. No suicidal or homicidal ideation. No alcohol misuse. No illicit drug use. Due for lipids. Current Outpatient Medications Medication Sig Dispense Refill cyclobenzaprine (Flexeril) 5 mg tablet Take 5 mg by mouth nightly. gabapentin (Neurontin) 800 mg tablet Take 1 tablet by mouth Three Times Daily for DHE. ARIPiprazole (Abilify) 5 mg tablet Take 1 tablet by mouth daily. 30 tablet 3 amitriptyline (Elavil) 50 mg tablet Take 50 mg by mouth nightly. hydrocortisone (CORTENEMA) 100 mg/60 mL Enema INSERT [...] daily. tamsulosin (Flomax) 0.4 mg capsule daily. lisdexamfetamine (Vyvanse) 50 mg capsule Take [...] SANTO MD PHQ9 Questionnaire Data: Today's value 02/06/2024 PHQ-9: Responses Post 10/11/22 Conversion PHQ-9 Score 4 (Minimal Depression) Little interest or pleasure Not at all Down, depressed, hopeless Several Days PHQ-2 Subscore 1 Trouble sleeping Several days Tired or no energy Several Days Poor appetite or overeating Several days Feeling like a failure Not at all Trouble concentrating Not at all Moving or speaking slowly Not at all Would be better off Not at all documented in this encounter Plan of Treatment Upcoming Encounters Date Type Department Care Team (Late st Contact Info) Description 08/13/2024 9:00 AM EST TH Visit (TeleHealth) Psychiatry [place] [address] Fermin Mercado MD [facility] [place] [address] Scheduled Orders Name Type Priority Associated Diagnoses Orde r Schedule Lipid Panel (Reflex Direct LDL) Lab Routine home attendant current use of antipsychotic medication Expected: 05/21/2024 (Approximate), Expires: 08/19/2024 documented as of this encounter Visit Diagnoses Diagnosis home attendant current use of antipsychotic medication Recurrent major depressive disorder, in partial remission documented in this encounter Care Teams Key Ringer Relationship Specialty Start Date End Date Gabbie Sams MD [address] [place] [address] PCP - General Family Medicine 12/31/22 documented as of this encounter
--- OUTSIDE RECORDS SUMMARY | 2024-05-28 21:33 | XMS_ITS | Encounter Summary ---
Author Organization [facility] [place] [address] Care Team Providers Care Production Operations Inspector Name Role Phone Gabbie Sams MD Primary Care Provider [phone] Encounter Details Date Type Department Care Team (Late st Contact Info) Description 10/07/2023 Telephone Psychiatry [place] [id number] Lore Molina Social History Tobacco Use Types [...] Miscellaneous Notes * Telephone Encounter - Jeanie Adhiakri RN - 10/07/2023 11:08 AM EDT Let Soren know script was sent yesterday, Soren going to pharmacy now to p/u. * Telephone Encounter - Lore Molina - 10/07/2023 9:10 AM EDT PT called and said he left a msg yesterday and no one has returned his call. He needs this prescription today as he is out. Prescription (Abilify) is to go to [facility] in [facility]. Please callhim at [phone] documented in this encounter Plan of Treatment Upcoming Encounters Date Type Department Care Team (Late st Contact Info) Description 08/13/2024 9:00 AM EST TH Visit (TeleHealth) Psychiatry [place] [address] Fermin Mercado MD [facility] [place] [address] documented as of this encounter Visit Diagnoses Not on filedocumented in this encounter Care Teams Production Operations Inspector Relationship Specialty Start Date End Date Gabbie Sams MD [address] [place] [address] PCP - General Family Medicine 12/31/22 documented as of this encounter
--- OUTSIDE RECORDS SUMMARY | 2024-05-28 21:33 | XMS_ITS | Encounter Summary ---
Author Organization [facility] [place] [address] Care Team Providers Care Red Cap Name Role Phone Gabbie Sams MD Primary Care Provider Encounter Details Date Type Department Care Team (Late st Contact Info) Description 09/15/2023 Telephone [place] [phone] Pablo Villagomez RN Social History Tobacco Use [...] radiology tests done up near him at [facility] or some place closer to home since [...] Visit (TeleHealth) Psychiatry and [place] [address] Fermin Mercado MD [facility] [place] [address] documented as of this encounter Visit Diagnoses Not on filedocumented in this encounter Care Teams Red Cap Relationship Specialty Start Date End Date Gabbie Sams MD [address] [place] [address] PCP - General Family Medicine 12/31/22 documented as of this encounter
--- OUTSIDE RECORDS SUMMARY | 2024-05-28 21:33 | XMS_ITS | Encounter Summary ---
Author Organization [facility] [place] [address] Care Team Providers Care Corrections Sergeant Name Role Phone Gabbie Sams MD Primary Care Provider [phone] Reason for Visit * Reason Onset Date Comments Waitlist Status Update 07/12/2023 Called an d LVM x1, sooner availability 07/14 - 07/12/23 SLE Encounter Details Date Type Department Care Team (Late st Contact Info) Description 07/12/2023 Telephone [place] [address] Vicki Smith Waitlist Status Update (Called and [...] AM EST Left message and sent a [employer] message to the patient regarding a sooner appointment with Dr. Savage the WaitList in [facility] Call Center Scheduling- Please offer any available [...] Visit (TeleHealth) Psychiatry [place] [address] Fermin Mercado MD [facility] [place] [address] documented as of this encounter Visit Diagnoses Not on filedocumented in this encounter Care Teams Corrections Sergeant Relationship Specialty Start Date End Date Gabbie Sams MD [address] [place] [address] PCP - General Family Medicine 12/31/22 documented as of this encounter
--- OUTSIDE RECORDS SUMMARY | 2024-05-28 21:33 | XMS_ITS | Encounter Summary ---
Author Organization [facility] Address [facility] [place] [address] Care Team Providers Care Superintendent House Name Role Phone Gabbie Sams MD Primary Care Provider [phone] Reason for Visit * Reason Onset Date Comments Medication Refill 10/06/2023 Encounter Details Date Type Department Care Team (Late st Contact Info) Description 10/06/2023 Refill Psychiatry [place] [address] Vicki Jackson, RN Social History Tobacco Use Types Packs/Day [...] Visit (TeleHealth) Psychiatry [place] [address] Fermin Mercado MD [facility] [place] [address] documented as of this encounter Visit Diagnoses Not on filedocumented in this encounter Care Teams Superintendent House Relationship Specialty Start Date End Date Gabbie Sams MD [address] [place] [address] PCP - General Family Medicine 12/31/22 documented as of this encounter
--- OUTSIDE RECORDS SUMMARY | 2024-05-28 21:33 | XMS_ITS | Encounter Summary ---
Author Organization [facility] Address [facility] [place] [address] Care Team Providers Care Spray Applicator Name Role Phone Gabbie Sams MD Primary Care Provider [phone] Encounter Details Date Type Department Care Team (Late st Contact Info) Description 05/04/2024 Telephone Psychiatry [place] [address] Ashley Lrasen Social History Tobacco Use Types Packs/Day Years [...] Visit (TeleHealth) Psychiatry [place] [address] Fermin Mercado MD [facility] [place] [address] documented as of this encounter Visit Diagnoses Not on filedocumented in this encounter Care Teams Spray Applicator Relationship Specialty Start Date End Date Gabbie Sams MD [address] [place] [address] PCP - General Family Medicine 12/31/22 documented as of this encounter
--- OUTSIDE RECORDS SUMMARY | 2024-05-28 21:33 | XMS_ITS | Encounter Summary ---
Author Organization [facility] [place] [address] Care Team Providers Care Bonding Machine Operator Name Role Phone Gabbie Sams MD Primary Care Provider [phone] Encounter Details Date Type Department Care Team [...] Visit (TeleHealth) Psychiatry [place] [address] Fermin Mercado MD [facility] [place] [address] documented as of this encounter Visit Diagnoses Not on filedocumented in this encounter Care Teams Bonding Machine Operator Relationship Specialty Start Date End Date Gabbie Sams MD [address] [place] [address] PCP - General Family Medicine 12/31/22 documented as of this encounter
--- OUTSIDE RECORDS SUMMARY | 2024-05-28 21:33 | XMS_ITS | Encounter Summary ---
Author Organization [place] [address] Care Team Providers Care Manager Quality Systems Name Role Phone Gabbie Sams MD Primary Care Provider [phone] Encounter Details Date Type Department Care Team [...] Visit (TeleHealth) Psychiatry [place] [address] Fermin Mercado MD [facility] [place] [address] documented as of this encounter Visit Diagnoses Not on filedocumented in this encounter Care Teams Manager Quality Systems Relationship Specialty Start Date End Date Gabbie Sams MD [address] [place] [address] PCP - General Family Medicine 12/31/22 documented as of this encounter
--- OUTSIDE RECORDS SUMMARY | 2024-05-28 21:33 | XMS_ITS | Encounter Summary ---
Author Organization [facility] Address [facility] [place] [address] Care Team Providers Care Physicians Assistant Name Role Phone Gabbie Sams MD Primary Care Provider [phone] Encounter Details Date Type Department Care Team (Latest Contact Info) Description 02/06/2024 9:30 AM EDT TH Visit (TeleHealth) Psychiatry [place] [address] Fermin Mercado MD [facility] [place] [address] Recurrent major depressive disorder, in partial remission [...] Progress Notes * Fermin Mercado MD - 02/06/2024 9:30 AM EDT Images from the original note were not included. ESTABLISHED ADULT PSYCHIATRY OUTPATIENT VISIT NOTE Location: Telehealth. Soren Mejia gave permission for and was seen for today's appointment with a Telehealth visit. During this visit they were located in [place]. Soren Mejia is aware that for any urgent matter theycan call [phone]. Attendee(s): patient This patient was seen with doping supervisor Dr. Santo. See their note for confirmatory and/or revisionary documentation. Chief Complaint: Pretty good History of Present Illness: Soren Mejia is [...] and mild right ulnar neuropathy. Interval history -Soren reports his mood has been pretty good and denies suicidal ideation. 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 Continues to make progress on building hisown home (most recently working on the [employer]). -Notes he has recovered 95% after sustaining a severe concussion a few months ago, completed physical therapy. -Says he has started seeing a therapist every week in [place] -Reports some continued chronic irritability. Medication regimen prior to encounter - lisdexamfetamine 60mg daily (prescribed by PCP) - gabapentin 600mg TID (prescribed by PCP) - amitriptyline 50mg QHS (prescribed by neurologist) - Lyrica - Abilify 5mg daily - Connected with [place] Retain Past Psychiatric history and treatment: Per chart [...] day until he went to rehab in 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 Says he lives by himself. Marital Status - single Children - denies Occupation - fired from job at [employer] in May 2023 - reports a long history of being fired from jobs. 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 and summer 2023 Education - says he is currently studying professional studies at [employer] - denies Access to guns - yes, reports they are stored in a safe Trauma History: Per chart review, updated with relevant information: - sustained significant jaw injury 13 years ago (approximately 2010) - further investigation of trauma history was deferred due to time limitations on intake Questionnaires: PHQ9 Questionnaires Data (Clinic and Pt Entered): last 4 values 05/04/2023 10/10/2023 12/05/2023 PHQ-9: Last 4 Responses PHQ - 9 Score 8 (Mild Depression) 11 (Moderate Depression) PHQ - 9 Score (Pt Questionnaire) 8 (Mild Depression) 11 (Moderate Depression) Little interest or pleasure Not at all Several Days Several Days Little interest or pleasure (Pt Questionnaire) Several Days Several Days Down, depressed, hopeless Not at all Several Days Several Days Down, depressed, hopeless (Pt Questionnaire) Several Days Several Days Trouble sleeping Not at all Nearly every day Trouble sleeping (Pt Questionnaire) Not at all Nearly every day Tired or no energy Several Days Several Days Tired or no energy (Pt Questionnaire) Several Days Several Days Poor appetite or overeating Nearly every day Several days Poor appetite or overeating (Pt Questionnaire) Nearly every day Several days Feeling like a failure Several Days Several Days Feeling like a failure (Pt Questionnaire) Several Days Several Days Trouble concentrating Several Days Nearly every day Trouble concentrating (Pt Questionnaire) Several Days Nearly every day Moving or speaking slowly Not at all Not at all Moving or speaking slowly (Pt Questionnaire) Not at all Not at all Would be better off Not at all Not at all Would be better off (Pt Questionnaire) Not at all Not at all GAD7 Questionnaires Data: last 4 values 10/10/2023 1:18 PM 12/05/2023 12:49 PM LUNA-7: All Responses GAD7 Total Score (Range 0-21) 7 (Mild Anxiety) 10 (Moderate Anxiety) LUNA-7 Score 7 10 LUNA-7 Score (Pt Questionnaire) 7 (Mild Anxiety) 10 (Moderate Anxiety) Nervous, anxious (Pt Questionnaire) Several days Several days Nervous, anxious Several days Several days Unable to stop worrying (Pt Questionnaire) Several days Several days Unable to stop worrying Several days Several days Worrying about different things (Pt Questionnaire) Several days Several days Worrying about different things Several days Several days Trouble relaxing (Pt Questionnaire) Several days Several days Trouble relaxing Several days Several days Restless (Pt Questionnaire) Not at all Nearly every day Restless Not at all Nearly every day Easily annoyed, irritable (Pt Questionnaire) Nearly every day Nearly every day Easily annoyed, irritable Nearly every day Nearly every day Afraid something awful will happen (Pt Questionnaire) Not at all Not at all Afraid something awful will happen Not at all Not at all Current Medications: Current Outpatient Medications Medication Sig Dispense Refill ARIPiprazole (Abilify) 5 mg tablet Take 1 tablet by mouth daily. 30 tablet 2 amitriptyline (Elavil) 50 mg tablet Take 50 [...] volume, and normal rate Language: fluent in salvadorean Mood: Pretty good Affect: Euthymic Thought Process: linear and logical [...] found for: 25OHVITD No results found for: AOIUHTVR10 No results found for: LITHIUM No results found for: PHENYTOIN, PHENOBARB, VALPROATE, CBMZ No results found for: CLOZAPINE No results found for: HCGQUAL, HCGQUANT, POCUAHCG Relevant imaging: No results found for this visit on 02/06/24. Formulation and Assessment: Overall Formulation: Soren Mejia [...] mild right ulnar neuropathy. 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 Continues to tolerate Abilify well with no reported side effects. Sustained severe concussion at the end of October with significant postconcussive symptoms, including anxiety and insomnia; the symptoms have since improved. No medication changes indicated at this time. Advised continued exploration of subjective irritability with his new therapist. In the future, if depressive sy mptoms recur, could consider further titration of Abilify. [...] #Postconcussive symptoms, sustained in October 2023 - continue Abilify 5mg daily (initial start in July 2023) - continue gabapentin 600mg TID (prescribed by PCP) - continue amitriptyline 50mg QHS (prescribed by neurologist) - continue weekly therapy #ADHD - continue Vyvanse 60mg daily (currently prescribed by PCP) #lab monitoring - A1c within normal limits in August 2023 - last lipid panel on 03/08/23 - Could consider thyroid or vitamin D testing in the future Next Appointment: May 21 at 9:30 AM via telehealth Patient Instruction/Education provided: Patient provided verbal instructions regarding medication side effects, safety plan in case of feeling unsafe. For mental health emergencies, call 988 from anywhere in the [place]. State specific information for [place] and [place] crisis services are as follows and should be used to access local resources: [facility] Crisis Line text or call Visit www.Cotendo for further information [place] Call your local [place] health care crisis line at: [place]: [facility] [place] [phone] [place]: [facility] Services [phone] [place]: [facility] [phone] [place]: [facility] [phone] [place]: [facility] [phone] [place]: [facility] Counseling and Support [phone] [place]: [facility] [phone] on weekdays 8AM-4:30PM and [phone] on nights and weekends [place]: [facility] [place]: [facility] [phone] [place]: [facility] Services [phone] [place]: [facility], [place]: [facility] [place]: HCRS or Text [place] to [phone] For further information for [place] residents: https://mentalhealth.[place].[facility]/services/emergency-services/yyx-iiq-ljuy National Suicide Prevention Hotline: For patients cared for in the Department of Psychiatry, you can reach your mental health clinician at [phone]. Patient understands the plan? Yes Signed By: Fermin Mercado MD 02/05/2024 * Braulio Santo MD - 02/06/2024 9:30 AM EDT PSYCHIATRY TEACHING PHYSICIAN INVOLVEMENT Location: Adult [...] Pertinent Exam, Major issues addressed and plan: things are going well. Irritability is improving. No suicidal or homicidal ideation. No alcohol misuse. No illicit drug use. No med changes. Current Outpatient Medications Medication Sig Dispense Refill ARIPiprazole (Abilify) 5 mg tablet Take 1 tablet by mouth daily. 30 tablet 2 amitriptyline (Elavil) 50 mg tablet Take 50 [...] Visit (TeleHealth) Psychiatry [place] [address] Fermin Mercado MD [facility] PSYCHIATRY [place] [id number] documented as of this encounter Visit Diagnoses Diagnosis Recurrent major depressive disorder, in partial remission documented in this encounter Care Teams Physicians Assistant Relationship Specialty Start Date End Date Gabbie Sams MD [address] [place] [address] PCP - General Family Medicine 12/31/22 documented as of this encounter
--- OUTSIDE RECORDS SUMMARY | 2024-05-28 21:33 | XMS_ITS | Clinical Summary ---
Author Organization [facility] [place] [address] Care Team Providers Care Case Making Machine Operator Name Role Phone Gabbie Sams MD Primary Care Provider [phone] Allergies Active Allergy Reactions Criticality Noted Date [...] (Flomax) 0.4 mg capsule daily. 12/23/2022 Active lisdexamfetamine (Vyvanse) 50 mg capsule Take [...] INSERT 100MG INTO RECTUM AT BEDTIME Active amitriptyline (Elavil) 50 mg tablet Take 50 mg by mouth nightly. 09/20/2022 Active ARIPiprazole (Abilify) 5 mg tablet Take 1 tablet by mouth daily. 30 tablet 3 05/04/2024 Active cyclobenzaprine (Flexeril) 5 mg tablet Take 5 mg by mouth nightly. 05/07/2024 Active gabapentin (Neurontin) 800 mg tablet Take 1 tablet by mouth Three Times Daily for DHE. 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 current use of antipsychotic medication; Recurrent major depressive disorder, in partial remission 05/04/2024 Telephone Psychiatry [place] [phone] Ashley Larsen 05/04/2024 Refill Psychiatry [place] [phone] Fermin Mercado MD from Last 3 Months Social History Tobacco [...] Visit (TeleHealth) Psychiatry and Behavioral Health at [facility] [place] [address] Fermin Mercado MD [facility] [place] [address] Health Maintenance Due Date Last Done Comments HIV screen 2004 Hepatitis C Screening 2004 Hepatitis B vaccine (0-59 yrs) (1) 2005 Tetanus/Diphtheria/Pertussis Vaccines (1 - Tdap) 07/16 Covid-19 Vaccine (1 - 2023- season) 2024 Influenza (Flu) vaccine (1 o f 1 - Influenza standard series) 02/12/2024 Lipid Screening 03/08/2028 03/08/2023 Procedures Procedure Name Priority Date/Time Associated Diagnosis Comments LIPID PANEL (REFLEX DIRECT LDL) Routine 03/08/2023 5:28 PM EDT High risk medication use from Last 3 Months or Most Recently Relevant to Health Maintenance Results * Lipid Panel (Reflex Direct LDL) (03/08/2023 5:28 PM EDT) Cholesterol, Total 151 mg/dL [facility] Comment: Lower Risk: <200 mg/dL Average Risk: 200-239 mg/dL Higher Risk: >ft=880 mg/dL Triglyceride 80 mg/dL [facility] Comment: Average Risk/Lower Risk: <150 mg/dL Borderline High Risk: 150-199 mg/dL High Risk: 200-499 mg/dL Very High Risk: >oo=409 mg/dL HDL Cholesterol 57 mg/dL [facility] Comment: Males: ?? Higher Risk: <40 mg/dL Females: ?? Higher Risk: <50 mg/dL LDL Cholesterol 78 mg/dL [facility] Comment: Lowest Risk: <100 mg/dL Lower Risk: 100-129 mg/dL Borderline High Risk: 130-159 mg/dL High Risk: 160-189 mg/dL Very High Risk: >ew=013 mg/dL Cholesterol/HDL Ratio 2.6 ratio [facility] Lipid Interpretation See Note [facility] Comment: Lipid management should be guided by a patient? s ASCVD risk, goals and preferences. ACC/AHA Guidelines recommend high intensity statin if clinical ASCVD or LDL greater than or equal to 190 mg/dL. http://[employer].com/GQA-GCI-Lwwrgwmup Adults aged 40-75 with LDL 70-189 mg/dL should have their 10 year ASCVD risk estimated with the ACC/AHA ASCVD risk magnetizer http://tools.acc.org/NMIPX-Iotb-Cvcocpfcd/ Statin should be discussed if risk greater [...] In Lab Chinedu Abreu MD CHEMISTRY ORDERABLES [facility] [place] [address] from Last 3 Months or Most Recently Relevant to Health Maintenance Care Teams Case Making Machine Operator Relationship Specialty Start Date End Date Gabbie Sams MD [address] [place] [address] PCP - General Family Medicine 12/31/22
--- OUTSIDE RECORDS SUMMARY | 2024-05-28 21:33 | XMS_ITS | Encounter Summary ---
Author Organization [place] [address] Care Team Providers Care [place] Actor Name Role Phone Gabbie Sams MD Primary Care Provider [phone] Encounter Details Date Type Department Care Team (Latest Contact Info) Description 08/29/2023 2:00 PM EDT TH Visit (TeleHealth) [place] [address] Jose Ford MD [facility] [place] [address] Functional dyspepsia Social History Tobacco Use Types [...] CARLOS Masterson RN + FLASH Miller, PhD [facility]ility [facility] What are functional bowel disorders? These are the most common type of gastrointestinal disorders in the [place] The most common functional bowel disorder in [...] what is the impact? 15-20% of general [place] population has IBS or FD or both IBS is the 2nd most common cause for lost work days (after common cold) in [place] IBS is estimated to cost the [place] economy 30 billion dollars per year These [...] with immediate onset of symptoms after infection); [facility] symptoms are expected in most patients however [...] - this approach benefits most patients OTC (uhpw-zkh-uhenffd) medications can be used for ongoing bothersome symptoms as listed below Your doctor (PCP or [facility] Gastroenterology provider or Gastroenterology provider) may decide [...] include All-Bran psyllium buds, Metamucil, bulk psyllium (Trendabl stores and DISKOVRe stores) Specifically we recommend starting Metamucil at [...] but convincing medical evidence is still lacking Ehzy-hwk-wpagsab supplements are not typically evaluated by FDA [...] on IBS Headspace (anxiety/stress/mindfulness) Calm (anxiety/stress/mindfulness) CBT-I assistant basketball coach (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) Curable (chronic pain) There [...] the likelihood that stressors will cause flares psychologytoday.[employer] ABCT.org [facility] Gut-directed hypnotherapy for IBS is also supported by research - you may find a provider at IBShyosis.[employer] OT Medications for Functional Gut Disorders Diarrhea [...] a stool softener that is safe for [place] usage (no risk of dependency) andthe dosage [...] under the supervision of a Gastroenterology provider (local or ) or Primary Care Provider Authors are not liable for misuse/misinterpretation of this information Patient Resources [place] [employer] https://www.gastro.org/practice-guidance/ou-bfzumte-lvrqpp/ topic/xikjluitg-sodju-bfqlgmia-ibs Badgut.org https://badgut.org/information-centre/o-s-pemunmcos-topics/ibs/ AboutIBS.org https://www.aboutibs.org/ Uptodate.com https://www.Cream Styledate.com/contents/tlfsefmgm-ycfwb-relwhncg-krctes-yaa-uwxtmo documented in this encounter Progress Notes * Jose Ford MD - 08/29/2023 2:00 PM EDT [facility] TELEMEDICINE PROGRAM Chief Complaint: Soren Mejia is a 38 [address] Zarina diaz. provider found here for follow-up. Detailed history: [...] history that includes Upper Gi Endoscopy, Biopsy (40033)(N/A, 05/04/2023) and Sigmoidoscopy, Biopsy (06981) (N/A, 05/04/2023). Family History: family history is [...] Result status: Final Resulting lab: [facility] Value: [facility] Endoscopy Procedure Date: 05/04/2023 9:00 AM Patient Name: Soren Mejia Date of : 1985 Age: 37 Order #: [id number] Instrument Name: [id number] Procedure: Upper GI endoscopy Indications: Dyspepsia, Dysphagia, Heartburn, Nausea with vomiting Providers: Byron Elias, Carlos Alberto Rubio, April Mahoney, Pricing Associate Referring MD: Jose Meade Medicines: Monitored Anesthesia Care Complications: No immediate [...] procedure by the physician, the nurse, the sheet metal welder and the tool maintenance technician. The procedure was verified in the pre-procedure area in the endoscopy suite. - Pre-procedure physical examination revealed no contraindications to sedation. - ASA Grade Assessment: III - A patient with severe systemic disease. - After reviewing the risks and benefits, the patient was deemed in satisfactory condition to undergo the procedure. - Monitored anesthesia care under the supervision of a MATCH UP WORKER was determined to be medically necessary for [...] entire procedure. FLEXIBLE SIGMOIDOSCOPY FLEXIBLE SIGMOIDOSCOPY Collected: 05/04/23900 Result status: Final Resulting lab: [facility]ATION Value: [facility] Endoscopy Procedure Date: 05/04/2023 9:01 AM Patient Name: Soren Mejia Date of : 1985 Age: 37 Order #: [id number] Instrument Name: [id number] Procedure: Flexible Sigmoidoscopy Indications: Hematochezia, question of rectal prolapse and solitary rectal ulcer syndrome Providers: Byron Elias, Carlos Alberto Rubio, April Mahoney, Pricing Associate Referring MD: Gabbie Sams, Emmanuelle Sun, Jose [...] procedure by the physician, the nurse, the sheet metal welder and the tool maintenance technician. The procedure was verified in the pre-procedure area in the endoscopy suite. - Pre-procedure physical examination revealed no contraindications to sedation. - ASA Grade Assessment: III - A patient with severe systemic disease. - After reviewing the risks and benefits, the patient was deemed in satisfactory condition to undergo the procedure. - Monitored anesthesia care under the supervision of a MATCH UP WORKER was determined to be medically necessary for [...] testing completed The patient was located in [place] at the time of their visit. TIME SPENT WITH PATIENT Time spent reviewing records prior to this encounter on day of appointment: 5 minutes Time spent during encounter with patient including counselin minutes Time spent documenting encounter after office visit: 5 minutes Jose Ford MD [facility] [place] [address] documented in this encounter Plan of Treatment Upcoming Encounters Date Type Department Care Team (Late st Contact Info) Description 08/13/2024 9:00 AM EST TH Visit (TeleHealth) Psychiatry [place] [address] Fermin Mercado MD [facility] [place] [address] documented as of this encounter Visit Diagnoses Diagnosis Functional dyspepsia Dyspepsia and other specified disorders of function of stomach documented in this encounter Care Teams [place] Actor Relationship Specialty Start Date End Date Gabbie Sams MD [address] [place] [id number] PCP - General Family Medicine 12/31/22 documented as of this encounter
--- OUTSIDE RECORDS SUMMARY | 2024-05-28 21:33 | XMS_ITS | Encounter Summary ---
Author Organization [facility] Address [facility] [place] [address] Care Team Providers Care Nutrition Associate Name Role Phone Gabbie Sams MD Primary Care Provider [phone] Reason for Visit * Reason Onset Date Comments Medication Refill 05/04/2024 Encounter Details Date Type Department Care Team (Late st Contact Info) Description 05/04/2024 Refill Psychiatry [place] [phone] Fermin Mercado MD [facility] [address] [place] [address] Social History Tobacco Use Types Packs/Day Years [...] Visit (TeleHealth) Psychiatry [place] [phone] Fermin Mercado MD [facility] [place] [address] documented as of this encounter Visit Diagnoses Not on filedocumented in this encounter Care Teams Nutrition Associate Relationship Specialty Start Date End Date Gabbie Sams MD [address] [place] [address] PCP - General Family Medicine 12/31/22 documented as of this encounter
--- OUTSIDE RECORDS SUMMARY | 2024-05-28 21:33 | XMS_ITS | Encounter Summary ---
Author [facility] Address [facility] [place] [address] Care Team Providers Care Machine Fixer Name Role Phone Gabbie Sams MD Primary Care Provider [phone] Encounter Details Date Type Department Care Team (Late st Contact Info) Description 09/08/2023 Orders Only Psychiatry [place] [phone] Fermin Mercado MD [facility] [place] [place] [address] Social History Tobacco Use Types Packs/Day Years [...] Visit (TeleHealth) Psychiatry [place] [address] Fermin Mercado MD [facility] [place] [address] documented as of this encounter Visit Diagnoses Not on filedocumented in this encounter Care Teams Machine Fixer Relationship Specialty Start Date End Date Gabbie Sams MD [address] [place], [place] [address] PCP - General Family Medicine 12/31/22 documented as of this encounter
--- OUTSIDE RECORDS SUMMARY | 2024-05-28 21:33 | XMS_ITS | Encounter Summary ---
Author Organization [facility] Address [facility] [place] [address] Care Team Providers Care Custom Bow Maker Name Role Phone Gabbie Sams MD Primary Care Provider [phone] Reason for Visit * Psychiatric (Urgent) - Closed Specialty Diagnoses / Procedures Referred By Contac t Referred To Contact Psychiatry Diagnoses Depression, unspecified depression type Chinedu Abreu MD [facility] [place] [address] [facility] [place] [address] Referral ID Status Reason Start Date Expiration Date V isits Requested Visits Authorized [id number] Closed Consult, Test & Treat 06/02/2023 06/01/2024 1 1 Encounter Details Date Type Department Care Team (Latest Contact Info) Description 08/01/2023 1:00 PM EST Office Visit Psychiatry [place] [address] Fermin Mercado MD [facility] [place] [place] [address] Moderate episode of recurrent major depressive disorder; [...] Attendee(s): none This patient was seen with grinding supervisor Dr. Santo. 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 Will try to obtain in future. Social History: Per chart review, updated with relevant information Living Situation - in the past year, moved to [place] after his parents gave him approximately [place].[address] acres [address]. Says he lives by himself. - Says there is no running water but he is able to obtain drinking water from filling stations and has a natural waste area. Marital Status - single Children - denies Occupation - fired from job at [employer] in May 2023 - reports a long history of being fired from jobs. 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 - says he is currently living on savings and says he has no major expenses because his land is fully paid for and his mother provides meals Education - says he is currently studying professional studies at [employer] - denies Access to guns - [...] volume, and normal rate Language: fluent in east timorese Mood: 5/10 Affect: full Thought Process: linear [...] found for: [id number] No results found for: [id number] No results found for: LITHIUM No results [...] We discussed that I am available via [employer], but that I do not check this daily, and should not be used in case of emergency. We have reviewed crisis numbers to call in case of emergency. We discussed limits to confidentiality, which include breaking confidentiality in the case of concern for imminent danger to self, someone else (including child and elder abuse) or if records are subpoenaed by a certified ophthalmic assistant. We also discussed that notes can be read by other clinicians and staff involved in the patient's care. Patient understands the plan? Yes For mental health emergencies, call 988 from anywhere in the [facility]. State specific information for [place] and [place] crisis services are as follows and should be used to access local resources: [facility] Mental Health Crises Services [facility] Crisis Line text or call Visit www.[employer] for further information [place] Call your local community crisis line at: [place]kata: [facility] [phone] [place]: [facility] [phone] [place]: [facility] [phone] [place]hinav: [facility] [phone] Michelle: [facility] [phone] Mary Kate Lom[place]: [facility] [phone] [place]: [facility] [phone] on weekdays 8AM-4:30PM and [phone] on nights and weekends [place]: [facility] [place]: [facility] [phone] [place]: [facility] [phone] [place]: [facility] Services, Anurag: HCRS [place]: HCRS or Text [place] to [phone] For further information for [place] residents: https://mentalhealth.[place]/services/emergency-services/zfr-zvo-upqy National Suicide Prevention Hotline: For patients cared for in the Department of Psychiatry, you can reach your mental health clinician at [phone]. Signed By: Fermin Mercado MD 07/31/2023 * [...] working, lost job recently. Living remotely in [place] and somewhat isolated. +neurovegetative sx. Passive SI [...] Visit (TeleHealth) Psychiatry [place] [address] Fermin Mercado MD [facility] [place] [address] documented as of this encounter Visit Diagnoses Diagnosis Moderate episode of recurrent major depressive disorder Attention deficit disorder, unspecified hyperactivity presence PTSD (post-traumatic stress disorder) Posttraumatic stress disorder documented in this encounter Care Teams Custom Bow Maker Relationship Specialty Start Date End Date Gabbie Sams MD [address] [place] [address] PCP - General Family Medicine 12/31/22 documented as of this encounter
--- OUTSIDE RECORDS SUMMARY | 2024-05-28 21:33 | XMS_ITS | Encounter Summary ---
Author Organization [facility] [place] [address] Care Team Providers Care Supervisor Molding Name Role Phone Gabbie Sams MD Primary Care Provider [phone] Reason for Referral * Consultation (Routine) - Closed Specialty Diagnoses / Procedures Referred By Balaji hoang Referred To Contact [facility] Diagnoses Chronic jaw pain Fabián Newton PA [facility] [place] [address] [facility] Pain Management [address] [place] [address] [place] [address] Referral ID Status Reason Start Date Expiration Date V isits Requested Visits Authorized [id number] Closed Consult, Test & Treat 06/03/2023 06/02/2024 1 1 Reason for Visit * Consultation (Routine) - Closed Specialty Diagnoses / Procedures Referred By Balaji hoang Referred To Contact Maxillofacial Surgery Diagnoses Facial neuralgia Ramy Heath PA [facility] [place] [place] [address] [facility] Maxillo [facility]urg [address] [place] [phone] Referral ID Status Reason Start Date Expiration Date V isits Requested Visits Authorized [id number] Closed Consult, Test & Treat 02/18/2023 02/18/2024 1 1 Encounter Details Date Type Department Care Team ([facility] Contact Info) Description 06/03/2023 4:00 PM EST Office Visit [place] [address] Damian Youssef DMD [facility] [place] [address] Chronic jaw pain; Orofacial neuropathic pain Social [...] brings pain to a 6/10. Was on long term care social worker opioid but pain specialist at [facility] Feels burning pressure on his chin. Looking [...] in Mr. Mejia's care. Damian Youssef DMD, DMSc, SHELLI Oral Medicine Specialist 06/01/2023 12:34 PM This note may have incorporated nuyjr-gv-nsat technology and though reviewed typographical or syntax errors may remain. documented in this encounter Plan of Treatment Upcoming Encounters Date Type Department Care Team (Late st Contact Info) Description 08/13/2024 9:00 AM EST TH Visit (TeleHealth) Psychiatry [place] [address] Fermin Mercado MD [facility] [place] [address] Scheduled Referrals Name Type Priority Associated Diagnoses Order Schedule Referral to Pain Management Outpatient Referral Routine Chronic jaw pain Ordered: 06/03/2023 documented as of this encounter Visit Diagnoses Diagnosis Chronic jaw pain Jaw pain Orofacial neuropathic pain documented in this encounter Care Teams Supervisor Molding Relationship Specialty Start Date End Date Gabbie Sams MD [address] [place] [address] PCP - General Family Medicine 12/31/22 documented as of this encounter
--- OUTSIDE RECORDS SUMMARY | 2024-05-28 21:33 | XMS_ITS | Encounter Summary ---
Author Organization [facility] Address [facility] [place] [address] Care Team Providers Care Orthodontic Technician Assistant Name Role Phone Gabbie Sams MD Primary Care Provider [phone] Encounter Details Date Type Department Care Team (Danica Contact Info) Description 09/06/2023 Telephone Psychiatry [place] [address] Lore Molina Social History Tobacco Use Types [...] - 09/06/2023 2:31 PM EDT Xochilt from [facility] called and said they had gotten [...] one today? She can be reached at [phone] Their fax number is [phone] documented in this encounter Plan of Treatment Upcoming Encounters Date Type Department Care Team (Danica nichols Contact Info) Description 08/13/2024 9:00 AM EST TH Visit (TeleHealth) Psychiatry [place] [address] Fermin Mercado MD [facility] [place] [place] [address] documented as of this encounter Visit Diagnoses Not on filedocumented in this encounter Care Teams Orthodontic Technician Assistant Relationship Specialty Start Date End Date Gabbie Sams MD [address] [place] [address] PCP - General Family Medicine 12/31/22 documented as of this encounter
--- OUTSIDE RECORDS SUMMARY | 2024-05-28 21:34 | XMS_ITS | Encounter Summary ---
Author Organization [facility] Address [facility] [place] [address] Care Team Providers Care Talent Associate Name Role Phone Gabbie Sams MD Primary Care Provider [phone] Encounter Details Date Type Department Care Team (Late st Contact Info) Description 04/28/2023 2:45 PM EST Office Visit Dermatology at [facility] [address] [place] [address] Chinedu Abreu MD [facility] [place] [address] Wound infection; Alopecia areata Social History Tobacco [...] this encounter Progress Notes * Quintin Alvarez, [facility] - 04/28/2023 2:45 PM EST Images from [...] x4 - Current insurance wont cover Baracitinib ([place]). Discussed other treatment options including restarting [...] alopecia areata follow up []Note routed to alumnae secretary []Recall placed in scheduling system [x]Appointment scheduled at checkout Scribe attestation: Lisa López [facility] has performed the documentation for this encounter in thepresence of and acting as a scribe for Chinedu Abreu MD. I performed the above scribed service and agree with the accuracy of the documentation in this encounter. Reviewed and signed by: Chinedu Abreu MD Dermatology [facility] documented in this encounter Plan of Treatment Upcoming Encounters Date Type Department Care Team (Late st Contact Info) Description 08/13/2024 9:00 AM EST TH Visit (TeleHealth) Psychiatry [place] [address] Fermin Mercado MD [facility] [place] [address] documented as of this encounter Visit Diagnoses Diagnosis Wound infection Posttraumatic wound infection not elsewhere classified Alopecia areata documented in this encounter Care Teams Talent Associate Relationship Specialty Start Date End Date Gabbie Sams MD [address] [place] [address] PCP - General Family Medicine 12/31/22 documented as of this encounter
--- OUTSIDE RECORDS SUMMARY | 2024-05-28 21:34 | XMS_ITS | Encounter Summary ---
Author Organization [facility] [place] [address] Care Team Providers Care Charge Rn Name Role Phone Bertin Cm MD Primary Care Provider [phone] Reason for Referral * Consultation (Routine) - Closed Specialty Diagnoses / Procedures Referred By Balaji t Referred To Contact Dermatology Diagnoses Alopecia areata Bertin Cm MD [address] [place] [address] [facility] Dermatology [address] [place] [address] Referral ID Status Reason Start Date Expiration Date V isits Requested Visits Authorized [id number] Closed Consult, Test & Treat PCP Updated and/or Approved 06/02/2022 06/02/2023 12 12 Encounter Details Date Type Department Care Team (Late Contact Info) Description 06/02/2022 Transcribe Orders eDH Incoming Referrals [phone] Bertin Cm MD [address] [place] [address] Alopecia areata Social History Tobacco Use Types Packs/Day Years Used Date Smoking Tobacco: Never Assessed Sex and Gender Information Value Date Recorded Sex Assigned at Not on file Gender Identity Not on file Sexual Orientation Not on file documented as of this encounter Plan of Treatment Upcoming Encounters Date Type Department Care Team (Late Contact Info) Description 08/13/2024 9:00 AM EST TH Visit (TeleHealth) Psychiatry [place] [address] Fermin Mercado MD [facility] [place] [address] Scheduled Referrals Name Type Priority Associated Diagnoses Order Schedule Referral to Dermatology Outpatient Referral Routine Alopecia areata Ordered: 06/02/2022 documented as of this encounter Visit Diagnoses Diagnosis Alopecia areata documented in this encounter Care Teams Charge Rn Relationship Specialty Start Date End Date Bertin Cm MD [address] [place] [address] PCP - General Family Medicine 06/02/22 12/30/22 documented as of this encounter
--- OUTSIDE RECORDS SUMMARY | 2024-05-28 21:34 | XMS_ITS | Encounter Summary ---
Author Organization [facility] [place] [address] Care Team Providers Care Clinical Support Associate Name Role Phone Gabbie Sams MD Primary Care Provider [phone] Encounter Details Date Type Department Care Team [...] Visit (TeleHealth) Psychiatry [place] [address] Fermin Mercado MD [facility] [place] [address] documented as of this encounter Visit Diagnoses Not on filedocumented in this encounter Care Teams Clinical Support Associate Relationship Specialty Start Date End Date Gabbie Sams MD [address] [place] [address] PCP - General Family Medicine 12/31/22 documented as of this encounter
--- OUTSIDE RECORDS SUMMARY | 2024-05-28 21:34 | XMS_ITS | Encounter Summary ---
Author Organization [facility] [place] [place] [address] Care Team Providers Care Property Management Specialist Name Role Phone Bertin Cm MD Primary Care Provider [phone] Encounter Details Date Type Department Care Team (Late st Contact Info) Description 11/10/2022 Telephone Gastroenterology at [facility] [place] [address] Radha Reynolds Social History Tobacco Use Types [...] consciousness in the shower and went to [facility] ED:11/03 to be evaluated- I called to get those records faxed over to us for this stay. He saw PCP this morning [facility] Dr. Gabbie Martin, He said she recommended [...] Visit (TeleHealth) Psychiatry [place] [address] Fermin Mercado MD [facility] [place] [address] documented as of this encounter Visit Diagnoses Not on filedocumented in this encounter Care Teams Property Management Specialist Relationship Specialty Start Date End Date Bertin Cm MD [address] [place] [address] PCP - General Family Medicine 06/02/22 12/30/22 documented as of this encounter
--- OUTSIDE RECORDS SUMMARY | 2024-05-28 21:34 | XMS_ITS | Encounter Summary ---
[place] [address] Care Team Providers Care Customer Service Leader Name Role Phone Gabbie Sams MD Primary Care Provider [phone] Encounter Details Date Type Department Care Team (Latest Contact Info) Description 03/08/2023 5:05 PM EDT Laboratory Appointment Lab [address] [place] [id number] Dysphagia, unspecified type; Irritable bowel syndrome with [...] and reviewed by: Chinedu Abreu MD Staff Director Of Undergraduate Admissions Department of Dermatology documented in this encounter Plan of Treatment Upcoming Encounters Date Type Department Care Team (Late st Contact Info) Description 08/13/2024 9:00 AM EST TH Visit (TeleHealth) Psychiatry [place] [address] Fermin Mercado MD [facility] [place] [address] documented as of this encounter Procedures Procedure Name Priority Date/Time Associated Diagnosis Comments BILIRUBIN, DIRECT Routine 03/08/2023 5:2 8 PM EDT QUANTIFERON-TB GOLD Routine 03/08/2023 5 :28 PM EDT High risk medication use HEMOGRAM Routine 03/08/2023 5:28 PM EDT High risk medication use DIFFERENTIAL, AUTOMATED Routine 03/08/2023 5:28 PM EDT High risk medication use TISSUE TRANSGLUTAMINASE, IGA Routine 03/08/2023 5:28 PM EDT Dysphagia, unspecified type Irritable bowel syndrome with both constipation and diarrhea Gastroesophageal reflux disease, unspecified whether esophagitis present Functional dyspepsia CBC (WITH DIFF) Routine 03/08/2023 5:28 PM EDT High risk medication use IGA Routine 03/08/2023 5:28 PM EDT Dysphagia, unspecified type Irritable bowel syndrome with both constipation and diarrhea Gastroesophageal reflux disease, unspecified whether esophagitis present Functional dyspepsia IGG Routine 03/08/2023 5:28 PM EDT Dysphagia, unspecified type Irritable bowel syndrome with both constipation and diarrhea Gastroesophageal reflux disease, unspecified whether esophagitis present Functional dyspepsia LIPID PANEL (REFLEX DIRECT LDL) Routine 03/08/2023 5:28 PM EDT High risk medication use COMPREHENSIVE METABOLIC PANEL Routine 03/08/2023 5:28 PM EDT Dysphagia, unspecified type Irritable bowel syndrome with both constipation and diarrhea Gastroesophageal reflux disease, unspecified whether esophagitis present Functional dyspepsia documented in this encounter Results * Bilirubin, Direct (03/08/2023 5:28 PM EDT) Bilirubin, Direct 0.1 0.0 - 0.3 mg/dL [facility] Blood 03/08/2023 5:28 PM EDT 03/08/2023 5:35 PM EDT Narrative Resulting Agency Comment Spec In Lab Chinedu Abreu MD CHEMISTRY ORDERABLES Performing Organization Address [facility] Co de Phone Number [facility] [place] [address] * Differential, Automated (03/08/2023 5:28 PM EDT) Neutrophil % 66.0 % [facility] Neutrophil Absolute 4.65 1.70 - 6.10 x10(3)/[facility] Lymph % 22.5 % [facility] Lymphocytes Abs 1.6 0.9 - 3.2 x10(3)/[facility] Monocyte % 9.3 % [facility] Monocyte Abs 0.7 0.3 - 0.9 x10(3)/[facility] Eos % 1.4 % [facility] Eosinophils Abs 0.1 0.0 - 0.4 x10(3)/[facility] Basophil % 0.7 % [facility] Baso Absolute 0.0 0.0 - 0.1 x10(3)/[facility] Immature Gran % 0.10 % [facility] Comment: Immature granulocytes(IG's)percentage and absolute count will include metamyelocytes, myelocytes, and promyelocytes. Blood smears from CBCs yielding IG's will be scanned manually for concordance. If this scan disagrees with the automated IG or if promyelocytes are noted, a manual differential will be performed. Immature Gran Absolute 0.01 0.00 - 0.04 x10(3)/[facility] Blood 03/08/2023 5:28 PM EDT 03/08/2023 5:35 PM EDT Narrative Resulting Agency Comment Spec In Lab Chinedu Abreu MD HEMATOLOGY ORDERABLE S Performing Organization Address City/[facility] Co de Phone Number [facility] [place] [address] * (ABNORMAL) Hemogram (03/08/2023 5:28 PM EDT) White Blood Cell 7.1 4.0 - 9.5 x10(3)/mc L [facility] Red Blood Cell 4.58 4.58 - 5.54 x10(6)/mc L [facility] Hemoglobin 13.6(L) 13.7 - 16.5 g/dL [facility] Hematocrit 41.0 40.5 - 48.5 % [facility] Mean Cell Volume 89.5 82.9 - 93.1 fL [facility] Mean Cell Hemoglobin 29.7 27.5 - 32.1 pg [facility] Mean Cell Hemoglobin Concentration 33.2 32.0 - 35.7 g/dL [facility] Platelet 251 145 - 357 x10(3)/mc L [facility] RDW Standard Deviation 44.0 36.0 - 45.0 fL [facility] RDW coefficient of variation 13.3 11.4 - 13.8 % [facility] Mean Platelet Volume 10.5 7.6 - 12.9 fL [facility] NRBC% auto 0.0 % [facility] NRBC Absolute 0.000 0.000 - 0.000 x10(3)/ L [facility] Blood 03/08/2023 5:28 PM EDT 03/08/2023 5:35 PM EDT Narrative Resulting Agency Comment Spec In Lab Chinedu Abreu MD HEMATOLOGY ORDERABLE S [facility] [place] [address] * Lipid Panel (Reflex Direct LDL) (03/08/2023 5:28 PM EDT) Cholesterol, Total 151 mg/dL [facility] Comment: Lower Risk: <200 mg/dL Average Risk: 200-239 mg/dL Higher Risk: >bd=569 mg/dL Triglyceride 80 mg/dL [facility] Comment: Average Risk/Lower Risk: <150 mg/dL Borderline High Risk: 150-199 mg/dL High Risk: 200-499 mg/dL Very High Risk: >nl=519 mg/dL HDL Cholesterol 57 mg/dL [facility] Comment: Males: ?? Higher Risk: <40 mg/dL Females: ?? Higher Risk: <50 mg/dL LDL Cholesterol 78 mg/dL [facility] Comment: Lowest Risk: <100 mg/dL Lower Risk: 100-129 mg/dL Borderline High Risk: 130-159 mg/dL High Risk: 160-189 mg/dL Very High Risk: >rb=881 mg/dL Cholesterol/HDL Ratio 2.6 ratio [facility] Lipid Interpretation See Note [facility] Comment: Lipid management should be guided by a patient? s ASCVD risk, goals and preferences. ACC/AHA Guidelines recommend high intensity statin if clinical ASCVD or LDL greater than or equal to 190 mg/dL. http://DoTheGlobe/AGH-RVY-Paxgvcmhi Adults aged 40-75 with LDL 70-189 mg/dL should have their 10 year ASCVD risk estimated with the ACC/AHA ASCVD risk molder machine http://tools.acc.org/ZBRNS-Sptr-Pekcaoqac/ Statin should be discussed if risk greater [...] In Lab Chinedu Abreu MD CHEMISTRY ORDERABLES [facility] [place] [address] * QuantiFERON-TB Gold (03/08/2023 5:28 PM EDT) Quantiferon Nil 0.073 IU/mL [facility] QFT TB Ag1-Nil 0.060 IU/mL [facility] QFT TB Ag2-Nil 0.032 IU/mL [facility] Quantiferon Mitogen-Nil 9.927 IU/mL [facility] Quantiferon-TB Gold Negative Negative [facility] Quantiferon Tb Interp M. tuberculosis infection NOT likely A [...] affect immune function, or other immunological factors. [facility] Blood 03/08/2023 5:28 PM EDT 03/10/2023 7:15 AM EDT Narrative Resulting Agency Comment Spec In Lab Chinedu Abreu MD CHEMISTRY ORDERABLES Performing Organization Address City/[facility]/ZIP Co de Phone Number [facility] [place] [address] * IgA (03/08/2023 5:28 PM EDT) IgA 253 70 - 400 mg/dL [facility] Blood 03/08/2023 5:28 PM EDT 03/08/2023 5:35 PM EDT Narrative Resulting Agency Comment Spec In Lab Jose Ford MD CHEMISTRY ORDERABLES [facility] [place] [address] * IgG (03/08/2023 5:28 PM EDT) Immunoglobulin G 1,188 700 - 1,600 mg/dL [facility] Comment: Pediatric Reference Intervals obtained from the Caliper Reference Interval project. http://www.sickkids.ca/caliperproject/index.html Blood 03/08/2023 5:28 PM EDT 03/08/2023 5:35 PM EDT Narrative Resulting Agency Comment Spec In Lab Jose Ford MD CHEMISTRY ORDERABLES Performing Organization Address [facility] Co de Phone Number [facility] [place] [address] * Tissue transglutaminase, IgA (03/08/2023 5:28 PM EDT) TTG IgA Ab 0.4 <=10.0 u/ml [facility] Comment: Negative: ??<7 units/mL Indeterminate: 7-10 units/mL Positive: ??>10 units/mL Blood 03/08/2023 5:28 PM EDT 03/09/2023 7:16 AM EDT Narrative Resulting Agency Comment Spec In Lab Jose Ford MD IMMUNOLOGY ORDERABLE S Performing Organization Address [facility] Co de Phone Number [facility] [place] [address] * Comprehensive metabolic panel (non-fasting) (03/08/2023 5:28 PM EDT) Glucose 78 65 - 199 mg/dL [facility] Comment:Diabetes: >=200 mg/d L plus symptoms Blood Urea Nitrogen 11 10 - 20 mg/dL [facility] Creatinine 0.92 0.80 - 1.50 mg/dL [facility] Sodium 141 135 - 145 mmol/L [facility] Potassium 3.9 3.5 - 5.0 mmol/L [facility] Comment: Please note: ??Patients with WBC >100,000 may have falsely elevated Potassium levels. ??For accurate Potassium quantification in these patients send serum separator tube (gold top) for subsequent determinations. ??Contact the Clinical Chemistry Laboratory if there are any questions. Chloride 102 98 - 107 mmol/L [facility] Carbon Dioxide 31 22 - 31 mmol/L [facility] Anion Gap 8 5 - 15 mmol/L [facility] Calcium 9.4 8.5 - 10.5 mg/dL [facility] Protein, Total 7.4 6.1 - 8.0 g/dL [facility] Albumin 4.4 3.2 - 5.2 g/dL [facility] Aspartate Aminotransferase 20 0 - 39 unit/L [facility] Alanine Aminotransferase 17 0 - 55 unit/L [facility] Alkaline Phosphatase 84 40 - 130 unit/L [facility] Bilirubin, Total 0.3 0.2 - 1.3 mg/dL [facility] Est Glomerular Filtration Rate 111 >=60 mL/min/1. 73 m?? [facility] Comment: This patient's estimated GFR [...] In Lab Jose Ford MD CHEMISTRY ORDERABLES Performing Organization Address City/State/[facility] Co de Phone Number [facility] [place] [address] documented in this encounter Visit Diagnoses Diagnosis Dysphagia, unspecified type Irritable bowel syndrome with both constipation and diarrhea Gastroesophageal reflux disease, unspecified whether esophagitis present Functional dyspepsia Dyspepsia and other specified disorders of function of stomach High risk medication use Encounter for long-term (current) use of other medications documented in this encounter Care Teams Customer Service Leader Relationship Specialty Start Date End Date Gabbie Sams MD [address] [place] [address] PCP - General Family Medicine 12/31/22 documented as of this encounter
--- OUTSIDE RECORDS SUMMARY | 2024-05-28 21:34 | XMS_ITS | Clinical Summary ---
Author Organization [facility] Address [address] [place] [address] Care Team Providers Care Ballpoint Pen Cartridge Tester Name Role Phone Bertin Cm MD Primary Care Provider [phone] Social History Tobacco Use Types Packs/Day Years Used Date Smoking Tobacco: Never Assessed Sex and Gender Information Value Date Recorded Sex Assigned at Not on file Legal Sex Male 1:46 EST Gender Identity Not on file Sexual Orientation Not on file Plan of Treatment Health Maintenance Due Date Last Done Comments Hepatitis C Screen 1985 Hepatitis B Vaccine (1 of 3 - 19+ 3-dose series) 07/16 COVID-19 Vaccine ( season) 2024 Insurance MEDICAID [facility] Care Teams Ballpoint Pen Cartridge Tester Relationship Specialty Start Date End Date Bertin Cm MD [address] [place] [address] PCP - General Emergency Medicine 06/13/22
--- OUTSIDE RECORDS SUMMARY | 2024-05-28 21:34 | XMS_ITS | Encounter Summary ---
Author Organization [facility] Address [facility] [place] [address] Care Team Providers Care Company Miner Blasting Name Role Phone Bertin Cm MD Primary Care Provider [phone] Encounter Details Date Type Department Care Team (Late st Contact Info) Description 12/21/2022 2:30 PM EDT Office Visit Dermatology at [facility] [address] [place] [address] Chinedu Abreu MD [facility] [address] [place] [address] Alopecia areata; Viral warts, unspecified type Social History Tobacco Use Types Packs/Day Years Used Date Smoking Tobacco: Never Assessed Sex and Gender Information Value Date Recorded Sex Assigned at Not on file Gender Identity Not on file Sexual Orientation Not on file documented as of this encounter Progress Notes * Lisa López, [facility] - 12/21/2022 2:30 PM EDT Images [...] well and follow up care reviewed. Lot: [id number] Exp: 03/06 #. Wart (Verruca Vulgaris) - Verrucous papule on the nose with pin-point vascular pattern noted on dermoscopy. - Discussed viral etiology (relative of HPV in skin) and rationale for therapy directed at reducingviral load and virus ultimately being controlled by immune response. - Reviewed in-office and at-home treatment options. - [place] decision to proceed with cryotherapy in the [...] Alopecia areata follow up []Note routed to alumnae secretary []Recall placed in scheduling system [x]Appointment scheduled at checkout Scribe attestation: Lisa López [facility] has performed the documentation for this encounter in thepresence of and acting as a scribe for Chinedu Abreu MD. I performed the above scribed service and agree with the accuracy of the documentation in this encounter. Reviewed and signed by: Chinedu Abreu MD Dermatology [facility] documented in this encounter Plan of Treatment Upcoming Encounters Date Type Department Care Team (Late st Contact Info) Description 08/13/2024 9:00 AM EST TH Visit (TeleHealth) Psychiatry [place] [address] Fermin Mercado MD [facility] [place] [address] documented as of this encounter Visit Diagnoses Diagnosis Alopecia areata Viral warts, unspecified type documented in this encounter Care Teams Company Miner Blasting Relationship Specialty Start Date End Date Bertin Cm MD [address] [place] [address] PCP - General Family Medicine 06/02/22 12/30/22 documented as of this encounter
--- OUTSIDE RECORDS SUMMARY | 2024-05-28 21:34 | XMS_ITS | Encounter Summary ---
Author Organization [facility] [place] [address] Care Team Providers Care Card Tender Name Role Phone Bertin Cm MD Primary Care Provider Reason for Visit * Diagnostic Test (Routine) - Closed Specialty Diagnoses / Procedures Referred By Balaji hoang Referred To Contact Gastroenterology Diagnoses Solitary rectal ulcer syndrome ARM for solitary rectal ulcer syndrome Procedures High Definition Anal Manometry PRG ANORECTAL MANOMETRY PRG RECTAL SENSATION TEST, BALLOON Emmanuelle Sun, DO [address] [place] [address] [facility] [address] [place] [address] Referral ID Status Reason Start Date Expiration Date V isits Requested Visits Authorized [id number] Closed Consult, Test & Treat 07/21/2022 07/21/2023 1 1 Encounter Details Date Type Department Care Team (Latest Contact Info) Description 09/07/2022 3:00 PM EDT Procedure [place] [address] Solitary rectal ulcer syndrome Social History Tobacco [...] 3:00 PM EDT Re: Soren Mejia Reg No:[id number] : 1985 Date of Service: 09/07/2022 ANORECTAL MANOMETRY w/BALLOON EXPULSION Referring provider:Emmanuelle Sun Dear: Dr. Sun We had the pleasure of performing a high resolution anorectal manometry on your patient in the GI Motility Laboratory at [facility]. CLINICAL HISTORY AND INDICATION As you know, [...] MD, FRCPC Section of Gastroenterology and Hepatology Formerly [facility] [place] [address] V: [phone] F: [phone] CC/EC: Bertin Cm MD [address] [place] [address] documented in this encounter Plan of Treatment Upcoming Encounters Date Type Department Care Team (Late st Contact Info) Description 08/13/2024 9:00 AM EST TH Visit (TeleHealth) Psychiatry [place] [address] Fermin Mercado MD [facility] [address] [place] [address] documented as of this encounter Visit Diagnoses Diagnosis Solitary rectal ulcer syndrome documented in this encounter Care Teams Card Tender Relationship Specialty Start Date End Date Bertin Cm MD [address] [place] [address] PCP - General Family Medicine 06/02/22 12/30/22 documented as of this encounter
--- OUTSIDE RECORDS SUMMARY | 2024-05-28 21:34 | XMS_ITS | Encounter Summary ---
Author Organization [facility] [place] [address] Care Team Providers Care Professor Of Criminal Justice Name Role Phone Gabbie Sams MD Primary Care Provider [phone] Encounter Details Date Type Department Care Team (Late st Contact Info) Description 04/28/2023 Telephone [place] [address] Lora Blas RN Social History Tobacco Use [...] Visit (TeleHealth) Psychiatry [place] [address] Fermin Mercado MD [facility] [place] [address] documented as of this encounter Visit Diagnoses Not on filedocumented in this encounter Care Teams Professor Of Criminal Justice Relationship Specialty Start Date End Date Gabbie Sams MD [address] [place] [address] PCP - General Family Medicine 12/31/22 documented as of this encounter
--- OUTSIDE RECORDS SUMMARY | 2024-05-28 21:34 | XMS_ITS | Encounter Summary ---
Author Organization [facility] Address [facility] [place] [address] Care Team Providers Care Gas Usage Meter Clerk Name Role Phone Bertin Cm MD Primary Care Provider [phone] Encounter Details Date Type Department Care Team (Late st Contact Info) Description 10/08/2022 Telephone Dermatology at [facility] [address] [place] [id number] Chinedu Abreu MD [facility] [place] [address] Social History Tobacco Use Types Packs/Day Years [...] to request his records from his old shredding machine knife changer Tiffany Pendleton at [facility] their fax number is [phone]. documented in this encounter Plan of Treatment Upcoming Encounters Date Type Department Care Team (Late st Contact Info) Description 08/13/2024 9:00 AM EST TH Visit (TeleHealth) Psychiatry [place] [address] Fermin Mercado MD [facility] [place] [place] [address] documented as of this encounter Visit Diagnoses Not on filedocumented in this encounter Care Teams Gas Usage Meter Clerk Relationship Specialty Start Date End Date Bertin Cm MD [address] [place] [address] PCP - General Family Medicine 06/02/22 12/30/22 documented as of this encounter
--- OUTSIDE RECORDS SUMMARY | 2024-05-28 21:34 | XMS_ITS | Encounter Summary ---
[place] [address] Care Team Providers Care Audit Clerk Name Role Phone Gabbie Sams MD Primary Care Provider [phone] Encounter Details Date Type Department Care Team (Late st Contact Info) Description 05/04/2023 9:07 AM EST Anesthesia [place] [address] Ashley Candelaria MD Anesthesia Record Procedure Summary Procedure Name Responsible [...] Type Details Placement Removal PIV 05/04/23; 0806; [id number] catheter system; 22 gauge, 1 in length; [...] Procedure Summary Date: 05/04/23 Room / Location: [facility] ENDO 3 / [facility] ENDOSCOPY Anesthesia Start: 906 Anesthesia Stop: 949 [...] All Anesthesia Providers: Anesthesiologist: Ashley Candelaria MD PACKING ROOM WORKER: April Rome CRNA Vitals Value Taken Time BP 118/79 05/04/23 1020 Temp Pulse Resp SpO2 100 % 05/04/23 1022 Pain Level 0 05/04/23 1020 Vitals shown include unfiled device data. Patient Location: PACU/[facility] Level of Consciousness: Conscious but Sleepy Pain [...] risks discussed with patient. Plan discussed with PACKING ROOM WORKER and attending. Anesthesia Screening Code Status: Full code I discussed the risks of general anesthesia/MAC as detailed by the preoperative anesthesia consent with this patient. The patient demonstrated adequate understanding and acknowledged these risks and wishes to proceed with scheduled surgery. All questions related to anesthetic care were welcomed and answered to satisfaction. Ashley Candelaria MD MS Anesthesiologist, [facility] Pager [phone] documented in this encounter Plan of Treatment Upcoming Encounters Date Type Department Care Team (Late st Contact Info) Description 08/13/2024 9:00 AM EST TH Visit (TeleHealth) Psychiatry and Behavioral Health at [facility] [place] [address] Fermin Mercado MD [facility] [place] [address] documented as of this encounter Visit Diagnoses [...] mg documented in this encounter Care Teams Audit Clerk Relationship Specialty Start Date End Date Gabbie Sams MD [address] [place] [address] PCP - General Family Medicine 12/31/22 documented as of this encounter
--- OUTSIDE RECORDS SUMMARY | 2024-05-28 21:34 | XMS_ITS | Encounter Summary ---
[place] [address] Care Team Providers Care Test Engine Operator Name Role Phone Gabbie Sams MD Primary Care Provider [phone] Reason for Referral * Consultation (Routine) - Denied Specialty Diagnoses / Procedures Referred By Balaji hoang Referred To Contact [facility] and Spine Center Diagnoses Facial neuralgia Ramy Heath PA [facility] [place] [address] [facility] [place] [place] [address] Referral ID Status Reason Start Date Expiration Date V isits Requested Visits Authorized [id number] Denied Consult, Test & Treat 02/18/2023 02/18/2024 1 0 * Consultation (Routine) - Closed Specialty Diagnoses / Procedures Referred By Balaji hoang Referred To Contact Maxillofacial Surgery Diagnoses Facial neuralgia Ramy Heath PA [facility] [place] [address] [facility] Maxillo S[place] [address] [place] [address] Referral ID Status Reason Start Date Expiration Date V isits Requested Visits Authorized [id number] Closed Consult, Test & Treat 02/18/2023 02/18/2024 1 1 Reason for Visit * Consultation (Routine) - Closed Specialty Diagnoses / Procedures Referred By Balaji t Referred To Contact Neurosurgery Diagnoses Injury of left trigeminal nerve, sequela Injury of facial nerve, unspecified laterality, initial encounter Rosemary House MD [facility] [address] [place] [address] [facility] Neurosurgery [address] [place] [phone] Referral ID Status Reason Start Date Expiration Date V isits Requested Visits Authorized [id number] Closed Consult, Test & Treat PCP Updated and/or Approved 12/23/2022 06/25/2023 6 6 Encounter Details Date Type Department Care Team (Late st Contact Info) Description 02/10/2023 3:40 PM EDT [place] [address] Radha Hugo MD [facility] [place] [address] Facial neuralgia (Primary Dx) Social History Tobacco [...] NEUROSURGERY Consultation Note 02/10/2023 Rosemary House MD [facility] [address] [place] [address] RE: Soren Mejia : [address] House: Thank you for referring your patient Soren Mejia to the Neurosurgery Clinic at [facility] for evaluation of left facial [...] his neurologist. He was seen at the [facility]. He reports [...] second opinion with oral maxillofacial surgery at [facility] for consideration of peripheralneurectomy and referral to Pain Clinic for evaluation of other possible interventional pain treatment options shoulder there be no surgical option. He is welcome to follow up with Neurosurgery on an as needed basis. Plan: Referral to [facility] Referral to Pain Clinic Follow up with neurosurgery premely It was my pleasure to have seen and examined Mr. Mejia with Dr. Hugo. Thank you again for your referral. Please don't hesitate to contact me if you have any further questions. Sincerely, Ramy Heath PA-C, [place] Physician Fan Blade Aligner [facility] Department of Neurosurgery [address] [place] [id number] CC: Gabbie Sams MD CC: Rosemary House MD [facility] [address] [place] [address] This message is confidential, intended only for [...] the barometric pressure. He was followed by [facility] oral maxillofacial surgery. At 1 point he [...] Visit (TeleHealth) Psychiatry [place] [address] Fermin Mercado MD [facility] [place] [address] Scheduled Referrals Name Type Priority Associated Diagnoses Order Schedule Referral to Maxillofacial Surgery Outpatient Referral Routine Facial neuralgia Ordered: 02/18/2023 Referral to Pain Management Outpatient Referral Routine Facial neuralgia Ordered: 02/18/2023 documented as of this encounter Visit Diagnoses Diagnosis Facial neuralgia- Primary Other facial nerve disorders documented in this encounter Care Teams Test Engine Operator Relationship Specialty Start Date End Date Gabbie Sams MD [address] [place] [address] PCP - General Family Medicine 12/31/22 documented as of this encounter
--- OUTSIDE RECORDS SUMMARY | 2024-05-28 21:34 | XMS_ITS | Encounter Summary ---
Author Organization [facility] [place] [address] Care Team Providers Care Technical Services Analyst Name Role Phone Gabbie Sams MD [...] Visit (TeleHealth) Psychiatry [place] [address] Fermin Mercado MD [facility] [place] [address] documented as of this encounter Visit Diagnoses Not on filedocumented in this encounter Care Teams Technical Services Analyst Relationship Specialty Start Date End Date Gabbie Sams MD [address] [place] [address] PCP - General Family Medicine 12/31/22 documented as of this encounter
--- OUTSIDE RECORDS SUMMARY | 2024-05-28 21:34 | XMS_ITS | Encounter Summary ---
Author Organization [facility] Address [facility] [place] [address] Care Team Providers Care Furnace Firer Name Role Phone Gabbie Sams MD Primary Care Provider [phone] Encounter Details Date Type Department Care Team (Latest Contact Info) Description 03/23/2023 8:15 AM EDT - 03/23/2023 11:59 PM EDT Hospital [place] [id number] Jose Franklin MD [facility] [place] [address] Dysphagia, unspecified type; Irritable bowel syndrome with [...] tamsulosin (Flomax) 0.4 mg capsule daily. 12/23/2022 lisdexamfetamine (Vyvanse) 50 mg capsule Take 60 [...] Take 75 mg by mouth nightly. 06/03/2023 gabapentin (Neurontin) 600 mg tablet Take 600 mg by mouth 3 times daily. 05/21/2024 lisdexamfetamine (Vyvanse) 70 mg capsule Take 70 [...] Psychiatry [place] [address] Fermin Mercado MD [facility] [place] [address] documented as of this encounter Procedures Procedure [...] resident's interpretation and agree with the findings, eTo Kilgore MD at 03/23/2023 9:19 AM Electronically signed by: Teo Kilgore MD, [facility] ([phone]), at 03/23/2023 9:19 AM Thank you for letting us participate in the care of this patient. If you are a health care provider and have any questions regarding this report, please contact the number above. For patients who have questions, please contact the health home health care social worker that requested your imaging first. ?Teo Kilgore, Staff Physician Electronically Signed Final Report ?? 03/23/2023 09:26 am Narrative 03/23/2023 9:26 AM EDT Abdominal ? (Signed Final 03/23/2023 09:26 am) PATIENT INFO: ID #: ? [id number] ?: ??[birth year] (37 yrs)(M) Name: ? SOREN ? Visit Date: 03/23/2023 08:27 am ? TALA PERFORMED BY: Attending: ?Magui CHRISTIE MD, Arthur L. Performed By: ? Lashae LIN Kathy Referred By: ?JOSE FRANKLIN Location: ? [place] SERVICE(S) PROVIDED: [facility] - Hepatology Protocol - Abdominal ?52258 Limited Survey Single Organ or Quadrant - [id number] INDICATIONS: dyspepsia - rule out gallstones COMPARISON: [...] 03/23/2023 09:26 am) PATIENT INFO: ID #: [id number] : [birth year] (37 yrs)(M) Name: SOREN Visit Date: 03/23/2023 08:27 am TALA PERFORMED BY: Attending: Magui CHRISTIE MD, Arthur L. Performed By: Kathy Bhardwaj RDMS Referred By: JOSE FRANKLIN Location: [place] SERVICE(S) PROVIDED: [facility] - Hepatology Protocol - Abdominal 26133 Limited Survey Single Organ or Quadrant - [id number] INDICATIONS: dyspepsia - rule out gallstones COMPARISON: [...] Teo Kilgore MD at 03/23/2023 9:19 AM Electronically signed by: Teo Kilgore MD, [facility] ([phone]), at 03/23/2023 9:19 AM Thank you for letting us participate in the care of this patient. If you are a health care provider and have any questions regarding this report, please contact the number above. For patients who have questions, please contact the health home health care social worker that requested your imaging first. Toe Kilgore, Staff Physician Electronically Signed Final Report 03/23/2023 09:26 am Jose Franklin MD IMG US GEN ORDERABLE S documented in this encounter Visit Diagnoses Diagnosis Dysphagia, unspecified type Irritable bowel syndrome with both constipation and diarrhea Gastroesophageal reflux disease, unspecified whether esophagitis present Functional dyspepsia Dyspepsia and other specified disorders of function of stomach documented in this encounter Care Teams Furnace Firer Relationship Specialty Start Date End Date Gabbie Sams MD [address] [place] [address] PCP - General Family Medicine 12/31/22 documented as of this encounter
--- OUTSIDE RECORDS SUMMARY | 2024-05-28 21:34 | XMS_ITS | Encounter Summary ---
Author Organization [facility] Address [facility] [place] [address] Care Team Providers Care Dinking Machine Operator Name Role Phone Gabbie Sams MD Primary Care Provider [phone] Reason for Referral * Psychiatric (Urgent) - Closed Specialty Diagnoses / Procedures Referred By Contac t Referred To Contact Psychiatry Diagnoses Depression, unspecified depression type Chinedu Abreu MD [facility] [place] [address] [facility] [place] [address] Referral ID Status Reason Start Date Expiration Date V isits Requested Visits Authorized [id number] Closed Consult, Test & Treat 06/02/2023 06/01/2024 1 1 Encounter Details Date Type Department Care Team (Late st Contact Info) Description 06/02/2023 3:45 PM EST Office Visit Dermatology at [facility] [address] [place] [address] Chinedu Abreu MD [facility] [place] [address] Alopecia areata; Androgenetic alopecia; Neurotic [...] Clobetasol 0.05% Solution. - Start Rx fluocinolone (Candor-Smoothe with shower cap) 0.01% oil: Apply topically to affected areas on the scalp nightly for 1-2 weeks, then decrease to 2-3x/week or less as needed. Wash out in the morning. (Avoid face and eyes.). - Start Rx: Finasteride 1 mg tablet daily. Provided patient a printed GoodRx coupon for use at patient's preferred pharmacy at [facility] in [place], [place]. - Start Rx: N-Acetylcysteine. Recommend starting [...] dandruff shampoo. Patient never got finasteride, as [place] Medicaid never approved this. Stopped clobetasol solution [...] Clobetasol 0.05% Solution. - Start Rx fluocinolone (Candor-Smoothe with shower cap) 0.01% oil: Apply topically to affected areas on the scalp nightly for 1-2 weeks, then decrease to 2-3x/week or less as needed. Wash out in the morning. (Avoid face and eyes.). - Start Rx: Finasteride 1 mg tablet daily. Provided patient a printed GoodRx coupon for use at patient's preferred pharmacy at [facility] in [place], [place]. - Start Rx: N-Acetylcysteine. Recommend starting [...] for alopecia areata follow-up []Note routed to social secretary []Recall placed in scheduling system [x]Appointment scheduled at checkout Scribe attestation: BINDU Vu has performed the documentation for this encounter in the presence of and acting as a scribe for Chinedu Abreu MD. I performed the above scribed service and agree with the accuracy of the documentation in this encounter. Reviewed and signed by: Chinedu Abreu MD Dermatology [facility] documented in this encounter Plan of Treatment Upcoming Encounters Date Type Department Care Team (Late st Contact Info) Description 08/13/2024 9:00 AM EST TH Visit (TeleHealth) Psychiatry [place] [address] Fermin Mercado MD [facility] [place] [address] Scheduled Referrals Name Type Priority Associated Diagnoses Orde r Schedule Referral to Psychiatry Outpatient Referral Urgent Depression, unspecified depression type Ordered: 06/02/2023 documented as of this encounter Visit Diagnoses Diagnosis Alopecia areata 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
--- OUTSIDE RECORDS SUMMARY | 2024-05-28 21:34 | XMS_ITS | Encounter Summary ---
Author Organization [facility] [place] [address] Care Team Providers Care Residential Framing Carpenter Name Role Phone Gabbie Sams MD Primary Care Provider [phone] Encounter Details Date Type Department Care Team [...] Visit (TeleHealth) Psychiatry [place] [address] Fermin Mercado MD [facility] [place] [address] documented as of this encounter Visit Diagnoses Not on filedocumented in this encounter Care Teams Residential Framing Carpenter Relationship Specialty Start Date End Date Gabbie Sams MD [address] [place] [address] PCP - General Family Medicine 12/31/22 documented as of this encounter
--- OUTSIDE RECORDS SUMMARY | 2024-05-28 21:34 | XMS_ITS | Encounter Summary ---
Author Organization [facility] Address [address] [place] [address] Care Team Providers Care Steward/Stewardess Railroad Dining Car Name Role Phone Bertin Cm MD Primary Care Provider [phone] Encounter Details Date Type Department Care Team (Late st Contact Info) Description 07/02/2022 Lab Requisition [facility] Pathology & Laboratory Medicine - [facility] [address] [place] [address] Outr Resulting Lab, Provider Social [...] Stranded) 21.9 <30.0 IU/mL 07/06/2022 13:04 EST [facility] Comment: ? Negative: ??<30.0 IU/mL ? Borderline Positive: ??30.0 - 75.0 IU/mL ? Positive: ??>75.0 IU/mL Results were obtained with the KeepFu QUANTA Lite dsDNA SC JESI assay on the Merkle DSX. Blood VENOUS BLOOD / Unknown 07/02/2022 9:10 EST 07/02/2022 21:41 EST us Provider Outr Resulting Lab IMMUNOLOGY AND SEROL OGY ORDERABLES Final Result Performing Organization Address [facility] Co de Phone Number [facility] [address] [place] [address] * (ABNORMAL) ANTI NUCLEAR AB (FLAVIO), IFA (07/02/2022 9:10 EST) FLAVIO Interpretation Positive(A) Negative 07/05/2022 13:55 EST [facility] FLAVIO Titer and Pattern 1 1:80 Speckled 07/05/2022 13:55 EST [facility] Blood VENOUS BLOOD / Unknown 07/02/2022 9:10 EST 07/02/2022 21:41 EST Narrative [facility] - 07/05/2022 13:55 EST Results were obtained with the INOVA NOVA Lite HEp-2 FLAVIO Kit by indirect immunofluorescence. us Provider Outr Resulting Lab IMMUNOLOGY AND SEROL OGY ORDERABLES Final Result Performing Organization Address [facility] Co de Phone Number [facility] [address] [place] [address] documented in this encounter Visit Diagnoses Not on filedocumented in this encounter Care Teams Steward/Stewardess Railroad Dining Car Relationship Specialty Start Date End Date Bertin Cm MD [address] [facility] [address] [place] [address] PCP - General Emergency Medicine 06/13/22 documented as of this encounter
--- OUTSIDE RECORDS SUMMARY | 2024-05-28 21:34 | XMS_ITS | Encounter Summary ---
Author Organization [facility] [place] [address] Care Team Providers Care Egg Trayer Name Role Phone Bertin Cm MD Primary Care Provider [phone] Encounter Details Date Type Department Care Team (Late st Contact Info) Description 08/06/2022 [place]phone [place] [address] [place] Social History Tobacco Use Types [...] calls can be handled by: [facility] Abrasive Grader documented in this encounter Plan of Treatment Upcoming Encounters Date Type Department Care Team (Late st Contact Info) Description 08/13/2024 9:00 AM EST TH Visit (TeleHealth) Psychiatry [place] [address] Fermin Mercado MD [facility] [place] [address] documented as of this encounter Visit Diagnoses Not on filedocumented in this encounter Care Teams Egg Trayer Relationship Specialty Start Date End Date Bertin Cm MD [address] [place] [address] PCP - General Family Medicine 06/02/22 12/30/22 documented as of this encounter
--- OUTSIDE RECORDS SUMMARY | 2024-05-28 21:34 | XMS_ITS | Encounter Summary ---
Author Organization [facility] Address [facility] [place] [address] Care Team Providers Care Portable Track Crew Chief Name Role Phone Gabbie Sams MD Primary Care Provider [phone] Reason for Visit * Reason Onset Date Comments Prior Authorization 05/02/2023 Finasteride 1MG tablets Encounter Details Date Type Department Care Team (Late st Contact Info) Description 05/02/2023 Telephone Dermatology at [facility] [address] [place] [address] Oralia Gaspar CMA Prior Authorization (Finasteride 1MG [...] PA Outcome: PA Denial [place] [address] DENIED: Finasteride Case/Reference #: [id number] Additional Information from Insurance: * Telephone Encounter - Oralia Gaspar CMA - 05/02/2023 11:50 AM EST PA Submitted Submitted Date: Date Submitted: 05/02/2023 Medication Prior Authorization Patient: Soren Mejia Patient : 1985 Insurance Company: [place] Medicaid Sent via: [facility] Paiz: [id number] Physician: Chinedu Abreu MD Medication [...] x4 - Current insurance wont cover Baracitinib ([place] Medicaid). Discussed other treatment options including restarting [...] Visit (TeleHealth) Psychiatry [place] [address] Fermin Mercado MD [facility] [place] [address] documented as of this encounter Visit Diagnoses Not on filedocumented in this encounter Care Teams Portable Track Crew Chief Relationship Specialty Start Date End Date Gabbie Sams MD [address] [place] [address] PCP - General Family Medicine 12/31/22 documented as of this encounter
--- OUTSIDE RECORDS SUMMARY | 2024-05-28 21:34 | XMS_ITS | Encounter Summary ---
Author Organization [facility] Address [facility] [place] [address] Care Team Providers Care Dock Superintendent Name Role Phone Gabbie Sams MD Primary Care Provider [phone] Encounter Details Date Type Department Care Team (Late st Contact Info) Description 01/25/2023 1:30 PM EDT Office Visit Dermatology at [facility] [address] [place] [address] Chinedu Abreu MD [facility] [address] [address] Alopecia areata; Folliculitis; Pseudofolliculitis barbae Social History Tobacco Use Types Packs/Day Years Used Date Smoking Tobacco: Never Assessed Sex and Gender Information Value Date Recorded Sex Assigned at Not on file Gender Identity Not on file Sexual Orientation Not on file documented as of this encounter Progress Notes * Quintin Alvarez, [facility] - 01/25/2023 1:30 PM EDT Images from [...] titrate back to 1 tablet daily. - Reading decision to proceed with ILK injection today. Kenalog injection: ? Location: Central and occipital scalp? injected into a total of 14 locations Kenalog 10 mg/mL, total 1.3 mL Verbal consent obtained. Reviewed side effects of skin atrophy, telangiectasia, hypopigmentation, and striae. The area was cleaned with alcohol and kenalog injected intralesionally. The patient tolerated the procedure well and follow up care reviewed. Lot: [id number] Exp: FEB 2024 #. Pseudofolliculitis - scattered [...] for alopecia areata follow-up []Note routed to medical office secretary []Recall placed in scheduling system [x]Appointment scheduled at checkout Scribe attestation: Quintin Alvarez [facility] has performed the documentation for this encounter in the presence of and acting as a scribe for Chinedu Abreu MD. I performed the above scribed service and agree with the accuracy of the documentation in this encounter. Reviewed and signed by: Chinedu Abreu MD Dermatology [facility] documented in this encounter Plan of Treatment Upcoming Encounters Date Type Department Care Team (Late st Contact Info) Description 08/13/2024 9:00 AM EST TH Visit (TeleHealth) Psychiatry and [place] [address] Fermin Mercado MD [facility] DR PSYCHIATRY [place] [id number] documented as of this encounter Visit Diagnoses [...] section) documented in this encounter Care Teams Dock Superintendent Relationship Specialty Start Date End Date Gabbie Sams MD [address] [place] [address] PCP - General Family Medicine 12/31/22 documented as of this encounter
--- OUTSIDE RECORDS SUMMARY | 2024-05-28 21:34 | XMS_ITS | Encounter Summary ---
Author Organization [facility] [place] [address] Care Team Providers Care Blueprint Maker Name Role Phone Bertin Cm MD Primary Care Provider [phone] Reason for Referral * Consultation (Routine) - Closed Specialty Diagnoses / Procedures Referred By Balaji hoang Referred To Contact Gastroenterology Diagnoses Solitary rectal ulcer syndrome Solitary rectal ulcer syndrome-? Benefit [place] [address] [place] [address] [address] [place] [address] [facility] [address] [place] [address] Referral ID Status Reason Start Date Expiration Date V isits Requested Visits Authorized [id number] Closed Consult, Test & Treat PCP Updated and/or Approved 07/26/2022 07/26/2023 6 6 Encounter Details Date Type Department Care Team (Late Contact Info) Description 07/26/2022 Transcribe Orders eDH Incoming Referrals [phone] [place] [address] [place] [address] [address] [place], [place] [id number] Solitary rectal ulcer syndrome Social History Tobacco [...] Visit (TeleHealth) Psychiatry [place] [address] Fermin Mercado MD [facility] [place] [address] Scheduled Referrals Name Type Priority Associated Diagnoses Order Schedule Referral to Gastroenterology Outpatient Referral Routine Solitary rectal ulcer syndrome Ordered: 07/26/2022 documented as of this encounter Visit Diagnoses Diagnosis Solitary rectal ulcer syndrome documented in this encounter Care Teams Blueprint Maker Relationship Specialty Start Date End Date Bertin Cm MD [address] [place] [address] PCP - General Family Medicine 06/02/22 12/30/22 documented as of this encounter
--- OUTSIDE RECORDS SUMMARY | 2024-05-28 21:34 | XMS_ITS | Encounter Summary ---
Author Organization [facility] Address [facility] [place] [address] Care Team Providers Care Street And Building Decorator Name Role Phone Gabbie Sams MD Primary Care Provider [phone] Reason for Visit * Reason Onset Date Comments Medication Refill 03/10/2023 Encounter Details Date Type Department Care Team (Late st Contact Info) Description 03/10/2023 Refill Dermatology at [facility] [address] [place] [address] Debora Dupont MD [facility] [place] [place] [address] Alopecia areata Social History Tobacco Use Types [...] Visit (TeleHealth) Psychiatry [place] [address] Fermin Mercado MD [facility] [place] [address] documented as of this encounter Visit Diagnoses Diagnosis Alopecia areata documented in this encounter Care Teams Street And Building Decorator Relationship Specialty Start Date End Date Gabbie Sams MD [address] [place] [address] PCP - General Family Medicine 12/31/22 documented as of this encounter
--- OUTSIDE RECORDS SUMMARY | 2024-05-28 21:34 | XMS_ITS | Encounter Summary ---
Author Organization [place] [address] Care Team Providers Care Illusionist Name Role Phone Bertin Cm MD Primary Care Provider Encounter Details Date [...] Visit (TeleHealth) Psychiatry [place] [address] Fermin Mercado MD [facility] [place] [address] documented as of this encounter Visit Diagnoses Not on filedocumented in this encounter Care Teams Illusionist Relationship Specialty Start Date End Date Bertin Cm MD [address] [place] [address] PCP - General Family Medicine 06/02/22 12/30/22 documented as of this encounter
--- OUTSIDE RECORDS SUMMARY | 2024-05-28 21:34 | XMS_ITS | Encounter Summary ---
Author Organization [facility] Address [facility] [place] [address] Care Team Providers Care Air Brake Worker Name Role Phone Bertin Cm MD Primary Care Provider [phone] Encounter Details Date Type Department Care Team (Late st Contact Info) Description 11/30/2022 4:15 PM EDT Office Visit Dermatology at [facility] [address] [place] [address] Chinedu Abreu MD [facility] [place] [address] Alopecia areata; Folliculitis Social History Tobacco Use [...] well and follow up care reviewed. Lot: [id number] Exp: JAN 2024 #. Favor Folliculitis - [...] alopecia areata follow-up (previously-scheduled) []Note routed to junior legal secretary []Recall placed in scheduling system []Appointment scheduled at checkout Scribe attestation: BINDU Vu has performed the documentation for this encounter in the presence of and acting as a scribe for Chinedu Abreu MD. I performed the above scribed service and agree with the accuracy of the documentation in this encounter. Reviewed and signed by: Chinedu Abreu MD Dermatology [facility] documented in this encounter Plan of Treatment Upcoming Encounters Date Type Department Care Team (Late st Contact Info) Description 08/13/2024 9:00 AM EST TH Visit (TeleHealth) Psychiatry [place] [address] Fermin Mercado MD [facility] [place] [place] [address] documented as of this encounter Visit Diagnoses [...] section) documented in this encounter Care Teams Air Brake Worker Relationship Specialty Start Date End Date Bertin Cm MD [address] [place] [address] PCP - General Family Medicine 06/02/22 12/30/22 documented as of this encounter
--- OUTSIDE RECORDS SUMMARY | 2024-05-28 21:34 | XMS_ITS | Encounter Summary ---
Author Organization [facility] Address [facility] [place] [address] Care Team Providers Care Deboning Team Leader Name Role Phone Gabbie Sams MD Primary Care Provider [phone] Encounter Details Date Type Department Care Team (Late st Contact Info) Description 03/21/2023 Telephone [place] [address] Sayra Palomares Social History Tobacco Use Types [...] Visit (TeleHealth) Psychiatry [place] [address] Fermin Mercado MD [facility] [place] [address] documented as of this encounter Visit Diagnoses Not on filedocumented in this encounter Care Teams Deboning Team Leader Relationship Specialty Start Date End Date Gabbie Sams MD [address] [place] [address] PCP - General Family Medicine 12/31/22 documented as of this encounter
--- OUTSIDE RECORDS SUMMARY | 2024-05-28 21:34 | XMS_ITS | Encounter Summary ---
Author Organization [facility] [place] [address] Care Team Providers Care Railroad Car Repairman Name Role Phone Bertin Cm MD Primary Care Provider [phone] Encounter Details Date Type Department Care Team [...] Visit (TeleHealth) Psychiatry [place] [address] Fermin Mercado MD [facility] [place] [address] documented as of this encounter Visit Diagnoses Not on filedocumented in this encounter Care Teams Railroad Car Repairman Relationship Specialty Start Date End Date Bertin Cm MD [address] [place] [address] PCP - General Family Medicine 06/02/22 12/30/22 documented as of this encounter
--- OUTSIDE RECORDS SUMMARY | 2024-05-28 21:34 | XMS_ITS | Encounter Summary ---
Author Organization [facility] [place] [address] Care Team Providers Care Shoe Repairer Name Role Phone Gabbie Sams MD Primary Care Provider [phone] Encounter Details Date Type Department Care Team (Latest Contact Info) Description 05/04/2023 7:34 AM EST - 05/04/2023 10:39 AM EST Hospital Encounter [place] [address] Byron Elias MD [facility] [place] [place] [address] Discharge Disposition: Home Social History Tobacco Use [...] the day after the procedure, use an wjbr-fkp-soybhvy spray to numb your throat. Sucking on [...] occurs, please contact your Doctor. Please call [phone] before 8pm Mon-Fri with problems, questions or concerns. If you call after 8pm or on weekends, call the Hospital at [phone] and ask to speak to the Patient Escort chief controller center and the button attaching machine operator will contact that person for you. When should you call for help? Call [phone] anytime you think you may need emergency [...] any problems. Where can you learn more? [facility] View your After Visit Summary and more online at [email or web address] If you would like to provide feedback about your hospital experience, please call the Office of Patient and Family Relations at . If you have received this After Visit Summary in error, please immediately return it in person to the department, or notify the [facility] Privacy Office by calling toll free at between the hours of 8AM and 5PM to arrange for our retrieval of the documents at no cost to you. Content Version: 12.2 ?? [id number] [employer]. Care instructions adapted under license by [facility]. If you have questions about a medical condition or this instruction, always ask your healthcare professional. [employer] disclaims any warranty or liability for your [...] Visit (TeleHealth) Psychiatry [place] [address] Fermin Mercado MD [facility] [place] [address] documented as of this encounter Procedures Procedure Name Priority Date/Time Associated Diagnosis Comments SPECIMEN TO PATHOLOGY Routine 05/04/2023 9:48 AM EST SURGICAL PATHOLOGY REPORT Routine 05/04/2023 9:28 AM EST SPECIMEN TO PATHOLOGY Routine 05/04/2023 9:28 AM EST SPECIMEN TO PATHOLOGY Routine 05/04/2023 9:28 AM EST SPECIMEN TO PATHOLOGY Routine 05/04/2023 9:28 AM EST SPECIMEN TO PATHOLOGY Routine 05/04/2023 9:28 AM EST Sigmoidoscopy, Biopsy ([id number]) 05/04/2023 9:10 AM EST Dysphagia, unspecified type Irritable bowel syndrome with both constipation and diarrhea Gastroesophageal reflux disease, unspecified whether esophagitis present Functional dyspepsia Upper Gi Endoscopy, Biopsy ([id number]) 05/04/2023 9:10 AM EST Dysphagia, unspecified type [...] AM EST 05/04/2023 9:48 AM EST Narrative [facility] - 05/04/2023 9:48 AM EST Specimen requisition ordered. ??Separate Pathology report to follow Byron Elias MD PATHOLOGY/CYTOLOGY ORDERABLES Performing Organization Address [facility]/State/[facility] Co de Phone Number [facility] [place] [address] * Surgical Pathology Report (05/04/2023 9:28 AM EST) Final Diagnosis [id number] ? Location: 4T; EA06; A The signing [...] Clem Verified: ??05/12/2023 15:46 ??Pathologist Performed at: ??-[facility] [place], [place] [address] [employer] Teacher: Tami Segura MD, FCAP, ??CLIA Certificate: [id number] SPECIMEN(S) SUBMITTED A - distal esophagus biopsy [...] toto ??in 1 cassette labeled E1. ??pps 05/12/2023 3:46 PM EST [facility] GI Biopsy 05/04/2023 9:28 AM EST 05/04/2023 9:28 AM EST GI Biopsy 05/04/2023 9:28 AM EST 05/04/2023 9:28 AM EST GI Biopsy 05/04/2023 9:28 AM EST 05/04/2023 9:28 AM EST GI Biopsy 05/04/2023 9:28 AM EST 05/04/2023 9:28 AM EST GI Biopsy 05/04/2023 9:28 AM EST 05/04/2023 9:28 AM EST Byron Elias MD PATHOLOGY/CYTOLOGY ORDERABLES [facility] [address] [place] [address] * Specimen to Pathology (05/04/2023 9:28 AM EST) AP Specimen 05/04/2023 9:28 AM EST 05/04/2023 9:28 AM EST Narrative [facility] - 05/04/2023 9:28 AM EST Specimen requisition ordered. ??Separate Pathology report to follow Byron Elias MD PATHOLOGY/CYTOLOGY ORDERABLES [facility] [place] [address] * Specimen to Pathology (05/04/2023 9:28 AM EST) AP Specimen 05/04/2023 9:28 AM EST 05/04/2023 9:28 AM EST Narrative [facility] - 05/04/2023 9:28 AM EST Specimen requisition ordered. ??Separate Pathology report to follow Byron Elias MD PATHOLOGY/CYTOLOGY ORDERABLES Performing Organization Address [facility] [place] [address] * Specimen to Pathology (05/04/2023 9:28 AM EST) AP Specimen 05/04/2023 9:28 AM EST 05/04/2023 9:28 AM EST Narrative [facility] - 05/04/2023 9:28 AM EST Specimen requisition ordered. ??Separate Pathology report to follow Byron Elias MD PATHOLOGY/CYTOLOGY ORDERABLES Performing Organization Address [facility] [place] [address] * Specimen to Pathology (05/04/2023 9:28 AM EST) AP Specimen 05/04/2023 9:28 AM EST 05/04/2023 9:28 AM EST Narrative [facility] - 05/04/2023 9:28 AM EST Specimen requisition ordered. ??Separate Pathology report to follow Byron Elias MD PATHOLOGY/CYTOLOGY ORDERABLES Performing Organization Address [facility] [place] [address] * FLEXIBLE SIGMOIDOSCOPY (05/04/2023 9:01 AM EST) FLEXIBLE SIGMOIDOSCOPY [facility] Endoscopy Procedure Date: 05/04/2023 9:01 AM ? Patient Name: Soren Mejia ? Date of : 1985 ? Age: 37 ? Order #: [id number] ? Instrument Name: [id number]- [id number] ? Procedure: ? Flexible Sigmoidoscopy Indications: ? Hematochezia, question of rectal ? 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 Carlos Alberto Gill, ? April Mahoney, Signal Fitter Referring MD: ?Gabbie Sams, Emmanuelle Sun, ? Jose Ford Medicines: ? Monitored Anesthesia [...] the ? physician, the nurse, the ? escort vehicle driver and the maintenance department technician. The ? procedure was verified in [...] care under ? the supervision of a CAREER INFORMATION SPECIALIST was ? determined to be medically ? [...] (05/04/2023 9:00 AM EST) UPPER GI ENDOSCOPY [facility] Endoscopy Procedure Date: 05/04/2023 9:00 AM ? Patient Name: Soren Mejia ? Date of : 1985 ? Age: 37 ? Order #: [id number] ? Instrument Name: [id number]- [id number] ? Procedure: ? Upper GI endoscopy Indications: ? Dyspepsia, Dysphagia, Heartburn, ? Nausea with vomiting Providers: ? Byron Elias, Carlos Alberto Rubio, ? April Mahoney, Signal Fitter Referring MD: ?Emmanuelle Sun, Jose Ford Medicines: [...] the ? physician, the nurse, the ? escort vehicle driver and the maintenance department technician. The ? procedure was verified in [...] care under ? the supervision of a CAREER INFORMATION SPECIALIST was ? determined to be medically ? [...] CRNA) documented in this encounter Care Teams Shoe Repairer Relationship Specialty Start Date End Date Gabbie Sams MD [address] [place] [address] PCP - General Family Medicine 12/31/22 documented as of this encounter
--- OUTSIDE RECORDS SUMMARY | 2024-05-28 21:34 | XMS_ITS | Encounter Summary ---
Author Organization [facility] [place] [address] Care Team Providers Care Air Traffic Controller Center Name Role Phone Gabbie Sams MD Primary Care Provider Reason for Visit * Reason Onset Date Comments Research 01/25/2023 Encounter Details Date Type Department Care Team (Late st Contact Info) Description 01/25/2023 Notes Only Dermatology at [facility] [address] [place] [address] Mounika Falk MD [facility] [place] [address] Research Social History Tobacco Use Types Packs/Day [...] Undergoing Therapy for Immune-Mediated Inflammatory Skin Conditions [id number] PI: Jose Rogers MD Sub-I: Fabián Williamson MD, Coral Dickerson MD, Felipe Rabago MD, Martha Wagoner MD, Lore Velazquez MD, Reggie uW MD, Chinedu Abreu MD, Lidia Reddy MD [...] Visit (TeleHealth) Psychiatry [place] [address] Fermin Mercado MD [facility] [place] [place] [address] documented as of this encounter Visit Diagnoses Not on filedocumented in this encounter Care Teams Air Traffic Controller Center Relationship Specialty Start Date End Date Gabbie Sams MD [address] [place] [address] PCP - General Family Medicine 12/31/22 documented as of this encounter
--- OUTSIDE RECORDS SUMMARY | 2024-05-28 21:34 | XMS_ITS | Encounter Summary ---
Author Organization [facility] [place] [address] Care Team Providers Care Freezer Unloader Name Role Phone Bertin Cm MD Primary Care Provider [phone] Reason for Visit * Reason Onset Date Comments Research 10/21/2022 Encounter Details Date Type Department Care Team (Late st Contact Info) Description 10/21/2022 Notes Only Dermatology at [facility] [address] [place] [address] Mounika Falk MD [facility] [place] [address] Research Social History Tobacco Use Types Packs/Day [...] for Immune-Mediated Inflammatory Skin Conditions Velos #: [id number] PI: Jose Rogers MD Sub-I: Fabián Williamson [...] and the original copy was scanned into [facility] and then retained with our source documents. [...] Visit (TeleHealth) Psychiatry [place] [address] Fermin Mercado MD [facility] [place] [place] [address] documented as of this encounter Visit Diagnoses Not on filedocumented in this encounter Care Teams Freezer Unloader Relationship Specialty Start Date End Date Bertin Cm MD [address] [place] [address] PCP - General Family Medicine 06/02/22 12/30/22 documented as of this encounter
--- OUTSIDE RECORDS SUMMARY | 2024-05-28 21:34 | XMS_ITS | Encounter Summary ---
Author Organization [facility] [place] [address] Care Team Providers Care Straight Line Press Setter Name Role Phone Gabbie Sams MD Primary Care Provider [phone] Encounter Details Date Type Department Care Team [...] Visit (TeleHealth) Psychiatry [place] [address] Fermin Mercado MD [facility] [place] [address] documented as of this encounter Visit Diagnoses Not on filedocumented in this encounter Care Teams Straight Line Press Setter Relationship Specialty Start Date End Date Gabbie Sams MD [address] [place] [address] PCP - General Family Medicine 12/31/22 documented as of this encounter
--- OUTSIDE RECORDS SUMMARY | 2024-05-28 21:34 | XMS_ITS | Encounter Summary ---
Author Organization [facility] Address [address] [place] [address] Care Team Providers Care Supervisor Blood Donor Recruiters Name Role Phone Bertin Cm MD Primary Care Provider [phone] Encounter Details Date Type Department Care Team (Late st Contact Info) Description 07/08/2022 Lab Requisition [facility] Pathology & Laboratory Medicine - [facility] [address] [place] [address] Pilar Pina APRN [address] [place] [address] Dr [address] [place], [place] [id number] Encounter for other general examination Social History [...] management options, if applicable. 07/09/2022 9:14 EST [facility] Final Diagnosis A. UVULA, RIGHT, BIOPSY: - Features consistent with squamous papilloma. 07/09/2022 9:14 EST [facility] Diagnosis Comment The biopsy includes superficial squamous epithelium with architecture of a papilloma. The basal epithelium is poorly represented, but no definitve dysplasia is identified. 07/09/2022 9:14 [facility] Attestation By the signature below, the attending physician certifies that they have 1) personally conducted a gross and/or microscopic examination of the described specimen(s), and/or personally interpreted the results of laboratory testing of the described specimen(s), and 2) personally rendered or confirmed the above diagnosis. 07/09/2022 9:14 [facility] at 0914 Clinical History Lesion right side uvula excision; present since April; ecchymosis in area; hx of non-Hodgkin's lymphoma; current cannabis user 07/09/2022 9:14 [facility] Gross Description A. Received in formalin labelled with proper patient identification (initials B, G) and R uvula are 3 opaque still-white wispy tissues (0.2 x 0.1 by less than 0.1 to less than 0.1 by less than 0.1 by less than 0.1 cm). Please note the specimen may not survive processing. Freida Ghosh 07/08/2022 9:55 07/09/2022 9:14 [facility] Performing Lab [facility] 07/09/2022 9:14 [facility] Scanned Images 07/09/2022 9:14 [facility] Tissue ENTIRE UVULA [place] / Unknown 07/07/2022 11:10 EST 07/08/2022 8:44 EST Pilar Pina APRN PATHOLOGY ORDERABLES Final Result [facility] [address] [place] [address] documented in this encounter Visit Diagnoses Diagnosis Encounter for other general examination documented in this encounter Care Teams Supervisor Blood Donor Recruiters Relationship Specialty Start Date End Date Bertin Cm MD [address] [facility] [address] [place] [address] PCP - General Emergency Medicine 06/13/22 documented as of this encounter
--- OUTSIDE RECORDS SUMMARY | 2024-05-28 21:34 | XMS_ITS | Encounter Summary ---
[place] [address] Care Team Providers Care Railroad Construction Director Name Role Phone Bertin Cm MD Primary Care Provider [phone] Reason for Referral * Consultation (Routine) - Closed Specialty Diagnoses / Procedures Referred By Balaji t Referred To Contact Neurology Diagnoses Injury of facial nerve, unspecified laterality, initial encounter Rosemary House MD [facility] [address] [place] [address] [facility] Neu[facility] [address] [place] [phone] Referral ID Status Reason Start Date Expiration Date V isits Requested Visits Authorized [id number] Closed Consult, Test & Treat PCP Updated and/or Approved 07/27/2022 07/27/2023 6 6 Encounter Details Date Type Department Care Team (Late st Contact Info) Description 07/27/2022 Transcribe Orders eD Incoming Referrals [phone] Rosemary House MD [facility] [address] [place] [address] Injury of facial nerve, unspecified [...] Visit (TeleHealth) Psychiatry [place] [address] Fermin Mercado MD [facility] [place] [address] Scheduled Referrals Name Type Priority Associated Diagnoses Orde r Schedule Referral to Neurology Outpatient Referral Routine Injury of facial nerve, unspecified laterality, initial encounter Ordered: 07/27/2022 documented as of this encounter Visit Diagnoses Diagnosis Injury of facial nerve, unspecified laterality, initial encounter documented in this encounter Care Teams Railroad Construction Director Relationship Specialty Start Date End Date Bertin Cm MD [address] [place] [address] PCP - General Family Medicine 06/02/22 12/30/22 documented as of this encounter
--- OUTSIDE RECORDS SUMMARY | 2024-05-28 21:34 | XMS_ITS | Encounter Summary ---
Author Organization [facility] [place] [address] Care Team Providers Care Rate Clerk Passenger Name Role Phone Bertin Cm MD Primary Care Provider [phone] Reason for Referral * Diagnostic Test (Routine) - Closed Specialty Diagnoses / Procedures Referred By Balaji hoang Referred To Contact Gastroenterology Diagnoses Solitary rectal ulcer syndrome ARM for solitary rectal ulcer syndrome Procedures High Definition Anal Manometry PRG ANORECTAL MANOMETRY PRG RECTAL SENSATION TEST, BALLOON Emmanuelle Sun DO [address] [place] [address] [facility] [address] [place] [address] Referral ID Status Reason Start Date Expiration Date V isits Requested Visits Authorized [id number] Closed Consult, Test & Treat 07/21/2022 07/21/2023 1 1 Encounter Details Date Type Department Care Team (Late st Contact Info) Description 07/21/2022 Transcribe Orders eDH Incoming Referrals [phone] Emmanuelle Sun DO [address] [place] [address] [address] [place], [place] [id number] Solitary rectal ulcer syndrome Social History Tobacco [...] Visit (TeleHealth) Psychiatry [place] [address] Fermin Mercado MD [facility] [place] [address] Scheduled Orders Name Type Priority Associated Diagnoses Orde r Schedule High Definition Anal Manometry GI Routine Solitary rectal ulcer syndrome Expected: 07/21/2022 (Approximate), Expires: 01/19/2024 documented as of this encounter Visit Diagnoses Diagnosis Solitary rectal ulcer syndrome documented in this encounter Care Teams Rate Clerk Passenger Relationship Specialty Start Date End Date Bertin Cm MD [address] [place] [address] PCP - General Family Medicine 06/02/22 12/30/22 documented as of this encounter
--- OUTSIDE RECORDS SUMMARY | 2024-05-28 21:34 | XMS_ITS | Encounter Summary ---
Author Organization [facility] [address] Care Team Providers Care Merchandise Adjustment Clerk Name Role Phone Gabbie Sams MD Primary Care Provider [phone] Reason for Visit * Reason Comments Patient Education Encounter Details Date Type Department Care Team (Late st Contact Info) Description 03/08/2023 Specialty [place] [id number] Javed Lo [facility] Social History Tobacco Use Types Packs/Day [...] Requirements: no Medication Reconciliation Discrepancies (compared to [facility] med list) -N/A Medication List: Current [...] specialty services: Yes Patient accepted offer to primary substance abuse counselor: select all, adherence/missed doses, cost of medications/cost [...] preventative care discussed, reminder to refill or picker packer medication discussed, self-monitoring discussed, start medication discussed, [...] Social Assessment: Does patient have a primary floor care technician: No Does patient have an emergency contact on file: Yes Does patient need referral to social welfare clerk: No Does patient need referral to advocacy [...] were made at the appointment and that [facility] is[facility] recommendations (summary located at top of note) for provider review and follow up. Javed Lo RPH 03/08/23 4:14 PM documented in this encounter Plan of Treatment Upcoming Encounters Date Type Department Care Team (Late st Contact Info) Description 08/13/2024 9:00 AM EST TH Visit (TeleHealth) Psychiatry and [place] [address] Fermin Mercado MD [facility] [place] [address] documented as of this encounter Visit Diagnoses Diagnosis Alopecia areata documented in this encounter Care Teams Merchandise Adjustment Clerk Relationship Specialty Start Date End Date Gabbie Sams MD [address] [place] [address] PCP - General Family Medicine 12/31/22 documented as of this encounter
--- OUTSIDE RECORDS SUMMARY | 2024-05-28 21:34 | XMS_ITS | Encounter Summary ---
Author Organization [facility] [place] [address] Care Team Providers Care Brand Analyst Name Role Phone Gabbie Sams MD Primary Care Provider [phone] Encounter Details Date Type Department Care Team [...] Visit (TeleHealth) Psychiatry [place] [address] Fermin Mercado MD [facility] [place] [address] documented as of this encounter Visit Diagnoses Not on filedocumented in this encounter Care Teams Brand Analyst Relationship Specialty Start Date End Date Gabbie Sams MD [address] [place] [address] PCP - General Family Medicine 12/31/22 documented as of this encounter
--- OUTSIDE RECORDS SUMMARY | 2024-05-28 21:34 | XMS_ITS | Encounter Summary ---
Author Organization [facility] Address [address] [place] [address] Care Team Providers Care Environmental Control Administrator Name Role Phone Bertin Cm MD Primary Care Provider [phone] Encounter Details Date Type Department Care Team (Late st Contact Info) Description 06/18/2022 Lab Requisition [facility] Pathology & Laboratory Medicine - [facility] [address] [place] [address] Outr Resulting Lab, Provider Social History Tobacco [...] gonorrhoeae Result Negative Negative 06/20/2022 13:35 EST [facility] Chlamydia trachomatis Result Negative Negative 06/20/2022 13:35 EST [facility] Urine URINE / Unknown 06/17/2022 1 5:15 EST 06/19/2022 13:43 EST us Provider Outr Resulting Lab MICROBIOLOGY - GENER AL ORDERABLES Final Result [facility] [address] [place] [address] documented in this encounter Visit Diagnoses Not on filedocumented in this encounter Care Teams Environmental Control Administrator Relationship Specialty Start Date End Date Bertin Cm MD [address] [facility] [address] [place] [address] PCP - General Emergency Medicine 06/13/22 documented as of this encounter
--- OUTSIDE RECORDS SUMMARY | 2024-05-28 21:34 | XMS_ITS | Encounter Summary ---
Author Organization [facility] Address [facility] [place] [address] Care Team Providers Care Pencils Washer Name Role Phone Gabbie Sams MD Primary Care Provider [phone] Reason for Visit * Consultation (Routine) - Closed Specialty Diagnoses / Procedures Referred By Balaji hoang Referred To Contact Gastroenterology Diagnoses Solitary rectal ulcer syndrome Solitary rectal ulcer syndrome-? Benefit from Botox inj in the rectum Emmanuelle Sun, DO [address] [place] [address] [facility] [address] [place] [address] Referral ID Status Reason Start Date Expiration Date V isits Requested Visits Authorized [id number] Closed Consult, Test & Treat PCP Updated and/or Approved 07/26/2022 07/26/2023 6 6 Encounter Details Date Type Department Care Team (Latest Contact Info) Description 02/09/2023 10:00 AM EDT TH Visit (TeleHealth) [place] [address] Maldonado Franklin MD [facility] [place] [address] Dysphagia, unspecified type; Irritable bowel syndrome with [...] and Primary Care Providers Maldonado Franklin MD, [facility] + Miguel Toribio MD, AGNES Jonathan Ignacio, LIQUID FLAVOR COMPOUNDER + Swapna Montelongo, LIQUID FLAVOR COMPOUNDER + Gabbie Clark, LIQUID FLAVOR COMPOUNDER + J CARLOS Masterson RN + FLASH Miller, PhD [facility] What are functional bowel disorders? These are the most common type of gastrointestinal disorders in the [facility] The most common functional bowel disorder in the [facility] is irritable bowel syndrome (IBS) Irritable bowel [...] what is the impact? 15-20% of general [place] population has IBS or FD or both IBS is the 2nd most common cause for lost work days (after common cold) in [place] IBS is estimated to cost the [place] 30 billion dollars per year These [...] with immediate onset of symptoms after infection); detention symptoms are expected in most patients however [...] - this approach benefits most patients OTC (blby-zzd-pkexkts) medications can be used for ongoing bothersome symptoms as listed below Your doctor (PCP or local Gastroenterology provider or Gastroenterology provider) may decide [...] but convincing medical evidence is still lacking Xvbe-zrl-evzqone supplements are not typically evaluated by FDA [...] IBS Headspace (anxiety/stress/mindfulness) Calm (anxiety/stress/mindfulness) 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) Curable (chronic pain) There [...] - you may find a provider at [facility] Medications for Functional Gut Disorders Diarrhea [...] a stool softener that is safe for detention usage (no risk of dependency) andthe dosage [...] under the supervision of a Gastroenterology provider ([facility] or ) or Primary Care Provider Authors are not liable for misuse/misinterpretation of this information Patient Resources [place] [employer] https://www.gastro.org/practice-guidance/ry-tsuiibv-yqznod/ topic/llnhwafku-vfkqd-ndlunrhq-ibs Badgut.org https://badgut.org/information-centre/n-i-bzwedrqtv-topics/ibs/ AboutIBS.org https://www.aboutibs.org/ Uptodate.com https://www.uptodate.com/contents/nnhnfjiqm-qrhon-osmtaddn-dimtfy-mfs-pchuwg documented in this encounter Progress Notes * Maldonado Franklin MD - 02/09/2023 10:00 AM EDT Images from the original note were not included. GI MOTILITY CENTER TELEMEDICINE PROGRAM Chief Complaint: Soren Mejia is a 37 y.o. patient referred for consultation by Dr. Sun forgastroparesis and solitary rectal ulcer syndrome. Referred for second opinion previously followed by a GI provider in [place]. History of Present Illness: 37 y.o. male [...] drug use. Drug: Marijuana. 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 Physical exam: No Physical Examination performed during [...] discussed the collaborative care model of the [facility] GI motility program. The patient should continue [...] testing completed The patient was located in [place] at the time of their visit. TIME SPENT WITH PATIENT Time spent reviewing records prior to this encounter on day of appointment: 5 minutes Time spent during encounter with patient including counselin minutes Time spent documenting encounter after office visit: 6 minutes Maldonado Franklin MD [facility] [address] [place] [id number] documented in this encounter Plan of Treatment Upcoming Encounters Date Type Department Care Team (Late st Contact Info) Description 08/13/2024 9:00 AM EST TH Visit (TeleHealth) Psychiatry [facility] [place] [facility] [place] [address] Fermin Mercado MD [facility] [place] [address] Scheduled Orders Name Type Priority Associated Diagnoses [...] who have questions, please contact the health hospice care sales consultant that requested your imaging first. ?Teo Kilgore, Staff Physician Electronically Signed Final Report ?? 03/23/2023 09:26 am Narrative 03/23/2023 9:26 AM EDT Abdominal ? (Signed Final 03/23/2023 09:26 am) PATIENT INFO: ID #: ? [id number] ?: ??[birth year] (37 yrs)(M) Name: ? SOREN ? Visit Date: 03/23/2023 08:27 am ? TALA PERFORMED BY: Attending: ?Magui CHRISTIE MD, Teo Agarwal Performed By: ? Kathy Bhardwaj RDMS Referred By: ?MALDONADO FRANKLIN Location: ? [place] SERVICE(S) PROVIDED: [facility] - Hepatology Protocol - Abdominal ?75393 Limited Survey Single Organ or Quadrant - [id number] INDICATIONS: dyspepsia - rule out gallstones COMPARISON: [...] 03/23/2023 09:26 am) PATIENT INFO: ID #: [id number] : [birth year] (37 yrs)(M) Name: SOREN Visit Date: 03/23/2023 08:27 am TALA PERFORMED BY: Attending: Magui CHRISTIE MD, Arthur L. Performed By: Kathy Bhardwaj RDMS Referred By: MALDONADO FRANKLIN Location: [place] SERVICE(S) PROVIDED: [facility] - Hepatology Protocol - Abdominal 07100 Limited Survey Single Organ or Quadrant - [id number] INDICATIONS: dyspepsia - rule out gallstones COMPARISON: [...] who have questions, please contact the health hospice care sales consultant that requested your imaging first. Teo Kilgore, Staff Physician Electronically Signed Final Report 03/23/2023 09:26 am Maldonado Franklin MD IMG US GEN ORDERABLE S * Comprehensive metabolic panel (non-fasting) (03/08/2023 5:28 PM EDT) Glucose 78 65 - 199 mg/dL [facility] Comment:Diabetes: >=200 mg/d L plus symptoms Blood Urea Nitrogen 11 10 - 20 mg/dL [facility] Creatinine 0.92 0.80 - 1.50 mg/dL [facility] Sodium 141 135 - 145 mmol/L [facility] Potassium 3.9 3.5 - 5.0 mmol/L [facility] Comment: Please note: ??Patients with WBC >100,000 may have falsely elevated Potassium levels. ??For accurate Potassium quantification in these patients send serum separator tube (gold top) for subsequent determinations. ??Contact the Clinical Chemistry Laboratory if there are any questions. Chloride 102 98 - 107 mmol/L [facility] Carbon Dioxide 31 22 - 31 mmol/L [facility] Anion Gap 8 5 - 15 mmol/L [facility] Calcium 9.4 8.5 - 10.5 mg/dL [facility] Protein, Total 7.4 6.1 - 8.0 g/dL [facility] Albumin 4.4 3.2 - 5.2 g/dL [facility] Aspartate Aminotransferase 20 0 - 39 unit/L [facility] Alanine Aminotransferase 17 0 - 55 unit/L [facility] Alkaline Phosphatase 84 40 - 130 unit/L [facility] Bilirubin, Total 0.3 0.2 - 1.3 mg/dL [facility] Est Glomerular Filtration Rate 111 >=60 mL/min/1. 73 m?? [facility] Comment: This patient's estimated GFR [...] Franklin MD CHEMISTRY ORDERABLES Performing Organization Address [facility] Co de Phone Number [facility] [place] [address] * Tissue transglutaminase, IgA (03/08/2023 5:28 PM EDT) TTG IgA Ab 0.4 <=10.0 u/ml [facility] Comment: Negative: ??<7 units/mL Indeterminate: 7-10 units/mL Positive: ??>10 units/mL Blood 03/08/2023 5:28 PM EDT 03/09/2023 7:16 AM EDT Narrative Resulting Agency Comment Spec In Lab Maldonado Franklin MD IMMUNOLOGY ORDERABLE S Performing Organization Address City/[facility] Co de Phone Number [facility] [place] [address] * IgG (03/08/2023 5:28 PM EDT) Immunoglobulin G 1,188 700 - 1,600 mg/dL [facility] Comment: Pediatric Reference Intervals obtained from the Caliper Reference Interval project. http://www.sickkids.ca/caliperproject/index.html Blood 03/08/2023 5:28 PM EDT 03/08/2023 5:35 PM EDT Narrative Resulting Agency Comment Spec In Lab Maldonado Franklin MD CHEMISTRY ORDERABLES Performing Organization Address City/[facility] Co de Phone Number [facility] [place] [address] * IgA (03/08/2023 5:28 PM EDT) IgA 253 70 - 400 mg/dL [facility] Blood 03/08/2023 5:28 PM EDT 03/08/2023 5:35 PM EDT Narrative Resulting Agency Comment Spec In Lab Maldonado Franklin MD CHEMISTRY ORDERABLES Performing Organization Address [facility] [place] [address] documented in this encounter Visit Diagnoses Diagnosis [...] stomach documented in this encounter Care Teams Pencils Washer Relationship Specialty Start Date End Date Gabbie Sams MD [address] [place] [address] PCP - General Family Medicine 12/31/22 documented as of this encounter
--- OUTSIDE RECORDS SUMMARY | 2024-05-28 21:34 | XMS_ITS | Encounter Summary ---
Author Organization [facility] Address [facility] [place] [address] Care Team Providers Care Mortician Supplies Sales Representative Name Role Phone Bertin Cm MD Primary Care Provider [phone] Reason for Visit * Consultation (Routine) - Closed Specialty Diagnoses / Procedures Referred By Balaji hoang Referred To Contact Dermatology Diagnoses Alopecia areata Bertin Cm MD [address] [place] [address] [facility] Dermatology [address] [place] [address] Referral ID Status Reason Start Date Expiration Date V isits Requested Visits Authorized [id number] Closed Consult, Test & Treat PCP Updated and/or Approved 06/02/2022 06/02/2023 12 12 Encounter Details Date Type Department Care Team (Late st Contact Info) Description 10/21/2022 4:45 PM EDT Office Visit Dermatology at [facility] [address] [place] [address] Chinedu Abreu MD [facility] [place] [address] Alopecia areata; Folliculitis Social History [...] in and sores form. Was seeing a water resource agent in [place] who did ILK injections. These helped. Started [...] well and follow up care reviewed. Lot: [id number] Exp: JAN 2024 #. Folliculitis - Scattered [...] for alopecia areata follow-up [x]Note routed to unit secretary []Recall placed in scheduling system []Appointment scheduled at checkout Scribe attestation: Quintin Alvarez [facility] has performed the documentation for this encounter in the presence of and acting as a scribe for Chinedu Abreu MD. I performed the above scribed service and agree with the accuracy of the documentation in this encounter. Reviewed and signed by: Chinedu Abreu MD Dermatology [facility] documented in this encounter Plan of Treatment Upcoming Encounters Date Type Department Care Team (Late st Contact Info) Description 08/13/2024 9:00 AM EST TH Visit (TeleHealth) Psychiatry [place] [address] Fermin Mercado MD [facility] [place] [address] documented as of this encounter Visit Diagnoses Diagnosis Alopecia areata Folliculitis Other specified disease of hair and hair follicles documented in this encounter Care Teams Mortician Supplies Sales Representative Relationship Specialty Start Date End Date Bertin Cm MD [address] [place] [address] PCP - General Family Medicine 06/02/22 12/30/22 documented as of this encounter
--- OUTSIDE RECORDS SUMMARY | 2024-05-28 21:34 | XMS_ITS | Encounter Summary ---
Author Organization [facility] [place] [address] Care Team Providers Care Dairy Nutritionist Name Role Phone Gabbie Sams MD Primary Care Provider [phone] Encounter Details Date Type Department Care Team (Late st Contact Info) Description 03/21/2023 Telephone [place] [address] OnielstephanyRob Social History Tobacco Use Types Packs/Day [...] - 03/21/2023 4:56 PM EDT Soren Mejia [id number] Diagnosis/Indication: rectal bleeding and nausea Please review [...] procedure? No You must have a responsible democrat who will drive you to your procedure, stay on campus for the entire duration of your procedure, and drive you home from your procedure. Who will likely be your local tanker truck driver for the procedure? *Please Verify the [...] Visit (TeleHealth) Psychiatry [place] [address] Fermin Mercado MD [facility] [place] [address] documented as of this encounter Visit Diagnoses Not on filedocumented in this encounter Care Teams Dairy Nutritionist Relationship Specialty Start Date End Date Gabbie Sams MD [address] [place] [address] PCP - General Family Medicine 12/31/22 documented as of this encounter
--- OUTSIDE RECORDS SUMMARY | 2024-05-28 21:34 | XMS_ITS | Encounter Summary ---
Author Organization [facility] [place] [address] Care Team Providers Care Medical Record Transcriber Name Role Phone Bertin Cm MD Primary Care Provider [phone] Encounter Details Date Type Department Care Team [...] Visit (TeleHealth) Psychiatry [place] [address] Fermin Mercado MD [facility] [place] [address] documented as of this encounter Visit Diagnoses Not on filedocumented in this encounter Care Teams Medical Record Transcriber Relationship Specialty Start Date End Date Bertin Cm MD [address] [place] [address] PCP - General Family Medicine 06/02/22 12/30/22 documented as of this encounter
--- OUTSIDE RECORDS SUMMARY | 2024-05-28 21:34 | XMS_ITS | Encounter Summary ---
Author Organization [facility] [place] [address] Care Team Providers Care Seed Yeast Operator Name Role Phone Gabbie Sams MD Primary Care Provider [phone] Encounter Details Date Type Department Care Team (Late st Contact Info) Description 01/26/2023 Tele[place] [address] Kednra Ruiz Social History Tobacco Use Types Packs/Day [...] Ford. You can offer him 03/22 or 17 at 1 pm (urgent spots) documented in this encounter Plan of Treatment Upcoming Encounters Date Type Department Care Team (Late st Contact Info) Description 08/13/2024 9:00 AM EST TH Visit (TeleHealth) Psychiatry [place] [address] Fermin Mercado MD [facility] [place] [address] documented as of this encounter Visit Diagnoses Not on filedocumented in this encounter Care Teams Seed Yeast Operator Relationship Specialty Start Date End Date Gabbie Sams MD [address] [place] [address] PCP - General Family Medicine 12/31/22 documented as of this encounter
--- OUTSIDE RECORDS SUMMARY | 2024-05-28 21:34 | XMS_ITS | Encounter Summary ---
Author Organization [facility] [place] [address] Care Team Providers Care Control Panel Operator Name Role Phone Gabbie Sams MD Primary Care Provider [phone] Encounter Details Date Type Department Care Team (Late st Contact Info) Description 05/04/2023 9:15 AM EST - 05/04/2023 10:15 AM EST [place] [id number] Byron Elias MD [facility] DR [place] [address] EGD WITH BIOPSY (WRVU 2.39) Social History [...] the day after the procedure, use an fkod-sby-ktrohcb spray to numb your throat. Sucking on [...] occurs, please contact your Doctor. Please call [phone] before 8pm Mon-Fri with problems, questions or concerns. If you call after 8pm or on weekends, call the Hospital at [phone] and ask to speak to the Safety Person varying exceptionalities teacher and the plant operator control room operator will contact that person for you. When should you call for help? Call [phone] anytime you think you may need emergency [...] any problems. Where can you learn more? [facility] View your After Visit Summary and more online at [email or web address] If you would like to provide feedback about your hospital experience, please call the Office of Patient and Family Relations at . If you have received this After Visit Summary in error, please immediately return it in person to the department, or notify the [facility] Privacy Office by calling toll free at between the hours of 8AM and 5PM to arrange for our retrieval of the documents at no cost to you. Content Version: 12.2 ?? [phone] [employer]. Care instructions adapted under license by [facility]. If you have questions about a medical condition or this instruction, always ask your healthcare professional. [employer] disclaims any warranty or liability for your [...] Visit (TeleHealth) Psychiatry [place] [address] Fermin Mercado MD [facility] [place] [address] documented as of this encounter Procedures Procedure Name Priority Date/Time Associated Diagnosis Comments SPECIMEN TO PATHOLOGY Routine 05/04/2023 9:48 AM EST SURGICAL PATHOLOGY REPORT Routine 05/04/2023 9:28 AM EST SPECIMEN TO PATHOLOGY Routine 05/04/2023 9:28 AM EST SPECIMEN TO PATHOLOGY Routine 05/04/2023 9:28 AM EST SPECIMEN TO PATHOLOGY Routine 05/04/2023 9:28 AM EST SPECIMEN TO PATHOLOGY Routine 05/04/2023 9:28 AM EST Sigmoidoscopy, Biopsy ([id number]) 05/04/2023 9:10 AM EST Dysphagia, unspecified type Irritable bowel syndrome with both constipation and diarrhea Gastroesophageal reflux disease, unspecified whether esophagitis present Functional dyspepsia Upper Gi Endoscopy, Biopsy ([id number]) 05/04/2023 9:10 AM EST Dysphagia, unspecified type [...] AM EST 05/04/2023 9:48 AM EST Narrative [facility] - 05/04/2023 9:48 AM EST Specimen requisition ordered. ??Separate Pathology report to follow Byron Elias MD PATHOLOGY/CYTOLOGY ORDERABLES Performing Organization Address City/State/[facility] Co de Phone Number [facility] [place] [address] * Surgical Pathology Report (05/04/2023 9:28 AM EST) Final Diagnosis [id number] ? Location: 4T; EA06; A The signing [...] Clem Verified: ??05/12/2023 15:46 ??Pathologist Performed at: ??-[facility] Dept. of Pathology, [place] [address] Film Writer: Tami Segura MD, FCAP, ??CLIA Certificate: [id number] SPECIMEN(S) SUBMITTED A - distal esophagus biopsy [...] labeled E1. ??pps 05/12/2023 3:46 PM EST [facility] GI Biopsy 05/04/2023 9:28 AM EST 05/04/2023 9:28 AM EST GI Biopsy 05/04/2023 9:28 AM EST 05/04/2023 9:28 AM EST GI Biopsy 05/04/2023 9:28 AM EST 05/04/2023 9:28 AM EST GI Biopsy 05/04/2023 9:28 AM EST 05/04/2023 9:28 AM EST GI Biopsy 05/04/2023 9:28 AM EST 05/04/2023 9:28 AM EST Byron Elias MD PATHOLOGY/CYTOLOGY ORDERABLES [facility] [place] [address] [facility] [place] [address] * Specimen to Pathology (05/04/2023 9:28 AM EST) AP Specimen 05/04/2023 9:28 AM EST 05/04/2023 9:28 AM EST Narrative [facility] - 05/04/2023 9:28 AM EST Specimen requisition ordered. ??Separate Pathology report to follow Byron Elias MD PATHOLOGY/CYTOLOGY ORDERABLES [facility] [place] [address] * Specimen to Pathology (05/04/2023 9:28 AM EST) AP Specimen 05/04/2023 9:28 AM EST 05/04/2023 9:28 AM EST Narrative [facility] - 05/04/2023 9:28 AM EST Specimen requisition ordered. ??Separate Pathology report to follow Byron Elias MD PATHOLOGY/CYTOLOGY ORDERABLES Performing Organization Address City/[facility]/ZIP Co de Phone Number [facility] [place] [address] * Specimen to Pathology (05/04/2023 9:28 AM EST) AP Specimen 05/04/2023 9:28 AM EST 05/04/2023 9:28 AM EST Narrative [facility] - 05/04/2023 9:28 AM EST Specimen requisition ordered. ??Separate Pathology report to follow Byron Elias MD PATHOLOGY/CYTOLOGY ORDERABLES Performing Organization Address City/[facility] Co de Phone Number [facility] [place] [address] * Specimen to Pathology (05/04/2023 9:28 AM EST) AP Specimen 05/04/2023 9:28 AM EST 05/04/2023 9:28 AM EST Narrative [facility] - 05/04/2023 9:28 AM EST Specimen requisition ordered. ??Separate Pathology report to follow Byron Elias MD PATHOLOGY/CYTOLOGY ORDERABLES Performing Organization Address City/[facility] Co de Phone Number [facility] [place] [address] * FLEXIBLE SIGMOIDOSCOPY (05/04/2023 9:01 AM EST) FLEXIBLE SIGMOIDOSCOPY [facility] Procedure Date: 05/04/2023 9:01 AM ? Patient Name: Soren Mejia ? Date of : 1985 ? Age: 37 ? Order #: [id number] ? Instrument Name: [id number] ? Procedure: ? Flexible Sigmoidoscopy Indications: ? Hematochezia, question of rectal ? 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 Carlos Alberto Gill, ? April Mahoney, Pinion Staker Referring MD: ?Gabbie Sams, Emmanuelle Sun, ? [...] the ? physician, the nurse, the ? news production assistant and the electrical laboratory technician. The ? procedure was verified in [...] care under ? the supervision of a PAPER MAKER was ? determined to be medically ? [...] (05/04/2023 9:00 AM EST) UPPER GI ENDOSCOPY [facility] Procedure Date: 05/04/2023 9:00 AM ? Patient Name: Soren Mejia ? Date of : 1985 ? Age: 37 ? Order #: [id number] ? Instrument Name: [id number]- [id number] ? Procedure: ? Upper GI endoscopy Indications: ? Dyspepsia, Dysphagia, Heartburn, ? Nausea with vomiting Providers: ? Byron Elias, Carlos Alberto Rubio, ? April Mahoney, Pinion Staker Referring MD: ?Emmanuelle Sun, Jose Ford Medicines: [...] the ? physician, the nurse, the ? news production assistant and the electrical laboratory technician. The ? procedure was verified in [...] care under ? the supervision of a PAPER MAKER was ? determined to be medically ? [...] personally performed the entire procedure. ? Byron Ester Elias, 05/04/2023 9:31:18 AM Number of Addenda: [...] CRNA) documented in this encounter Care Teams Control Panel Operator Relationship Specialty Start Date End Date Gabbie Sams MD [address] [place] [address] PCP - General Family Medicine 12/31/22 documented as of this encounter
--- OUTSIDE RECORDS SUMMARY | 2024-05-28 21:34 | XMS_ITS | Encounter Summary ---
Author Organization [facility]ly [facility], [facility] [place] [address] Care Team Providers Care Editor News Name Role Phone Bertin Cm MD Primary Care Provider [phone] Encounter Details Date Type Department Care Team [...] Visit (TeleHealth) Psychiatry [place] [address] Fermin Mercado MD [facility] [place] [address] documented as of this encounter Visit Diagnoses Not on filedocumented in this encounter Care Teams Editor News Relationship Specialty Start Date End Date Bertin Cm MD [address] [place] [address] PCP - General Family Medicine 06/02/22 12/30/22 documented as of this encounter
--- OUTSIDE RECORDS SUMMARY | 2024-05-28 21:34 | XMS_ITS | Referral Summary ---
Author Organization [facility] Address [address] [place] [address] Care Team Providers Care Consulting Technical Manager Name Role Phone Bertin Cm MD Primary Care Provider [phone] Social History Tobacco Use Types Packs/Day Years Used Date Smoking Tobacco: Never Assessed Sex and Gender Information Value Date Recorded Sex Assigned at Not on file Legal Sex Male 1:46 EST Gender Identity Not on file Sexual Orientation Not on file Plan of Treatment Not on file Insurance Care Teams Consulting Technical Manager Relationship Specialty Start Date End Date Bertin Cm MD [address] [place] [address] PCP - General Emergency Medicine 06/13/22
--- OUTSIDE RECORDS SUMMARY | 2024-05-28 21:34 | XMS_ITS | Encounter Summary ---
Author Organization [facility] Address [facility] [address] Care Team Providers Care Prize Coordinator Name Role Phone Gabbie Sams MD Primary Care Provider [phone] Encounter Details Date Type Department Care Team (Late st Contact Info) Description 03/08/2023 2:45 PM EDT Office Visit Dermatology at [facility] [address] [place] [address] Chinedu Abreu MD [facility] [place] [address] Alopecia areata; High risk medication use Social [...] this encounter Progress Notes * Quintin Alvarez, [facility] - 03/08/2023 2:45 PM EDT Images from [...] of drug, and [place]. Pt is changes employment and will look for a commercial plan and then can send RX Figure 1 Figure 2 Figure 3 Figure 4 Photo(s) taken and charted with patient's verbal consent. Other: N/A RTC: pending new insurance to start process for baricitinib approval []Note routed to chief medical officer []Recall placed in scheduling system []Appointment scheduled [...] Visit (TeleHealth) Psychiatry [place] [address] Fermin Mercado MD [facility] [place] [address] Scheduled Orders Name Type Priority Associated Diagnoses Orde r Schedule Comprehensive metabolic panel (non-fasting) Lab Routine High risk medication use Expected: 03/08/2023, Expires: 09/07/2023 documented as of this encounter Results * QuantiFERON-TB Gold (03/08/2023 5:28 PM EDT) Quantiferon Nil 0.073 IU/mL [facility] QFT TB Ag1-Nil 0.060 IU/mL [facility] QFT TB Ag2-Nil 0.032 IU/mL [facility] Quantiferon Mitogen-Nil 9.927 IU/mL [facility] Quantiferon-TB Gold Negative Negative [facility] Quantiferon Tb Interp M. tuberculosis [...] affect immune function, or other immunological factors. [facility] Blood 03/08/2023 5:28 PM EDT 03/10/2023 7:15 AM EDT Narrative Resulting Agency Comment Spec In Lab Chinedu Abreu MD CHEMISTRY ORDERABLES [facility] [place] [address] * Lipid Panel (Reflex Direct LDL) (03/08/2023 5:28 PM EDT) Cholesterol, Total 151 mg/dL [facility] Comment: Lower Risk: <200 mg/dL Average Risk: 200-239 mg/dL Higher Risk: >ol=163 mg/dL Triglyceride 80 mg/dL [facility] Comment: Average Risk/Lower Risk: <150 mg/dL Borderline High Risk: 150-199 mg/dL High Risk: 200-499 mg/dL Very High Risk: >hi=549 mg/dL HDL Cholesterol 57 mg/dL [facility] Comment: Males: ?? Higher Risk: <40 mg/dL Females: ?? Higher Risk: <50 mg/dL LDL Cholesterol 78 mg/dL [facility] Comment: Lowest Risk: <100 mg/dL Lower Risk: 100-129 mg/dL Borderline High Risk: 130-159 mg/dL High Risk: 160-189 mg/dL Very High Risk: >ty=943 mg/dL Cholesterol/HDL Ratio 2.6 ratio [facility] Lipid Interpretation See Note [facility] Comment: Lipid management should be guided by a patient? s ASCVD risk, goals and preferences. ACC/AHA Guidelines recommend high intensity statin if clinical ASCVD or LDL greater than or equal to 190 mg/dL. http://[employer].com/YRM-MUZ-Mnttkxhqp Adults aged 40-75 with LDL 70-189 mg/dL should have their 10 year ASCVD risk estimated with the ACC/AHA ASCVD risk breakfast cook http://tools.acc.org/GKMLU-Fuwp-Ctvdujvur/ Statin should be discussed if risk greater [...] In Lab Chinedu Abreu MD CHEMISTRY ORDERABLES [facility] [place] [address] documented in this encounter Visit Diagnoses Diagnosis Alopecia areata High risk medication use Encounter for long-term (current) use of other medications documented in this encounter Care Teams Prize Coordinator Relationship Specialty Start Date End Date Gabbie Sams MD [address] [place] [address] PCP - General Family Medicine 12/31/22 documented as of this encounter
--- OUTSIDE RECORDS SUMMARY | 2024-05-28 21:34 | XMS_ITS | Encounter Summary ---
[place] [address] Care Team Providers Care Lock Stitch Channeler Name Role Phone Gabbie Sams MD Primary Care Provider [phone] Reason for Referral * Consultation (Routine) - Closed Specialty Diagnoses / Procedures Referred By Balaji t Referred To Contact Neurosurgery Diagnoses Injury of left trigeminal nerve, sequela Injury of facial nerve, unspecified laterality, initial encounter Rosemary House MD [facility] [address] [place] [address] [facility] [address] [place] [id number] Referral ID Status Reason Start Date Expiration Date V isits Requested Visits Authorized [id number] Closed Consult, Test & Treat PCP Updated and/or Approved 12/23/2022 06/25/2023 6 6 Encounter Details Date Type Department Care Team (Late st Contact Info) Description 12/31/2022 Transcribe Orders eDH Incoming Referrals [phone] Rosemary House MD [facility] [address] [place] [address] Injury of left trigeminal nerve, [...] Visit (TeleHealth) Psychiatry [place] [address] Fermin Mercado MD [facility] [place] [address] Scheduled Referrals Name Type Priority Associated Diagnoses Orde r Schedule Referral to Neurosurgery Outpatient Referral Routine Injury of left trigeminal nerve, sequela Injury of facial nerve, unspecified laterality, initial encounter Ordered: 12/31/2022 documented as of this encounter Visit Diagnoses Diagnosis Injury of left trigeminal nerve, sequela Injury of facial nerve, unspecified laterality, initial encounter documented in this encounter Care Teams Lock Stitch Channeler Relationship Specialty Start Date End Date Gabbie Sams MD [address] [place] [address] PCP - General Family Medicine 12/31/22 documented as of this encounter
--- OUTSIDE RECORDS SUMMARY | 2024-05-28 21:34 | XMS_ITS | Encounter Summary ---
Author Organization [facility] Address [facility] [place] [address] Care Team Providers Care Breading Machine Tender Name Role Phone Gabbie Sams MD Primary Care Provider [phone] Reason for Visit * Reason Comments Medication Refill Encounter Details Date Type Department Care Team (Late st Contact Info) Description 03/04/2023 Refill Dermatology at [facility] [address] [place] [address] Chinedu Abreu MD [facility] DR [address]ESH [place] [address] Alopecia areata Social History Tobacco Use Types [...] Visit (TeleHealth) Psychiatry [place] [address] Fermin Mercado MD [facility] [place] [address] documented as of this encounter Visit Diagnoses Diagnosis Alopecia areata documented in this encounter Care Teams Breading Machine Tender Relationship Specialty Start Date End Date Gabbie Sams MD [address] [place] [address] PCP - General Family Medicine 12/31/22 documented as of this encounter
[2024-05-28 22:51] LABS: Calculated LDL 126 mg/dL (<100); Cholesterol 201 mg/dL (<200); HDL Cholesterol 61 mg/dL (40-60); Triglyceride 71 mg/dL (<150)
== END 2024-05-28 21:33 | disposition home or self-care (01) ==
LOC: NCHCN 21:32
PROVIDERS: PCP Family Medicine; Visit Provider Family Medicine
DX: Z79.899 Other long term (current) drug therapy (principal)
CPT/HCPCS: 80061